=== PATIENT | male | born 1950 | race African-American/Black ===

== ENCOUNTER 2020-01-08 17:17 | Emergency (ER) | payer OTHER, SELFPAY ==
--- NOTE | ~2020-01-08 | CT_ITS ---
EXAMINATION: CT abdomen pelvis wo con DATE: 01/08/2020 18:29 INDICATION: Hematuria TECHNIQUE: Computed tomography (CT) of the abdomen and pelvis was performed without intravenous contr ast. Automated exposure control and iterative reconstruction technique were employed. Exam dose: 653 .41 mGy-cm total exam DLP. COMPARISON: 10/29/[address] abdomen pelvis FINDINGS: Gynecomastia. Some pleural-based calcifications are noted in the posterior lower right thorax. No infiltrate or con solidation at the lung bases. Mild cardiomegaly. No pericardial or pleural effusion. There is borderline thickening of the gallbladder wall. No hepatic space-occupying mass lesion or antonio e duct dilatation is evident. Normal splenic size. No pancreatic mass lesion or calcification or ductal dilatation is evident. No apparent adrenal mass lesion. There is a small nonobstructing right renal calculus and approximately 4.5 mm nonobstructing right re nal calculus. There is moderate bilateral hydroureteronephrosis. There is mild to moderate perinephric stranding. U rinary bladder is distended, measuring almost 18 cm height, with thickening and edema of the wall. Th ere is mild gaseous accumulation within the bladder lumen which might be secondary to instrumentation or emphysematous cystitis. There is some fat stranding around the urinary bladder further suggesting possible infection. A Gambino catheter is inflated in the region of the prostate urethra; deflation an d advancement into the bladder lumen and reinflation is recommended.. The prostate is enlarged. There is extensive calcification of the abdominal aorta and iliac and femoral arteries. No abdominal aortic aneurysm. No intraperitoneal or retroperitoneal or pelvic mass lesion or adenopathy or ascites is noted otherwise. There is prominent collection of fecal material within the rectum, with rectal wall thickening, sugge sting stercoral proctitis. There is a prominent amount of fecal material throughout the colon. No bow el obstruction is evident. The appendiceal lumen measures up to approximately 8.5 mm diameter. No periappendiceal stranding or a ppendicolith or abscess. No suspicious osteolytic or osteoblastic lesions are noted. IMPRESSION: Prominent distention and wall thickening and edema of the urinary bladder, pericystic st randing, suggesting cystitis. There is a within the bladder lumen which may be secondary to instrumen tation or emphysematous cystitis. Prostatomegaly Gambino catheter is inflated within the prostatic urethra. Repositioning into the urinary bladder lumen is recommended. Moderately prominent bilateral hydroureteronephrosis, likely due to bladder outlet obstruction Bilateral nonobstructive nephrolithiasis Possible stercoral proctitis Dr. Wallace telephoned the report and findings including the prominent bladder distention, bladder wall thickening and edema and pericystic stranding, prominent bilateral hydroureteronephrosis and the Fole y catheter in the prostate urethra, as well as the recommendation for repositioning the Gambino cathete r into the urinary bladder lumen from the prostate urethra on 01/08/2020 at 1855 hours. Reviewed, dictated and finalized at [facility]. Reviewed, dictated and finalized at [facility]. AZZO ROLLER IMPRESSION: Prominent distention and wall thickening and edema of the urinary bladder, pericystic stranding, suggesting cystitis. There is a within the bladd er lumen which may be secondary to instrumentation or emphysematous cystitis. Prostatomegaly Gambino catheter is inflated within the prostatic urethra. Repositioning into the urinary bladder lumen is recommended. Moderately prominent bilateral hydroureteronephrosis,
[2020-01-08 17:17] VITALS: BP 144/113; PULSE 86; RESP 16; TEMP 36.9; O2SAT 100
--- NOTE | 2020-01-08 17:55 | ED_ITS ---
Baso % (Auto) Lymph # (Auto) Moody # (Auto) Eos # (Auto) Baso # (Auto) Abs Immat Gran (auto) Absolute Neuts (auto) Absolute Nucleated RBC Total Counted Neutrophils % (Manual) (46-73) % Band Neutrophils % (0-6) % Lymphocytes % (Manual) (18-44) % Monocytes % (Manual) (3-9) % Nucleated RBC % Abs Neuts (Manual) (1.3-6.7) K/mm3 Abs Lymphs (Manual) (1.1-4.5) K/mm3 Abs Monocytes (Manual) (0.1-0.90) K/mm3 Nucleated RBCs % Platelet Estimate (Adequate) Anisocytosis (NORMAL) Sodium 137 (137-145) mmol/L Potassium 4.6 (3.4-5.0) mmol/L Chloride 94 L (98-107) mmol/L Carbon Dioxide 27 (22-30) mmol/L BUN 21 H (9-20) mg/dL Creatinine 1.00 (0.7-1.3) mg/dL Estim Creat Clear Calc 58 ml/min Estimated GFR > 60 (59 - ) Glucose 323 H (75-110) mg/dL Calcium 9.1 (8.4-10.2) mg/dL Lipase (23-300) U/L Urine Color (Yellow) Urine Appearance (Clear) Urine pH (5.0-9.0) Ur Specific [place] (1.001-1.035) Urine Protein (Negative) mg/dL Urine Glucose (UA) (Negative) mg/dL Urine Ketones (Negative) mg/dL Ur Blood (Man) (Negative) Urine Nitrate (Negative) Urine Bilirubin (Negative) Urine Urobilinogen (<2.0) mg/dL Leukocyte Esterase Rfl (Negative) PAUL/UL Urine RBC (0-2) /hpf Urine WBC /hpf Urine Bacteria /hpf Urine Mucus /lpf <Cintia Ruano MD - Last Filed: 01/08/20 23:28> Imaging Data Radiologist's impression: ITS Impressions Abdomen/Pelvis CT 01/08/20 18:30 IMPRESSION: Prominent distention and wall thickening and edema of the urinary bladder, pericystic stranding, suggesting cystitis. There is a within the bladder lumen which may be secondary to instrumentation or emphysematous cystitis. Prostatomegaly Gambino catheter is inflated within the prostatic urethra. Repositioning into the urinary bladder lumen is recommended. Moderately prominent bilateral hydroureteronephrosis, likely due to bladder outlet obstruction Bilateral nonobstructive nephrolithiasis Possible stercoral proctitis Dr. Wallace telephoned the report and findings including the prominent bladder distention, bladder wall thickening and edema and pericystic stranding, prominent bilateral hydroureteronephrosis and the Gambino catheter in the prostate urethra, as well as the recommendation for repositioning the Gambino catheter into the urinary bladder lumen from the prostate urethra on 01/08/2020 at 1855 hours. <Romaine Srinivasan PA-C - Last Filed: 01/08/20 19:32> ITS Impressions Abdomen/Pelvis CT 01/08/20 18:30 IMPRESSION: Prominent distention and wall thickening and edema of the urinary bladder, pericystic stranding, suggesting cystitis. There is a within the bladder lumen which may be secondary to instrumentation or emphysematous cy stitis. Prostatomegaly Gambino catheter is inflated within the prostatic urethra. Repositioning into the urinary bladder lumen is recommended. Moderately prominent bilateral hydroureteronephrosis, likely due to bladder outlet obstruction Bilateral nonobstructive nephrolithiasis Possible stercoral proctitis Dr. Wallace t
--- NOTE | 2020-01-08 17:55 | ED.ABDPAIN ---
HPI - Abdominal Pain General Chief Complaint: Urogenital-Male <Romaine Srinivasan PA-C - Last Filed: 01/08/20 19:32> Stated Complaint: Blood in urine <Romaine Srinivasan PA-C - Last Filed: 01/08/20 19:32> Time Seen by Provider: 01/08/20 17:45 <Romaine Srinivasan PA-C - Last Filed: 01/08/20 19:32> Source: patient, EMS and old records reviewed <Romaine Srinivasan PA-C - Last Filed: 01/08/20 19:32> Mode of arrival: EMS <YEISON Oneil Last Filed: 01/08/20 19:32> Limitations: dementia <YEISON Oneil Last Filed: 01/08/20 19:32> History of Present Illness HPI narrative: Patient is a 69-year-old male who presents to emergency department for evaluation of possible hematuria sent from nursing rehab patient on arrival is in the room patient is demented with history of Parkinson's disorder resting in the bed in no distress denying any pain patient is a limited historian due to dementia but is able to answer yes and no to questions. Patient denies any chest pain shortness of breath abdominal pain pelvic pain or back pain. Patient has longstanding urologic history and has had similar occurrences in the past. <Romaine Srinivasan PA-C - Last Filed: 01/08/20 19:32> Related Data Home Medications: Home Medications Medication Instructions Recorded Confirmed acetaminophen 650 mg PO Q6H PRN 10/21/19 10/29/19 amantadine HCl 100 mg PO QPM 10/21/19 10/29/19 aspirin 81 mg PO DAILY 10/21/19 10/29/19 atorvastatin 80 mg PO HS 10/21/19 10/29/19 calcium carbonate [Oyster Shell 500 mg PO DAILY 10/21/19 10/29/19 Calcium] carbidopa-levodopa 1 tablet PO TID 10/21/19 10/29/19 cholecalciferol (vitamin D3) 1,000 unit PO DAILY 10/21/19 10/29/19 digoxin [Digox] 125 mcg PO DAILY 10/21/19 10/29/19 docusate sodium [Colace] 100 mg PO DAILY 10/21/19 10/29/19 donepezil 10 mg PO DAILY 10/21/19 10/29/19 finasteride 5 mg PO DAILY 10/21/19 10/29/19 fluoxetine 10 mg PO DAILY 10/21/19 10/29/19 furosemide 20 mg PO DAILY 10/21/19 10/29/19 metformin 500 mg PO BID 10/21/19 10/29/19 metoprolol succinate 25 mg PO BID 10/21/19 10/29/19 ondansetron 4 mg PO Q8H PRN 10/21/19 10/29/19 polyethylene glycol 3350 [Miralax] 17 g PO DAILY PRN 10/21/19 10/29/19 tamsulosin 0.4 mg PO BID 10/21/19 10/29/19 <Romaine Srinivasan PA-C - Last Filed: 01/08/20 19:32> Allergies/Adverse Reactions: Allergies Allergy/AdvReac Type Severity Reaction Status Date / Time No Known Allergies Allergy Verified 10/21/19 10:57 <Romaine Srinivasan PA-C - Last Filed: 01/08/20 19:32> Review of Systems Review of Systems: Narrative: Limited due to clinical condition <Romaine Srinivasan PA-C - Last Filed: 01/08/20 19:32> [facility] Past Medical History Medical History: Medical History Atrial fibrillation Benign prostatic hyperplasia Congestive heart failure Coronary artery disease CVA (cerebral vascular accident) Dementia Depression with anxiety Dyslipidemia Gambino catheter in place History of DVT (deep vein thrombosis) Hypertension Obstructive sleep apnea Parkinson disease Type 2 diabetes mellitus Complicated by diabetic retinopathy. He is blind in his left eye. Vitamin D deficiency <Romaine Srinivasan PA-C - Last Filed: 01/08/20 19:32> Surgical History Surgical History: Surgical History History of cystoscopy <Romaine Srinivasan PA-C - Last Filed: 01/08/20 19:32> Social History Social History: Social History Social History: The patient lives at [facility]. He grew up in [place]. He is retired from working for the post office. His was in the [employer] as a young man. His son in [place], Pete Pantoja, is his emergency contact and he is listed as a full code. His primary care provider is Dr. Diaz Shanks. He denies alcohol, toba
[2020-01-08 17:57] LABS: Hematocrit 36.9 % (42.0-52.0); Hemoglobin 11.8 g/dL (14.0-18.0); Mean Corpuscular Hemoglobin 30.3 pg (26-34); Mean Corpuscular Volume 94.6 fl (80-100); Platelet Count Result 287 k/mm3 (150-375); Red Cell Distribution Width 14.7 % (11.5-14.5); White Blood Count 11.7 K/mm3 (4.5-10.0)
[2020-01-08 18:04] LABS: Add Urine Microscopic? YES; Appearance Urine Turbid (Clear); Bacteria Urine 3+ /hpf; Bilirubin Urine Negative (Negative); Blood Urine 3+ (Negative); Color Urine Yellow (Yellow); Glucose Urine UA 2+ mg/dL (Negative); Ketones Urine Negative (Negative); Leukocyte Esterase Ur 2+ LEU/UL (Negative); Mucus Urine Rare /lpf; Nitrate Urine Negative (Negative); Protein Urine 2+ mg/dL (Negative); RBC Urine >75 /hpf (0-2); Specific Grav Ur 1.015 (1.001-1.035); Urobilinogen Urine Negative mg/dL (<2.0); WBC Urine >75 /hpf
[2020-01-08 18:08] VITALS: BP 155/57; PULSE 92; RESP 31; O2SAT 98
--- NOTE | 2020-01-08 18:09 | PC.NURSE ---
Green top being redrawn at this time.
[2020-01-08 18:31] LABS: Band Neutrophils Percent 7 % (0-6); Lymphocytes Absolute Manual 0.46 K/mm3 (1.1-4.5); Monocytes Absolute Manual 0.23 K/mm3 (0.1-0.90); Monocytes Percent Manual 2 % (3-9); Neutrophils Absolute Manual 10.99 K/mm3 (1.3-6.7); Neutrophils Percent Manual 87 % (46-73); Nucleated Red Blood Cells 1 %; Total Cells Counted 100
[2020-01-08 18:32] LABS: Anisocytosis 1+ (NORMAL); Platelet Estimate Adequate (Adequate)
[2020-01-08] MEDS: SODIUM CHLORIDE 0.9% IV 500 ML 999 ML IV CONT (18:32)
[2020-01-08 19:16] VITALS: BP 113/51; PULSE 75; RESP 18; O2SAT 99
[2020-01-08 19:24] LABS: Carbon Dioxide 27 mmol/L (22-30); Chloride 94 mmol/L (98-107); Potassium 4.6 mmol/L (3.4-5.0); Sodium 137 mmol/L (137-145)
[2020-01-08 19:25] LABS: Blood Urea Nitrogen 21 mg/dL (9-20); Calcium 9.1 mg/dL (8.4-10.2); Estimated CRCL calculation 58 ml/min; Estimated Glomerular Filt Rate > 60; Glucose 323 mg/dL (75-110)
[2020-01-08] MEDS: SODIUM CHLORIDE 0.9% IV 1,000 ML 999 ML IV CONT (19:35)
[2020-01-08 19:36] LABS: Lipase 35 U/L (23-300)
--- NOTE | 2020-01-08 19:53 | PC.NURSE ---
PER ED PA, CRANE CATHETER BALLOON WAS DEFLATED DUE TO POOR URINE OUTPUT. AFTER DEFLATING BALLOON, CRANE CATHETER WAS ADVANCED AND BALLOON REINFLATED ONCE URINE OUTPUT RESUMED. 1,000ML DARK BROWN AND BLOOD TINGED URINE OUTPUT INITIALLY, CATHETER TUBE WAS THEN CLAMPED FOR 20 MINUTES. UPON UNCLAMPING, PT VOIDED 500ML DARK BROWN AND BLOOD TINGED URINE.
--- NOTE | 2020-01-08 21:02 | PC.NURSE ---
Called [facility] to transport patient back to facility.... [id number]. #[id number]
[2020-01-08 21:10] VITALS: BP 137/72; PULSE 73; RESP 15; O2SAT 100
--- NOTE | 2020-01-08 21:14 | PC.NURSE ---
Report called and given to RN Gricelda, she states she is not his nurse but willing to take report due to the nurse assigned to this Pt is busy down the ewing.
[2020-01-08 22:22] VITALS: BP 146/60; PULSE 70; RESP 16; O2SAT 100
== END 2020-01-08 22:45 ==
PROVIDERS: Emergency Medicine Emergency Medical Services; Family Medicine; Emergency Provider General Practice
DX: N39.0 Urinary tract infection, site not specified (principal); T83.028A Displacement of other urinary catheter, initial encounter; I48.91 Unspecified atrial fibrillation; N40.0 Benign prostatic hyperplasia without lower urinary tract symptoms; I50.9 Heart failure, unspecified; I25.10 Atherosclerotic heart disease of native coronary artery without angina pectoris; Z86.73 Personal history of transient ischemic attack (TIA), and cerebral infarction without residual deficits; F03.90 Unspecified dementia, unspecified severity, without behavioral disturbance, psychotic disturbance, mood disturbance, and anxiety; F41.8 Other specified anxiety disorders; E78.5 Hyperlipidemia, unspecified; Z86.718 Personal history of other venous thrombosis and embolism; I11.0 Hypertensive heart disease with heart failure; G47.33 Obstructive sleep apnea (adult) (pediatric); G20 Parkinson's disease; E11.319 Type 2 diabetes mellitus with unspecified diabetic retinopathy without macular edema; Z79.84 Long term (current) use of oral hypoglycemic drugs; Z79.82 Long term (current) use of aspirin; E55.9 Vitamin D deficiency, unspecified; N13.30 Unspecified hydronephrosis; N20.0 Calculus of kidney
CPT/HCPCS: 36415; 74176; 80048; 81001; 83690; 85025; 87077; 87086; 87088; 87186; 96361; 96365; 99284; J0696; J7030; J7040

== ENCOUNTER 2020-03-10 18:36 | Inpatient (IN) | payer MEDICARE, SELFPAY ==
[2020-03-10] VITALS (11 sets, daily range): BP systolic 73–105; BP diastolic 43–61; PULSE 87–99; RESP 16–20; TEMP 36.9; O2SAT 18–100
--- NOTE | ~2020-03-10 | XR_ITS ---
EXAMINATION: XR chest 1V portable DATE: 03/10/2020 19:41 INDICATION: Sepsis TECHNIQUE: frontal view of the chest was obtained. COMPARISON: Chest radiograph dated 10/29/2019 FINDINGS: Age is rotated towards the left. No focal airspace opacities, pulmonary edema, pleural effusion or pn eumothorax. The cardiomediastinal silhouette is normal. 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 IMPRESSION: 1. No acute cardiopulmonary disease. Reviewed, dictated and finalized at location [facility].
--- NOTE | ~2020-03-10 | XR_ITS ---
EXAMINATION: XR chest 1V portable INDICATION: Shortness of breath TECHNIQUE: Portable AP chest at 0806 hours COMPARISON: 03/10/2020 FINDINGS: The left subclavian central venous catheter has been removed. There is a small right pleura l effusion. No pneumothorax is identified. There are minimal airspace opacities of the right lung bas e. The heart size is upper limits of normal for technique. There is moderate osteoarthritis of the sh oulders. A small amount of soft tissue gas is seen in the right neck. There is a partially imaged kayy tral venous catheter of the left upper arm. IMPRESSION: 1. Minimal right basilar airspace opacity, consistent with atelectasis versus pneumonia. 2. Small right pleural effusion. 3. Soft tissue gas of the right neck. Correlate for any right neck intervention. Reviewed, dictated and finalized at location A. IMPRESSION: 1. Minimal right basilar airspace opacity, consistent with atelectasis versus p neumonia. 2. Small right pleural effusion. 3. Soft tissue gas of the right neck. Correlate for any right neck intervention .
--- NOTE | ~2020-03-10 | XR_ITS ---
XR chest port-a-cath/central DATE: 03/10/2020 22:32 INDICATION: Central line placement TECHNIQUE: Portable AP chest on 03/10/2020 at 2231 hours COMPARISON: 03/10/2020 portable AP chest views at 7570-2596 hours FINDINGS: There is interval removal of a prior right subclavian central venous catheter and placement of left subclavian catheter, the distal tip overlying the left subclavian vein. No pneumothorax is e vident. No pleural effusion or pulmonary vascular congestion is evident. Heart size is not optimally evaluate d on AP projection because of magnification, also because of rotation. There is aortic arch calcifica tion. Generalized increased density of the right lung compared to the left lung may be related to the rotat ion. No apparent pulmonary consolidation. Osteoarthritic changes at the glenohumeral joints and bilateral rotator cuff atrophy. IMPRESSION: Removal of right subclavian central venous catheter and placement of a left subclavian ce ntral venous catheter, tip overlying the left subclavian vein; no pneumothorax detected Reviewed, dictated and finalized at Location [facility]. Reviewed, dictated and finalized at location A. IMPRESSION: Removal of right subclavian central venous catheter and placement o f a left subclavian central venous catheter, tip overlying the left subclavian vein; no pneumothorax detected
--- NOTE | ~2020-03-10 | XR_ITS ---
EXAMINATION: XR chest port-a-cath/central DATE: 03/10/2020 21:08 INDICATION: Central line placement TECHNIQUE: frontal view of the chest was obtained. COMPARISON: Chest radiograph dated 03/10/2020 at 7:40 PM FINDINGS: Right subclavian catheter which extends beyond the cephalad margin of the clavicle and across the mid line and projecting over the ascending aorta, likely arterial. Lungs remain clear with no focal airsp thanh opacities, pulmonary edema, pleural effusion or pneumothorax. Heart size is normal. Atherosclerot ic aorta. 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 IMPRESSION: 1. Left subclavian catheter likely arterial with distal tip in the ascending thoracic aorta. Recommen d ABG drawn from the catheter for confirmation. Reviewed, dictated and finalized at location A. IMPRESSION: 1. Left subclavian catheter likely arterial with distal tip in the ascending th oracic aorta. Recommend ABG drawn from the catheter for confirmation.
[2020-03-10 19:13] LABS: Basophils Percent Auto 0.2 % (0.2-1.2); Hematocrit 30.9 % (42.0-52.0); Immature Granulocyte Absolute 0.09 K/mm3 (0.00-0.031); Immature Granulocyte Percent A 0.7 % (0-0.5); Lymphocytes Absolute Auto 0.32 K/mm3 (0.9-3.2); Lymphocytes Percent Auto 2.5 % (18.3-44.2); Mean Corpuscular HGB Conc 32.4 g/dl (32-36); Mean Corpuscular Hemoglobin 30.7 pg (26-34); Mean Corpuscular Volume 94.8 fl (80-100); Mean Platelet Volume 11.8 fl (7.4-10.4); Monocytes Absolute Auto 0.8 K/mm3 (0.1-0.6); Monocytes Percent Auto 6.3 % (2.6-8.5); Neutrophils Absolute Auto 11.8 K/mm3 (1.3-6.7); Neutrophils Percent Auto 90.3 % (45.5-73.1); Nucleated Red Blood Cells Perc 0.2 % (0.0-0.2); Platelet Count Result 166 k/mm3 (150-375); Red Blood Count 3.26 M/mm3 (4.6-6.20); Red Cell Distribution Width 14.7 % (11.5-14.5)
--- NOTE | 2020-03-10 19:13 | ECG_ITS ---
Measurements Intervals [place] Rate: 112 P: DC: 0 QRS: -39 QRSD: 97 T: 0 QT: 323 QTc: 443 Interpretive Statements JUNCTIONAL OR ECTOPIC ATRIAL TACHYCARDIA FREQUENT VENTRICULAR PREMATURE COMPLEXES LEFT AXIS DEVIATION CANNOT RULE OUT SEPTAL INFARCT, AGE INDETERMINATE BORDERLINE T WAVE ABNORMALITY- INF/LAT LEADS BASELINE WANDER- V4-V6 ABNORMAL ECG Electronically Signed On 03-11-2020 7:25:48 CDT by Randall Leyva D.O.
--- NOTE | 2020-03-10 19:21 | ED.FEVER ---
HPI - Fever General Chief Complaint: Urogenital-Male Stated Complaint: blood in velazquez Time Seen by Provider: 03/10/20 19:13 History of Present Illness HPI Narrative: Patient presents via EMS from the residential for fever and dark-colored urine. His Velazquez catheter was replaced today and apparently there was a lot of blood after the procedure and then the urine looked cloudy. Here he does not speak but he does not his head. He denies any pain and says yes he is hungry would like some dinner. MD elicited complaint: fever Onset (ago): hour(s) Related Data Home Medications Medication Instructions Recorded Confirmed acetaminophen 650 mg PO Q6H PRN 10/21/19 10/29/19 amantadine HCl 100 mg PO QPM 10/21/19 10/29/19 aspirin 81 mg PO DAILY 10/21/19 10/29/19 atorvastatin 80 mg PO HS 10/21/19 10/29/19 calcium carbonate [Oyster Shell 500 mg PO DAILY 10/21/19 10/29/19 Calcium] carbidopa-levodopa 1 tablet PO TID 10/21/19 10/29/19 cholecalciferol (vitamin D3) 1,000 unit PO DAILY 10/21/19 10/29/19 digoxin [Digox] 125 mcg PO DAILY 10/21/19 10/29/19 docusate sodium [Colace] 100 mg PO DAILY 10/21/19 10/29/19 donepezil 10 mg PO DAILY 10/21/19 10/29/19 finasteride 5 mg PO DAILY 10/21/19 10/29/19 fluoxetine 10 mg PO DAILY 10/21/19 10/29/19 furosemide 20 mg PO DAILY 10/21/19 10/29/19 ondansetron 4 mg PO Q8H PRN 10/21/19 10/29/19 polyethylene glycol 3350 [Miralax] 17 g PO DAILY PRN 10/21/19 10/29/19 tamsulosin 0.4 mg PO BID 10/21/19 10/29/19 metoprolol succinate 50 mg PO DAILY 03/10/20 promethazine 25 mg IA Q6H PRN 03/10/20 Allergies Allergy/AdvReac Type Severity Reaction Status Date / Time No Known Allergies Allergy Verified 03/10/20 18:49 Review of Systems Review of Systems: Narrative: Unable to obtain accurate review of systems since the patient is not speaking. [facility] Past Medical History Medical History Atrial fibrillation Benign prostatic hyperplasia Congestive heart failure Coronary artery disease CVA (cerebral vascular accident) Dementia Depression with anxiety Dyslipidemia Velazquez catheter in place History of DVT (deep vein thrombosis) Hypertension Obstructive sleep apnea Parkinson disease Type 2 diabetes mellitus Complicated by diabetic retinopathy. He is blind in his left eye. Vitamin D deficiency Surgical History Surgical History History of cystoscopy Social History Social History Social History: The patient lives at [facility]. He grew up in [place]. He is retired from working for the post office. His was in the [employer] as a young man. His son in [place], Pete Pantoja, is his emergency contact and he is listed as a full code. His primary care provider is Dr. Diaz Shanks. He denies alcohol, tobacco, and drug use. Smoking status: Unknown if ever smoked Alcohol intake: never Substance use: never Substance use type: does not use Gender identity (if verbalized by the patient): Male Spiritual care concerns: No Agree to blood products: Yes Exam Narrative: Exam Narrative: GENERAL: Thin and cachectic, with left gaze preference, and in no acute distress. HEAD: Normocephalic, atraumatic. EYES: PERRLA and EOMI. ENT: Nares clear, no rhinorrhea or epistaxis. Mucous membranes moist. NECK: Supple. CHEST: Clear to auscultation. No respiratory distress. HEART: Regular rate and rhythm. No murmur heard. Normal peripheral pulses. ABDOMEN: Soft, nontender, nondistended, normal active bowel sounds. EXTREMITIES: Flexion contractures throughout, with slight peripheral edema. SKIN: Warm, dry, no rash. NEURO: No focal deficits. Alert. PSYCH: Normal mood and affect. Course Reevaluation(s) Reevaluation #1: The right subclavian IV turned out to be in the thoracic aorta. I cut the suture and pulled the line the nurses applying pressure
[2020-03-10 19:24] LABS: Alanine Aminotransferase 10 U/L (4-50); Albumin Level 2.8 g/dL (3.5-5.1); Alkaline Phosphatase 104 U/L (38-126); Aspartate Amino Transferase 18 U/L (17-59); Bilirubin,Total 0.6 mg/dL (0.2-1.3); Blood Urea Nitrogen 56 mg/dL (9-20); Calcium 7.8 mg/dL (8.4-10.2); Carbon Dioxide 25 mmol/L (22-30); Chloride 99 mmol/L (98-107); Estimated Glomerular Filt Rate 40; Glucose 435 mg/dL (75-110); Sodium 132 mmol/L (137-145)
[2020-03-10] MEDS: SODIUM CHLORIDE 0.9% IV 1,000 ML 999 ML (19:24)
[2020-03-10] MEDS: SODIUM CHLORIDE 0.9% IV 500 ML 999 ML (19:24)
--- NOTE | 2020-03-10 19:25 | PC.NURSE ---
Patient received 1000ml of NS from EMS.
[2020-03-10 19:42] LABS: Add Urine Microscopic? YES; Appearance Urine Turbid (Clear); Bacteria Urine 4+ /hpf; Bilirubin Urine Negative (Negative); Blood Urine 3+ (Negative); Color Urine Yellow (Yellow); Glucose Urine UA 3+ mg/dL (Negative); Ketones Urine Trace mg/dL (Negative); Leukocyte Esterase Ur 1+ LEU/UL (Negative); Nitrate Urine Negative (Negative); Protein Urine 3+ mg/dL (Negative); RBC Urine >75 /hpf (0-2); Specific Grav Ur 1.014 (1.001-1.035); Urobilinogen Urine Negative mg/dL (<2.0); WBC Clumps Urine Present /HPF; WBC Urine >75 /hpf
[2020-03-10] MEDS: INSULIN HUMAN REGULAR (*BKC) 100 UNITS/ML 8 UNITS IV PUSH (19:45)
--- NOTE | 2020-03-10 21:02 | PC.NURSE ---
2004- Dr Arcos at bedside, patient's pressure remains low despite fluid admin. 2012- Central line attempt started. 2029- Cental line pulled out by Dr Arcos due to no blood return. 2034- Attempt 2 started. 2054- Central line placed, dressing intact. 2099- Xray at bedside.
--- NOTE | 2020-03-10 21:06 | PC.NURSE ---
Attempted to call both of patient's POA's listed on his papers. No answer.
[2020-03-10] MEDS: SODIUM CHLORIDE 0.9% IV 1,000 ML 999 ML IV CONT (21:22)
[2020-03-10] MEDS: levoFLOXacin 500 MG/D5W 100 ML 500 MG/100 ML BAG 100 MG IVPB (21:22)
--- NOTE | 2020-03-10 22:28 | PC.NURSE ---
2149- Dr Arcos removed right central line due to incorrect placement. This RN held pressure onsite for 30 minutes. 2149- Dr Gasca at bedside to attempt central line. 2224- Patient tolerated central line placement well.
--- NOTE | 2020-03-10 22:38 | PC.NURSE ---
Patient repositioned and linens changed. Patient noted to have redness to left hip, patient rolls to left due to being contracted. Pillows placed under left hip and shoulder. Patient denies any current complaints.
--- NOTE | 2020-03-10 23:08 | PM.IMHP ---
H&P: HPI History of Present Illness Chief complaint: Fever today with blood in Gambino catheter Narrative: Date and time of patient contact: 03/10/2020 at 9:45 p.m. Jonny Pantoja is a 69 year old male with past medical history of CVA, Parkinson's disease, expressive aphasia, dementia, and chronic indwelling Gambino catheter who presented to the ER from [facility] facility due to blood in his Gambino catheter. Source of information is ER records and past medical records. Patient is unable to provide history due to expressive aphasia and dementia. The patient's Gambino catheter had been placed earlier in the day and there is a lot of blood in the catheter after the procedure. The patient's urine looked cloudy. When the patient arrived to the ER the patient's urine actually looked brown in color and markedly cloudy with the appearance of chocolate milk. Patient's catheter was draining well. Elevated to 99.4. Patient was hypotensive on presentation to the ER. He received 2 L of normal saline. After 2 L of normal saline the patient's blood pressures were still in the 70s. The ER physician tried to place an IJ line without success. ER provider placed a subclavian line but it appeared to be in the artery and was removed. I was called to admit the patient. The ER physician was giving the patient 1/3 L of fluid and when I arrived at the bedside the patient's systolic blood pressure was still 94. Subsequently I placed a left subclavian line. Patient was in Trendelenburg throughout the procedure and his blood pressures did improve with this positioning. The patient received greater than 35 mL/kilos and fluids. The patient is able to shake his head yes and no to questions but sometimes as answers do not seem to correlate with the question. He will randomly yell out help me. He will follow simple commands. Review of Systems Review of Systems: ROS unobtainable: Yes unobtainable due to medical condition and unobtainable due to mental status [facility] Past Medical History Medical History Atrial fibrillation Benign prostatic hyperplasia Congestive heart failure Coronary artery disease CVA (cerebral vascular accident) Dementia Depression with anxiety Dyslipidemia Gambino catheter in place History of DVT (deep vein thrombosis) Hypertension Obstructive sleep apnea Parkinson disease Type 2 diabetes mellitus Complicated by diabetic retinopathy. He is blind in his left eye. Vitamin D deficiency Surgical History Surgical History History of cystoscopy Family History Family History Other Unknown family medical history Social History Social History Social History: The patient lives at [facility]. He grew up in [place]. He is retired from working for the post office. His was in the [employer] as a young man. His son in [place], Pete Pantoja, is his emergency contact and he is listed as a full code. His primary care provider is Dr. Diaz Shanks. He denies alcohol, tobacco, and drug use. Smoking status: Never smoker Alcohol intake: never Substance use: never Substance use type: does not use Gender identity (if verbalized by the patient): Male Spiritual care concerns: No Agree to blood products: Yes Meds Home Medications and Allergies Home Medications Medication Instructions Recorded Confirmed Type acetaminophen 650 mg PO Q6H PRN 10/21/19 03/11/20 History amantadine HCl 100 mg PO QPM 10/21/19 03/11/20 History aspirin 81 mg PO DAILY 10/21/19 03/11/20 History atorvastatin 80 mg PO HS 10/21/19 03/11/20 History calcium carbonate [Oyster Shell 500 mg PO DAILY 10/21/19 03/11/20 History Calcium] carbidopa-levodopa 1 tablet PO TID 10/21/19 03/11/20 History cholecalciferol (vitamin D
--- NOTE | 2020-03-10 23:10 | WPDPROCEDUR ---
Procedures Central Line Placement: Left SC: Discussed w/ patient and/or surrogate, the non-emergent placement of a central venous catheter, including its clinical necessity/indication & associated potential risks & complications.: Yes The patient and/or surrogate understand(s) and acknowledge(s) the need to proceed with central venous catheter insertion as an important element of the patient's clinical management.: Yes Emergently Placed - (Given emergent patient conditions, temporal constraints may not have permitted and aforementioned informed consent.): No Central Line Date: 03/10/20 Central Line Time: 21:55 Pre-procedural Time-Out was completed immediately before starting the procedure and confirmed: Patient Identification, Site, Procedure, Patient Position and the Availability of Requisite Equipment.: Yes Patient Position: trendelenburg Patient placed on monitor/pulse ox: Yes Provider Prep: mask, sterile gown, sterile gloves, Max. sterile barrier precautions, cap and hand hygiene Central line prep: Chlorhexidine scrub Local anesthesia used: lidocaine 1% Amount of anesthesia used (ml): 10 Ultrasound used for placement: No Central line lumen inserted: triple Divehi: 7 Length (cm): 15 Depth of Insertion (cm): 12 Post procedure: sutured in place, good blood return, all ports aspirated, flushed, capped, tegaderm, antimicrobial disc and aseptic technique maintained throughout procedure Post procedure x-ray: tip of catheter in good position Patient tolerated procedure: well Complications: none Additional comments: Triple-lumen central line was placed under sterile conditions using standard technique with landmark identification. There was immediate return of venous blood return on 1st attempt. Initially the blue port did not aspirate with the line inserted at 13 cm. The line was pulled back to 12 cm with all ports drawing and flushing easily. The patient's chest was dressed with a antibacterial disc and Tegaderm. The line was sutured in 2 different locations for security. Chest x-ray was personally reviewed with no evidence of pneumothorax with line in appropriate position. Line is okay to use. Radiologic interpretation pending.
[2020-03-10 23:44] LABS: Glucose Point of Care 334 (65-105)
[2020-03-11] VITALS (12 sets, daily range): BP systolic 96–123; BP diastolic 56–77; PULSE 50–87; RESP 11–20; TEMP 36.3–37.4; O2SAT 97–100; BMI 23.7
[2020-03-11] MEDS: SODIUM CHLORIDE 0.9% IV 1,000 ML 125 ML IV CONT (00:23)
--- NOTE | 2020-03-11 00:51 | ADMGEN ---
This patient, Jonny Pantoja, was admitted to Intensive Care Unit-12. Patient/family oriented to hospital policies and general routines including ID bracelet, bed and alarms, visiting hours, pain management, procedures, bathroom and other care routines, personal items, smoking policy, room service/diet, and visiting hours. Valuables list has been completed. Information on how to activate the Rapid Response Team has been discussed. Patient/Family are encouraged to report perceived risks to care and to ask questions if they do not understand what they are told or what they should do.
--- NOTE | 2020-03-11 01:06 | ECG_ITS ---
Measurements Intervals [place] Rate: 74 P: NE: 0 QRS: 99 QRSD: 154 T: -79 QT: 453 QTc: 503 Interpretive Statements SINUS RHYTHM ATRIAL PREMATURE COMPLEX, VENTRICULAR COUPLET AND FREQUENT VENTRICULAR PREMATURE COMPLEXES RIGHT AXIS DEVIATION INTRAVENTRICULAR CONDUCTION DELAY CANNOT RULE OUT SEPTAL INFARCT, AGE INDETERMINATE ST-T WAVE ABNORMALITY IN INFERIOR LEADS- CONSIDER ISCHEMIA ABNORMAL ECG Electronically Signed On 03-11-2020 7:19:00 CDT by Randall Leyva D.O.
[2020-03-11 04:28] LABS: Basophils Percent Auto 0.2 % (0.2-1.2); Hematocrit 26.4 % (42.0-52.0); Hemoglobin 8.5 g/dL (14.0-18.0); Immature Granulocyte Absolute 0.09 K/mm3 (0.00-0.031); Immature Granulocyte Percent A 0.8 % (0-0.5); Lymphocytes Absolute Auto 0.68 K/mm3 (0.9-3.2); Lymphocytes Percent Auto 6.1 % (18.3-44.2); Mean Corpuscular HGB Conc 32.2 g/dl (32-36); Mean Corpuscular Hemoglobin 30.2 pg (26-34); Mean Platelet Volume 11.8 fl (7.4-10.4); Monocytes Absolute Auto 0.8 K/mm3 (0.1-0.6); Monocytes Percent Auto 7.3 % (2.6-8.5); Neutrophils Absolute Auto 9.6 K/mm3 (1.3-6.7); Neutrophils Percent Auto 85.6 % (45.5-73.1); Platelet Count Result 140 k/mm3 (150-375); Red Blood Count 2.81 M/mm3 (4.6-6.20); Red Cell Distribution Width 14.6 % (11.5-14.5); White Blood Count 11.2 K/mm3 (4.5-10.0)
[2020-03-11 04:48] LABS: Lactic Acid Reflex 1.3 mmol/L (0.7-2.1)
[2020-03-11 04:49] LABS: Alanine Aminotransferase 11 U/L (4-50); Albumin Level 2.5 g/dL (3.5-5.1); Alkaline Phosphatase 69 U/L (38-126); Aspartate Amino Transferase 24 U/L (17-59); Bilirubin,Total 0.3 mg/dL (0.2-1.3); Blood Urea Nitrogen 49 mg/dL (9-20); Calcium 7.5 mg/dL (8.4-10.2); Carbon Dioxide 27 mmol/L (22-30); Chloride 104 mmol/L (98-107); Estimated Glomerular Filt Rate 49; Glucose 285 mg/dL (75-110); Magnesium 1.9 mg/dL (1.6-2.3); Sodium 135 mmol/L (137-145)
[2020-03-11 05:17] LABS: Potassium 3.8 mmol/L (3.4-5.0)
[2020-03-11] MEDS: CALCIUM CARBONATE (OSCAL) 500 MG TABLET PO (08:50)
[2020-03-11] MEDS: ASPIRIN 81 MG CHEWABLE TABLET PO (08:50)
[2020-03-11] MEDS: DIGOXIN TAB 125 MCG TABLET PO (08:50)
[2020-03-11] MEDS: CARBIDOPA/LEVODOPA 10/100 MG TABLET 1 TABLET PO ×3 (08:50→17:13)
[2020-03-11] MEDS: CHOLECALCIFEROL 1,000 UNIT TABLET 1000 UNITS PO (08:50)
[2020-03-11] MEDS: FLUOXETINE HCL 10 MG CAPSULE PO (08:51)
[2020-03-11] MEDS: FINASTERIDE 5 MG TABLET PO (08:51)
[2020-03-11] MEDS: INSULIN ASPART (*BKC) 100 UNITS/ML SUB-Q ×2 (08:51→16:28)
[2020-03-11] MEDS: DOCUSATE SODIUM 100 MG CAPSULE PO (08:51)
[2020-03-11 09:02] LABS: Glucose Point of Care 240 (65-105)
[2020-03-11] MEDS: SODIUM CHLORIDE 0.9% IV 1,000 ML 50 ML IV CONT (11:09)
[2020-03-11 12:28] LABS: Glucose Point of Care 174 (65-105)
--- NOTE | 2020-03-11 14:30 | PC.NURSE ---
This patient, Jonny Pantoja, was transferred to [[id number]] on 03/11/20 at 1430. Personal belongings sent with patient. Belongings list checked and signed with receiving [ ]. Report given to [Augusta BRISCOE]. Appropriate documentation sent with patient.
--- NOTE | 2020-03-11 14:32 | WPDCNINT ---
Assessment and Plan Assessment and plan (1) Severe sepsis: Code(s): A41.9 - Sepsis, unspecified organism; R65.20 - Severe sepsis without septic shock Status: Acute Assessment and Plan: patient presented with hematuria in the Gambino catheter, UA reflecting UTI - patient was initially hypotensive in the ED, received 2 L of IV fluid bolus, central line was inserted. Patient was maintenance IV fluids. Also taking p.o. intake of fluids and solids. - did not require Vasopressors - patient's hemodynamics improved - continue ceftriaxone - blood and urine cultures obtained, pending results (2) Acute renal injury: Code(s): N17.9 - Acute kidney failure, unspecified Status: Acute Assessment and Plan: acute kidney injury most likely related to UTI, severe sepsis, hypotension. Also patient has a history of essential hypertension and diabetes could have been contributing to renal injury. - Patient adequately fluid-resuscitated, creatinine trending down, urine output has been adequate - will continue to monitor urine output, electrolytes and renal function (3) Type 2 diabetes mellitus with hyperglycemia: Qualifiers: Diabetes mellitus group home insulin use: with group home use Qualified Code(s): E11.65 - Type 2 diabetes mellitus with hyperglycemia; Z79.4 - senior living (current) use of insulin Code(s): E11.65 - Type 2 diabetes mellitus with hyperglycemia Status: Acute Assessment and Plan: continue Accu-Cheks and sliding scale insulin (4) UTI (urinary tract infection) due to urinary indwelling Gambino catheter: Qualifiers: Indwelling urinary catheter type: indwelling urethral catheter Encounter type: initial encounter Qualified Code(s): T83.511A - Infection and inflammatory reaction due to indwelling urethral catheter, initial encounter; N39.0 - Urinary tract infection, site not specified Code(s): T83.511A - Infection and inflammatory reaction due to indwelling urethral catheter, initial encounter; N39.0 - Urinary tract infection, site not specified Status: Acute Assessment and Plan: UA demonstrating a UTI. - Continue ceftriaxone - urine cultures pending - leukocytosis improving, - patient's blood pressures have improved not requiring vasopressors (5) Dementia: Qualifiers: Dementia behavioral disturbance: without behavioral disturbance Dementia type: unspecified type Qualified Code(s): F03.90 - Unspecified dementia without behavioral disturbance Code(s): F03.90 - Unspecified dementia without behavioral disturbance Status: Acute Assessment and Plan: history of dementia likely related to previous CVA (6) DVT prophylaxis: Code(s): Z29.9 - Encounter for prophylactic measures, unspecified Status: Acute Assessment and Plan: SCDs, no chemoprophylaxis secondary to hematuria at this time Additional Plan code status: Full code Critical care time spent: 44 minutes Bumper Straightener Consult Note Consult date: 03/11/20 Time Seen: 07:01 Reason for consult: severe sepsis, UTI, fever, hematuria HPI: Jonny Pantoja is a 69 year old male with significant past medical history of CVA, Parkinson's disease, expressive aphasia, dementia, atrial fibrillation, congestive heart failure, coronary artery disease, depression and anxiety, hyperlipidemia, history of DVT chronic Gambino catheter, history of hypertension, obstructive sleep apnea,, diabetes type 2 presented the ED from [facility] due to hematuria and his Gambino catheter. Patient has Gambino had been placed earlier in the day on the day of admission. In the ED patient's urine was chocolate colored, draining well. temperature was 99.4?. Patient was hypotensive in the ED, received 2 L IV fluid bolus after which the Systolic pressures was still in the 70s. ER physician placed and IgA line without success, then right subclavian line was placed b
--- NOTE | 2020-03-11 14:47 | PC.NURSE ---
Patient received from ICU via bed with ICU staff. Settled into room. No distress noted, on room air. No c/o pain. Patient responds to verbal stimuli. Appears to be resting comfortably. Gambino catheter intact. Scant amount of bloody drainage noted at head of penis.
[2020-03-11 16:29] LABS: Glucose Point of Care 201 (65-105)
[2020-03-11] MEDS: amantadine HCL 100 MG CAPSULE PO (17:11)
--- NOTE | 2020-03-11 18:25 | PM.IMPN ---
Progress Note: A&P Assessment and Plan (1) Septic shock: Code(s): A41.9 - Sepsis, unspecified organism; R65.21 - Severe sepsis with septic shock Status: Acute Assessment and Plan: Due to UTI with indwelling Gambino catheter Patient received greater than 30 mL/kilos fluid bolus in the ER. Subsequently is central line was placed and Levophed was ordered. However, after my evaluation and by the time patient had arrived in the ICU hypotension had resolved. His systolic blood pressures have remained above 90 and is maps have remained above 65. 03/11/20 18:25 Patient is 69-year-old male with history of Parkinson dementia aphasia has chronic Gambino catheter and a resident of nursing patient Gambino was replaced most likely had a trauma and developed hematuria he was brought to the emergency department further evaluation upon arrival his he was hypotension and septic shock and was transferred to ICU central line was placed patient was given 2 L IV fluid he did receive 30 milligram/kilogram fluid, that did improve his blood pressure and did not require any pressor, currently patient is feeling better by nodding denies any chest pain shortness of breath palpitation fever or chills, patient is clinically stable will transfer patient out of ICU. (2) UTI (urinary tract infection) due to urinary indwelling Gambino catheter: Qualifiers: Indwelling urinary catheter type: indwelling urethral catheter Encounter type: initial encounter Qualified Code(s): T83.511A - Infection and inflammatory reaction due to indwelling urethral catheter, initial encounter; N39.0 - Urinary tract infection, site not specified Code(s): T83.511A - Infection and inflammatory reaction due to indwelling urethral catheter, initial encounter; N39.0 - Urinary tract infection, site not specified Status: Acute Assessment and Plan: The patient was given both Levaquin and Rocephin in the ER. Will narrow the patient's antibiotic coverage down to just Levaquin. His prior urine cultures and September 2019 grew out an organism that was sensitive to Levaquin. His urine culture in October 2020 grew out Enterococcus that was pansensitive (3) Type 2 diabetes mellitus with hyperglycemia: Qualifiers: Diabetes mellitus snf insulin use: with long chain dyeing machine operator use Qualified Code(s): E11.65 - Type 2 diabetes mellitus with hyperglycemia; Z79.4 - senior care (current) use of insulin Code(s): E11.65 - Type 2 diabetes mellitus with hyperglycemia Status: Acute Assessment and Plan: Insulin with Accu-Cheks a.c. HS and hypoglycemia protocol. (4) Acute renal injury: Code(s): N17.9 - Acute kidney failure, unspecified Status: Acute Assessment and Plan: Likely ATN due to septic shock. Repeat electrolyte panel in a.m.. Subjective Date/time seen: 03/11/20 18:25 Patient is 69-year-old male with history of Parkinson dementia aphasia has chronic Gambino catheter and a resident of nursing patient Gambino was replaced most likely had a trauma and developed hematuria he was brought to the emergency department further evaluation upon arrival his he was hypotension and septic shock and was transferred to ICU central line was placed patient was given 2 L IV fluid he did receive 30 milligram/kilogram fluid, that did improve his blood pressure and did not require any pressor, currently patient is feeling better by nodding denies any chest pain shortness of breath palpitation fever or chills, patient is clinically stable will transfer patient out of ICU. Review of Systems Review of Systems: All systems reviewed & are unremarkable except as noted in HPI and below Exam Const: General: comfortable and no acute distress HENMT: General nose exam: Normal nares present Mouth: Yes moist mucous membranes Eyes: General: appearance normal, both eyes and all related structures Sclera: sclerae normal Neck: Neck: supple Resp: Effo
[2020-03-11] MEDS: ATORVASTATIN 40 MG TABLET 80 MG PO (20:05)
[2020-03-11 22:24] LABS: Glucose Point of Care 256 (65-105)
[2020-03-12] MEDS: SODIUM CHLORIDE 0.9% IV 1,000 ML 50 ML IV CONT (06:34)
[2020-03-12 07:48] LABS: Glucose Point of Care 190 (65-105)
[2020-03-12 08:00] VITALS: BP 147/81; PULSE 89; RESP 14; RESP 16; TEMP 36.5; O2SAT 100
[2020-03-12] MEDS: CHOLECALCIFEROL 1,000 UNIT TABLET 1000 UNITS PO (08:19)
[2020-03-12] MEDS: FLUOXETINE HCL 10 MG CAPSULE PO (08:22)
[2020-03-12] MEDS: FINASTERIDE 5 MG TABLET PO (08:22)
[2020-03-12] MEDS: CALCIUM CARBONATE (OSCAL) 500 MG TABLET PO (08:22)
[2020-03-12] MEDS: DOCUSATE SODIUM 100 MG CAPSULE PO (08:22)
[2020-03-12 08:30] VITALS: PULSE 89
[2020-03-12] MEDS: DIGOXIN TAB 125 MCG TABLET PO (08:30)
[2020-03-12] MEDS: ASPIRIN 81 MG CHEWABLE TABLET PO (10:50)
[2020-03-12] MEDS: CARBIDOPA/LEVODOPA 10/100 MG TABLET 1 TABLET PO ×3 (10:51→17:12)
[2020-03-12 11:31] LABS: Glucose Point of Care 247 (65-105)
[2020-03-12] MEDS: INSULIN ASPART (*BKC) 100 UNITS/ML SUB-Q ×2 (12:44→17:30)
--- NOTE | 2020-03-12 14:06 | PM.IMPN ---
Progress Note: A&P Assessment and Plan (1) Bacteremia due to Klebsiella pneumoniae: Code(s): R78.81 - Bacteremia; B96.1 - Klebsiella pneumoniae [K. pneumoniae] as the cause of diseases classified elsewhere Status: Acute Assessment and Plan: Blood cultures are positive for klebsiella pneumoniae. Urine cultures are also positive for klebsiella pneumonia. Sensitivities are pending. WBC is improving and is 8.3 today. Continue IV ceftriaxone Await urine and blood culture sensitivities (2) Septic shock: Code(s): A41.9 - Sepsis, unspecified organism; R65.21 - Severe sepsis with septic shock Status: Resolved Assessment and Plan: The pt presented with hematuria following velazquez cather placement. His urine was also markedly cloudy. UA was consistent with UTI. He was hypotensive on presentation to the ED. Lactic was elevated initally at 4.0. He was admitted to the ICU and received 2L IV fluid bolus and a central line was placed. He did not require vasopressors as his hemodynamics improved with fluids. Repeat lactic acid 03/11 was 1.3. He was transferred to the medical floor yesterday. Blood and urine cultures are positive for klebsiella pneumoniae and sensitivites are pending. He is hemodynamically stable today. Continue IV ceftriaxone Await urine and blood culture sensitivities (3) UTI (urinary tract infection) due to urinary indwelling Velazquez catheter: Qualifiers: Encounter type: initial encounter Indwelling urinary catheter type: indwelling urethral catheter Qualified Code(s): T83.511A - Infection and inflammatory reaction due to indwelling urethral catheter, initial encounter; N39.0 - Urinary tract infection, site not specified Code(s): T83.511A - Infection and inflammatory reaction due to indwelling urethral catheter, initial encounter; N39.0 - Urinary tract infection, site not specified Status: Acute Assessment and Plan: As above. Continue IV ceftriaxone. He was on levaquin which was discontinued due to prolonged QTc. Await urine and blood culture sensitivities Will consult urology for further recommendations. Recommendations are greatly appreciated. (4) Type 2 diabetes mellitus with hyperglycemia: Qualifiers: Diabetes mellitus supervisor industrial arts education insulin use: with supervisor industrial arts education use Qualified Code(s): E11.65 - Type 2 diabetes mellitus with hyperglycemia; Z79.4 - director industrial (current) use of insulin Code(s): E11.65 - Type 2 diabetes mellitus with hyperglycemia Status: Acute Assessment and Plan: Blood sugars reviewed and elevated. A1C 10/30/19 was 6.4. Will add low dose lantus Continue moderate dose SSI ACHS Hypoglycemia protocol (5) Acute renal injury: Code(s): N17.9 - Acute kidney failure, unspecified Status: Acute Assessment and Plan: Cr at presentation 03/10 was 2.0. Baseline Cr is 0.8-1.0. This is likely ATN due to septic shock. Cr is 0.9 today which is the patient's baseline. Avoid nephrotoxic agents and renally dose medications Pt is tolerating PO intake well. Will discontinue IV fluids. (6) DVT prophylaxis: Code(s): Z29.9 - Encounter for prophylactic measures, unspecified Status: Acute Assessment and Plan: SCDs. Will avoid chemoprophylaxis due to hematuria. (7) Dementia: Qualifiers: Dementia behavioral disturbance: without behavioral disturbance Dementia type: unspecified type Qualified Code(s): F03.90 - Unspecified dementia without behavioral disturbance Code(s): F03.90 - Unspecified dementia without behavioral disturbance Status: Acute Assessment and Plan: The pt has a hx of dementia and Parkinson's disease with hx of CVAs as well. He is alert and oriented to person and place. Subjective Date/time seen: 03/12/20 14:06 Interval history: I am assuming care for Mr. Pantoja. He is seen and examined at bedside in follow-u
[2020-03-12 14:08] LABS: Basophils Percent Auto 0.2 % (0.2-1.2); Eosinophils Absolute Auto 0.1 K/mm3 (0-0.3); Eosinophils Percent Auto 1.7 % (0-4.4); Hematocrit 30.5 % (42.0-52.0); Hemoglobin 9.6 g/dL (14.0-18.0); Immature Granulocyte Absolute 0.04 K/mm3 (0.00-0.031); Immature Granulocyte Percent A 0.5 % (0-0.5); Lymphocytes Absolute Auto 0.58 K/mm3 (0.9-3.2); Mean Corpuscular HGB Conc 31.5 g/dl (32-36); Mean Corpuscular Hemoglobin 29.7 pg (26-34); Mean Corpuscular Volume 94.4 fl (80-100); Mean Platelet Volume 11.8 fl (7.4-10.4); Monocytes Absolute Auto 0.7 K/mm3 (0.1-0.6); Monocytes Percent Auto 8.4 % (2.6-8.5); Neutrophils Absolute Auto 6.9 K/mm3 (1.3-6.7); Neutrophils Percent Auto 82.2 % (45.5-73.1); Platelet Count Result 139 k/mm3 (150-375); Red Blood Count 3.23 M/mm3 (4.6-6.20); Red Cell Distribution Width 14.4 % (11.5-14.5); White Blood Count 8.3 K/mm3 (4.5-10.0)
[2020-03-12 14:47] LABS: Alanine Aminotransferase 8 U/L (4-50); Albumin Level 2.6 g/dL (3.5-5.1); Alkaline Phosphatase 66 U/L (38-126); Aspartate Amino Transferase 36 U/L (17-59); Bilirubin,Total 0.4 mg/dL (0.2-1.3); Blood Urea Nitrogen 25 mg/dL (9-20); Carbon Dioxide 28 mmol/L (22-30); Chloride 104 mmol/L (98-107); Estimated CRCL calculation 71 ml/min; Estimated Glomerular Filt Rate > 60; Glucose 271 mg/dL (75-110); Potassium 3.8 mmol/L (3.4-5.0); Sodium 135 mmol/L (137-145)
[2020-03-12 16:00] VITALS: BP 124/71; PULSE 79; RESP 18; TEMP 37.7; O2SAT 100
[2020-03-12 16:43] LABS: Glucose Point of Care 233 (65-105)
[2020-03-12] MEDS: amantadine HCL 100 MG CAPSULE PO (17:12)
[2020-03-12 19:42] VITALS: BP 143/68; PULSE 77; RESP 17; TEMP 37; O2SAT 100
[2020-03-12] MEDS: ATORVASTATIN 40 MG TABLET 80 MG PO (20:28)
[2020-03-12] MEDS: INSULIN GLARGINE (*BKC) 100 UNITS/ML SUB-Q (20:39)
[2020-03-12 21:13] LABS: Glucose Point of Care 257 (65-105)
[2020-03-13 05:58] VITALS: BP 142/62; PULSE 77; RESP 16; TEMP 36.6; O2SAT 98
[2020-03-13 07:15] LABS: Alanine Aminotransferase 14 U/L (4-50); Albumin Level 2.6 g/dL (3.5-5.1); Alkaline Phosphatase 65 U/L (38-126); Aspartate Amino Transferase 28 U/L (17-59); Bilirubin,Total 0.6 mg/dL (0.2-1.3); Blood Urea Nitrogen 17 mg/dL (9-20); Calcium 7.9 mg/dL (8.4-10.2); Carbon Dioxide 31 mmol/L (22-30); Chloride 105 mmol/L (98-107); Estimated CRCL calculation 80 ml/min; Estimated Glomerular Filt Rate > 60; Glucose 161 mg/dL (75-110); Magnesium 1.9 mg/dL (1.6-2.3); Potassium 3.7 mmol/L (3.4-5.0); Sodium 136 mmol/L (137-145)
[2020-03-13 07:48] LABS: Basophils Percent Auto 0.2 % (0.2-1.2); Eosinophils Absolute Auto 0.3 K/mm3 (0-0.3); Hematocrit 28.4 % (42.0-52.0); Immature Granulocyte Absolute 0.09 K/mm3 (0.00-0.031); Immature Granulocyte Percent A 1.1 % (0-0.5); Lymphocytes Absolute Auto 0.75 K/mm3 (0.9-3.2); Lymphocytes Percent Auto 9.1 % (18.3-44.2); Mean Corpuscular HGB Conc 31.7 g/dl (32-36); Mean Corpuscular Hemoglobin 30.1 pg (26-34); Mean Platelet Volume 12.1 fl (7.4-10.4); Monocytes Absolute Auto 0.9 K/mm3 (0.1-0.6); Monocytes Percent Auto 10.9 % (2.6-8.5); Neutrophils Absolute Auto 6.3 K/mm3 (1.3-6.7); Neutrophils Percent Auto 75.7 % (45.5-73.1); Platelet Count Result 139 k/mm3 (150-375); Red Blood Count 2.99 M/mm3 (4.6-6.20); Red Cell Distribution Width 14.4 % (11.5-14.5); White Blood Count 8.3 K/mm3 (4.5-10.0)
--- NOTE | 2020-03-13 08:04 | WPDURCON ---
Assessment and Plan Assessment and plan (1) Bacteremia due to Klebsiella pneumoniae: Code(s): R78.81 - Bacteremia; B96.1 - Klebsiella pneumoniae [K. pneumoniae] as the cause of diseases classified elsewhere Status: Acute Assessment and Plan: 69 yo M with chronic indwelling velazquez due to multiple medical comorbidities with Klebsiella sepsis due to traumatic catheterization - Continue IV antibiotics per primary team - continue Velazquez as it is draining well at this time & plan monthly exchanges at longterm (2) UTI (urinary tract infection) due to urinary indwelling Velazquez catheter: Qualifiers: Indwelling urinary catheter type: indwelling urethral catheter Encounter type: initial encounter Qualified Code(s): T83.511A - Infection and inflammatory reaction due to indwelling urethral catheter, initial encounter; N39.0 - Urinary tract infection, site not specified Code(s): T83.511A - Infection and inflammatory reaction due to indwelling urethral catheter, initial encounter; N39.0 - Urinary tract infection, site not specified Status: Acute (3) Retention of urine: Code(s): R33.9 - Retention of urine, unspecified Status: Acute Urology Consult Note HPI Date Seen: 03/13/20 Requesting Physician: Natalie Peace PA-C Primary Care Provider: UNKNOWN,DOCTOR Consult Narrative Narrative: Jonny Pantoja is a 69 year old male who presented to [facility] following velazquez cather placement with resulatant heamuturia and urianry sepsis. Pt has now stabilized. Urine draining well. Blood and urine cultures are positive for klebsiella pneumoniae. He is hemodynamically stable today. Review of Systems Review of Systems: ROS unobtainable: Yes unobtainable due to medical condition [facility] Past Medical History Medical History (Updated 03/12/20 @ 14:39 by Natalie Peace PA-C) Atrial fibrillation BPH (benign prostatic hyperplasia) Congestive heart failure Constipation Coronary artery disease CVA (cerebral vascular accident) Dementia Depression with anxiety Dyslipidemia Flexion contracture joint of multiple sites Velazquez catheter in place History of DVT (deep vein thrombosis) Hypertension Obstructive sleep apnea Parkinson disease Type 2 diabetes mellitus Complicated by diabetic retinopathy. He is blind in his left eye. Vitamin D deficiency Surgical History Surgical History History of cystoscopy Family History Family History Other Unknown family medical history Social History Social History Social History: The patient lives at [facility] [address]. He grew up in [place]. He is retired from working for the [employer]. His was in the [employer] as a young man. His son in [place], Pete Pantoja, is his emergency contact and he is listed as a full code. His primary care provider is Dr. Diaz Shanks. He denies alcohol, tobacco, and drug use. Smoking status: Never smoker Alcohol intake: never Substance use: never Substance use type: does not use Gender identity (if verbalized by the patient): Male Spiritual care concerns: No Agree to blood products: Yes Meds Home Medications and Allergies Home Medications Medication Instructions Recorded Confirmed Type acetaminophen 650 mg PO Q6H PRN 10/21/19 03/11/20 History amantadine HCl 100 mg PO QPM 10/21/19 03/11/20 History aspirin 81 mg PO DAILY 10/21/19 03/11/20 History atorvastatin 80 mg PO HS 10/21/19 03/11/20 History calcium carbonate [Oyster Shell 500 mg PO DAILY 10/21/19 03/11/20 History Calcium] carbidopa-levodopa 1 tablet PO TID 10/21/19 03/11/20 History cholecalciferol (vitamin D3) 1,000 unit PO DAILY 10/21/19 03/11/20 History digoxin [Digox] 125 mcg PO DAILY 10/21/19 03/11/20 History docusate sodium [Colace] 100 mg PO
[2020-03-13 08:45] LABS: Glucose Point of Care 163 (65-105)
[2020-03-13] MEDS: ERTAPENEM 1 GM/NS 50 ML 1 GM/50 ML BAG IVPB (09:00)
--- NOTE | 2020-03-13 10:44 | PCSTNOTE ---
Please refer to the BEDSIDE Swallow Evaluation in the EMR.
[2020-03-13] MEDS: DOCUSATE SODIUM 100 MG CAPSULE PO (11:23)
[2020-03-13] MEDS: CALCIUM CARBONATE (OSCAL) 500 MG TABLET PO (11:24)
[2020-03-13] MEDS: ASPIRIN 81 MG CHEWABLE TABLET PO (11:24)
[2020-03-13] MEDS: FINASTERIDE 5 MG TABLET PO (11:24)
[2020-03-13] MEDS: FLUOXETINE HCL 10 MG CAPSULE PO (11:24)
[2020-03-13] MEDS: CARBIDOPA/LEVODOPA 10/100 MG TABLET 1 TABLET PO ×2 (11:24→17:34)
[2020-03-13] MEDS: CHOLECALCIFEROL 1,000 UNIT TABLET 1000 UNITS PO (11:25)
[2020-03-13 11:29] VITALS: PULSE 77
[2020-03-13] MEDS: DIGOXIN TAB 125 MCG TABLET PO (11:29)
[2020-03-13 11:34] LABS: Glucose Point of Care 229 (65-105)
[2020-03-13] MEDS: INSULIN ASPART (*BKC) 100 UNITS/ML SUB-Q (12:42)
--- NOTE | 2020-03-13 14:40 | PM.IMPN ---
Progress Note: A&P Assessment and Plan (1) Bacteremia due to Klebsiella pneumoniae: Code(s): R78.81 - Bacteremia; B96.1 - Klebsiella pneumoniae [K. pneumoniae] as the cause of diseases classified elsewhere Status: Acute Assessment and Plan: Blood cultures and urine cultures are positive for klebsiella pneumoniae ESBL which are susceptible to ertapenem. Urine cultures reveal enterococcus susceptible to ampicillin, vancomycin, and nitrofurantoin. WBC is stable at 8.3 today. Begin IV ertapenem for 10 days for klebsiella pneumoniae, will check with his senior care to see if he can continue this there Begin PO ampicillin for enterococcus (2) Septic shock: Code(s): A41.9 - Sepsis, unspecified organism; R65.21 - Severe sepsis with septic shock Status: Resolved Assessment and Plan: The pt presented with hematuria following velazquez cather placement. His urine was also markedly cloudy. UA was consistent with UTI. He was hypotensive on presentation to the ED. Lactic was elevated initally at 4.0. He was admitted to the ICU and received 2L IV fluid bolus and a central line was placed. He did not require vasopressors as his hemodynamics improved with fluids. Repeat lactic acid 03/11 was 1.3. He was transferred to the medical floor 03/12. He is hemodynamically stable. Cr has improved to baseline. Continue IV ertapenem and PO ampicillin (3) UTI (urinary tract infection) due to urinary indwelling Velazquez catheter: Qualifiers: Encounter type: initial encounter Indwelling urinary catheter type: indwelling urethral catheter Qualified Code(s): T83.511A - Infection and inflammatory reaction due to indwelling urethral catheter, initial encounter; N39.0 - Urinary tract infection, site not specified Code(s): T83.511A - Infection and inflammatory reaction due to indwelling urethral catheter, initial encounter; N39.0 - Urinary tract infection, site not specified Status: Acute Assessment and Plan: As above. The pt has a chronic indwelling velazquez and had a traumatic velazquez catheterization. Urology is on board and recommendations are greatly appreciated. Continue velazquez as it is draining well and continue monthly exchanges at the senior care. Continue IV ertapenem for klebsiella pneumoniae ESBL and PO ampicillin for enterococcus (4) Type 2 diabetes mellitus with hyperglycemia: Qualifiers: Diabetes mellitus oysterman insulin use: with oysterman use Qualified Code(s): E11.65 - Type 2 diabetes mellitus with hyperglycemia; Z79.4 - penitentiary (current) use of insulin Code(s): E11.65 - Type 2 diabetes mellitus with hyperglycemia Status: Acute Assessment and Plan: Blood sugars reviewed. FBS 161. A1C 10/30/19 was 6.4. Continue lantus, will increase to 7 units Continue moderate dose SSI ACHS Hypoglycemia protocol (5) Acute renal injury: Code(s): N17.9 - Acute kidney failure, unspecified Status: Resolved Assessment and Plan: Cr at presentation 03/10 was 2.0. Baseline Cr is 0.8-1.0. This is likely ATN due to septic shock. Cr is 0.8 today. BUN is 17. Avoid nephrotoxic agents and renally dose medications (6) DVT prophylaxis: Code(s): Z29.9 - Encounter for prophylactic measures, unspecified Status: Acute Assessment and Plan: Will begin SQ lovenox for DVT ppx as pt is no longer having hematuria and is at risk for DVT due to limited mobility (7) Dementia: Qualifiers: Dementia behavioral disturbance: without behavioral disturbance Dementia type: unspecified type Qualified Code(s): F03.90 - Unspecified dementia without behavioral disturbance Code(s): F03.90 - Unspecified dementia without behavioral disturbance Status: Chronic Assessment and Plan: Stable. The pt has a hx of dementia and Parkinson's disease with hx of CVAs as well. He is alert and oriented to person and place
[2020-03-13 16:00] VITALS: BP 136/80; PULSE 78; RESP 16; TEMP 36.7; O2SAT 100
[2020-03-13 16:46] LABS: Glucose Point of Care 156 (65-105)
[2020-03-13] MEDS: amantadine HCL 100 MG CAPSULE PO (17:34)
[2020-03-13] MEDS: AMPICILLIN TRIHYDRATE 500 MG CAPSULE PO (18:58)
[2020-03-13 20:00] VITALS: BP 151/69; PULSE 78; RESP 18; TEMP 37; O2SAT 100
[2020-03-13] MEDS: TAMSULOSIN HCL 0.4 MG CAPSULE PO (20:14)
[2020-03-13] MEDS: ATORVASTATIN 40 MG TABLET 80 MG PO (20:14)
[2020-03-13] MEDS: INSULIN GLARGINE (*BKC) 100 UNITS/ML 7 UNITS SUB-Q (20:16)
[2020-03-13 21:14] LABS: Glucose Point of Care 174 (65-105)
[2020-03-13 22:00] VITALS: TEMP 37.7
[2020-03-14] VITALS (7 sets, daily range): BP systolic 144–156; BP diastolic 60–72; PULSE 77–110; RESP 16–20; TEMP 35.8–37.8; O2SAT 98–100; BMI 27.0; BMI 11.0
[2020-03-14] MEDS: AMPICILLIN TRIHYDRATE 500 MG CAPSULE PO ×4 (00:14→17:28)
[2020-03-14] MEDS: ACETAMINOPHEN 325 MG TABLET 650 MG PO (05:34)
[2020-03-14 05:54] LABS: Basophils Percent Auto 0.3 % (0.2-1.2); Eosinophils Absolute Auto 0.2 K/mm3 (0-0.3); Eosinophils Percent Auto 3.2 % (0-4.4); Hematocrit 27.5 % (42.0-52.0); Immature Granulocyte Absolute 0.07 K/mm3 (0.00-0.031); Immature Granulocyte Percent A 0.9 % (0-0.5); Lymphocytes Absolute Auto 1.14 K/mm3 (0.9-3.2); Lymphocytes Percent Auto 15.3 % (18.3-44.2); Mean Corpuscular HGB Conc 32.7 g/dl (32-36); Mean Corpuscular Hemoglobin 29.9 pg (26-34); Mean Corpuscular Volume 91.4 fl (80-100); Mean Platelet Volume 11.4 fl (7.4-10.4); Monocytes Absolute Auto 0.9 K/mm3 (0.1-0.6); Monocytes Percent Auto 11.5 % (2.6-8.5); Neutrophils Absolute Auto 5.1 K/mm3 (1.3-6.7); Neutrophils Percent Auto 68.8 % (45.5-73.1); Platelet Count Result 152 k/mm3 (150-375); Red Blood Count 3.01 M/mm3 (4.6-6.20); White Blood Count 7.5 K/mm3 (4.5-10.0)
[2020-03-14 05:59] LABS: Albumin Level 2.4 g/dL (3.5-5.1); Blood Urea Nitrogen 12 mg/dL (9-20); Calcium 7.9 mg/dL (8.4-10.2); Carbon Dioxide 34 mmol/L (22-30); Chloride 103 mmol/L (98-107); Estimated CRCL calculation 80 ml/min; Estimated Glomerular Filt Rate > 60; Glucose 124 mg/dL (75-110); Phosphorus 2.6 mg/dL (2.5-4.5); Potassium 3.7 mmol/L (3.4-5.0); Sodium 136 mmol/L (137-145)
[2020-03-14 08:19] LABS: Glucose Point of Care 137 (65-105)
[2020-03-14] MEDS: CHOLECALCIFEROL 1,000 UNIT TABLET 1000 UNITS PO (09:33)
[2020-03-14] MEDS: ASPIRIN 81 MG CHEWABLE TABLET PO (09:33)
[2020-03-14] MEDS: CARBIDOPA/LEVODOPA 10/100 MG TABLET 1 TABLET PO ×3 (09:33→17:28)
[2020-03-14] MEDS: CALCIUM CARBONATE (OSCAL) 500 MG TABLET PO (09:33)
[2020-03-14] MEDS: DIGOXIN TAB 125 MCG TABLET PO (09:33)
[2020-03-14] MEDS: ENOXAPARIN 40 MG/0.4 ML SYRINGE SUB-Q (09:34)
[2020-03-14] MEDS: DOCUSATE SODIUM 100 MG CAPSULE PO (09:34)
[2020-03-14] MEDS: METOPROLOL SUCCINATE EXT REL 50 MG TABCR PO (09:35)
[2020-03-14] MEDS: FINASTERIDE 5 MG TABLET PO (09:35)
[2020-03-14] MEDS: FLUOXETINE HCL 10 MG CAPSULE PO (09:35)
[2020-03-14] MEDS: ERTAPENEM 1 GM/NS 50 ML 1 GM/50 ML BAG IVPB (09:42)
[2020-03-14] MEDS: TAMSULOSIN HCL 0.4 MG CAPSULE PO ×2 (09:45→20:14)
--- NOTE | 2020-03-14 10:46 | PM.IMPN ---
Progress Note: A&P Assessment and Plan (1) Bacteremia due to Klebsiella pneumoniae: Code(s): R78.81 - Bacteremia; B96.1 - Klebsiella pneumoniae [K. pneumoniae] as the cause of diseases classified elsewhere Status: Acute Assessment and Plan: Blood cultures and urine cultures are positive for klebsiella pneumoniae ESBL. WBC is 7.5. He did have a low grade fever with Tmax 100.1 overnight. Continue IV ertapenem for 10 days for klebsiella pneumoniae Care coordination consult placed to ensure this can be continued at his SNF Continue PO ampicillin for enterococcus (2) Septic shock: Code(s): A41.9 - Sepsis, unspecified organism; R65.21 - Severe sepsis with septic shock Status: Resolved Assessment and Plan: The pt presented with hematuria following velazquez cather placement. His urine was also markedly cloudy. UA was consistent with UTI. He was hypotensive on presentation to the ED. Lactic was elevated initally at 4.0. He was admitted to the ICU and received 2L IV fluid bolus and a central line was placed. He did not require vasopressors as his hemodynamics improved with fluids. Repeat lactic acid 03/11 was 1.3. He was transferred to the medical floor 03/12. He is hemodynamically stable. Continue IV ertapenem and PO ampicillin (3) UTI (urinary tract infection) due to urinary indwelling Velazquez catheter: Qualifiers: Encounter type: initial encounter Indwelling urinary catheter type: indwelling urethral catheter Qualified Code(s): T83.511A - Infection and inflammatory reaction due to indwelling urethral catheter, initial encounter; N39.0 - Urinary tract infection, site not specified Code(s): T83.511A - Infection and inflammatory reaction due to indwelling urethral catheter, initial encounter; N39.0 - Urinary tract infection, site not specified Status: Acute Assessment and Plan: As above. The pt has a chronic indwelling velazquez and had a traumatic velazquez catheterization. Urology is on board and recommendations are greatly appreciated. Plan to continue velazquez as it is draining well and continue monthly exchanges at the longterm. Continue IV ertapenem for klebsiella pneumoniae ESBL and PO ampicillin for enterococcus (4) Type 2 diabetes mellitus with hyperglycemia: Qualifiers: Diabetes mellitus long term care administrator insulin use: with senior living use Qualified Code(s): E11.65 - Type 2 diabetes mellitus with hyperglycemia; Z79.4 - terminal gauger (current) use of insulin Code(s): E11.65 - Type 2 diabetes mellitus with hyperglycemia Status: Acute Assessment and Plan: Blood sugars reviewed and acceptable. FBS 137. A1C 10/30/19 was 6.4. Continue lantus 7 units Continue moderate dose SSI ACHS Hypoglycemia protocol (5) Acute renal injury: Code(s): N17.9 - Acute kidney failure, unspecified Status: Resolved Assessment and Plan: Cr at presentation 03/10 was 2.0. LULY has resolved and Cr is stable at 0.8. (6) DVT prophylaxis: Code(s): Z29.9 - Encounter for prophylactic measures, unspecified Status: Acute Assessment and Plan: Continue SQ lovenox for DVT ppx (7) Dementia: Qualifiers: Dementia behavioral disturbance: without behavioral disturbance Dementia type: unspecified type Qualified Code(s): F03.90 - Unspecified dementia without behavioral disturbance Code(s): F03.90 - Unspecified dementia without behavioral disturbance Status: Chronic Assessment and Plan: Stable. The pt has a hx of dementia and Parkinson's disease with hx of CVAs as well. Continue carbidopa-levodopa Continue donepezil (8) Hypertension: Qualifiers: Hypertension type: essential hypertension Qualified Code(s): I10 - Essential (primary) hypertension Code(s): I10 - Essential (primary) hypertension Status: Chronic Assessment and Plan: BP reviewed. He had hypo
[2020-03-14 11:42] LABS: Glucose Point of Care 241 (65-105)
[2020-03-14] MEDS: INSULIN ASPART (*BKC) 100 UNITS/ML SUB-Q (12:24)
[2020-03-14] MEDS: LIDOCAINE HCL 1% LOCAL INJ 2 ML AMPUL 5 ML INFILTRATE (14:36)
[2020-03-14 17:07] LABS: Glucose Point of Care 196 (65-105)
[2020-03-14] MEDS: amantadine HCL 100 MG CAPSULE PO (17:28)
[2020-03-14] MEDS: INSULIN GLARGINE (*BKC) 100 UNITS/ML 10 UNITS SUB-Q (20:14)
[2020-03-14] MEDS: ATORVASTATIN 40 MG TABLET 80 MG PO (20:14)
[2020-03-14 20:34] LABS: Glucose Point of Care 226 (65-105)
[2020-03-14] MEDS: ONDANSETRON INJ 4 MG/2 ML VIAL IV PUSH (23:45)
[2020-03-14] MEDS: CENTRAL LINE FLUSH 10 ML IV PUSH (23:46)
[2020-03-15 06:00] VITALS: BP 131/62; PULSE 81; RESP 12; TEMP 36.5; O2SAT 100
[2020-03-15] MEDS: CENTRAL LINE FLUSH 10 ML IV PUSH ×3 (06:08→21:44)
[2020-03-15] MEDS: AMPICILLIN TRIHYDRATE 500 MG CAPSULE PO ×3 (06:08→17:25)
[2020-03-15 06:13] LABS: Basophils Percent Auto 0.1 % (0.2-1.2); Eosinophils Percent Auto 0.3 % (0-4.4); Hematocrit 27.4 % (42.0-52.0); Hemoglobin 8.7 g/dL (14.0-18.0); Immature Granulocyte Absolute 0.15 K/mm3 (0.00-0.031); Immature Granulocyte Percent A 1.5 % (0-0.5); Lymphocytes Absolute Auto 0.86 K/mm3 (0.9-3.2); Lymphocytes Percent Auto 8.5 % (18.3-44.2); Mean Corpuscular HGB Conc 31.8 g/dl (32-36); Mean Corpuscular Hemoglobin 29.8 pg (26-34); Mean Corpuscular Volume 93.8 fl (80-100); Mean Platelet Volume 11.6 fl (7.4-10.4); Monocytes Absolute Auto 0.8 K/mm3 (0.1-0.6); Monocytes Percent Auto 7.8 % (2.6-8.5); Neutrophils Absolute Auto 8.2 K/mm3 (1.3-6.7); Neutrophils Percent Auto 81.8 % (45.5-73.1); Platelet Count Result 188 k/mm3 (150-375); Red Blood Count 2.92 M/mm3 (4.6-6.20); Red Cell Distribution Width 14.4 % (11.5-14.5); White Blood Count 10.1 K/mm3 (4.5-10.0)
[2020-03-15 06:28] LABS: Alanine Aminotransferase 13 U/L (4-50); Albumin Level 2.5 g/dL (3.5-5.1); Alkaline Phosphatase 66 U/L (38-126); Aspartate Amino Transferase 19 U/L (17-59); Bilirubin,Total 0.4 mg/dL (0.2-1.3); Blood Urea Nitrogen 14 mg/dL (9-20); Calcium 7.8 mg/dL (8.4-10.2); Carbon Dioxide 34 mmol/L (22-30); Chloride 100 mmol/L (98-107); Estimated CRCL calculation 71 ml/min; Estimated Glomerular Filt Rate > 60; Glucose 218 mg/dL (75-110); Magnesium 1.7 mg/dL (1.6-2.3); Potassium 4.4 mmol/L (3.4-5.0); Sodium 136 mmol/L (137-145)
[2020-03-15 07:41] LABS: Glucose Point of Care 196 (65-105)
[2020-03-15 09:05] VITALS: PULSE 88
[2020-03-15] MEDS: CHOLECALCIFEROL 1,000 UNIT TABLET 1000 UNITS PO (09:05)
[2020-03-15] MEDS: DIGOXIN TAB 125 MCG TABLET PO (09:05)
[2020-03-15] MEDS: CALCIUM CARBONATE (OSCAL) 500 MG TABLET PO (09:05)
[2020-03-15] MEDS: ASPIRIN 81 MG CHEWABLE TABLET PO (09:05)
[2020-03-15] MEDS: CARBIDOPA/LEVODOPA 10/100 MG TABLET 1 TABLET PO ×3 (09:05→17:25)
[2020-03-15] MEDS: DONEPEZIL HCL 10 MG TABLET PO (09:06)
[2020-03-15] MEDS: FINASTERIDE 5 MG TABLET PO (09:06)
[2020-03-15] MEDS: DOCUSATE SODIUM 100 MG CAPSULE PO (09:06)
[2020-03-15] MEDS: ENOXAPARIN 40 MG/0.4 ML SYRINGE SUB-Q (09:06)
[2020-03-15 09:07] VITALS: PULSE 88
[2020-03-15] MEDS: lisinopriL 10 MG TABLET PO (09:07)
[2020-03-15] MEDS: FLUOXETINE HCL 10 MG CAPSULE PO (09:07)
[2020-03-15] MEDS: TAMSULOSIN HCL 0.4 MG CAPSULE PO ×2 (09:07→21:44)
[2020-03-15] MEDS: METOPROLOL SUCCINATE EXT REL 50 MG TABCR PO (09:07)
[2020-03-15] MEDS: FUROSEMIDE 20 MG TABLET PO (09:07)
[2020-03-15] MEDS: ERTAPENEM 1 GM/NS 50 ML 1 GM/50 ML BAG IVPB (09:09)
[2020-03-15] MEDS: polyethylene glycoL 3350 17 GM POWD.PACK PO (09:09)
[2020-03-15] MEDS: PANTOPRAZOLE 40 MG TABLET PO (10:15)
--- NOTE | 2020-03-15 11:42 | PM.IMPN ---
Progress Note: A&P Assessment and Plan (1) Bacteremia due to Klebsiella pneumoniae: Code(s): R78.81 - Bacteremia; B96.1 - Klebsiella pneumoniae [K. pneumoniae] as the cause of diseases classified elsewhere Status: Acute Assessment and Plan: Blood cultures and urine cultures are positive for klebsiella pneumoniae ESBL. WBC increased to 10.1 although, clinically, he seems to be improving and is more alert today. He has been afebrile since yesterday AM. Continue IV ertapenem for 10 days for klebsiella pneumoniae. Ertapenem was initiated 03/13. Continue PO ampicillin for enterococcus which was initiated 03/13 Repeat blood cultures Continue to monitor WBC (2) UTI (urinary tract infection) due to urinary indwelling Velazquez catheter: Qualifiers: Encounter type: initial encounter Indwelling urinary catheter type: indwelling urethral catheter Qualified Code(s): T83.511A - Infection and inflammatory reaction due to indwelling urethral catheter, initial encounter; N39.0 - Urinary tract infection, site not specified Code(s): T83.511A - Infection and inflammatory reaction due to indwelling urethral catheter, initial encounter; N39.0 - Urinary tract infection, site not specified Status: Acute Assessment and Plan: The pt presented with hematuria following velazquez cather placement. His urine was also markedly cloudy. UA was consistent with UTI. He has a chronic indwelling velazquez and had a traumatic velazquez catheterization. Urology is on board and recommendations are greatly appreciated. Plan to continue velazquez as it is draining well and continue monthly exchanges at the retirement. Continue IV ertapenem for klebsiella pneumoniae ESBL and PO ampicillin for enterococcus (3) Septic shock: Code(s): A41.9 - Sepsis, unspecified organism; R65.21 - Severe sepsis with septic shock Status: Resolved Assessment and Plan: As above. The pt presented with hematuria following velazquez cather placement. His urine was also markedly cloudy. UA was consistent with UTI. He was hypotensive on presentation to the ED. Lactic was elevated initally at 4.0. He was admitted to the ICU and received 2L IV fluid bolus and a central line was placed. He did not require vasopressors as his hemodynamics improved with fluids. Repeat lactic acid 03/11 was 1.3. He was transferred to the medical floor 03/12. He is hemodynamically stable. (4) Type 2 diabetes mellitus with hyperglycemia: Qualifiers: Diabetes mellitus longterm insulin use: with longterm use Qualified Code(s): E11.65 - Type 2 diabetes mellitus with hyperglycemia; Z79.4 - rn long term care (current) use of insulin Code(s): E11.65 - Type 2 diabetes mellitus with hyperglycemia Status: Acute Assessment and Plan: Blood sugars reviewed and above target. A1C 10/30/19 was 6.4. Continue lantus, will increase to 15 units Continue moderate dose SSI ACHS Hypoglycemia protocol (5) Acute renal injury: Code(s): N17.9 - Acute kidney failure, unspecified Status: Resolved Assessment and Plan: Cr at presentation 03/10 was 2.0. LULY has resolved and Cr is stable at 0.9. (6) DVT prophylaxis: Code(s): Z29.9 - Encounter for prophylactic measures, unspecified Status: Acute Assessment and Plan: Continue SQ lovenox for DVT ppx (7) Dementia: Qualifiers: Dementia behavioral disturbance: without behavioral disturbance Dementia type: unspecified type Qualified Code(s): F03.90 - Unspecified dementia without behavioral disturbance Code(s): F03.90 - Unspecified dementia without behavioral disturbance Status: Chronic Assessment and Plan: Stable. The pt has a hx of dementia and Parkinson's disease with hx of CVAs as well. Continue carbidopa-levodopa Continue donepezil (8) Hypertension: Qualifiers: Hypertension type: essential hypertension Qu
[2020-03-15 11:48] LABS: Glucose Point of Care 235 (65-105)
[2020-03-15] MEDS: INSULIN ASPART (*BKC) 100 UNITS/ML SUB-Q (11:50)
[2020-03-15 14:17] VITALS: BP 119/70; PULSE 68; RESP 16; TEMP 36.4; O2SAT 100
--- NOTE | 2020-03-15 15:07 | PCPTNOTE ---
Physical therapy downgraded patient from 5-7days/wk to OD 2-3days/wk due to patient's reduced tolerance to therapy. Will continue PT plan of care. Sandrine Cuevas, PT, DPT
[2020-03-15 16:45] LABS: Glucose Point of Care 159 (65-105)
[2020-03-15] MEDS: amantadine HCL 100 MG CAPSULE PO (17:25)
[2020-03-15 21:17] VITALS: BP 151/71; PULSE 65; RESP 18; TEMP 37; O2SAT 100
[2020-03-15] MEDS: ATORVASTATIN 40 MG TABLET 80 MG PO (21:44)
[2020-03-15] MEDS: INSULIN GLARGINE (*BKC) 100 UNITS/ML 15 UNITS SUB-Q (21:50)
[2020-03-15 21:58] LABS: Glucose Point of Care 180 (65-105)
[2020-03-16] VITALS (7 sets, daily range): BP systolic 90–127; BP diastolic 41–86; PULSE 61–70; RESP 14–16; TEMP 36.1–37.1; O2SAT 99–100
[2020-03-16] MEDS: AMPICILLIN TRIHYDRATE 500 MG CAPSULE PO ×4 (00:10→18:48)
[2020-03-16] MEDS: CENTRAL LINE FLUSH 10 ML IV PUSH ×3 (05:42→22:15)
[2020-03-16 06:01] LABS: Basophils Percent Auto 0.1 % (0.2-1.2); Eosinophils Absolute Auto 0.4 K/mm3 (0-0.3); Eosinophils Percent Auto 3.9 % (0-4.4); Hematocrit 24.9 % (42.0-52.0); Hemoglobin 7.9 g/dL (14.0-18.0); Immature Granulocyte Absolute 0.32 K/mm3 (0.00-0.031); Immature Granulocyte Percent A 3.4 % (0-0.5); Lymphocytes Absolute Auto 1.51 K/mm3 (0.9-3.2); Mean Corpuscular HGB Conc 31.7 g/dl (32-36); Mean Corpuscular Hemoglobin 29.9 pg (26-34); Mean Corpuscular Volume 94.3 fl (80-100); Mean Platelet Volume 11.4 fl (7.4-10.4); Monocytes Percent Auto 10.3 % (2.6-8.5); Neutrophils Absolute Auto 6.3 K/mm3 (1.3-6.7); Neutrophils Percent Auto 66.3 % (45.5-73.1); Platelet Count Result 196 k/mm3 (150-375); Red Blood Count 2.64 M/mm3 (4.6-6.20); Red Cell Distribution Width 14.6 % (11.5-14.5); White Blood Count 9.5 K/mm3 (4.5-10.0)
[2020-03-16 06:14] LABS: Blood Urea Nitrogen 10 mg/dL (9-20); Calcium 7.4 mg/dL (8.4-10.2); Carbon Dioxide 34 mmol/L (22-30); Chloride 102 mmol/L (98-107); Estimated CRCL calculation 80 ml/min; Estimated Glomerular Filt Rate > 60; Glucose 83 mg/dL (75-110); Magnesium 1.6 mg/dL (1.6-2.3); Potassium 3.6 mmol/L (3.4-5.0); Sodium 136 mmol/L (137-145)
[2020-03-16] MEDS: PANTOPRAZOLE 40 MG TABLET PO (08:18)
[2020-03-16] MEDS: FLUOXETINE HCL 10 MG CAPSULE PO (08:18)
[2020-03-16] MEDS: DIGOXIN TAB 125 MCG TABLET PO (08:18)
[2020-03-16] MEDS: CHOLECALCIFEROL 1,000 UNIT TABLET 1000 UNITS PO (08:21)
[2020-03-16] MEDS: DONEPEZIL HCL 10 MG TABLET PO (08:21)
[2020-03-16] MEDS: TAMSULOSIN HCL 0.4 MG CAPSULE PO ×2 (08:21→20:12)
[2020-03-16] MEDS: lisinopriL 10 MG TABLET PO (08:21)
[2020-03-16] MEDS: CARBIDOPA/LEVODOPA 10/100 MG TABLET 1 TABLET PO ×3 (08:21→18:48)
[2020-03-16] MEDS: ASPIRIN 81 MG CHEWABLE TABLET PO (08:21)
[2020-03-16] MEDS: FUROSEMIDE 20 MG TABLET PO (08:21)
[2020-03-16] MEDS: CALCIUM CARBONATE (OSCAL) 500 MG TABLET PO (08:21)
[2020-03-16] MEDS: FINASTERIDE 5 MG TABLET PO (08:21)
[2020-03-16] MEDS: METOPROLOL SUCCINATE EXT REL 50 MG TABCR PO (08:21)
[2020-03-16] MEDS: DOCUSATE SODIUM 100 MG CAPSULE PO (08:22)
[2020-03-16] MEDS: ERTAPENEM 1 GM/NS 50 ML 1 GM/50 ML BAG IVPB (08:34)
[2020-03-16 09:06] LABS: Glucose Point of Care 82 (65-105)
--- NOTE | 2020-03-16 09:32 | PM.IMPN ---
Progress Note: A&P Assessment and Plan (1) Bacteremia due to Klebsiella pneumoniae: Code(s): R78.81 - Bacteremia; B96.1 - Klebsiella pneumoniae [K. pneumoniae] as the cause of diseases classified elsewhere Status: Acute Assessment and Plan: Blood cultures and urine cultures are positive for klebsiella pneumoniae ESBL. WBC trended down today to 9,500. He has been afebrile since 03/14. Continue IV ertapenem for 10 days for klebsiella pneumoniae. Ertapenem was initiated 03/13. Continue PO ampicillin for enterococcus which was initiated 03/13 Await repeat blood cultures which are pending Continue to monitor WBC (2) UTI (urinary tract infection) due to urinary indwelling Velazquez catheter: Qualifiers: Encounter type: initial encounter Indwelling urinary catheter type: indwelling urethral catheter Qualified Code(s): T83.511A - Infection and inflammatory reaction due to indwelling urethral catheter, initial encounter; N39.0 - Urinary tract infection, site not specified Code(s): T83.511A - Infection and inflammatory reaction due to indwelling urethral catheter, initial encounter; N39.0 - Urinary tract infection, site not specified Status: Acute Assessment and Plan: The pt presented with hematuria following velazquez cather placement. His urine was also markedly cloudy. UA was consistent with UTI. He has a chronic indwelling velazquez and had a traumatic velazquez catheterization. Urology is on board and recommendations are greatly appreciated. Plan to continue velazquez as it is draining well and [facility] Continue IV ertapenem for klebsiella pneumoniae ESBL and PO ampicillin for enterococcus (3) Septic shock: Code(s): A41.9 - Sepsis, unspecified organism; R65.21 - Severe sepsis with septic shock Status: Resolved Assessment and Plan: As above. The pt presented with hematuria following velazquez cather placement. His urine was also markedly cloudy. UA was consistent with UTI. He was hypotensive on presentation to the ED. Lactic was elevated initally at 4.0. He was admitted to the ICU and received 2L IV fluid bolus and a central line was placed. He did not require vasopressors as his hemodynamics improved with fluids. Repeat lactic acid 03/11 was 1.3. He was transferred to the medical floor 03/12 as his septic shock resolved. (4) Type 2 diabetes mellitus with hyperglycemia: Qualifiers: Diabetes mellitus intermediate insulin use: with limited radiology technician use Qualified Code(s): E11.65 - Type 2 diabetes mellitus with hyperglycemia; Z79.4 - neonatal nurse (current) use of insulin Code(s): E11.65 - Type 2 diabetes mellitus with hyperglycemia Status: Acute Assessment and Plan: Blood sugars reviewed from 03/16 and are acceptable. A1C 10/30/19 was 6.4. Continue 15 units lantus Continue moderate dose SSI ACHS Hypoglycemia protocol (5) Acute renal injury: Code(s): N17.9 - Acute kidney failure, unspecified Status: Resolved Assessment and Plan: Cr at presentation 03/10 was 2.0. LULY has resolved and Cr is stable at 0.8. (6) DVT prophylaxis: Code(s): Z29.9 - Encounter for prophylactic measures, unspecified Status: Acute Assessment and Plan: Will discontinue lose dose lovenox due to small amount of bleeding from site of traumatic velazquez and continue SCDs (7) Dementia: Qualifiers: Dementia behavioral disturbance: without behavioral disturbance Dementia type: unspecified type Qualified Code(s): F03.90 - Unspecified dementia without behavioral disturbance Code(s): F03.90 - Unspecified dementia without behavioral disturbance Status: Chronic Assessment and Plan: Stable. The pt has a hx of dementia and Parkinson's disease with hx of CVAs as well. Continue carbidopa-levodopa Continue donepezil (8) Hypertension: Qualifiers: Hypertension
[2020-03-16 09:48] LABS: Iron 21 ug/dL (49-181)
[2020-03-16 09:59] LABS: Percent Iron Saturation 11 % (20-50)
[2020-03-16 10:14] LABS: Transferrin 131 mg/dL (206-381)
[2020-03-16 11:00] LABS: Folic Acid 3.3 ng/mL (2.76->20)
[2020-03-16 12:06] LABS: Glucose Point of Care 148 (65-105)
[2020-03-16 12:34] LABS: Hematocrit 25.1 % (42.0-52.0)
[2020-03-16 18:20] LABS: Glucose Point of Care 113 (65-105)
[2020-03-16] MEDS: amantadine HCL 100 MG CAPSULE PO (18:48)
[2020-03-16] MEDS: ATORVASTATIN 40 MG TABLET 80 MG PO (20:12)
[2020-03-16] MEDS: INSULIN GLARGINE (*BKC) 100 UNITS/ML 15 UNITS SUB-Q (20:12)
[2020-03-16 21:31] LABS: Glucose Point of Care 159 (65-105)
[2020-03-17] MEDS: AMPICILLIN TRIHYDRATE 500 MG CAPSULE PO ×3 (00:44→11:41)
[2020-03-17 04:59] VITALS: BP 120/67; PULSE 65; RESP 16; TEMP 37.3; O2SAT 98
[2020-03-17] MEDS: CENTRAL LINE FLUSH 20 ML IV PUSH (05:07)
[2020-03-17] MEDS: CENTRAL LINE FLUSH 10 ML IV PUSH (05:07)
[2020-03-17 06:15] LABS: Alanine Aminotransferase 6 U/L (4-50); Albumin Level 2.3 g/dL (3.5-5.1); Alkaline Phosphatase 60 U/L (38-126); Aspartate Amino Transferase 21 U/L (17-59); Bilirubin,Total 0.3 mg/dL (0.2-1.3); Blood Urea Nitrogen 9 mg/dL (9-20); Calcium 7.6 mg/dL (8.4-10.2); Carbon Dioxide 37 mmol/L (22-30); Chloride 99 mmol/L (98-107); Estimated CRCL calculation 71 ml/min; Estimated Glomerular Filt Rate > 60; Glucose 92 mg/dL (75-110); Potassium 3.8 mmol/L (3.4-5.0); Sodium 136 mmol/L (137-145)
[2020-03-17 08:06] LABS: Glucose Point of Care 72 (65-105)
[2020-03-17] MEDS: CARBIDOPA/LEVODOPA 10/100 MG TABLET 1 TABLET PO ×2 (08:16→11:42)
[2020-03-17] MEDS: DOCUSATE SODIUM 100 MG CAPSULE PO (08:16)
[2020-03-17 08:17] VITALS: PULSE 62
[2020-03-17] MEDS: DIGOXIN TAB 125 MCG TABLET PO (08:17)
[2020-03-17] MEDS: lisinopriL 10 MG TABLET PO (08:17)
[2020-03-17 08:18] VITALS: PULSE 62
[2020-03-17] MEDS: ASPIRIN 81 MG CHEWABLE TABLET PO (08:18)
[2020-03-17] MEDS: CALCIUM CARBONATE (OSCAL) 500 MG TABLET PO (08:18)
[2020-03-17] MEDS: FLUOXETINE HCL 10 MG CAPSULE PO (08:18)
[2020-03-17] MEDS: PANTOPRAZOLE 40 MG TABLET PO (08:18)
[2020-03-17] MEDS: CHOLECALCIFEROL 1,000 UNIT TABLET 1000 UNITS PO (08:18)
[2020-03-17] MEDS: FUROSEMIDE 20 MG TABLET PO (08:18)
[2020-03-17] MEDS: TAMSULOSIN HCL 0.4 MG CAPSULE PO (08:18)
[2020-03-17] MEDS: DONEPEZIL HCL 10 MG TABLET PO (08:18)
[2020-03-17] MEDS: METOPROLOL SUCCINATE EXT REL 50 MG TABCR PO (08:18)
[2020-03-17] MEDS: FINASTERIDE 5 MG TABLET PO (08:18)
[2020-03-17] MEDS: ERTAPENEM 1 GM/NS 50 ML 1 GM/50 ML BAG IVPB (08:19)
[2020-03-17 10:05] LABS: Basophils Percent Auto 0.2 % (0.2-1.2); Eosinophils Absolute Auto 0.4 K/mm3 (0-0.3); Eosinophils Percent Auto 4.3 % (0-4.4); Hematocrit 27.1 % (42.0-52.0); Hemoglobin 8.6 g/dL (14.0-18.0); Immature Granulocyte Absolute 0.53 K/mm3 (0.00-0.031); Immature Granulocyte Percent A 6.2 % (0-0.5); Lymphocytes Absolute Auto 1.31 K/mm3 (0.9-3.2); Lymphocytes Percent Auto 15.3 % (18.3-44.2); Mean Corpuscular HGB Conc 31.7 g/dl (32-36); Mean Corpuscular Volume 94.4 fl (80-100); Monocytes Absolute Auto 0.8 K/mm3 (0.1-0.6); Monocytes Percent Auto 9.6 % (2.6-8.5); Neutrophils Absolute Auto 5.5 K/mm3 (1.3-6.7); Neutrophils Percent Auto 64.4 % (45.5-73.1); Nucleated Red Blood Cells Perc 0.2 % (0.0-0.2); Platelet Count Result 253 k/mm3 (150-375); Red Blood Count 2.87 M/mm3 (4.6-6.20); Red Cell Distribution Width 14.7 % (11.5-14.5); White Blood Count 8.5 K/mm3 (4.5-10.0)
[2020-03-17 11:40] LABS: Glucose Point of Care 173 (65-105)
[2020-03-17] MEDS: FUROSEMIDE INJ 40 MG/4 ML VIAL 20 MG IV PUSH (11:41)
--- NOTE | 2020-03-17 13:51 | PM.DS ---
DS: Diagnosis Admitting Diagnosis Admitting Diagnosis: Sepsis, unspecified organism Discharge Diagnosis (1) Bacteremia due to Klebsiella pneumoniae: Code(s): R78.81 - Bacteremia; B96.1 - Klebsiella pneumoniae [K. pneumoniae] as the cause of diseases classified elsewhere Status: Acute (2) UTI (urinary tract infection) due to urinary indwelling Velazquez catheter: Qualifiers: Indwelling urinary catheter type: indwelling urethral catheter Encounter type: initial encounter Qualified Code(s): T83.511A - Infection and inflammatory reaction due to indwelling urethral catheter, initial encounter; N39.0 - Urinary tract infection, site not specified Code(s): T83.511A - Infection and inflammatory reaction due to indwelling urethral catheter, initial encounter; N39.0 - Urinary tract infection, site not specified Status: Acute (3) Septic shock: Code(s): A41.9 - Sepsis, unspecified organism; R65.21 - Severe sepsis with septic shock Status: Resolved (4) Type 2 diabetes mellitus with hyperglycemia: Qualifiers: Diabetes mellitus intermediate frame tender insulin use: with fdc use Qualified Code(s): E11.65 - Type 2 diabetes mellitus with hyperglycemia; Z79.4 - manager intermediate (current) use of insulin Code(s): E11.65 - Type 2 diabetes mellitus with hyperglycemia Status: Chronic (5) Acute renal injury: Code(s): N17.9 - Acute kidney failure, unspecified Status: Resolved (6) Dementia: Qualifiers: Dementia behavioral disturbance: without behavioral disturbance Dementia type: unspecified type Qualified Code(s): F03.90 - Unspecified dementia without behavioral disturbance Code(s): F03.90 - Unspecified dementia without behavioral disturbance Status: Chronic (7) Hypertension: Qualifiers: Hypertension type: essential hypertension Qualified Code(s): I10 - Essential (primary) hypertension Code(s): I10 - Essential (primary) hypertension Status: Chronic (8) Atrial fibrillation: Code(s): I48.91 - Unspecified atrial fibrillation Status: Chronic (9) BPH (benign prostatic hyperplasia): Code(s): N40.0 - Benign prostatic hyperplasia without lower urinary tract symptoms Status: Chronic (10) Dyslipidemia: Code(s): E78.5 - Hyperlipidemia, unspecified Status: Chronic (11) Anemia: Code(s): D64.9 - Anemia, unspecified Status: Chronic Assessment and Plan: DS: Summary Hospital Course Reason for hospitalization: UTI complicated by Klebsiella pneumoniae bacteremia Hospital Course: Mr. Pantoja is a 69 y.o. male with PMH significant for hx of CVA, Parkinson's disease, expressive aphasia, dementia, and chronic indwelling velazquez catheter with recurrent UTIs who presented to the ED from SNF due to traumatic velazquez insertion. His urine was noted to be very brown and cloudy appearing but the velazquez was draining well. He was hypotensive on arrival and received 2L normal saline fluid bolus and central line was placed. Initial workup in the ED revealed WBC 13,000, sodium 132, Cr 2.00, BUN 56, glucose 435, lactic acid 4.0, protein 5.0, albumin 2.5, and UA strongly suggestive of UTI. He was treated with IV levaquin and ceftriaxone initially. His hypotension persisted so he was admitted to the ICU. IV levaquin was discontinued due to QT prolongation and IV ceftriaxone was resumed. He did not require vasopressors as his hemodynamics improved with fluids. Repeat lactic acid 03/11 was 1.3. He was transferred to the medical floor 03/12 as his septic shock resolved and his BP stabilized. His PO antihypertensives were resumed. His urine and blood cultures were positive for klebsiella pneumoniae ESBL resistant to ceftriaxone so IV ertapenem was initiated 03/13. Blood cultures were repeated and reveal NGTD. Urine culture also revealed enterococcus so he was treated with PO ampicillin. He did have scant sanguineous and serosangu
[2020-03-17 14:00] VITALS: BP 144/71; PULSE 75; RESP 16; TEMP 36.3; O2SAT 100
== END 2020-03-17 15:50 | DRG 698 ==
LOC: ANHED 22:51 → ANHICU 23:22 → ANH3MED 03-11 14:49
PROVIDERS: Physician Assistant; Admitting Provider Internal Medicine; Emergency Provider Emergency Medicine; Visit Provider Hospitalist
DX: T83.511A Infection and inflammatory reaction due to indwelling urethral catheter, initial encounter (principal); R65.21 Severe sepsis with septic shock; A41.59 Other Gram-negative sepsis; R47.01 Aphasia; N17.9 Acute kidney failure, unspecified; E87.2 Acidosis; T82.524A Displacement of infusion catheter, initial encounter; Z86.73 Personal history of transient ischemic attack (TIA), and cerebral infarction without residual deficits; G20 Parkinson's disease; F03.90 Unspecified dementia, unspecified severity, without behavioral disturbance, psychotic disturbance, mood disturbance, and anxiety; I48.91 Unspecified atrial fibrillation; N40.0 Benign prostatic hyperplasia without lower urinary tract symptoms; I25.10 Atherosclerotic heart disease of native coronary artery without angina pectoris; F41.8 Other specified anxiety disorders; I50.9 Heart failure, unspecified; Z86.718 Personal history of other venous thrombosis and embolism; G47.33 Obstructive sleep apnea (adult) (pediatric); E11.319 Type 2 diabetes mellitus with unspecified diabetic retinopathy without macular edema; E55.9 Vitamin D deficiency, unspecified; E11.65 Type 2 diabetes mellitus with hyperglycemia; T83.83XA Hemorrhage due to genitourinary prosthetic devices, implants and grafts, initial encounter; R31.9 Hematuria, unspecified; Y84.6 Urinary catheterization as the cause of abnormal reaction of the patient, or of later complication, without mention of misadventure at the time of the procedure; R33.9 Retention of urine, unspecified
CPT/HCPCS: 36415; 36556; 36569; 71045; 80048; 80053; 80069; 81001; 82607; 82728; 82746; 82948; 83540; 83550; 83605; 83735; 84466; 85014; 85018; 85025; 87040; 87077; 87086; 87088; 87186; 87804; 92610; 93005; 96365; 96367; 96375; 97110; 97163; 97166; 97530; 99285; A9270; C1751; J0696; J1335; J1650; J1815; J1940; J1956; J2405; J7030; J7040

== ENCOUNTER 2020-04-03 20:23 | Inpatient (IN) | payer MEDICARE, SELFPAY ==
--- NOTE | ~2020-04-03 | XR_ITS ---
EXAMINATION: XR chest 1V portable EXAM DATE: 04/03/2020 23:08 INDICATION: Check PICC line placement. TECHNIQUE: Portable AP frontal chest x-ray was obtained. There is no prior study for comparison. FINDINGS: Left-sided venous access line identified, tip projecting over the brachial vein, unchanged compared to prior study. This is likely intended position for a shorter venous access line. No confluent consolidation, pneumothorax or pleural effusion suspected. The cardiomediastinal silhoue tte is prominent but magnified on this AP technique. There is pulmonary vascular congestion. IMPRESSION: 1. Left-sided venous access line in position. 2. No acute cardiopulmonary findings. Reviewed, dictated and finalized at location G.
[2020-04-03 20:29] VITALS: BP 145/79; PULSE 64; RESP 18; TEMP 36; O2SAT 99
[2020-04-03 21:12] VITALS: BP 138/76; PULSE 66; RESP 18; O2SAT 100
[2020-04-03 22:18] VITALS: BP 154/83; PULSE 75; RESP 20; O2SAT 99
[2020-04-03 22:50] LABS: Add Urine Microscopic? YES; Appearance Urine Cloudy (Clear); Bacteria Urine 4+ /hpf; Bilirubin Urine Negative (Negative); Blood Urine 3+ (Negative); Glucose Urine UA Negative (Negative); Ketones Urine Trace mg/dL (Negative); Leukocyte Esterase Ur Negative LEU/UL (Negative); Nitrate Urine Negative (Negative); Protein Urine 3+ mg/dL (Negative); RBC Urine >75 /hpf (0-2); Urobilinogen Urine Negative mg/dL (<2.0); WBC Urine 21-30 /hpf
[2020-04-03 22:52] LABS: Color Urine Red (Yellow)
[2020-04-03 23:10] VITALS: BP 130/87; PULSE 64; RESP 18; O2SAT 100
[2020-04-03 23:34] LABS: Basophils Percent Auto 0.5 % (0.2-1.2); Eosinophils Absolute Auto 0.2 K/mm3 (0-0.3); Eosinophils Percent Auto 4.6 % (0-4.4); Hematocrit 26.7 % (42.0-52.0); Hemoglobin 8.4 g/dL (14.0-18.0); Immature Granulocyte Absolute 0.01 K/mm3 (0.00-0.031); Immature Granulocyte Percent A 0.3 % (0-0.5); Lymphocytes Absolute Auto 1.18 K/mm3 (0.9-3.2); Lymphocytes Percent Auto 29.9 % (18.3-44.2); Mean Corpuscular HGB Conc 31.5 g/dl (32-36); Mean Corpuscular Hemoglobin 30.4 pg (26-34); Mean Corpuscular Volume 96.7 fl (80-100); Mean Platelet Volume 9.6 fl (7.4-10.4); Monocytes Absolute Auto 0.3 K/mm3 (0.1-0.6); Monocytes Percent Auto 8.4 % (2.6-8.5); Neutrophils Absolute Auto 2.2 K/mm3 (1.3-6.7); Neutrophils Percent Auto 56.3 % (45.5-73.1); Platelet Count Result 218 k/mm3 (150-375); Red Blood Count 2.76 M/mm3 (4.6-6.20); Red Cell Distribution Width 15.9 % (11.5-14.5); White Blood Count 3.9 K/mm3 (4.5-10.0)
--- NOTE | 2020-04-03 23:35 | ED.GENADULT ---
HPI - General Adult General Chief complaint: Urogenital-Male Stated complaint: blood in velazquez Time Seen by Provider: 04/03/20 23:28 History of Present Illness HPI narrative: Patient presents via EMS from the [facility] for blood in his Velazquez bag. No known trauma. He is only able to mumble, and does not give any information. He does say he like to have some dinner and a pain pill. The [facility] papers say that he has a Velazquez for prostatic hypertrophy. He has had a stroke in the past, and appears paralyzed on the right. There is no record of him having fever chills or sweats. He also has chronic back pain. Onset (ago): unknown Related Data Home Medications Medication Instructions Recorded Confirmed acetaminophen 650 mg PO Q6H PRN 10/21/19 04/04/20 amantadine HCl 100 mg PO QPM 10/21/19 04/04/20 aspirin 81 mg PO DAILY 10/21/19 04/04/20 atorvastatin 80 mg PO HS 10/21/19 04/04/20 calcium carbonate [Oyster Shell 500 mg PO DAILY 10/21/19 04/04/20 Calcium] carbidopa-levodopa 1 tablet PO TID 10/21/19 04/04/20 cholecalciferol (vitamin D3) 1,000 unit PO DAILY 10/21/19 04/04/20 digoxin [Digox] 125 mcg PO DAILY 10/21/19 04/04/20 docusate sodium [Colace] 100 mg PO DAILY 10/21/19 04/04/20 donepezil 10 mg PO DAILY 10/21/19 04/04/20 finasteride 5 mg PO DAILY 10/21/19 04/04/20 fluoxetine 10 mg PO DAILY 10/21/19 04/04/20 furosemide 20 mg PO DAILY 10/21/19 04/04/20 ondansetron 4 mg PO Q8H PRN 10/21/19 04/04/20 polyethylene glycol 3350 [Miralax] 17 g PO DAILY PRN 10/21/19 04/04/20 tamsulosin 0.4 mg PO BID 10/21/19 04/04/20 metoprolol succinate 50 mg PO DAILY 03/10/20 04/04/20 promethazine 25 mg MA Q6H PRN 03/10/20 04/04/20 Lactobacillus acidophilus 2,000 mmu cells PO BID 04/04/20 04/04/20 [Acidophilus] ciprofloxacin HCl 500 mg PO Q12H 04/04/20 04/04/20 Allergies Allergy/AdvReac Type Severity Reaction Status Date / Time No Known Allergies Allergy Verified 03/10/20 18:49 Review of Systems Review of Systems: Narrative: Unable to obtain a review of systems due to the patient being a phasic. [facility] Past Medical History Medical History (Updated 04/04/20 @ 05:46 by Jeffy Sharp MD) Atrial fibrillation BPH (benign prostatic hyperplasia) Congestive heart failure Constipation Coronary artery disease CVA (cerebral vascular accident) Dementia Depression with anxiety Dyslipidemia Flexion contracture joint of multiple sites Velazquez catheter in place History of DVT (deep vein thrombosis) Hypertension Obstructive sleep apnea Parkinson disease Type 2 diabetes mellitus Complicated by diabetic retinopathy. He is blind in his left eye. Vitamin D deficiency Surgical History Surgical History History of cystoscopy Family History Family History Other Unknown family medical history Social History Social History Social History: The patient lives at [facility]. He grew up in [place]. He is retired from working for the [employer]. His was in the [employer] as a young man. His son in [place], Pete Pantoja, is his emergency contact and he is listed as a full code. His primary care provider is Dr. Diaz Shanks. He denies alcohol, tobacco, and drug use. Smoking status: Never smoker Alcohol intake: never Substance use: never Substance use type: does not use Gender identity (if verbalized by the patient): Male Spiritual care concerns: No Agree to blood products: Yes Exam Narrative: Exam Narrative: GENERAL: Poor eye contact, food on his shirt, and in no acute distress. HEAD: Normocephalic, atraumatic. EYES: PERRLA and EOMI. ENT: Nares clear, no rhinorrhea or epistaxis. Mucous membranes moist. NECK: Supple. CHEST: Clear to auscultation. No respiratory distress. HEART: Regular rate and rhythm. No murmur heard. Normal peripheral pulse
[2020-04-03 23:45] LABS: Alanine Aminotransferase 8 U/L (4-50); Albumin Level 3.3 g/dL (3.5-5.1); Alkaline Phosphatase 100 U/L (38-126); Aspartate Amino Transferase 16 U/L (17-59); Bilirubin,Total 0.3 mg/dL (0.2-1.3); Blood Urea Nitrogen 16 mg/dL (9-20); Calcium 8.4 mg/dL (8.4-10.2); Carbon Dioxide 32 mmol/L (22-30); Chloride 105 mmol/L (98-107); Estimated Glomerular Filt Rate > 60; Glucose 154 mg/dL (75-110); Potassium 3.9 mmol/L (3.4-5.0); Sodium 140 mmol/L (137-145)
[2020-04-03] MEDS: SODIUM CHLORIDE 0.9% IV 1,000 ML 999 ML IV CONT (23:57)
[2020-04-04] VITALS (8 sets, daily range): BP systolic 113–155; BP diastolic 60–99; PULSE 68–92; RESP 14–18; TEMP 36.3–36.6; O2SAT 99–100; BMI 23.6
[2020-04-04] MEDS: MORPHINE SULFATE 4 MG/ML INJ IV PUSH ×2 (01:36→03:29)
[2020-04-04] MEDS: SODIUM CHLORIDE 0.9% IV 1,000 ML 125 ML IV CONT (02:19)
--- NOTE | 2020-04-04 02:25 | ADMGEN ---
This patient, Jonny Pantoja, was admitted to 3 Med Surg Room 325-01. Patient/family oriented to hospital policies and general routines including ID bracelet, bed and alarms, visiting hours, pain management, procedures, bathroom and other care routines, personal items, smoking policy, room service/diet, and visiting hours. Valuables list has been completed. Information on how to activate the Rapid Response Team has been discussed. Patient/Family are encouraged to report perceived risks to care and to ask questions if they do not understand what they are told or what they should do.
--- NOTE | 2020-04-04 05:11 | PM.IMHP ---
H&P: HPI History of Present Illness Chief complaint: UTI and hematuria, old stroke, right paralysis Narrative: This is a 69 year old severely demented, Diabetic, and previous CVA w/ residual right side paralysis who [facility] to blood in his Gambino bag. The patient is severely demented and is incoherent. The patient constantly complains of aches and pains. The patient was evaluated in the ER tonight and found to have gross hematuria as well as an abnormal urinalysis. No family is present and no other history is obtainable. On review of the chart it appears that the patient had a ESBL producing Klebsiella and Enterococcus species last month on his urine culture. Review of Systems Review of Systems: ROS unobtainable: Yes unobtainable due to mental status PMFSH Past Medical History Medical History Atrial fibrillation BPH (benign prostatic hyperplasia) Congestive heart failure Constipation Coronary artery disease CVA (cerebral vascular accident) Dementia Depression with anxiety Dyslipidemia Flexion contracture joint of multiple sites Gambino catheter in place History of DVT (deep vein thrombosis) Hypertension Obstructive sleep apnea Parkinson disease Type 2 diabetes mellitus Complicated by diabetic retinopathy. He is blind in his left eye. Vitamin D deficiency Surgical History Surgical History History of cystoscopy Family History Family History Other Unknown family medical history Social History Social History Social History: The patient lives at [facility]. He grew up in [place]. He is retired from working for the post office. His was in the [employer] as a young man. His son in [place], Pete Pantoja, is his emergency contact and he is listed as a full code. His primary care provider is Dr. Diaz Shanks. He denies alcohol, tobacco, and drug use. Smoking status: Never smoker Alcohol intake: never Substance use: never Substance use type: does not use Gender identity (if verbalized by the patient): Male Spiritual care concerns: No Agree to blood products: Yes Meds Home Medications and Allergies Home Medications Medication Instructions Recorded Confirmed Type acetaminophen 650 mg PO Q6H PRN 10/21/19 04/04/20 History amantadine HCl 100 mg PO QPM 10/21/19 04/04/20 History aspirin 81 mg PO DAILY 10/21/19 04/04/20 History atorvastatin 80 mg PO HS 10/21/19 04/04/20 History calcium carbonate [Oyster Shell 500 mg PO DAILY 10/21/19 04/04/20 History Calcium] carbidopa-levodopa 1 tablet PO TID 10/21/19 04/04/20 History cholecalciferol (vitamin D3) 1,000 unit PO DAILY 10/21/19 04/04/20 History digoxin [Digox] 125 mcg PO DAILY 10/21/19 04/04/20 History docusate sodium [Colace] 100 mg PO DAILY 10/21/19 04/04/20 History donepezil 10 mg PO DAILY 10/21/19 04/04/20 History finasteride 5 mg PO DAILY 10/21/19 04/04/20 History fluoxetine 10 mg PO DAILY 10/21/19 04/04/20 History furosemide 20 mg PO DAILY 10/21/19 04/04/20 History ondansetron 4 mg PO Q8H PRN 10/21/19 04/04/20 History polyethylene glycol 3350 [Miralax] 17 g PO DAILY PRN 10/21/19 04/04/20 History tamsulosin 0.4 mg PO BID 10/21/19 04/04/20 History metoprolol succinate 50 mg PO DAILY 03/10/20 04/04/20 History promethazine 25 mg RI Q6H PRN 03/10/20 04/04/20 History lisinopril 10 mg PO DAILY 30 Days #30 tablet 03/17/20 04/04/20 Rx Lactobacillus acidophilus 2,000 mmu cells PO BID 04/04/20 04/04/20 History [Acidophilus] Allergies Allergy/AdvReac Type Severity Reaction Status Date / Time No Known Allergies Allergy Verified 03/10/20 18:49 Vital Signs Vital Signs - 24 hr 04/03/20 20:29 04/03/20 21:12 04/03/20 22:18 Temperature 36.0 C L Pulse Rate 64 66 75 Respirat
[2020-04-04] MEDS: ERTAPENEM 1 GM/NS 50 ML 1 GM/50 ML BAG IVPB (05:56)
[2020-04-04 07:32] LABS: Basophils Percent Auto 0.2 % (0.2-1.2); Eosinophils Percent Auto 0.5 % (0-4.4); Hematocrit 24.6 % (42.0-52.0); Hemoglobin 7.6 g/dL (14.0-18.0); Immature Granulocyte Absolute 0.02 K/mm3 (0.00-0.031); Immature Granulocyte Percent A 0.3 % (0-0.5); Lymphocytes Absolute Auto 0.36 K/mm3 (0.9-3.2); Lymphocytes Percent Auto 6.3 % (18.3-44.2); Mean Corpuscular HGB Conc 30.9 g/dl (32-36); Mean Corpuscular Hemoglobin 30.3 pg (26-34); Mean Platelet Volume 9.9 fl (7.4-10.4); Monocytes Absolute Auto 0.3 K/mm3 (0.1-0.6); Monocytes Percent Auto 5.6 % (2.6-8.5); Neutrophils Percent Auto 87.1 % (45.5-73.1); Platelet Count Result 186 k/mm3 (150-375); Red Blood Count 2.51 M/mm3 (4.6-6.20); Red Cell Distribution Width 15.6 % (11.5-14.5); White Blood Count 5.8 K/mm3 (4.5-10.0)
[2020-04-04 07:46] LABS: Blood Urea Nitrogen 16 mg/dL (9-20); Carbon Dioxide 29 mmol/L (22-30); Chloride 107 mmol/L (98-107); Estimated CRCL calculation 77 ml/min; Estimated Glomerular Filt Rate > 60; Glucose 191 mg/dL (75-110); Potassium 3.7 mmol/L (3.4-5.0); Sodium 139 mmol/L (137-145)
[2020-04-04 08:27] LABS: Glucose Point of Care 188 (65-105)
--- NOTE | 2020-04-04 09:02 | WPDURCON ---
Assessment and Plan Assessment and plan (1) Retention of urine: Code(s): R33.9 - Retention of urine, unspecified Status: Acute (2) Hematuria: Qualifiers: Hematuria type: gross Qualified Code(s): R31.0 - Gross hematuria Code(s): R31.9 - Hematuria, unspecified Status: Acute Assessment and Plan: Hematuria that is multifactorial - underlying BPH, chronic Gambino, catheter trauma, UTI. Not much to do to diminish risk/episodes of hematuria. He's destined to have a chronic, indwellig catheter (not a candidate for intermittent catheterization). Agree with abx. pending urine culture. Hematuria is scant today - will not require clot evacuation. Urology Consult Note HPI Date Seen: 04/04/20 Requesting Physician: Jeffy Sharp MD Primary Care Provider: SR TECHNICAL SALES CONSULTANT PHYSICIAN Consult Narrative Narrative: Jonny Pantoja is a 69 year old male well known to our practice with history of hypotonic bladder that requires a chronic indwelling Gambino catheter. Periodically, either with traumatic catheter changes, UTI's or catheter trauma/tugging he develops hematuria. He's undergone thorough hematuria evaluation with CT-abd/pelvis and cystoscopy in the past (most recently 08/2019) and found only to have BPH without other significant pathology. Urodynamics shows minimal detrusor function. We've discussed TURP (which would be margianally effective) as possible means of managing retention but he's refused. Review of Systems Review of Systems: ROS unobtainable: Yes unobtainable due to mental status PMFSH Past Medical History Medical History (Updated 04/04/20 @ 05:46 by Jeffy Sharp MD) Atrial fibrillation BPH (benign prostatic hyperplasia) Congestive heart failure Constipation Coronary artery disease CVA (cerebral vascular accident) Dementia Depression with anxiety Dyslipidemia Flexion contracture joint of multiple sites Gambino catheter in place History of DVT (deep vein thrombosis) Hypertension Obstructive sleep apnea Parkinson disease Type 2 diabetes mellitus Complicated by diabetic retinopathy. He is blind in his left eye. Vitamin D deficiency Surgical History Surgical History History of cystoscopy Family History Family History Other Unknown family medical history Social History Social History Social History: The patient lives at [facility]. He grew up in [place]. He is retired from working for the post office. His was in the [employer] as a young man. His son in [place], Pete Pantoja, is his emergency contact and he is listed as a full code. His primary care provider is Dr. Diaz Shanks. He denies alcohol, tobacco, and drug use. Smoking status: Never smoker Alcohol intake: never Substance use: never Substance use type: does not use Gender identity (if verbalized by the patient): Male Spiritual care concerns: No Agree to blood products: Yes Meds Home Medications and Allergies Home Medications Medication Instructions Recorded Confirmed Type acetaminophen 650 mg PO Q6H PRN 10/21/19 04/04/20 History amantadine HCl 100 mg PO QPM 10/21/19 04/04/20 History aspirin 81 mg PO DAILY 10/21/19 04/04/20 History atorvastatin 80 mg PO HS 10/21/19 04/04/20 History calcium carbonate [Oyster Shell 500 mg PO DAILY 10/21/19 04/04/20 History Calcium] carbidopa-levodopa 1 tablet PO TID 10/21/19 04/04/20 History cholecalciferol (vitamin D3) 1,000 unit PO DAILY 10/21/19 04/04/20 History digoxin [Digox] 125 mcg PO DAILY 10/21/19 04/04/20 History docusate sodium [Colace] 100 mg PO DAILY 10/21/19 04/04/20 History donepezil 10 mg PO DAILY 10/21/19 04/04/20 History finasteride 5 mg PO DAILY 10/21/19 04/04/20 History fluoxetine 10 mg PO DAILY 10/21/19 04/04/20 History furosemide 20 mg P
[2020-04-04] MEDS: FLUOXETINE HCL 10 MG CAPSULE PO (10:06)
[2020-04-04] MEDS: METOPROLOL SUCCINATE EXT REL 50 MG TABCR PO (10:06)
[2020-04-04] MEDS: TAMSULOSIN HCL 0.4 MG CAPSULE PO ×2 (10:06→17:52)
[2020-04-04] MEDS: FINASTERIDE 5 MG TABLET PO (10:07)
[2020-04-04] MEDS: lisinopriL 10 MG TABLET PO (10:07)
[2020-04-04] MEDS: ASPIRIN 81 MG CHEWABLE TABLET PO (10:07)
[2020-04-04] MEDS: FUROSEMIDE 20 MG TABLET PO (10:07)
[2020-04-04] MEDS: DOCUSATE SODIUM 100 MG CAPSULE PO (10:07)
[2020-04-04] MEDS: CALCIUM CARBONATE (OSCAL) 500 MG TABLET PO (10:07)
[2020-04-04] MEDS: CARBIDOPA/LEVODOPA 10/100 MG TABLET 1 TABLET PO ×2 (10:07→17:53)
[2020-04-04] MEDS: DIGOXIN TAB 125 MCG TABLET PO (10:08)
[2020-04-04] MEDS: CHOLECALCIFEROL 1,000 UNIT TABLET 1000 UNITS PO (10:08)
[2020-04-04 12:08] LABS: Glucose Point of Care 168 (65-105)
--- NOTE | 2020-04-04 14:41 | WPDINFPN2 ---
Progress Note: A&P Assessment and Plan (1) Gross hematuria: Code(s): R31.0 - Gross hematuria Status: Acute Assessment and Plan: Hematuria, without any other findings of infection REC no further antibiotics Subjective Date/time seen: 04/04/20 14:41 Objective Data Vital Signs Vital Signs: Vital Signs - 24 hr 04/03/20 20:29 04/03/20 21:12 04/03/20 22:18 Temperature 36.0 C L Pulse Rate 64 66 75 Respiratory Rate 18 18 20 Blood Pressure 145/79 H 138/76 154/83 H Pulse Oximetry 99 100 99 04/03/20 23:10 04/04/20 00:33 04/04/20 01:56 Temperature Pulse Rate 64 70 68 Respiratory Rate 18 18 14 Blood Pressure 130/87 146/69 H 130/78 Pulse Oximetry 100 99 100 04/04/20 02:05 04/04/20 06:00 04/04/20 10:06 Temperature 36.3 C L 36.3 C L Pulse Rate 69 92 90 Respiratory Rate 16 18 Blood Pressure 155/79 H 142/99 H Pulse Oximetry 100 99 04/04/20 10:08 Temperature Pulse Rate 90 Respiratory Rate Blood Pressure Pulse Oximetry Intake/Output Intake/Output: Intake & Output 04/01/20 04/02/20 04/03/20 04/04/20 23:59 23:59 23:59 23:59 Intake Total 150 Output Total 0 Balance 150 Meds/Results Medications: Active Medications Generic Name Dose Route Start Last Admin Trade Name Freq PRN Reason Stop Dose Admin Acetaminophen 650 mg 04/04/20 03:30 Tylenol Tablet PO Q6H PRN Pain 1-3 Amantadine HCl 100 mg 04/04/20 18:00 Symmetrel PO QPM PAOLA Aspirin 81 mg 04/04/20 08:00 04/04/20 10:07 Aspirin Chewable PO 81 mg DAILY@0800 PA[facility]A Administration Atorvastatin Calcium 80 mg 04/04/20 21:00 Lipitor PO HS PAOLA Calcium Carbonate 500 mg 04/04/20 09:00 04/04/20 10:07 Oscal 500 Mg PO 500 mg DAILY PA[facility]A Administration Carbidopa/Levodopa 1 tablet 04/04/20 08:00 04/04/20 10:07 Sinemet 10/100 Mg PO 1 tablet TIDWM [facility]A Administration Dextrose 12.5 gm 04/04/20 03:31 Dextrose 50% Syringe IV PUSH PRN PRN Hypoglycemia Protocol Digoxin 125 mcg 04/04/20 09:00 04/04/20 10:08 Lanoxin Tab PO 125 mcg DAILY PA[facility]A Administration Docusate Sodium 100 mg 04/04/20 09:00 04/04/20 10:07 Colace Capsule PO 100 mg DAILY PA[facility]A Administration Finasteride 5 mg 04/04/20 09:00 04/04/20 10:07 Proscar PO 5 mg DAILY PA[facility]A Administration Fluoxetine HCl 10 mg 04/04/20 09:00 04/04/20 10:06 Prozac PO 10 mg DAILY [facility] Administration Furosemide 20 mg 04/04/20 09:00 04/04/20 10:07 Lasix Tablet PO 20 mg DAILY PA[facility]A Administration Glucagon 1 mg 04/04/20 03:31 Glucagon For Inj IM PRN PRN Hypoglycemia Protocol Glucose 15 gm 04/04/20 03:31 Glutose 15 PO PRN PRN Hypoglycemia Protocol Dextrose 1,000 mls @ 100 mls/hr 04/04/20 03:31 Dextrose 5% 1,000 Ml IVPB PRN PRN Hypoglycemia Protocol Sodium Chloride 1,000 mls @ 75 mls/hr 04/04/20 03:35 Normal Saline Iv IV CONT .[id number] [facility] Ertapenem 1 gm in 50 mls @ 100 mls/hr 04/04/20 06:00 04/04/20 05:56 Invanz 1 Gm/Ns 50 Ml IVPB 100 mls/hr Q24H [facility]A Administration Insulin Aspart 2 - 5 units 04/04/20 08:00 04/04/20 10:06 Novolog SUB-Q Not Given TIDWM [facility] Protocol Lisinopril 10 mg 04/04/20 09:00 04/04/20 10:07 Prinivil PO 10 mg DAILY [facility] Administration Metoprolol Succinate 50 mg 04/04/20 09:00 04/04/20 10:06 Toprol Xl PO 50 mg DAILY PA[facility] Administration Morphine Sulfate 4 mg 04/04/20 01:21 04/04/20 03:29 Morphine Sulfate Inj IV PUSH 4 mg Q2H PRN Administration Pain Rated 7-10 Ondansetron HCl 4 mg 04/04/20 01:21 Zofran Inj IV PUSH Q4H PRN Nausea Polyethylene Glycol 17 gm 04/04/20 03:30 Miralax PO DAILY PRN Constipation Tamsulosin HCl 0.4 mg 04/04/20 09:00 04/04/20 10:06 Flomax PO 0.4 mg BID PAOLA Administration Vitamin D 1,000 unit 04/04/20 09:00 04/04/20
--- NOTE | 2020-04-04 17:00 | PM.IMPN ---
Progress Note: A&P Assessment and Plan (1) Gross hematuria: Code(s): R31.0 - Gross hematuria Status: Acute Assessment and Plan: 04/04/20 17:00 Patient is 69 male with a severe dementia resident of nursing with chronic Gambino with history of BPH and hematuria as well as trauma with Gambino catheter he was sent to emergency department for hematuria etiology uncertain unlikely infection most likely secondary to Gambino trauma patient is seen by urologist on CBI, still shows blood in the Gambino bag, will continue CBI and monitor (2) Complicated UTI (urinary tract infection): Code(s): N39.0 - Urinary tract infection, site not specified Status: Acute Assessment and Plan: Is seen by Dr. Smith does not suspect UTI and does not recommend any antibiotic (3) Chronic indwelling Gambino catheter: Code(s): Z96.0 - Presence of urogenital implants Status: Acute Assessment and Plan: Plan is above patient seen by urologist (4) Hypertension: Qualifiers: Hypertension type: essential hypertension Qualified Code(s): I10 - Essential (primary) hypertension Code(s): I10 - Essential (primary) hypertension Status: Chronic Assessment and Plan: Continue to monitor (5) Atrial fibrillation: Code(s): I48.91 - Unspecified atrial fibrillation Status: Chronic Assessment and Plan: Rate is controlled with hematuria not anticoagulated (6) BPH (benign prostatic hyperplasia): Code(s): N40.0 - Benign prostatic hyperplasia without lower urinary tract symptoms Status: Chronic Assessment and Plan: Plan is above (7) Type 2 diabetes mellitus: Qualifiers: Diabetes mellitus complication status: without complication Diabetes mellitus usp insulin use: without extermination supervisor use Qualified Code(s): E11.9 - Type 2 diabetes mellitus without complications Code(s): E11.9 - Type 2 diabetes mellitus without complications Status: Acute Assessment and Plan: Will continue home regimen (8) Dementia: Code(s): F03.90 - Unspecified dementia without behavioral disturbance Status: Acute Assessment and Plan: Clinically stable Subjective Date/time seen: 04/04/20 17:00 Patient is 69 male with a severe dementia resident of nursing with chronic Gambino with history of BPH and hematuria as well as trauma with Gambino catheter he was sent to emergency department for hematuria etiology uncertain unlikely infection most likely secondary to Gambino trauma patient is seen by urologist on CBI, still shows blood in the Gambino bag, will continue CBI and monitor Review of Systems Review of Systems: ROS unobtainable: Yes unobtainable due to medical condition Exam Const: General: comfortable and no acute distress HENMT: General nose exam: Normal nares present Eyes: Sclera: sclerae normal Neck: Neck: supple Resp: Effort & Inspection: normal respiratory effort Auscultation: clear to auscultation bilaterally Cardio: Rate: regular rate Rhythm: regular rhythm GI: Auscultation: normal bowel sounds Other: Diffusely tender Urinary Catheter: Urinary Catheter: urine red Skin: General skin exam: normal color Neuro: Other: Patient with severe dementia Extrem: General: normal to inspection Psych: Other: Patient with severe dementia Objective Data Vital Signs Vital Signs: Vital Signs - 24 hr 04/03/20 20:29 04/03/20 21:12 04/03/20 22:18 Temperature 96.8 F L Pulse Rate 64 66 75 Respiratory Rate 18 18 20 Blood Pressure 145/79 H 138/76 154/83 H Pulse Oximetry 99 100 99 04/03/20 23:10 04/04/20 00:33 04/04/20 01:56 Temperature Pulse Rate 64 70 68 Respiratory Rate 18 18 14 Blood Pressure 130/87 146/69 H 130/78 Pulse Oximetry 100 99 100 04/04/20 02:05 04/04/20 06:00 04/04/20 10:06 Temperature 97.4 F L 97.3 F L Pulse Rate 69 92 90 Respiratory Rate 16 18 Blood Pressure 155/79 H 142/99 H Pulse O
--- NOTE | 2020-04-04 17:43 | CONS_ITS ---
DATE OF CONSULTATION: 04/04/2020 REASON FOR CONSULTATION: Hematuria. HISTORY OF PRESENT ILLNESS: The patient is a 69-year-old male who can provide limited history. He denies to me fever, chills, sweats, abdominal pain, suprapubic pain, flank pain, CVA pain, nausea. His record indicates no antibiotics given immediately prior to this admission. He was here in the hospital in February with complicated UTI associated with his chronic Gambino catheter. He had blood cultures showing Klebsiella pneumoniae and was treated accordingly. He returned to the emergency room last evening with gross hematuria, but no other clinical findings. He was given a single dose of ceftriaxone and has now been given ertapenem and consultation requested. The patient has not required any operative intervention nor has any plan. The Gambino catheter is not going to be removed due to marked BPH. ALLERGIES: NONE KNOWN. PRESENT MEDICATIONS: A lengthy list reviewed. No immunosuppressants. HABITS: No tobacco. No alcohol. No illicit drugs. PAST MEDICAL HISTORY: In addition to the above, vitamin D deficiency, type 2 diabetes mellitus, Parkinson's, previous stroke, MARILIN, hypertension, DVT, flexion contractures, hyperlipidemia, depression, dementia, CAD, heart failure, BPH, AF, previous cystoscopy. SOCIAL HISTORY: Retired from as well as post office. He has a son who lives in [place] and he is a [place] [facility] resident. REVIEW OF SYSTEMS: Compromised by the patient's memory. 14-point review is otherwise negative. FAMILY HISTORY: Not pertinent to his present illness. PHYSICAL EXAMINATION: GENERAL: This is an elderly male who appears cachectic. No respiratory distress. Afebrile since arrival. He has had no hypotension. VITAL SIGNS: Blood pressure 142/90, 92, 18, 99% on room air. SKIN: Warm and dry. No rashes. Normal turgor. EENT: The conjunctivae are normal. The oropharynx and oral mucosa are normal. Moist mucous membranes. NECK: No meningismus. LUNGS: Clear to auscultation and percussion. CHEST: No indwelling vascular devices. BACK: He has no CVAT. CARDIAC: Regular rate and rhythm. No murmur, gallop, or rub. ABDOMEN: Scaphoid, nontender. No mass. GENITOURINARY: Some dry blood in the perineum. The urine is pink in the Gambino catheter. He has no scrotal swelling. EXTREMITIES: No clubbing, cyanosis, edema. LABORATORY DATA: Blood cultures in process, not done upon admission. Urine culture also in process. His white count was 5.8, hemoglobin 7.6, platelets are 186. Chemistry panel normal except for glucose of 191, and calcium 8.0. Urinalysis, multiple abnormalities, which are reviewed. RADIOLOGY DATA: Chest x-ray done for unknown reasons showed central venous line. ASSESSMENT: 1. Gross hematuria, I suspect from Gambino trauma. Other than hematuria itself, he has no findings to suggest infection. 2. Chronic Gambino catheter. 3. Benign prostatic hypertrophy. 4. Previous stroke. 5. Dementia. RECOMMENDATIONS: 1. Stop antibiotics. 2. Follow up on blood culture results. I fully anticipate that his urine culture will show growth of bacteria, but unless new findings emerge to suggest infection, I do not anticipate antibiotic treatment based on his urine culture alone. Thank you very much for asking me to see him. ROSS WILCOX M.D. POST TRONIC MACHINE OPERATOR POST TRONIC MACHINE OPERATOR D I MT: [place]
[2020-04-04] MEDS: amantadine HCL 100 MG CAPSULE PO (17:52)
[2020-04-04 17:59] LABS: Glucose Point of Care 154 (65-105)
[2020-04-04] MEDS: ATORVASTATIN 40 MG TABLET 80 MG PO (21:41)
[2020-04-05] VITALS (10 sets, daily range): BP systolic 130–153; BP diastolic 61–77; PULSE 58–68; RESP 16–18; TEMP 36.1–37; O2SAT 100
[2020-04-05 03:04] LABS: Glucose Point of Care 134 (65-105)
[2020-04-05] MEDS: SODIUM CHLORIDE 0.9% IV 1,000 ML 75 ML IV CONT ×2 (04:26→21:02)
[2020-04-05 06:51] LABS: Mean Corpuscular HGB Conc 31.3 g/dl (32-36); Mean Corpuscular Hemoglobin 30.4 pg (26-34); Mean Corpuscular Volume 97.1 fl (80-100); Mean Platelet Volume 9.9 fl (7.4-10.4); Platelet Count Result 151 k/mm3 (150-375); Red Blood Count 2.07 M/mm3 (4.6-6.20); Red Cell Distribution Width 15.8 % (11.5-14.5); White Blood Count 3.6 K/mm3 (4.5-10.0)
[2020-04-05 07:00] LABS: Hemoglobin 6.3 g/dL (14.0-18.0)
[2020-04-05 07:01] LABS: Hematocrit 20.1 % (42.0-52.0)
[2020-04-05 07:13] LABS: Blood Urea Nitrogen 12 mg/dL (9-20); Calcium 7.7 mg/dL (8.4-10.2); Carbon Dioxide 29 mmol/L (22-30); Chloride 106 mmol/L (98-107); Estimated CRCL calculation 87 ml/min; Estimated Glomerular Filt Rate > 60; Glucose 126 mg/dL (75-110); Potassium 3.5 mmol/L (3.4-5.0); Sodium 139 mmol/L (137-145)
[2020-04-05] MEDS: DOCUSATE SODIUM 100 MG CAPSULE PO (08:17)
[2020-04-05] MEDS: METOPROLOL SUCCINATE EXT REL 50 MG TABCR PO (08:17)
[2020-04-05] MEDS: ASPIRIN 81 MG CHEWABLE TABLET PO (08:17)
[2020-04-05] MEDS: CHOLECALCIFEROL 1,000 UNIT TABLET 1000 UNITS PO (08:17)
[2020-04-05] MEDS: FUROSEMIDE 20 MG TABLET PO (08:18)
[2020-04-05] MEDS: lisinopriL 10 MG TABLET PO (08:18)
[2020-04-05] MEDS: DIGOXIN TAB 125 MCG TABLET PO (08:18)
[2020-04-05] MEDS: CALCIUM CARBONATE (OSCAL) 500 MG TABLET PO (08:18)
[2020-04-05] MEDS: FLUOXETINE HCL 10 MG CAPSULE PO (08:18)
[2020-04-05] MEDS: TAMSULOSIN HCL 0.4 MG CAPSULE PO ×2 (08:18→18:14)
[2020-04-05] MEDS: FINASTERIDE 5 MG TABLET PO (08:18)
[2020-04-05] MEDS: CARBIDOPA/LEVODOPA 10/100 MG TABLET 1 TABLET PO ×2 (08:18→18:14)
--- NOTE | 2020-04-05 10:11 | WPDUROPN2 ---
Progress Note: A&P Assessment and Plan (1) Gross hematuria: Code(s): R31.0 - Gross hematuria Status: Acute Assessment and Plan: - Hematuria that is multifactorial - underlying BPH, chronic Velazquez, catheter trauma, UTI. - Not much to do to diminish risk/episodes of hematuria. He's destined to have a chronic, indwelling catheter (not a candidate for intermittent catheterization). - Abx per ID - Hematuria: urine is clear , slow down CBI. Plan to stop CBI tomorrow & if urine remains clear would be okay to discharge with velazquez in place (2) Chronic indwelling Velazquez catheter: Code(s): Z96.0 - Presence of urogenital implants Status: Acute Subjective Subjective Date/Time Seen: 04/05/20 10:11 no new complaints Exam Const: General: no acute distress Resp: Effort & Inspection: normal respiratory effort Urinary Catheter: Urinary Catheter: patent and draining and urine clear (on CBI) Objective Data Vital Signs Vital Signs: Vital Signs - 24 hr 04/04/20 15:00 04/04/20 22:00 04/05/20 06:00 Temperature 36.6 C 36.6 C 36.9 C Pulse Rate 68 69 65 Respiratory Rate 18 18 18 Blood Pressure 113/60 128/61 153/69 H Pulse Oximetry 100 100 100 04/05/20 08:17 04/05/20 08:18 Temperature Pulse Rate 65 65 Respiratory Rate Blood Pressure Pulse Oximetry Intake/Output Intake/Output: Intake & Output 04/02/20 04/03/20 04/04/20 04/05/20 23:59 23:59 23:59 23:59 Intake Total 1730 101 Output Total 2200 4600 Balance -707 -1500 Meds/Results Medications: Active Medications Generic Name Dose Route Start Last Admin Trade Name Freq PRN Reason Stop Dose Admin Acetaminophen 650 mg 04/04/20 03:30 Tylenol Tablet PO Q6H PRN Pain 1-3 Amantadine HCl 100 mg 04/04/20 18:00 04/04/20 17:52 Symmetrel PO 100 mg QPM [facility] Administration Aspirin 81 mg 04/04/20 08:00 04/05/20 08:17 Aspirin Chewable PO 81 mg DAILY@0800 [facility] Administration Atorvastatin Calcium 80 mg 04/04/20 21:00 04/04/20 21:41 Lipitor PO 80 mg HS PAOLA Administration Calcium Carbonate 500 mg 04/04/20 09:00 04/05/20 08:18 Oscal 500 Mg PO 500 mg DAILY [facility] Administration Carbidopa/Levodopa 1 tablet 04/04/20 08:00 04/05/20 08:18 Sinemet 10/100 Mg PO 1 tablet TIDWM [facility] Administration Dextrose 12.5 gm 04/04/20 03:31 Dextrose 50% Syringe IV PUSH PRN PRN Hypoglycemia Protocol Digoxin 125 mcg 04/04/20 09:00 04/05/20 08:18 Lanoxin Tab PO 125 mcg DAILY [facility] Administration Docusate Sodium 100 mg 04/04/20 09:00 04/05/20 08:17 Colace Capsule PO 100 mg DAILY [facility] Administration Finasteride 5 mg 04/04/20 09:00 04/05/20 08:18 Proscar PO 5 mg DAILY [facility] Administration Fluoxetine HCl 10 mg 04/04/20 09:00 04/05/20 08:18 Prozac PO 10 mg DAILY [facility] Administration Furosemide 20 mg 04/04/20 09:00 04/05/20 08:18 Lasix Tablet PO 20 mg DAILY [facility]A Administration Glucagon 1 mg 04/04/20 03:31 Glucagon For Inj IM PRN PRN Hypoglycemia Protocol Glucose 15 gm 04/04/20 03:31 Glutose 15 PO PRN PRN Hypoglycemia Protocol Dextrose 1,000 mls @ 100 mls/hr 04/04/20 03:31 Dextrose 5% 1,000 Ml IVPB PRN PRN Hypoglycemia Protocol Sodium Chloride 1,000 mls @ 75 mls/hr 04/04/20 03:35 04/05/20 05:46 Normal Saline Iv IV CONT 75 mls/hr .[id number] [facility] Infusion Sodium Chloride 250 mls @ 30 mls/hr 04/05/20 07:25 Normal Saline Iv IV CONT 04/05/20 15:44 .[id number] ST[facility] Insulin Aspart 2 - 5 units 04/04/20 08:00 04/04/20 17:52 Novolog SUB-Q Not Given TIDWM [facility] Protocol Lisinopril 10 mg 04/04/20 09:00 04/05/20 08:18 Prinivil PO 10 mg DAILY [facility] Administration Metoprolol Succinate 50 mg 04/04/20 09:00 04/05/20 08:17 Toprol Xl PO 50 mg DAILY [facility] Administration Morphine Sulfate 4 mg 04/04/20 01:21 04/04/20 03:
[2020-04-05] MEDS: SODIUM CHLORIDE 0.9% IV 250 ML 30 ML IV CONT (10:40)
[2020-04-05 12:02] LABS: Glucose Point of Care 119 (65-105)
--- NOTE | 2020-04-05 14:14 | PM.IMPN ---
Progress Note: A&P Assessment and Plan (1) Gross hematuria: Code(s): R31.0 - Gross hematuria Status: Acute Assessment and Plan: 04/05/20 14:14 Patient is 69 male with a severe dementia resident of nursing with chronic Gambino with history of BPH and hematuria as well as trauma with Gambino catheter he was sent to emergency department for hematuria etiology uncertain unlikely infection and/or most likely secondary to Gambino trauma, patient was seen by Dr. smith does not suspect urinary infection and stopped antibiotics, suggested unless the blood culture is growing bacteria no need for antibiotics, patient is seen by urologist on CBI, still shows blood in the Gambino bag, and his hemoglobin dropped to 6.3 will give her 1 unit pack RBC. will continue CBI and monitor H&H. Patient will COVID test again before going to longterm (2) Complicated UTI (urinary tract infection): Code(s): N39.0 - Urinary tract infection, site not specified Status: Acute Assessment and Plan: Is seen by Dr. Smith does not suspect UTI and does not recommend any antibiotic (3) Chronic indwelling Gambino catheter: Code(s): Z96.0 - Presence of urogenital implants Status: Acute Assessment and Plan: Plan is above patient seen by urologist (4) Hypertension: Qualifiers: Hypertension type: essential hypertension Qualified Code(s): I10 - Essential (primary) hypertension Code(s): I10 - Essential (primary) hypertension Status: Chronic Assessment and Plan: Continue to monitor (5) Atrial fibrillation: Code(s): I48.91 - Unspecified atrial fibrillation Status: Chronic Assessment and Plan: Rate is controlled with hematuria not anticoagulated (6) BPH (benign prostatic hyperplasia): Code(s): N40.0 - Benign prostatic hyperplasia without lower urinary tract symptoms Status: Chronic Assessment and Plan: Plan is above (7) Type 2 diabetes mellitus: Qualifiers: Diabetes mellitus senior care insulin use: without moth exterminator use Diabetes mellitus complication status: without complication Qualified Code(s): E11.9 - Type 2 diabetes mellitus without complications Code(s): E11.9 - Type 2 diabetes mellitus without complications Status: Acute Assessment and Plan: Will continue home regimen (8) Dementia: Code(s): F03.90 - Unspecified dementia without behavioral disturbance Status: Acute Assessment and Plan: Clinically stable Subjective Date/time seen: 04/05/20 14:14 Patient is 69 male with a severe dementia resident of nursing with chronic Gambino with history of BPH and hematuria as well as trauma with Gambino catheter he was sent to emergency department for hematuria etiology uncertain unlikely infection and/or most likely secondary to Gambino trauma, patient was seen by Dr. smith does not suspect urinary infection and stopped antibiotics, suggested unless the blood culture is growing bacteria no need for antibiotics, patient is seen by urologist on CBI, still shows blood in the Gambino bag, and his hemoglobin dropped to 6.3 will give her 1 unit pack RBC. will continue CBI and monitor H&H. Patient will COVID test again before going to longterm Review of Systems Review of Systems: ROS unobtainable: Yes unobtainable due to medical condition and unobtainable due to mental status Exam Narrative: Exam Narrative: Patient with dementia Const: General: comfortable and no acute distress HENMT: General nose exam: Normal nares present Eyes: Sclera: sclerae normal Neck: Neck: supple Resp: Effort & Inspection: normal respiratory effort Auscultation: clear to auscultation bilaterally Cardio: Rate: regular rate Rhythm: regular rhythm GI: Auscultation: normal bowel sounds Urinary Catheter: Urinary Catheter: urine red Skin: General skin exam: normal color Neuro: Sensory Exam: normal sensation Extrem:
[2020-04-05 17:57] LABS: Glucose Point of Care 113 (65-105)
[2020-04-05] MEDS: amantadine HCL 100 MG CAPSULE PO (18:15)
[2020-04-05] MEDS: ATORVASTATIN 40 MG TABLET 80 MG PO (21:03)
[2020-04-05 22:01] LABS: Glucose Point of Care 115 (65-105)
[2020-04-06] VITALS (9 sets, daily range): BP systolic 130–148; BP diastolic 69–82; PULSE 57–73; RESP 16–20; TEMP 36.2–37.2; O2SAT 96–100
[2020-04-06] MEDS: MORPHINE SULFATE 4 MG/ML INJ IV PUSH (05:14)
[2020-04-06 07:00] LABS: Hematocrit 21.5 % (42.0-52.0); Mean Corpuscular HGB Conc 32.1 g/dl (32-36); Mean Corpuscular Hemoglobin 30.4 pg (26-34); Mean Corpuscular Volume 94.7 fl (80-100); Mean Platelet Volume 10.4 fl (7.4-10.4); Platelet Count Result 129 k/mm3 (150-375); Red Blood Count 2.27 M/mm3 (4.6-6.20); Red Cell Distribution Width 16.3 % (11.5-14.5); White Blood Count 3.6 K/mm3 (4.5-10.0)
[2020-04-06 07:13] LABS: Hemoglobin 6.9 g/dL (14.0-18.0)
[2020-04-06 07:14] LABS: Blood Urea Nitrogen 8 mg/dL (9-20); Calcium 7.5 mg/dL (8.4-10.2); Carbon Dioxide 31 mmol/L (22-30); Chloride 103 mmol/L (98-107); Estimated CRCL calculation 77 ml/min; Estimated Glomerular Filt Rate > 60; Glucose 92 mg/dL (75-110); Potassium 3.4 mmol/L (3.4-5.0); Sodium 136 mmol/L (137-145)
--- NOTE | 2020-04-06 07:45 | WPDUROPN2 ---
Progress Note: A&P Additional Plan Keep Gambino catheter in place. Stop CBI and observe today. Subjective Subjective Date/Time Seen: 04/06/20 07:45 - CBI running very slowly; urine is very light pink to clear Exam Narrative: Exam Narrative: Catheter in place. Urine is light pink to clear on very slow CBI Objective Data Vital Signs Vital Signs: Vital Signs - 24 hr 04/05/20 08:17 04/05/20 08:18 04/05/20 10:30 Temperature 36.3 C L Pulse Rate 65 65 68 Respiratory Rate 18 Blood Pressure 142/71 H Pulse Oximetry 100 04/05/20 10:50 04/05/20 11:50 04/05/20 12:50 Temperature 36.2 C L 36.2 C L 36.2 C L Pulse Rate 59 L 59 L 58 L Respiratory Rate 18 18 18 Blood Pressure 130/61 130/61 143/64 H Pulse Oximetry 100 100 100 04/05/20 13:50 04/05/20 14:00 04/05/20 22:00 Temperature 36.1 C L 36.1 C L 37.0 C Pulse Rate 58 L 58 L 63 Respiratory Rate 18 18 16 Blood Pressure 146/68 H 146/68 H 145/77 H Pulse Oximetry 100 100 100 04/06/20 06:00 Temperature 37.2 C Pulse Rate 73 Respiratory Rate 16 Blood Pressure 137/70 Pulse Oximetry 97 Intake/Output Intake/Output: Intake & Output 04/03/20 04/04/20 04/05/20 04/06/20 23:59 23:59 23:59 23:59 Intake Total 1730 1721 634 Output Total 2200 7900 1050 [facility] -999 -6179 -416 Meds/Results Medications: Active Medications Generic Name Dose Route Start Last Admin Trade Name Freq PRN Reason Stop Dose Admin Acetaminophen 650 mg 04/04/20 03:30 Tylenol Tablet PO Q6H PRN Pain 1-3 Amantadine HCl 100 mg 04/04/20 18:00 04/05/20 18:15 Symmetrel PO 100 mg QPM [facility] Administration Aspirin 81 mg 04/04/20 08:00 04/05/20 08:17 Aspirin Chewable PO 81 mg DAILY@0800 [facility] Administration Atorvastatin Calcium 80 mg 04/04/20 21:00 04/05/20 21:03 Lipitor PO 80 mg HS [facility]A Administration Calcium Carbonate 500 mg 04/04/20 09:00 04/05/20 08:18 Oscal 500 Mg PO 500 mg DAILY [facility] Administration Carbidopa/Levodopa 1 tablet 04/04/20 08:00 04/05/20 18:14 Sinemet 10/100 Mg PO 1 tablet TIDWM [facility] Administration Dextrose 12.5 gm 04/04/20 03:31 Dextrose 50% Syringe IV PUSH PRN PRN Hypoglycemia Protocol Digoxin 125 mcg 04/04/20 09:00 04/05/20 08:18 Lanoxin Tab PO 125 mcg DAILY [facility] Administration Docusate Sodium 100 mg 04/04/20 09:00 04/05/20 08:17 Colace Capsule PO 100 mg DAILY [facility] Administration Finasteride 5 mg 04/04/20 09:00 04/05/20 08:18 Proscar PO 5 mg DAILY [facility] Administration Fluoxetine HCl 10 mg 04/04/20 09:00 04/05/20 08:18 Prozac PO 10 mg DAILY [facility] Administration Furosemide 20 mg 04/04/20 09:00 04/05/20 08:18 Lasix Tablet PO 20 mg DAILY [facility] Administration Glucagon 1 mg 04/04/20 03:31 Glucagon For Inj IM PRN PRN Hypoglycemia Protocol Glucose 15 gm 04/04/20 03:31 Glutose 15 PO PRN PRN Hypoglycemia Protocol Dextrose 1,000 mls @ 100 mls/hr 04/04/20 03:31 Dextrose 5% 1,000 Ml IVPB PRN PRN Hypoglycemia Protocol Sodium Chloride 1,000 mls @ 75 mls/hr 04/04/20 03:35 04/06/20 05:17 Normal Saline Iv IV CONT 75 mls/hr .[id number] [facility] Infusion Sodium Chloride 250 mls @ 30 mls/hr 04/06/20 07:32 Normal Saline Iv IV CONT 04/06/20 15:51 .Q8H20M STA Insulin Aspart 2 - 5 units 04/04/20 08:00 04/05/20 18:13 Novolog SUB-Q Not Given TIDWM [facility] Protocol Lisinopril 10 mg 04/04/20 09:00 04/05/20 08:18 Prinivil PO 10 mg DAILY [facility] Administration Metoprolol Succinate 50 mg 04/04/20 09:00 04/05/20 08:17 Toprol Xl PO 50 mg DAILY [facility] Administration Morphine Sulfate 4 mg 04/04/20 01:21 04/06/20 05:14 Morphine Sulfate Inj IV PUSH 4 mg Q2H PRN Administration Pain Rated 7-10 Ondansetron HCl 4 mg 04/04/20 01:21 Zofran Inj IV PUSH Q4H PRN Nausea Polyethylene Glycol 17 gm 04/04/20 03:30 Miralax
[2020-04-06] MEDS: CALCIUM CARBONATE (OSCAL) 500 MG TABLET PO (08:05)
[2020-04-06] MEDS: FUROSEMIDE 20 MG TABLET PO (08:05)
[2020-04-06] MEDS: lisinopriL 10 MG TABLET PO (08:05)
[2020-04-06] MEDS: FINASTERIDE 5 MG TABLET PO (08:06)
[2020-04-06] MEDS: CARBIDOPA/LEVODOPA 10/100 MG TABLET 1 TABLET PO ×3 (08:06→18:15)
[2020-04-06] MEDS: FLUOXETINE HCL 10 MG CAPSULE PO (08:06)
[2020-04-06] MEDS: ASPIRIN 81 MG CHEWABLE TABLET PO (08:06)
[2020-04-06] MEDS: CHOLECALCIFEROL 1,000 UNIT TABLET 1000 UNITS PO (08:06)
[2020-04-06] MEDS: DOCUSATE SODIUM 100 MG CAPSULE PO (08:06)
[2020-04-06] MEDS: DIGOXIN TAB 125 MCG TABLET PO (08:07)
[2020-04-06] MEDS: TAMSULOSIN HCL 0.4 MG CAPSULE PO ×2 (08:07→18:15)
[2020-04-06] MEDS: METOPROLOL SUCCINATE EXT REL 50 MG TABCR PO (08:08)
[2020-04-06 09:37] LABS: Glucose Point of Care 84 (65-105)
--- NOTE | 2020-04-06 13:09 | PC.NURSE ---
picked up this patient at 11am from Vazquez Harper RN. Giving potassium from this am it had not been given yet.
[2020-04-06] MEDS: POTASSIUM CHLORIDE 20 MEQ TABLET 40 MEQ PO (13:28)
[2020-04-06 13:42] LABS: Glucose Point of Care 114 (65-105)
--- NOTE | 2020-04-06 14:23 | WPDINFPN2 ---
Progress Note: A&P Assessment and Plan (1) Gross hematuria: Code(s): R31.0 - Gross hematuria Status: Acute Assessment and Plan: IMP 1. 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 Prior stroke with debility REC No antibiotics, acutely nor suppressive. Will see prn, thanks Subjective Date/time seen: 04/06/20 14:23 Interval history: non verbal Exam Narrative: Exam Narrative: afebrile Const: General: no acute distress Resp: Effort & Inspection: normal respiratory effort Auscultation: clear to auscultation bilaterally Cardio: Rate: regular rate Rhythm: regular rhythm Heart sounds: no murmurs GI: Inspection: non-distended GI Palp: Yes Soft to palpation and No Tenderness to palpation present (GI) Urinary Catheter: Urinary Catheter: patent and draining, urine clear and urine pink Objective Data Vital Signs Vital Signs: Vital Signs - 24 hr 04/05/20 22:00 04/06/20 06:00 04/06/20 08:07 Temperature 37.0 C 37.2 C Pulse Rate 63 73 57 L Respiratory Rate 16 16 Blood Pressure 145/77 H 137/70 Pulse Oximetry 100 97 04/06/20 08:08 04/06/20 08:09 Temperature Pulse Rate 58 L 65 Respiratory Rate 18 Blood Pressure 148/82 H Pulse Oximetry 96 Intake/Output Intake/Output: Intake & Output 04/03/20 04/04/20 04/05/20 04/06/20 23:59 23:59 23:59 23:59 Intake Total 1730 1721 734 Output Total [address] [facility] -470 -6179 -316 Meds/Results Medications: Active Medications Generic Name Dose Route Start Last Admin Trade Name Freq PRN Reason Stop Dose Admin Acetaminophen 650 mg 04/04/20 03:30 Tylenol Tablet PO Q6H PRN Pain 1-3 Amantadine HCl 100 mg 04/04/20 18:00 04/05/20 18:15 Symmetrel PO 100 mg QPM [facility] Administration Aspirin 81 mg 04/04/20 08:00 04/06/20 08:06 Aspirin Chewable PO 81 mg DAILY@0800 [facility] Administration Atorvastatin Calcium 80 mg 04/04/20 21:00 04/05/20 21:03 Lipitor PO 80 mg HS [facility] Administration Calcium Carbonate 500 mg 04/04/20 09:00 04/06/20 08:05 Oscal 500 Mg PO 500 mg DAILY [facility] Administration Carbidopa/Levodopa 1 tablet 04/04/20 08:00 04/06/20 13:21 Sinemet 10/100 Mg PO 1 tablet TIDWM [facility] Administration Dextrose 12.5 gm 04/04/20 03:31 Dextrose 50% Syringe IV PUSH PRN PRN Hypoglycemia Protocol Digoxin 125 mcg 04/04/20 09:00 04/06/20 08:07 Lanoxin Tab PO 125 mcg DAILY [facility] Administration Docusate Sodium 100 mg 04/04/20 09:00 04/06/20 08:06 Colace Capsule PO 100 mg DAILY [facility] Administration Finasteride 5 mg 04/04/20 09:00 04/06/20 08:06 Proscar PO 5 mg DAILY [facility] Administration Fluoxetine HCl 10 mg 04/04/20 09:00 04/06/20 08:06 Prozac PO 10 mg DAILY [facility] Administration Furosemide 20 mg 04/04/20 09:00 04/06/20 08:05 Lasix Tablet PO 20 mg DAILY [facility] Administration Glucagon 1 mg 04/04/20 03:31 Glucagon For Inj IM PRN PRN Hypoglycemia Protocol Glucose 15 gm 04/04/20 03:31 Glutose 15 PO PRN PRN Hypoglycemia Protocol Dextrose 1,000 mls @ 100 mls/hr 04/04/20 03:31 Dextrose 5% 1,000 Ml IVPB PRN PRN Hypoglycemia Protocol Sodium Chloride 1,000 mls @ 75 mls/hr 04/04/20 03:35 04/06/20 05:17 Normal Saline Iv IV CONT 75 mls/hr .[id number] [facility] Infusion Sodium Chloride 250 mls @ 30 mls/hr 04/06/20 07:32 Normal Saline Iv IV CONT 04/06/20 15:51 .Q8H20M STA Insulin Aspart 2 - 5 units 04/04/20 08:00 04/06/20 13:21 Novolog SUB-Q Not Given TIDWM [facility] Protocol Lisinopril 10 mg 04/04/20 09:00 04/06/20 08:05 Prinivil PO 10 mg DAILY [facility] Administration Metoprolol Succinate 50 mg 04/04/20 09:00 04/06/20 08:08 Toprol Xl PO 50 mg DAILY [facility] Administration Morphine Sulfate 4 mg 04/04/20 01:21 04/06/20 05:14 Morphine Sulfate Inj IV PUSH 4 mg Q2H PRN Adminis
--- NOTE | 2020-04-06 16:10 | PM.IMPN ---
Progress Note: A&P Assessment and Plan (1) Gross hematuria: Code(s): R31.0 - Gross hematuria Status: Acute Assessment and Plan: 04/06/20 16:10 Patient is 69 male with a severe dementia resident of nursing with chronic Gambino with history of BPH and hematuria as well as trauma with Gambino catheter he was sent to emergency department for hematuria etiology uncertain unlikely infection and/or most likely secondary to Gambino trauma, patient was seen by Dr. smith does not suspect urinary infection and stopped antibiotics, suggested unless the blood culture is growing bacteria no need for antibiotics, patient is seen by urologist on CBI, still shows blood in the Gambino bag, and his hemoglobin dropped to 6.3 gave him 1 unit pack RBC. and continued CBI and monitor H&H. Again today his H&H is low 6.9 will give will need to pack RBC, his urine output is improving with slight tinge of blood, patient was seen by urologist will monitor overnight with slow CBI reassess in the morning if there is not much drop in the hemoglobin and he is negative for COVID will discharge the patient back to [facility]dc Patient will need COVID test again before going to [facility] (2) Complicated UTI (urinary tract infection): Code(s): N39.0 - Urinary tract infection, site not specified Status: Acute Assessment and Plan: Urine is growing E coli ESBL, Is seen by Dr. Smith does not suspect UTI most likely colonization of chronic Gambino and does not recommend any antibiotic (3) Chronic indwelling Gambino catheter: Code(s): Z96.0 - Presence of urogenital implants Status: Acute Assessment and Plan: Plan is above patient seen by urologist (4) Hypertension: Qualifiers: Hypertension type: essential hypertension Qualified Code(s): I10 - Essential (primary) hypertension Code(s): I10 - Essential (primary) hypertension Status: Chronic Assessment and Plan: Continue to monitor (5) Atrial fibrillation: Code(s): I48.91 - Unspecified atrial fibrillation Status: Chronic Assessment and Plan: Rate is controlled with hematuria not anticoagulated (6) BPH (benign prostatic hyperplasia): Code(s): N40.0 - Benign prostatic hyperplasia without lower urinary tract symptoms Status: Chronic Assessment and Plan: Plan is above (7) Type 2 diabetes mellitus: Qualifiers: Diabetes mellitus senior risk manager insulin use: without senior risk manager use Diabetes mellitus complication status: without complication Qualified Code(s): E11.9 - Type 2 diabetes mellitus without complications Code(s): E11.9 - Type 2 diabetes mellitus without complications Status: Acute Assessment and Plan: Will continue home regimen (8) Dementia: Code(s): F03.90 - Unspecified dementia without behavioral disturbance Status: Acute Assessment and Plan: Clinically stable Subjective Date/time seen: 04/06/20 16:10 Patient is 69 male with a severe dementia resident of nursing with chronic Gambino with history of BPH and hematuria as well as trauma with Gambino catheter he was sent to emergency department for hematuria etiology uncertain unlikely infection and/or most likely secondary to Gambino trauma, patient was seen by Dr. smith does not suspect urinary infection and stopped antibiotics, suggested unless the blood culture is growing bacteria no need for antibiotics, patient is seen by urologist on CBI, still shows blood in the Gambino bag, and his hemoglobin dropped to 6.3 gave him 1 unit pack RBC. and continued CBI and monitor H&H. Again today his H&H is low 6.9 will give will need to pack RBC, his urine output is improving with slight tinge of blood, patient was seen by urologist will monitor overnight with slow CBI reassess in the morning if there is not much drop in the hemoglobin and he is negative for COVID will discharge the patient back to [facility]dc Patient will ne
[2020-04-06 18:05] LABS: Glucose Point of Care 135 (65-105)
[2020-04-06] MEDS: amantadine HCL 100 MG CAPSULE PO (18:16)
[2020-04-06] MEDS: ATORVASTATIN 40 MG TABLET 80 MG PO (21:18)
[2020-04-06 21:26] LABS: Glucose Point of Care 169 (65-105)
[2020-04-07] MEDS: MORPHINE SULFATE 4 MG/ML INJ IV PUSH (00:42)
[2020-04-07] MEDS: SODIUM CHLORIDE 0.9% IV 1,000 ML 75 ML IV CONT ×2 (03:43→17:40)
[2020-04-07 05:48] VITALS: BP 124/81; PULSE 54; RESP 20; TEMP 36.6; O2SAT 98
[2020-04-07 07:51] LABS: Hematocrit 25.7 % (42.0-52.0); Hemoglobin 8.3 g/dL (14.0-18.0); Mean Corpuscular HGB Conc 32.3 g/dl (32-36); Mean Corpuscular Volume 92.8 fl (80-100); Mean Platelet Volume 10.1 fl (7.4-10.4); Platelet Count Result 137 k/mm3 (150-375); Red Blood Count 2.77 M/mm3 (4.6-6.20); Red Cell Distribution Width 15.9 % (11.5-14.5)
[2020-04-07 08:08] LABS: Blood Urea Nitrogen 5 mg/dL (9-20); Calcium 7.5 mg/dL (8.4-10.2); Carbon Dioxide 30 mmol/L (22-30); Chloride 104 mmol/L (98-107); Estimated CRCL calculation 87 ml/min; Estimated Glomerular Filt Rate > 60; Glucose 122 mg/dL (75-110); Potassium 3.6 mmol/L (3.4-5.0); Sodium 136 mmol/L (137-145)
[2020-04-07] MEDS: CHOLECALCIFEROL 1,000 UNIT TABLET 1000 UNITS PO (08:34)
[2020-04-07] MEDS: TAMSULOSIN HCL 0.4 MG CAPSULE PO ×2 (08:34→17:41)
[2020-04-07] MEDS: CARBIDOPA/LEVODOPA 10/100 MG TABLET 1 TABLET PO ×3 (08:34→17:41)
[2020-04-07] MEDS: CALCIUM CARBONATE (OSCAL) 500 MG TABLET PO (08:34)
[2020-04-07] MEDS: lisinopriL 10 MG TABLET PO (08:34)
[2020-04-07] MEDS: DOCUSATE SODIUM 100 MG CAPSULE PO (08:34)
[2020-04-07 08:35] VITALS: PULSE 56
[2020-04-07] MEDS: FUROSEMIDE 20 MG TABLET PO (08:35)
[2020-04-07] MEDS: FLUOXETINE HCL 10 MG CAPSULE PO (08:35)
[2020-04-07] MEDS: FINASTERIDE 5 MG TABLET PO (08:35)
[2020-04-07] MEDS: DIGOXIN TAB 125 MCG TABLET PO (08:35)
[2020-04-07] MEDS: ASPIRIN 81 MG CHEWABLE TABLET PO (08:35)
[2020-04-07 08:36] VITALS: PULSE 56
[2020-04-07] MEDS: METOPROLOL SUCCINATE EXT REL 50 MG TABCR PO (08:36)
[2020-04-07 08:47] LABS: Glucose Point of Care 122 (65-105)
--- NOTE | 2020-04-07 11:20 | WPDUROPN2 ---
Progress Note: A&P Additional Plan Hematuria - continue to wean CBI; Patient will need to keep Gambino catheter in place per the prior notes from his regular urologists Subjective Subjective Date/Time Seen: 04/07/20 11:20 urine clearing on a slow CBI Objective Data Vital Signs Vital Signs: Vital Signs - 24 hr 04/06/20 14:00 04/06/20 14:45 04/06/20 15:45 Temperature 36.2 C L 36.6 C 36.5 C Pulse Rate 61 60 68 Respiratory Rate 16 18 16 Blood Pressure 142/78 H 141/75 H 141/75 H Pulse Oximetry 100 100 100 04/06/20 16:45 04/06/20 22:00 04/07/20 05:48 Temperature 36.4 C L 36.7 C 36.6 C Pulse Rate 59 L 59 L 54 L Respiratory Rate 16 20 20 Blood Pressure 130/78 136/69 124/81 Pulse Oximetry 100 100 98 04/07/20 08:35 04/07/20 08:36 Temperature Pulse Rate 56 L 56 L Respiratory Rate Blood Pressure Pulse Oximetry Intake/Output Intake/Output: Intake & Output 04/04/20 04/05/20 04/06/20 04/07/20 23:59 23:59 23:59 23:59 Intake Total 1730 1721 2070 440 Output Total 2200 7900 3250 1200 Balance -470 -6179 -1180 -760 Meds/Results Medications: Active Medications Generic Name Dose Route Start Last Admin Trade Name Freq PRN Reason Stop Dose Admin Acetaminophen 650 mg 04/04/20 03:30 Tylenol Tablet PO Q6H PRN Pain 1-3 Amantadine HCl 100 mg 04/04/20 18:00 04/06/20 18:16 Symmetrel PO 100 mg QPM [facility] Administration Aspirin 81 mg 04/04/20 08:00 04/07/20 08:35 Aspirin Chewable PO 81 mg DAILY@0800 [facility] Administration Atorvastatin Calcium 80 mg 04/04/20 21:00 04/06/20 21:18 Lipitor PO 80 mg HS [facility]A Administration Calcium Carbonate 500 mg 04/04/20 09:00 04/07/20 08:34 Oscal 500 Mg PO 500 mg DAILY [facility] Administration Carbidopa/Levodopa 1 tablet 04/04/20 08:00 04/07/20 08:34 Sinemet 10/100 Mg PO 1 tablet TIDWM [facility] Administration Dextrose 12.5 gm 04/04/20 03:31 Dextrose 50% Syringe IV PUSH PRN PRN Hypoglycemia Protocol Digoxin 125 mcg 04/04/20 09:00 04/07/20 08:35 Lanoxin Tab PO 125 mcg DAILY [facility] Administration Docusate Sodium 100 mg 04/04/20 09:00 04/07/20 08:34 Colace Capsule PO 100 mg DAILY [facility] Administration Finasteride 5 mg 04/04/20 09:00 04/07/20 08:35 Proscar PO 5 mg DAILY [facility] Administration Fluoxetine HCl 10 mg 04/04/20 09:00 04/07/20 08:35 Prozac PO 10 mg DAILY [facility] Administration Furosemide 20 mg 04/04/20 09:00 04/07/20 08:35 Lasix Tablet PO 20 mg DAILY [facility] Administration Glucagon 1 mg 04/04/20 03:31 Glucagon For Inj IM PRN PRN Hypoglycemia Protocol Glucose 15 gm 04/04/20 03:31 Glutose 15 PO PRN PRN Hypoglycemia Protocol Dextrose 1,000 mls @ 100 mls/hr 04/04/20 03:31 Dextrose 5% 1,000 Ml IVPB PRN PRN Hypoglycemia Protocol Sodium Chloride 1,000 mls @ 75 mls/hr 04/04/20 03:35 04/07/20 03:43 Normal Saline Iv IV CONT 75 mls/hr .[id number] [facility] Administration Insulin Aspart 2 - 5 units 04/04/20 08:00 04/07/20 08:32 Novolog SUB-Q Not Given TIDWM [facility] Protocol Lisinopril 10 mg 04/04/20 09:00 04/07/20 08:34 Prinivil PO 10 mg DAILY [facility] Administration Metoprolol Succinate 50 mg 04/04/20 09:00 04/07/20 08:36 Toprol Xl PO 50 mg DAILY [facility] Administration Morphine Sulfate 4 mg 04/04/20 01:21 04/07/20 00:42 Morphine Sulfate Inj IV PUSH 4 mg Q2H PRN Administration Pain Rated 7-10 Ondansetron HCl 4 mg 04/04/20 01:21 Zofran Inj IV PUSH Q4H PRN Nausea Polyethylene Glycol 17 gm 04/04/20 03:30 Miralax PO DAILY PRN Constipation Tamsulosin HCl 0.4 mg 04/04/20 09:00 04/07/20 08:34 Flomax PO 0.4 mg BID [facility] Administration Vitamin D 1,000 unit 04/04/20 09:00 04/07/20 08:34 Vitamin D PO 1,000 unit DAILY [facility] Administration Radiology Results: ITS Impressions Chest X-Ray 04/03/20 23
[2020-04-07 12:22] LABS: Glucose Point of Care 118 (65-105)
[2020-04-07 14:00] VITALS: BP 153/79; PULSE 57; RESP 16; TEMP 36.2; O2SAT 99
--- NOTE | 2020-04-07 14:10 | PM.IMPN ---
Progress Note: A&P Assessment and Plan (1) Gross hematuria: Code(s): R31.0 - Gross hematuria Status: Acute Assessment and Plan: 04/07/20 14:10 Patient is 69 male with a severe dementia resident of nursing with chronic Gambino with history of BPH and hematuria as well as trauma with Gambino catheter he was sent to emergency department for hematuria etiology uncertain unlikely infection and/or most likely secondary to Gambino trauma, patient was seen by Dr. smith does not suspect urinary infection and stopped antibiotics, suggested unless the blood culture is growing bacteria no need for antibiotics, patient is seen by urologist on CBI, still shows blood in the Gambino bag, and his hemoglobin dropped to 6.3 gave him 1 unit pack RBC. and continued CBI and monitor H&H. Again on 04/06 his H&H is low 6.9 and recieved 1 unit of pack RBC, today his urine output is improving and appears clear and his hh is 8.3, patient was seen by urologist will monitor overnight with slow CBI reassess in the morning if there is not much drop in the hemoglobin and he is negative for COVID will discharge the patient back to detention Patient needs COVID test again before going to detention (2) Complicated UTI (urinary tract infection): Code(s): N39.0 - Urinary tract infection, site not specified Status: Acute Assessment and Plan: Urine is growing E coli ESBL, Is seen by Dr. Smith does not suspect UTI most likely colonization of chronic Gambino and does not recommend any antibiotic (3) Chronic indwelling Gambino catheter: Code(s): Z96.0 - Presence of urogenital implants Status: Acute Assessment and Plan: Plan is above patient seen by urologist (4) Hypertension: Qualifiers: Hypertension type: essential hypertension Qualified Code(s): I10 - Essential (primary) hypertension Code(s): I10 - Essential (primary) hypertension Status: Chronic Assessment and Plan: Continue to monitor (5) Atrial fibrillation: Code(s): I48.91 - Unspecified atrial fibrillation Status: Chronic Assessment and Plan: Rate is controlled with hematuria not anticoagulated (6) BPH (benign prostatic hyperplasia): Code(s): N40.0 - Benign prostatic hyperplasia without lower urinary tract symptoms Status: Chronic Assessment and Plan: Plan is above (7) Type 2 diabetes mellitus: Qualifiers: Diabetes mellitus correction insulin use: without correction use Diabetes mellitus complication status: without complication Qualified Code(s): E11.9 - Type 2 diabetes mellitus without complications Code(s): E11.9 - Type 2 diabetes mellitus without complications Status: Acute Assessment and Plan: Will continue home regimen (8) Dementia: Code(s): F03.90 - Unspecified dementia without behavioral disturbance Status: Acute Assessment and Plan: Clinically stable Subjective Date/time seen: 04/07/20 14:10 Patient is 69 male with a severe dementia resident of nursing with chronic Gambino with history of BPH and hematuria as well as trauma with Gambino catheter he was sent to emergency department for hematuria etiology uncertain unlikely infection and/or most likely secondary to Gambino trauma, patient was seen by Dr. smith does not suspect urinary infection and stopped antibiotics, suggested unless the blood culture is growing bacteria no need for antibiotics, patient is seen by urologist on CBI, still shows blood in the Gambino bag, and his hemoglobin dropped to 6.3 gave him 1 unit pack RBC. and continued CBI and monitor H&H. Again on 04/06 his H&H is low 6.9 and recieved 1 unit of pack RBC, today his urine output is improving and appears clear and his hh is 8.3, patient was seen by urologist will monitor overnight with slow CBI reassess in the morning if there is not much drop in the hemoglobin and he is negative for COVID will discharge the patient back t
[2020-04-07] MEDS: amantadine HCL 100 MG CAPSULE PO (18:19)
[2020-04-07 18:24] LABS: Glucose Point of Care 149 (65-105)
[2020-04-07] MEDS: ATORVASTATIN 40 MG TABLET 80 MG PO (20:57)
[2020-04-07 21:06] LABS: Glucose Point of Care 162 (65-105)
[2020-04-07 22:00] VITALS: BP 147/80; PULSE 57; RESP 18; TEMP 36.9; O2SAT 98
[2020-04-08] MEDS: MORPHINE SULFATE 4 MG/ML INJ IV PUSH (03:20)
[2020-04-08 06:00] VITALS: BP 162/86; PULSE 60; RESP 18; TEMP 37.1; O2SAT 97
[2020-04-08 06:29] LABS: Hematocrit 26.7 % (42.0-52.0); Hemoglobin 8.5 g/dL (14.0-18.0); Mean Corpuscular HGB Conc 31.8 g/dl (32-36); Mean Corpuscular Hemoglobin 29.8 pg (26-34); Mean Corpuscular Volume 93.7 fl (80-100); Mean Platelet Volume 10.4 fl (7.4-10.4); Platelet Count Result 140 k/mm3 (150-375); Red Blood Count 2.85 M/mm3 (4.6-6.20); Red Cell Distribution Width 15.6 % (11.5-14.5); White Blood Count 3.7 K/mm3 (4.5-10.0)
[2020-04-08] MEDS: SODIUM CHLORIDE 0.9% IV 1,000 ML 75 ML IV CONT ×2 (06:40→20:41)
[2020-04-08 06:45] LABS: Blood Urea Nitrogen 4 mg/dL (9-20); Calcium 7.8 mg/dL (8.4-10.2); Carbon Dioxide 35 mmol/L (22-30); Chloride 104 mmol/L (98-107); Estimated CRCL calculation 87 ml/min; Estimated Glomerular Filt Rate > 60; Glucose 93 mg/dL (75-110); Potassium 3.4 mmol/L (3.4-5.0); Sodium 137 mmol/L (137-145)
[2020-04-08 08:55] LABS: Glucose Point of Care 80 (65-105)
[2020-04-08] MEDS: TAMSULOSIN HCL 0.4 MG CAPSULE PO ×2 (09:36→17:43)
[2020-04-08] MEDS: ASPIRIN 81 MG CHEWABLE TABLET PO (09:36)
[2020-04-08 09:37] VITALS: PULSE 60
[2020-04-08] MEDS: CHOLECALCIFEROL 1,000 UNIT TABLET 1000 UNITS PO (09:37)
[2020-04-08] MEDS: CALCIUM CARBONATE (OSCAL) 500 MG TABLET PO (09:37)
[2020-04-08] MEDS: DIGOXIN TAB 125 MCG TABLET PO (09:37)
[2020-04-08] MEDS: CARBIDOPA/LEVODOPA 10/100 MG TABLET 1 TABLET PO ×3 (09:37→17:42)
[2020-04-08] MEDS: DOCUSATE SODIUM 100 MG CAPSULE PO (09:37)
[2020-04-08] MEDS: FLUOXETINE HCL 10 MG CAPSULE PO (09:37)
[2020-04-08] MEDS: FINASTERIDE 5 MG TABLET PO (09:37)
[2020-04-08 09:38] VITALS: PULSE 60
[2020-04-08] MEDS: METOPROLOL SUCCINATE EXT REL 50 MG TABCR PO (09:38)
[2020-04-08] MEDS: lisinopriL 10 MG TABLET PO (09:38)
[2020-04-08] MEDS: FUROSEMIDE 20 MG TABLET PO (09:38)
[2020-04-08 13:07] LABS: Glucose Point of Care 104 (65-105)
[2020-04-08 14:00] VITALS: BP 172/89; PULSE 67; RESP 18; TEMP 36.3; O2SAT 100
--- NOTE | 2020-04-08 15:47 | WPDUROPN2 ---
Progress Note: A&P Assessment and Plan (1) Gross hematuria: Code(s): R31.0 - Gross hematuria Status: Acute Assessment and Plan: resolved. Likely due to prostatic enlargement (2) Chronic indwelling Gambino catheter: Code(s): Z96.0 - Presence of urogenital implants Status: Acute Assessment and Plan: he longstanding BPH. Continue Gambino catheter. Subjective Subjective Date/Time Seen: 04/08/20 15:47 The urine is clear. CBI is off. With Exam Const: General: no acute distress Resp: Effort & Inspection: normal respiratory effort Urinary Catheter: Urinary Catheter: patent and draining Objective Data Vital Signs Vital Signs: Vital Signs - 24 hr 04/07/20 22:00 04/08/20 06:00 04/08/20 09:37 Temperature 98.4 F 98.8 F Pulse Rate 57 L 60 60 Respiratory Rate 18 18 Blood Pressure 147/80 H 162/86 H Pulse Oximetry 98 97 04/08/20 09:38 04/08/20 14:00 Temperature 97.3 F L Pulse Rate 60 67 Respiratory Rate 18 Blood Pressure 172/89 H Pulse Oximetry 100 Intake/Output Intake/Output: Intake & Output 04/05/20 04/06/20 04/07/20 04/08/20 23:59 23:59 23:59 23:59 Intake Total 1721 2070 4060 1340 Output Total 7900 3250 1200 2200 Balance -6179 -1180 2860 -860 Meds/Results Medications: Active Medications Generic Name Dose Route Start Last Admin Trade Name Freq PRN Reason Stop Dose Admin Acetaminophen 650 mg 04/04/20 03:30 Tylenol Tablet PO Q6H PRN Pain 1-3 Amantadine HCl 100 mg 04/04/20 18:00 04/07/20 18:19 Symmetrel PO 100 mg QPM [facility]OLA Administration Aspirin 81 mg 04/04/20 08:00 04/08/20 09:36 Aspirin Chewable PO 81 mg DAILY@0800 PAOLA Administration Atorvastatin Calcium 80 mg 04/04/20 21:00 04/07/20 20:57 Lipitor PO 80 mg HS PAOLA Administration Calcium Carbonate 500 mg 04/04/20 09:00 04/08/20 09:37 Oscal 500 Mg PO 500 mg DAILY [facility]A Administration Carbidopa/Levodopa 1 tablet 04/04/20 08:00 04/08/20 12:59 Sinemet 10/100 Mg PO 1 tablet TIDWM [facility] Administration Dextrose 12.5 gm 04/04/20 03:31 Dextrose 50% Syringe IV PUSH PRN PRN Hypoglycemia Protocol Digoxin 125 mcg 04/04/20 09:00 04/08/20 09:37 Lanoxin Tab PO 125 mcg DAILY [facility]A Administration Docusate Sodium 100 mg 04/04/20 09:00 04/08/20 09:37 Colace Capsule PO 100 mg DAILY [facility] Administration Finasteride 5 mg 04/04/20 09:00 04/08/20 09:37 Proscar PO 5 mg DAILY [facility]A Administration Fluoxetine HCl 10 mg 04/04/20 09:00 04/08/20 09:37 Prozac PO 10 mg DAILY [facility]A Administration Furosemide 20 mg 04/04/20 09:00 04/08/20 09:38 Lasix Tablet PO 20 mg DAILY [facility]A Administration Glucagon 1 mg 04/04/20 03:31 Glucagon For Inj IM PRN PRN Hypoglycemia Protocol Glucose 15 gm 04/04/20 03:31 Glutose 15 PO PRN PRN Hypoglycemia Protocol Dextrose 1,000 mls @ 100 mls/hr 04/04/20 03:31 Dextrose 5% 1,000 Ml IVPB PRN PRN Hypoglycemia Protocol Sodium Chloride 1,000 mls @ 75 mls/hr 04/04/20 03:35 04/08/20 06:40 Normal Saline Iv IV CONT 75 mls/hr .[id number] PAOLA Administration Insulin Aspart 2 - 5 units 04/04/20 08:00 04/08/20 12:59 Novolog SUB-Q Not Given TIDWM [facility] Protocol Lisinopril 10 mg 04/04/20 09:00 04/08/20 09:38 Prinivil PO 10 mg DAILY [facility] Administration Metoprolol Succinate 50 mg 04/04/20 09:00 04/08/20 09:38 Toprol Xl PO 50 mg DAILY [facility] Administration Morphine Sulfate 4 mg 04/04/20 01:21 04/08/20 03:20 Morphine Sulfate Inj IV PUSH 4 mg Q2H PRN Administration Pain Rated 7-10 Ondansetron HCl 4 mg 04/04/20 01:21 Zofran Inj IV PUSH Q4H PRN Nausea Polyethylene Glycol 17 gm 04/04/20 03:30 Miralax PO DAILY PRN Constipation Tamsulosin HCl 0.4 mg 04/04/20 09:00 04/08/20 09:36 Flomax PO 0.4 mg BID PAOLA Admi
--- NOTE | 2020-04-08 16:26 | PM.IMPN ---
Progress Note: A&P Assessment and Plan (1) Gross hematuria: Code(s): R31.0 - Gross hematuria Status: Acute Assessment and Plan: 04/08/20 16:26 Patient is 69 male with a severe dementia [facility] with chronic Gambino with history of BPH and hematuria as well as trauma with Gambino catheter he was sent to emergency department for hematuria etiology uncertain unlikely infection and/or most likely secondary to Gambino trauma, patient was seen by Dr. Smith does not suspect urinary infection and stopped antibiotics, suggested unless the blood culture is growing bacteria no need for antibiotics, 04/05 patient was seen by urologist on CBI, still showed blood in the Gambino bag, and his hemoglobin dropped to 6.3 gave him 1 unit pack RBC. and continued CBI and monitor H&H. Again on 04/06 his H&H is low 6.9 and recieved 1 unit of pack RBC, on 07/08 his urine output was improving and appeared clear and his hh was 8.3, patient was seen by urologist will monitor overnight with slow CBI reassess in the morning if there is not much drop in the hemoglobin and he is negative for COVID will discharge the patient back to [facility], Patient needs COVID test again before going to penitentiary (2) Complicated UTI (urinary tract infection): Code(s): N39.0 - Urinary tract infection, site not specified Status: Acute Assessment and Plan: Urine is growing E coli ESBL, Is seen by Dr. Smith does not suspect UTI most likely colonization of chronic Gambino and does not recommend any antibiotic (3) Chronic indwelling Gambino catheter: Code(s): Z96.0 - Presence of urogenital implants Status: Acute Assessment and Plan: Plan is above patient seen by urologist (4) Hypertension: Qualifiers: Hypertension type: essential hypertension Qualified Code(s): I10 - Essential (primary) hypertension Code(s): I10 - Essential (primary) hypertension Status: Chronic Assessment and Plan: Continue to monitor (5) Atrial fibrillation: Code(s): I48.91 - Unspecified atrial fibrillation Status: Chronic Assessment and Plan: Rate is controlled with hematuria not anticoagulated (6) BPH (benign prostatic hyperplasia): Code(s): N40.0 - Benign prostatic hyperplasia without lower urinary tract symptoms Status: Chronic Assessment and Plan: Plan is above (7) Type 2 diabetes mellitus: Qualifiers: Diabetes mellitus intermediate designer insulin use: without intermediate designer use Diabetes mellitus complication status: without complication Qualified Code(s): E11.9 - Type 2 diabetes mellitus without complications Code(s): E11.9 - Type 2 diabetes mellitus without complications Status: Acute Assessment and Plan: Will continue home regimen (8) Dementia: Code(s): F03.90 - Unspecified dementia without behavioral disturbance Status: Acute Assessment and Plan: Clinically stable Subjective Date/time seen: 04/08/20 16:26 Patient is 69 male with a severe dementia [facility] of [facility] with chronic Gambino with history of BPH and hematuria as well as trauma with Gambino catheter he was sent to emergency department for hematuria etiology uncertain unlikely infection and/or most likely secondary to Gambino trauma, patient was seen by Dr. Smith does not suspect urinary infection and stopped antibiotics, suggested unless the blood culture is growing bacteria no need for antibiotics, 04/05 patient was seen by urologist on CBI, still showed blood in the Gambino bag, and his hemoglobin dropped to 6.3 gave him 1 unit pack RBC. and continued CBI and monitor H&H. Again on 04/06 his H&H is low 6.9 and recieved 1 unit of pack RBC, on 07/08 his urine output was improving and appeared clear and his hh was 8.3, patient was seen by urologist will monitor overnight with slow CBI reassess in the morning if there is not much drop in the hemoglobin and he is negative for CO
[2020-04-08] MEDS: amantadine HCL 100 MG CAPSULE PO (17:43)
[2020-04-08 17:52] LABS: Glucose Point of Care 108 (65-105)
[2020-04-08] MEDS: ATORVASTATIN 40 MG TABLET 80 MG PO (20:42)
[2020-04-08 22:00] VITALS: BP 168/84; PULSE 56; RESP 16; TEMP 36.4; O2SAT 54
[2020-04-08 22:35] LABS: Glucose Point of Care 140 (65-105)
[2020-04-09] MEDS: MORPHINE SULFATE 4 MG/ML INJ IV PUSH (02:11)
[2020-04-09 06:00] VITALS: BP 162/66; PULSE 57; RESP 16; TEMP 36.9; O2SAT 100
[2020-04-09 06:27] LABS: Hematocrit 27.7 % (42.0-52.0); Hemoglobin 9.1 g/dL (14.0-18.0); Mean Corpuscular HGB Conc 32.9 g/dl (32-36); Mean Corpuscular Hemoglobin 30.1 pg (26-34); Mean Corpuscular Volume 91.7 fl (80-100); Mean Platelet Volume 9.6 fl (7.4-10.4); Platelet Count Result 142 k/mm3 (150-375); Red Blood Count 3.02 M/mm3 (4.6-6.20); Red Cell Distribution Width 15.1 % (11.5-14.5); White Blood Count 3.6 K/mm3 (4.5-10.0)
[2020-04-09 06:32] LABS: Blood Urea Nitrogen 4 mg/dL (9-20); Calcium 7.9 mg/dL (8.4-10.2); Carbon Dioxide 34 mmol/L (22-30); Chloride 103 mmol/L (98-107); Estimated CRCL calculation 87 ml/min; Estimated Glomerular Filt Rate > 60; Glucose 110 mg/dL (75-110); Potassium 3.4 mmol/L (3.4-5.0); Sodium 136 mmol/L (137-145)
[2020-04-09] MEDS: ASPIRIN 81 MG CHEWABLE TABLET PO (07:55)
[2020-04-09] MEDS: CALCIUM CARBONATE (OSCAL) 500 MG TABLET PO (07:56)
[2020-04-09] MEDS: CARBIDOPA/LEVODOPA 10/100 MG TABLET 1 TABLET PO ×2 (07:56→12:00)
[2020-04-09] MEDS: CHOLECALCIFEROL 1,000 UNIT TABLET 1000 UNITS PO (07:56)
[2020-04-09] MEDS: FUROSEMIDE 20 MG TABLET PO (08:00)
[2020-04-09] MEDS: FLUOXETINE HCL 10 MG CAPSULE PO (08:00)
[2020-04-09] MEDS: FINASTERIDE 5 MG TABLET PO (08:00)
[2020-04-09] MEDS: lisinopriL 10 MG TABLET PO (08:00)
[2020-04-09] MEDS: DOCUSATE SODIUM 100 MG CAPSULE PO (08:00)
[2020-04-09] MEDS: TAMSULOSIN HCL 0.4 MG CAPSULE PO (08:00)
[2020-04-09 08:24] LABS: Glucose Point of Care 82 (65-105)
[2020-04-09 09:08] LABS: Glucose Point of Care 90 (65-105)
--- NOTE | 2020-04-09 09:21 | WPDUROPN2 ---
Progress Note: A&P Assessment and Plan (1) Chronic indwelling Velazquez catheter: Code(s): Z96.0 - Presence of urogenital implants Status: Acute Assessment and Plan: Is seen by Dr. Smith does not suspect UTI most likely colonization of chronic Velazquez and does not recommend any antibiotic (2) Gross hematuria: Code(s): R31.0 - Gross hematuria Status: Acute Assessment and Plan: [place] urine present, clear, off CBI x 2 days, repeat urine culture negative on 04/04/2020. Keep velazquez in, monthly catheter changes indefinitely. No further recommendations at this time, ok to discharge with catheter when medically stable. Subjective Subjective Date/Time Seen: 04/09/20 09:21 The urine is clear. CBI is off. Review of Systems Review of Systems: ROS unobtainable: Yes unobtainable due to mental status Exam Resp: Effort & Inspection: normal respiratory effort Cardio: Rate: bradycardic : Male General Exam: Yes normal external exam Penis: Yes uncircumcised Meatus: meatus normal Urinary Catheter: Urinary Catheter: patent and draining, urine clear and urine pink Objective Data Vital Signs Vital Signs: Vital Signs - 24 hr 04/08/20 09:37 04/08/20 09:38 04/08/20 14:00 Temperature 97.3 F L Pulse Rate 60 60 67 Respiratory Rate 18 Blood Pressure 172/89 H Pulse Oximetry 100 04/08/20 22:00 04/09/20 06:00 Temperature 97.6 F 98.4 F Pulse Rate 56 L 57 L Respiratory Rate 16 16 Blood Pressure 168/84 H 162/66 H Pulse Oximetry 54 L 100 Intake/Output Intake/Output: Intake & Output 04/06/20 04/07/20 04/08/20 04/09/20 23:59 23:59 23:59 23:59 Intake Total 2070 4060 2700 60 Output Total 3250 1200 2650 2550 Balance -1180 2860 50 -2490 Meds/Results Medications: Active Medications Generic Name Dose Route Start Last Admin Trade Name Freq PRN Reason Stop Dose Admin Acetaminophen 650 mg 04/04/20 03:30 Tylenol Tablet PO Q6H PRN Pain 1-3 Amantadine HCl 100 mg 04/04/20 18:00 04/08/20 17:43 Symmetrel PO 100 mg QPM PAOLA Administration Aspirin 81 mg 04/04/20 08:00 04/09/20 07:55 Aspirin Chewable PO 81 mg DAILY@0800 [facility] Administration Atorvastatin Calcium 80 mg 04/04/20 21:00 04/08/20 20:42 Lipitor PO 80 mg HS [facility] Administration Calcium Carbonate 500 mg 04/04/20 09:00 04/09/20 07:56 Oscal 500 Mg PO 500 mg DAILY [facility] Administration Carbidopa/Levodopa 1 tablet 04/04/20 08:00 04/09/20 07:56 Sinemet 10/100 Mg PO 1 tablet TIDWM [facility] Administration Dextrose 12.5 gm 04/04/20 03:31 Dextrose 50% Syringe IV PUSH PRN PRN Hypoglycemia Protocol Digoxin 125 mcg 04/04/20 09:00 04/08/20 09:37 Lanoxin Tab PO 125 mcg DAILY [facility] Administration Docusate Sodium 100 mg 04/04/20 09:00 04/09/20 08:00 Colace Capsule PO 100 mg DAILY [facility] Administration Finasteride 5 mg 04/04/20 09:00 04/09/20 08:00 Proscar PO 5 mg DAILY [facility] Administration Fluoxetine HCl 10 mg 04/04/20 09:00 04/09/20 08:00 Prozac PO 10 mg DAILY [facility] Administration Furosemide 20 mg 04/04/20 09:00 04/09/20 08:00 Lasix Tablet PO 20 mg DAILY [facility] Administration Glucagon 1 mg 04/04/20 03:31 Glucagon For Inj IM PRN PRN Hypoglycemia Protocol Glucose 15 gm 04/04/20 03:31 Glutose 15 PO PRN PRN Hypoglycemia Protocol Dextrose 1,000 mls @ 100 mls/hr 04/04/20 03:31 Dextrose 5% 1,000 Ml IVPB PRN PRN Hypoglycemia Protocol Sodium Chloride 1,000 mls @ 75 mls/hr 04/04/20 03:35 04/08/20 20:41 Normal Saline Iv IV CONT 75 mls/hr .[id number] [facility]A Administration Insulin Aspart 2 - 5 units 04/04/20 08:00 04/09/20 07:55 Novolog SUB-Q Not Given TIDWM [facility] Protocol Lisinopril 10 mg 04/04/20 09:00 04/09/20 08:00 Prinivil PO 10 mg DAILY [facility] Administration Metoprolol Succinate 50 mg 04/04/20 09:00 04/08/20 09:38
[2020-04-09 10:39] VITALS: PULSE 56
[2020-04-09] MEDS: DIGOXIN TAB 125 MCG TABLET PO (10:39)
[2020-04-09] MEDS: METOPROLOL SUCCINATE EXT REL 50 MG TABCR PO (10:39)
[2020-04-09 12:29] LABS: Glucose Point of Care 87 (65-105)
--- NOTE | 2020-04-09 13:21 | P.CDI_ITS ---
CDI Query Clarification Request - Hematuria and still showed blood in the Gambino bag, and his hemoglobin dropped to 6.3 gave him 1 unit pack RBC. and continued CBI and monitor H&H. Again on 04/06 his H&H is low 6.9 and recieved 1 unit of pack RBC has been documented - 04/03 H&H 8.4/26.7. 04/05 H&H 6.3/20.1 04/09 H&H 9.1/.7 - 2 Units of blood have been transfused. Please clarify if there is a corresponding diagnosis for above findings: * Acute blood loss anemia * Cronic blood loss anemia * Acute on Chronic blood loss anemia * Anemia of other cause * Other * Not clinically significant * Unable to determine <Clare Lee RN - Last Filed: 04/10/20 06:33> Clarified Diagnosis (1) Acute blood loss anemia: Code(s): D62 - Acute posthemorrhagic anemia <Clare Lee RN - Last Filed: 04/10/20 06:33> Status: Acute <Clare Lee RN - Last Filed: 04/10/20 06:33> Assessment and Plan: most likely due to trauma trauma from Gambino. did resolve and his hh remained stable before discharging <Maryann Allen MD - Last Filed: 04/17/20 11:12>
--- NOTE | 2020-04-09 13:27 | PM.DS ---
DS: Summary Hospital Course Reason for hospitalization: his is a 69 year old severely demented, Diabetic, and previous CVA w/ residual right side paralysis who was [facility] secondary to blood in his Gambino bag. The patient is severely demented and is incoherent. The patient constantly complains of aches and pains. The patient was evaluated in the ER tonight and found to have gross hematuria as well as an abnormal urinalysis. No family is present and no other history is obtainable. On review of the chart it appears that the patient had a ESBL producing Klebsiella and Enterococcus species last month on his urine culture. Hospital Course: Patient is 69 male with a severe dementia resident of prison with chronic Gambino with history of BPH and hematuria as well as trauma with Gambino catheter he was sent to emergency department for hematuria etiology uncertain unlikely infection and/or most likely secondary to Gambino trauma, patient was seen by Dr. Smith does not suspect urinary infection and stopped antibiotics, suggested unless the blood culture is growing bacteria no need for antibiotics, 04/05 patient was seen by urologist on CBI, still showed blood in the Gambino bag, and his hemoglobin dropped to 6.3 gave him 1 unit pack RBC. and continued CBI and monitor H&H. Again on 04/06 his H&H is low 6.9 and recieved 1 unit of pack RBC, on 07/08 his urine output was improving and appeared clear and his hh was 8.3, patient was seen by urologist will monitor overnight with slow CBI reassess in the morning if there is not much drop in the hemoglobin and he is negative for COVID will discharge the patient back to prison, Patient needs COVID test again before going to prison, Today patient COVID-19 test is negative, HH is stable, seen by his urologist, clinically stable, will discharge patient to [facility]. Status at Discharge Functional status at discharge: bed bound Overall status at discharge: patient is back to baseline Time Spent with Patient Time attestation: Total time spent providing and/or coordinating discharge services: Patient was seen and examined at the time of the discharge Condition at discharge is stable Code status: Full code. Time spent preparing discharge summary, discharge medications, discussing discharge planning with major case detective and patient is 35 minutes. Time spent: Greater than 30 minutes Exam Const: General: comfortable and no acute distress HENMT: General nose exam: Normal nares present Eyes: Sclera: sclerae normal Neck: Neck: supple Resp: Effort & Inspection: normal respiratory effort Auscultation: clear to auscultation bilaterally Cardio: Rate: regular rate Rhythm: regular rhythm GI: GI Palp: Yes Soft to palpation Auscultation: normal bowel sounds Urinary Catheter: Urinary Catheter: urine pink Skin: General skin exam: normal color Neuro: Other: Patient with severe dementia Extrem: General: normal to inspection Psych: Other: Patient with severe dementia DS: Data Data Completed and Pending Labs on day of discharge: Labs from last 24 hours 04/09/20 04/09/20 04/09/20 11:59 08:15 07:51 WBC RBC Hgb Hct MCV MCH MCHC RDW Plt Count MPV Sodium Potassium Chloride Carbon Dioxide BUN Creatinine Estim Creat Clear Calc Estimated GFR Glucose POC Capillary Glucose 87 82 90 Calcium COVID-19 Pt Symptomatic COVID-19 PCR Interp SARS Virus RNA (RT-PCR) SARS-CoV-2 Source SARS-CoV-2 RNA (RT-PCR) 04/09/20 04/09/20 04/08/20 06:06 06:06 20:45 WBC 3.6 L RBC 3.02 L Hgb 9.1 L Hct 27.7 L MCV 91.7 MCH 30.1 MCHC 32.9 RDW 15.1 H Plt Count 142 L MPV 9.6 Sodium 136 L Potassium 3.4 Chloride 103 Carbon Dioxide 34 H BUN 4 L Creatinine 0.70 Estim Creat Clear Calc 87 Estimated GFR > 60 Glucose 110 POC Capillary Glucose 140 H Calc
[2020-04-09 14:00] VITALS: BP 150/77; PULSE 59; RESP 16; TEMP 36.4; O2SAT 100
== END 2020-04-09 15:26 | DRG 699 ==
LOC: ANHED 04-04 01:26 → ANH3MEDSUR 04-04 01:41
PROVIDERS: Admitting Provider Family Medicine; Emergency Provider Emergency Medicine; Visit Provider Family Medicine
DX: S37.39XA Other injury of urethra, initial encounter (principal); I48.20 Chronic atrial fibrillation, unspecified; D62 Acute posthemorrhagic anemia; X58.XXXA Exposure to other specified factors, initial encounter; Z11.59 Encounter for screening for other viral diseases; B96.1 Klebsiella pneumoniae [K. pneumoniae] as the cause of diseases classified elsewhere; R31.0 Gross hematuria; I50.9 Heart failure, unspecified; I25.10 Atherosclerotic heart disease of native coronary artery without angina pectoris; I11.0 Hypertensive heart disease with heart failure; N40.1 Benign prostatic hyperplasia with lower urinary tract symptoms; E11.319 Type 2 diabetes mellitus with unspecified diabetic retinopathy without macular edema; F41.8 Other specified anxiety disorders; E78.5 Hyperlipidemia, unspecified; F03.90 Unspecified dementia, unspecified severity, without behavioral disturbance, psychotic disturbance, mood disturbance, and anxiety; G47.33 Obstructive sleep apnea (adult) (pediatric); G20 Parkinson's disease; E55.9 Vitamin D deficiency, unspecified; I69.361 Other paralytic syndrome following cerebral infarction affecting right dominant side; Z86.718 Personal history of other venous thrombosis and embolism; Z79.82 Long term (current) use of aspirin
CPT/HCPCS: 36415; 36430; 71045; 80048; 80053; 81001; 85025; 85027; 86850; 86900; 86901; 86920; 86923; 87040; 87077; 87086; 87088; 87186; 87635; 96361; 96365; 96375; 99285; A9270; G0378; J0696; J1335; J2270; J7030; J7050; P9016; U0003

== ENCOUNTER 2020-07-06 20:24 | Observation (INO) | payer OTHER, SELFPAY ==
--- NOTE | ~2020-07-06 | CT_ITS ---
EXAMINATION: CT abdomen pelvis w con DATE: 07/06/2020 22:29 INDICATION: Hematuria. TECHNIQUE: Computed tomography (CT) of the abdomen and pelvis was performed with 100 mL Omnipaque 350 intravenous contrast. Automated exposure control and iterative reconstruction technique were employe d. The dose-length product was 601.69 mGy-cm. COMPARISON: CT abdomen and pelvis 01/08/2020 FINDINGS: The visualized portions of the lung bases demonstrate mild atelectasis. There are clustered parenchymal calcifications in the lower lobes. There is a trace left pleural effusion. The heart siz e is normal. There are coronary artery calcifications. No pericardial effusion. The liver and gallbla dder are normal. There are low-attenuation lesions in the spleen measuring up to 11 mm, most likely g ranulomatous disease. The pancreas and adrenal glands are normal. There are cysts in the kidneys mirta uring up to 1.5 cm on the right. There is a 2 mm stone in left kidney. Stool distends the rectum, whi ch demonstrates mild wall thickening, consistent with stercoral colitis. There is a large volume of s tool in the colon. The appendix is normal. The prostate is severely enlarged. There are stones in the bladder measuring up to 3.7 cm shaped like broken shells. The bladder is decompressed by a Gambino cat heter. There are no pathologically enlarged lymph nodes. There is no free intraperitoneal fluid. Ther e is mild thoracolumbar spondylosis. IMPRESSION: 1. Bladder stones, new from 01/08/20. 2. 2 mm nonobstructing left kidney stone. 3. Stercoral colitis. Reviewed, dictated and finalized at location A.
[2020-07-06 20:24] VITALS: BP 130/75; PULSE 81; RESP 14; TEMP 36.8; O2SAT 95
--- NOTE | 2020-07-06 20:26 | ED.MALEGU ---
HPI - Male Genitourinary General Chief complaint: Urogenital-Male Stated complaint: velazquez prob Time Seen by Provider: 07/06/20 20:26 Source: EMS Mode of arrival: EMS Limitations: language barrier History of Present Illness HPI Narrative: Patient is a 69-year-old male with a history of CVA, severe deficits including complete aphasia, chronic indwelling Velazquez catheter with history of ESBL UTI, who presents for evaluation Velazquez complication. Patient's Velazquez was leaking at nursing care facility, thus it was removed and then when they tried to replace edema quite a bit of resistance and noticed some blood coming from the urethra, thus the patient was transported to our emergency department. Patient is nonverbal at baseline. He is awake in the room. Related Data Home Medications Medication Instructions Recorded Confirmed acetaminophen 650 mg PO Q6H PRN 10/21/19 04/04/20 amantadine HCl 100 mg PO QPM 10/21/19 04/04/20 aspirin 81 mg PO DAILY 10/21/19 04/04/20 atorvastatin 80 mg PO HS 10/21/19 04/04/20 calcium carbonate [Oyster Shell 500 mg PO DAILY 10/21/19 04/04/20 Calcium] carbidopa-levodopa 1 tablet PO TID 10/21/19 04/04/20 cholecalciferol (vitamin D3) 1,000 unit PO DAILY 10/21/19 04/04/20 digoxin [Digox] 125 mcg PO DAILY 10/21/19 04/04/20 docusate sodium [Colace] 100 mg PO DAILY 10/21/19 04/04/20 donepezil 10 mg PO DAILY 10/21/19 04/04/20 finasteride 5 mg PO DAILY 10/21/19 04/04/20 fluoxetine 10 mg PO DAILY 10/21/19 04/04/20 furosemide 20 mg PO DAILY 10/21/19 04/04/20 ondansetron 4 mg PO Q8H PRN 10/21/19 04/04/20 polyethylene glycol 3350 [Miralax] 17 g PO DAILY PRN 10/21/19 04/04/20 tamsulosin 0.4 mg PO BID 10/21/19 04/04/20 metoprolol succinate 50 mg PO DAILY 03/10/20 04/04/20 promethazine 25 mg MA Q6H PRN 03/10/20 04/04/20 Lactobacillus acidophilus 2,000 mmu cells PO BID 04/04/20 04/04/20 [Acidophilus] Allergies Allergy/AdvReac Type Severity Reaction Status Date / Time No Known Allergies Allergy Verified 03/10/20 18:49 Review of Systems Review of Systems: ROS unobtainable: Yes unobtainable due to medical condition PMFSH Past Medical History Medical History Atrial fibrillation BPH (benign prostatic hyperplasia) Congestive heart failure Constipation Coronary artery disease CVA (cerebral vascular accident) Dementia Depression with anxiety Dyslipidemia Flexion contracture joint of multiple sites Velazquez catheter in place History of DVT (deep vein thrombosis) Hypertension Obstructive sleep apnea Parkinson disease Type 2 diabetes mellitus Complicated by diabetic retinopathy. He is blind in his left eye. Vitamin D deficiency Surgical History Surgical History History of cystoscopy Social History Social History Social History: The patient lives at [facility]. He grew up in [place]. He is retired from working for the [employer]. His was in the [employer] as a young man. His son in [place], Pete Pantoja, is his emergency contact and he is listed as a full code. His primary care provider is Dr. Diaz Shanks. He denies alcohol, tobacco, and drug use. Smoking status: Never smoker Alcohol intake: never Substance use: never Substance use type: does not use Gender identity (if verbalized by the patient): Male Spiritual care concerns: No Agree to blood products: Yes Exam Narrative: Exam Narrative: GENERAL: Awake HEAD: Normocephalic, atraumatic. EYES: PERRLA and EOMI. ENT: Nares clear, no rhinorrhea or epistaxis. Mucous membranes moist. NECK: Supple. CHEST: No respiratory distress, breathing even and non labored HEART: Regular rate, sinus rhythm ABDOMEN:Non distended, non tender : Penis is uncircumcised. Difficult to retract foreskin. There is small blood clot present at the urethral meatus. Glans otherwise
[2020-07-06 21:07] LABS: Basophils Percent Auto 0.3 % (0.2-1.2); Eosinophils Absolute Auto 0.1 K/mm3 (0-0.3); Eosinophils Percent Auto 1.9 % (0-4.4); Hematocrit 28.9 % (42.0-52.0); Hemoglobin 9.2 g/dL (14.0-18.0); Immature Granulocyte Absolute 0.02 K/mm3 (0.00-0.031); Immature Granulocyte Percent A 0.3 % (0-0.5); Lymphocytes Absolute Auto 1.16 K/mm3 (0.9-3.2); Lymphocytes Percent Auto 19.9 % (18.3-44.2); Mean Corpuscular HGB Conc 31.8 g/dl (32-36); Mean Corpuscular Hemoglobin 27.5 pg (26-34); Mean Corpuscular Volume 86.5 fl (80-100); Mean Platelet Volume 10.4 fl (7.4-10.4); Monocytes Absolute Auto 0.8 K/mm3 (0.1-0.6); Monocytes Percent Auto 14.3 % (2.6-8.5); Neutrophils Absolute Auto 3.7 K/mm3 (1.3-6.7); Neutrophils Percent Auto 63.3 % (45.5-73.1); Platelet Count Result 185 k/mm3 (150-375); Red Blood Count 3.34 M/mm3 (4.6-6.20); Red Cell Distribution Width 16.6 % (11.5-14.5); White Blood Count 5.8 K/mm3 (4.5-10.0)
[2020-07-06 21:19] LABS: Anion Gap 4 mmol/L (8-16); Blood Urea Nitrogen 22 mg/dL (9-20); Calcium 8.1 mg/dL (8.4-10.2); Carbon Dioxide 30 mmol/L (22-30); Chloride 105 mmol/L (98-107); Estimated Glomerular Filt Rate > 60; Glucose 212 mg/dL (75-110); Potassium 3.5 mmol/L (3.4-5.0); Sodium 139 mmol/L (137-145)
[2020-07-06 22:12] VITALS: BP 133/63; PULSE 80; RESP 16; O2SAT 100
[2020-07-06 22:17] LABS: Add Urine Microscopic? YES; Amorphous Sediment Urine Few; Appearance Urine Cloudy (Clear); Bacteria Urine Trace /hpf; Bilirubin Urine Negative (Negative); Blood Urine 3+ (Negative); Color Urine Red (Yellow); Glucose Urine UA Negative (Negative); Ketones Urine Negative (Negative); Leukocyte Esterase Ur 2+ LEU/UL (Negative); Nitrate Urine Negative (Negative); Protein Urine 2+ mg/dL (Negative); RBC Urine >75 /hpf (0-2); Specific Grav Ur 1.016 (1.001-1.035); WBC Clumps Urine Present /HPF; WBC Urine >75 /hpf
[2020-07-07] VITALS (7 sets, daily range): BP systolic 129–150; BP diastolic 69–79; PULSE 57–98; RESP 12–18; TEMP 35.9–37; O2SAT 97–100
--- NOTE | 2020-07-07 01:09 | PM.IMHP ---
H&P: HPI History of Present Illness Date/Time: 07/07/20 01:09 Chief complaint: UTI,Bladder Calcification Narrative: This is a 69 year old Diabetic male with known history of being nonverbal from a previous CVA as well as having a chronic indwelling Gambino catheter presented to the hospital this evening for a complication of his catheter. Apparently the patient's catheter was leaking. group home attempted to change it out but could not place a new catheter due to swelling and bleeding and he was sent to the hospital for further care. The patient has a history of ESBL UTIs. A new catheter was placed and the patient was evaluated in the ER. He was found to have an abnormal urinalysis and CT scan demonstrated bladder calcification. The patient was started on IV cefepime and Urology was consulted by ER provider. Urology has asked that we admit the patient for them and they will evaluate him in the morning. The patient is nonverbal and no other history is obtainable from him tonight. Review of Systems Review of Systems: ROS unobtainable: Yes unobtainable due to mental status PMFSH Past Medical History Medical History Atrial fibrillation BPH (benign prostatic hyperplasia) Congestive heart failure Constipation Coronary artery disease CVA (cerebral vascular accident) Dementia Depression with anxiety Dyslipidemia Flexion contracture joint of multiple sites Gambino catheter in place History of DVT (deep vein thrombosis) Hypertension Obstructive sleep apnea Parkinson disease Type 2 diabetes mellitus Complicated by diabetic retinopathy. He is blind in his left eye. Vitamin D deficiency Surgical History Surgical History History of cystoscopy Family History Family History Other Unknown family medical history Social History Social History Social History: The patient lives at [facility]. He grew up in [place]. He is retired from working for the post office. His was in the [employer] as a young man. His son in [place], Pete Pantoja, is his emergency contact and he is listed as a full code. His primary care provider is Dr. Diaz Shanks. He denies alcohol, tobacco, and drug use. Smoking status: Never smoker Alcohol intake: unknown Substance use: unknown Substance use type: does not use Gender identity (if verbalized by the patient): Male Spiritual care concerns: No Agree to blood products: Yes Meds Home Medications and Allergies Home Medications Medication Instructions Recorded Confirmed Type acetaminophen 650 mg PO Q6H PRN 10/21/19 07/07/20 History amantadine HCl 100 mg PO QPM 10/21/19 07/07/20 History aspirin 81 mg PO DAILY 10/21/19 07/07/20 History atorvastatin 80 mg PO HS 10/21/19 07/07/20 History calcium carbonate [Oyster Shell 500 mg PO DAILY 10/21/19 07/07/20 History Calcium] carbidopa-levodopa 1 tablet PO TID 10/21/19 07/07/20 History cholecalciferol (vitamin D3) 1,000 unit PO DAILY 10/21/19 07/07/20 History digoxin [Digox] 125 mcg PO DAILY 10/21/19 07/07/20 History docusate sodium [Colace] 100 mg PO DAILY 10/21/19 07/07/20 History donepezil 10 mg PO DAILY 10/21/19 07/07/20 History finasteride 5 mg PO DAILY 10/21/19 07/07/20 History fluoxetine 10 mg PO DAILY 10/21/19 07/07/20 History furosemide 20 mg PO DAILY 10/21/19 07/07/20 History ondansetron 4 mg PO Q8H PRN 10/21/19 07/07/20 History polyethylene glycol 3350 [Miralax] 17 g PO DAILY PRN 10/21/19 07/07/20 History tamsulosin 0.4 mg PO BID 10/21/19 07/07/20 History metoprolol succinate 50 mg PO DAILY 03/10/20 07/07/20 History promethazine 25 mg NC Q6H PRN 03/10/20 07/07/20 History lisinopril 10 mg PO DAILY 30 Days #30 tablet 03/17/20 07/07/20 Rx Lactobacillus acidophilus 2,000 mmu cells PO BID 04/04/20 08
--- NOTE | 2020-07-07 02:34 | ADMGEN ---
This patient, Jonny Pantoja, was admitted to 2 Medical Room 256-01. Patient/family oriented to hospital policies and general routines including ID bracelet, bed and alarms, visiting hours, pain management, procedures, bathroom and other care routines, personal items, smoking policy, room service/diet, and visiting hours. Valuables list has been completed. Information on how to activate the Rapid Response Team has been discussed. Patient/Family are encouraged to report perceived risks to care and to ask questions if they do not understand what they are told or what they should do.
[2020-07-07] MEDS: SODIUM CHLORIDE 0.9% IV 1,000 ML 125 ML IV CONT ×3 (02:41→21:01)
[2020-07-07] MEDS: CARBIDOPA/LEVODOPA 10/100 MG TABLET 1 TABLET PO ×3 (08:15→16:05)
[2020-07-07] MEDS: FUROSEMIDE 20 MG TABLET PO (08:15)
[2020-07-07] MEDS: TAMSULOSIN HCL 0.4 MG CAPSULE PO ×2 (08:15→16:05)
[2020-07-07] MEDS: METOPROLOL SUCCINATE EXT REL 50 MG TABCR PO (08:15)
[2020-07-07] MEDS: ASPIRIN 81 MG CHEWABLE TABLET PO (08:16)
[2020-07-07] MEDS: ACIDOPHILUS/BULGARICUS CHEWABLE TABLET 1 TABLET PO ×2 (08:16→16:05)
[2020-07-07] MEDS: CALCIUM CARBONATE (OSCAL) 500 MG TABLET PO (08:16)
[2020-07-07] MEDS: lisinopriL 10 MG TABLET PO (08:16)
[2020-07-07] MEDS: DOCUSATE SODIUM 100 MG CAPSULE PO (08:16)
[2020-07-07] MEDS: DONEPEZIL HCL 10 MG TABLET PO (08:16)
[2020-07-07] MEDS: CHOLECALCIFEROL 1,000 UNITS TABLET 1000 UNITS PO (08:16)
[2020-07-07] MEDS: FINASTERIDE 5 MG TABLET PO (08:16)
--- NOTE | 2020-07-07 08:36 | WPDURCON ---
Assessment and Plan Assessment and plan (1) Problem with Velazquez catheter: Qualifiers: Encounter type: initial encounter Qualified Code(s): T83.9XXA - Unspecified complication of genitourinary prosthetic device, implant and graft, initial encounter Code(s): T83.9XXA - Unspecified complication of genitourinary prosthetic device, implant and graft, initial encounter Status: Acute Assessment and Plan: Velazquez in bladder on CT---rec continue (2) Calcification of bladder: Code(s): N32.89 - Other specified disorders of bladder Status: Acute Assessment and Plan: Strange appearance and would observe given poor surgical candidate. Cystoscopy could be next step if continued difficult velazquez or worsening hematuria (3) Acute UTI: Code(s): N39.0 - Urinary tract infection, site not specified Status: Acute (4) Complicated UTI (urinary tract infection): Code(s): N39.0 - Urinary tract infection, site not specified Status: Acute Assessment and Plan: On antibiotics and no systemic signs---will have chronic colonized urine and treat for symptoms (5) BPH (benign prostatic hyperplasia): Code(s): N40.0 - Benign prostatic hyperplasia without lower urinary tract symptoms Status: Chronic (6) Gross hematuria: Code(s): R31.0 - Gross hematuria Status: Acute Urology Consult Note HPI Date Seen: 07/07/20 Requesting Physician: Jeffy Sharp MD Primary Care Provider: [facility] INSPECTOR PHYSICIAN Consult Narrative Narrative: Jonny Pantoja is a 69 year old male with limited cognitive function and has ferry terminal agent indwelling velazquez. Nursing locally removed velazquez and could not replace---coude confirmed in bladder on CT with linear calcifications in bladder. Urine chronically infected. No obstruction Review of Systems Review of Systems: ROS unobtainable: Yes unobtainable due to medical condition and unobtainable due to mental status PMFSH Past Medical History Medical History Atrial fibrillation BPH (benign prostatic hyperplasia) Congestive heart failure Constipation Coronary artery disease CVA (cerebral vascular accident) Dementia Depression with anxiety Dyslipidemia Flexion contracture joint of multiple sites Velazquez catheter in place History of DVT (deep vein thrombosis) Hypertension Obstructive sleep apnea Parkinson disease Type 2 diabetes mellitus Complicated by diabetic retinopathy. He is blind in his left eye. Vitamin D deficiency Surgical History Surgical History History of cystoscopy Family History Family History Other Unknown family medical history Social History Social History Social History: The patient lives at [facility]. He grew up in [place]. He is retired from working for the post office. His was in the [employer] as a young man. His son in [place], Pete Pantoja, is his emergency contact and he is listed as a full code. His primary care provider is Dr. Diaz Shanks. He denies alcohol, tobacco, and drug use. Smoking status: Never smoker Alcohol intake: unknown Substance use: unknown Substance use type: does not use Gender identity (if verbalized by the patient): Male Spiritual care concerns: No Agree to blood products: Yes Meds Home Medications and Allergies Home Medications Medication Instructions Recorded Confirmed Type acetaminophen 650 mg PO Q6H PRN 10/21/19 07/07/20 History amantadine HCl 100 mg PO QPM 10/21/19 07/07/20 History aspirin 81 mg PO DAILY 10/21/19 07/07/20 History atorvastatin 80 mg PO HS 10/21/19 07/07/20 History calcium carbonate [Oyster Shell 500 mg PO DAILY 10/21/19 07/07/20 History Calcium] carbidopa-levodopa 1 tablet PO TID
[2020-07-07 08:52] LABS: Glucose Point of Care 128 (65-105)
[2020-07-07] MEDS: FLUoxetine HCL 10 MG CAPSULE PO (11:41)
[2020-07-07 11:47] LABS: Glucose Point of Care 113 (65-105)
--- NOTE | 2020-07-07 14:56 | PM.IMPN ---
Progress Note: A&P Assessment and Plan (1) Problem with Velazquez catheter: Qualifiers: Encounter type: initial encounter Qualified Code(s): T83.9XXA - Unspecified complication of genitourinary prosthetic device, implant and graft, initial encounter Code(s): T83.9XXA - Unspecified complication of genitourinary prosthetic device, implant and graft, initial encounter Status: Acute Assessment and Plan: Patient presented because correction removed his chronic Velazquez to change it and were not able to re-insert a velazquez. Velazquez was placed in the ER. Continue urology recommendations. (2) Gross hematuria: Code(s): R31.0 - Gross hematuria Status: Acute Assessment and Plan: He has a history of issues with this. Management per urology. (3) Catheter-associated urinary tract infection: Qualifiers: Indwelling urinary catheter type: indwelling urethral catheter Encounter type: initial encounter Qualified Code(s): T83.511A - Infection and inflammatory reaction due to indwelling urethral catheter, initial encounter; N39.0 - Urinary tract infection, site not specified Code(s): T83.511A - Infection and inflammatory reaction due to indwelling urethral catheter, initial encounter; N39.0 - Urinary tract infection, site not specified Status: Acute Assessment and Plan: Likely colonization with chronic indwelling Velazquez. He does have a history of Klebsiella UTI with bacteremia in months past, will obtain blood cultures although antibiotics have already been started and results may be altered. Management per urology. (4) Calcification of bladder: Code(s): N32.89 - Other specified disorders of bladder Status: Acute Assessment and Plan: Continue Urology recommendations. (5) Type 2 diabetes mellitus: Qualifiers: Diabetes mellitus termite exterminator insulin use: without senior care use Diabetes mellitus complication status: without complication Qualified Code(s): E11.9 - Type 2 diabetes mellitus without complications Code(s): E11.9 - Type 2 diabetes mellitus without complications Status: Chronic Assessment and Plan: Monitor with accu-cheks and cover with sliding scale insulin. Blood sugars appropriate today. (6) Hypertension: Qualifiers: Hypertension type: essential hypertension Qualified Code(s): I10 - Essential (primary) hypertension Code(s): I10 - Essential (primary) hypertension Status: Chronic Assessment and Plan: BP stable, continue home metoprolol and lisinopril. Monitor BPs and adjust treatment as needed. (7) Atrial fibrillation: Qualifiers: Atrial fibrillation type: unspecified Qualified Code(s): I48.91 - Unspecified atrial fibrillation Code(s): I48.91 - Unspecified atrial fibrillation Status: Chronic Assessment and Plan: Rate controlled on home metoprolol. (8) Dementia: Qualifiers: Dementia type: unspecified type Dementia behavioral disturbance: without behavioral disturbance Qualified Code(s): F03.90 - Unspecified dementia without behavioral disturbance Code(s): F03.90 - Unspecified dementia without behavioral disturbance Status: Chronic Assessment and Plan: Dementia with history of old strokes. Continue his home medications. Stable, he is pleasant and cooperative today. Subjective Date/time seen: 07/07/20 1315 Interval history: Mr. Pantoja is a 69yo M with dementia well-known to our service for admissions related to chronic Velazquez/UTIs/hematuria. He is seen this afternoon sitting up comf
[2020-07-07 16:45] LABS: Glucose Point of Care 105 (65-105)
[2020-07-07] MEDS: amantadine HCL 100 MG CAPSULE PO (18:01)
[2020-07-07] MEDS: ATORVASTATIN 40 MG TABLET 80 MG PO (21:01)
[2020-07-07 21:54] LABS: Glucose Point of Care 142 (65-105)
[2020-07-08] MEDS: SODIUM CHLORIDE 0.9% IV 1,000 ML 125 ML IV CONT (04:23)
[2020-07-08 05:35] VITALS: BP 130/70; PULSE 58; RESP 16; TEMP 36.3; O2SAT 99
[2020-07-08 06:15] LABS: Anion Gap 1 mmol/L (8-16); Blood Urea Nitrogen 13 mg/dL (9-20); Calcium 7.9 mg/dL (8.4-10.2); Carbon Dioxide 29 mmol/L (22-30); Chloride 105 mmol/L (98-107); Estimated CRCL calculation 78 ml/min; Estimated Glomerular Filt Rate > 60; Glucose 134 mg/dL (75-110); Potassium 3.5 mmol/L (3.4-5.0); Sodium 135 mmol/L (137-145)
[2020-07-08 06:32] LABS: Basophils Percent Auto 0.5 % (0.2-1.2); Eosinophils Absolute Auto 0.2 K/mm3 (0-0.3); Eosinophils Percent Auto 4.8 % (0-4.4); Hematocrit 28.8 % (42.0-52.0); Hemoglobin 9.1 g/dL (14.0-18.0); Immature Granulocyte Absolute 0.01 K/mm3 (0.00-0.031); Immature Granulocyte Percent A 0.3 % (0-0.5); Immature Platelet Fraction Pct 6.9 % (0.9-11.2); Lymphocytes Absolute Auto 0.99 K/mm3 (0.9-3.2); Lymphocytes Percent Auto 25.3 % (18.3-44.2); Mean Corpuscular HGB Conc 31.6 g/dl (32-36); Mean Corpuscular Hemoglobin 27.2 pg (26-34); Monocytes Absolute Auto 0.5 K/mm3 (0.1-0.6); Monocytes Percent Auto 11.7 % (2.6-8.5); Neutrophils Absolute Auto 2.3 K/mm3 (1.3-6.7); Neutrophils Percent Auto 57.4 % (45.5-73.1); Platelet Count Result 163 k/mm3 (150-375); Red Blood Count 3.35 M/mm3 (4.6-6.20); Red Cell Distribution Width 16.4 % (11.5-14.5); White Blood Count 3.9 K/mm3 (4.5-10.0)
--- NOTE | 2020-07-08 07:18 | WPDUROPN2 ---
Progress Note: A&P Assessment and Plan (1) Dementia: Qualifiers: Dementia behavioral disturbance: without behavioral disturbance Dementia type: unspecified type Qualified Code(s): F03.90 - Unspecified dementia without behavioral disturbance Code(s): F03.90 - Unspecified dementia without behavioral disturbance Status: Chronic (2) BPH (benign prostatic hyperplasia): Code(s): N40.0 - Benign prostatic hyperplasia without lower urinary tract symptoms Status: Chronic Assessment and Plan: Thorough evaluation for hematuria 07/2019 revealed only BPH - cause for both hematuria and retention. Resume chronic Gambino with monthly changes. Urine now clear, draining well with resolution of urethral bleeding. Subjective Subjective Date/Time Seen: 07/08/20 07:18 Appears comfortable, catheter draining well. Review of Systems Review of Systems: ROS unobtainable: Yes unobtainable due to mental status Cardiovascular: Cardiovascular: Denies dyspnea Gastrointestinal: Gastrointestinal: Denies diarrhea Endocrine: Endocrine: Denies palpitations Exam Const: General: no acute distress Resp: Effort & Inspection: normal respiratory effort GI: Inspection: non-distended GI Palp: No abdominal tenderness and No Guarding due to palpation present (GI) Auscultation: normal bowel sounds Objective Data Vital Signs Vital Signs: Vital Signs - 24 hr 07/07/20 08:15 07/07/20 14:00 07/07/20 22:00 Temperature 97.0 F L 96.7 F L Pulse Rate 70 98 59 L Respiratory Rate 16 16 Blood Pressure 150/71 H 150/75 H Pulse Oximetry 100 100 07/08/20 05:35 Temperature 97.4 F L Pulse Rate 58 L Respiratory Rate 16 Blood Pressure 130/70 Pulse Oximetry 99 Intake/Output Intake/Output: Intake & Output 07/05/20 07/06/20 07/07/20 07/08/20 23:59 23:59 23:59 23:59 Intake Total 50 2590 1100 Output Total 1500 1600 Balance 50 1090 -500 Meds/Results Medications: Active Medications Generic Name Dose Route Start Last Admin Trade Name Freq PRN Reason Stop Dose Admin Acetaminophen 650 mg 07/07/20 03:13 Tylenol Tablet PO Q6H PRN Pain 1-3 Amantadine HCl 100 mg 07/07/20 18:00 07/07/20 18:01 Symmetrel PO 100 mg QPM PAOLA Administration Aspirin 81 mg 07/07/20 08:00 07/07/20 08:16 Aspirin Chewable PO 81 mg DAILY@0800 PAOLA Administration Atorvastatin Calcium 80 mg 07/07/20 21:00 07/07/20 21:01 Lipitor PO 80 mg HS PAOLA Administration Calcium Carbonate 500 mg 07/07/20 09:00 07/07/20 08:16 Oscal 500 Mg PO 500 mg DAILY PAOLA Administration Carbidopa/Levodopa 1 tablet 07/07/20 08:00 07/07/20 16:05 Sinemet 10/100 Mg PO 1 tablet TIDWM PAOLA Administration Dextrose 12.5 gm 07/07/20 01:39 Dextrose 50% Syringe IV PUSH PRN PRN Hypoglycemia Protocol Docusate Sodium 100 mg 07/07/20 09:00 07/07/20 08:16 Colace Capsule PO 100 mg DAILY PAOLA Administration Donepezil HCl 10 mg 07/07/20 09:00 07/07/20 08:16 Aricept PO 10 mg DAILY PAOLA Administration Finasteride 5 mg 07/07/20 09:00 07/07/20 08:16 Proscar PO 5 mg DAILY PAOLA Administration Fluoxetine HCl 10 mg 07/07/20 09:00 07/07/20 11:41 Prozac PO 10 mg DAILY PAOLA Administration Furosemide 20 mg 07/07/20 09:00 07/07/20 08:15 Lasix Tablet PO 20 mg DAILY PAOLA Administration Glucagon 1 mg 07/07/20 01:39 Glucagon For Inj IM PRN PRN Hypoglycemia Protocol Glucose 15 gm 07/07/20 01:39 Glutose 15 PO PRN PRN Hypoglycemia Protocol Sodium Chloride 1,000 mls @ 125 mls/hr 07/07/20 00:25 07/08/20 04:23 Normal Saline Iv IV CONT 125 mls/hr .Q8H PAOLA Administration Dextrose 1,000 mls @ 100 mls/hr 07/07/20 01:39 Dextrose 5% 1,000 Ml IVPB PRN PRN Hypoglycemia Protocol Cefepime HCl 1 gm in 50 mls @ 100 mls/hr 07/07/20 07:00 07/08/20 06:04 Maxipime 1 Gm/D5w
[2020-07-08 07:25] LABS: Ovalocytes 1+ (NORMAL); Platelet Estimate Adequate (Adequate)
[2020-07-08] MEDS: ASPIRIN 81 MG CHEWABLE TABLET PO (09:10)
[2020-07-08] MEDS: FUROSEMIDE 20 MG TABLET PO (09:10)
[2020-07-08] MEDS: FINASTERIDE 5 MG TABLET PO (09:10)
[2020-07-08] MEDS: CHOLECALCIFEROL 1,000 UNITS TABLET 1000 UNITS PO (09:10)
[2020-07-08] MEDS: ACIDOPHILUS/BULGARICUS CHEWABLE TABLET 1 TABLET PO (09:11)
[2020-07-08] MEDS: CALCIUM CARBONATE (OSCAL) 500 MG TABLET PO (09:11)
[2020-07-08] MEDS: DONEPEZIL HCL 10 MG TABLET PO (09:11)
[2020-07-08] MEDS: CARBIDOPA/LEVODOPA 10/100 MG TABLET 1 TABLET PO ×2 (09:11→12:06)
[2020-07-08] MEDS: TAMSULOSIN HCL 0.4 MG CAPSULE PO (09:11)
[2020-07-08] MEDS: lisinopriL 10 MG TABLET PO (09:11)
[2020-07-08] MEDS: DOCUSATE SODIUM 100 MG CAPSULE PO (09:11)
[2020-07-08] MEDS: METOPROLOL SUCCINATE EXT REL 50 MG TABCR PO (09:11)
[2020-07-08] MEDS: FLUoxetine HCL 10 MG CAPSULE PO (09:12)
[2020-07-08 09:33] LABS: Glucose Point of Care 134 (65-105)
--- NOTE | 2020-07-08 10:16 | PM.IMPN ---
Subjective Date/time seen: 07/08/20 1000 Objective Data Vital Signs Vital Signs: Vital Signs - 24 hr 07/07/20 14:00 07/07/20 22:00 07/08/20 05:35 Temperature 97.0 F L 96.7 F L 97.4 F L Pulse Rate 98 59 L 58 L Respiratory Rate 16 16 16 Blood Pressure 150/71 H 150/75 H 130/70 Pulse Oximetry 100 100 99 Intake/Output Intake/Output: Intake & Output 07/05/20 07/06/20 07/07/20 07/08/20 23:59 23:59 23:59 23:59 Intake Total 50 2590 1720 Output Total 1500 1600 Balance 50 1090 120 Meds/Results Medications: Active Medications Generic Name Dose Route Start Last Admin Trade Name Freq PRN Reason Stop Dose Admin Acetaminophen 650 mg 07/07/20 03:13 Tylenol Tablet PO Q6H PRN Pain 1-3 Amantadine HCl 100 mg 07/07/20 18:00 07/07/20 18:01 Symmetrel PO 100 mg QPM PAOLA Administration Aspirin 81 mg 07/07/20 08:00 07/08/20 09:10 Aspirin Chewable PO 81 mg DAILY@0800 PAOLA Administration Atorvastatin Calcium 80 mg 07/07/20 21:00 07/07/20 21:01 Lipitor PO 80 mg HS PAOLA Administration Calcium Carbonate 500 mg 07/07/20 09:00 07/08/20 09:11 Oscal 500 Mg PO 500 mg DAILY PAOLA Administration Carbidopa/Levodopa 1 tablet 07/07/20 08:00 07/08/20 09:11 Sinemet 10/100 Mg PO 1 tablet TIDWM PAOLA Administration Dextrose 12.5 gm 07/07/20 01:39 Dextrose 50% Syringe IV PUSH PRN PRN Hypoglycemia Protocol Docusate Sodium 100 mg 07/07/20 09:00 07/08/20 09:11 Colace Capsule PO 100 mg DAILY PAOLA Administration Donepezil HCl 10 mg 07/07/20 09:00 07/08/20 09:11 Aricept PO 10 mg DAILY PAOLA Administration Finasteride 5 mg 07/07/20 09:00 07/08/20 09:10 Proscar PO 5 mg DAILY PAOLA Administration Fluoxetine HCl 10 mg 07/07/20 09:00 07/08/20 09:12 Prozac PO 10 mg DAILY PAOLA Administration Furosemide 20 mg 07/07/20 09:00 07/08/20 09:10 Lasix Tablet PO 20 mg DAILY PAOLA Administration Glucagon 1 mg 07/07/20 01:39 Glucagon For Inj IM PRN PRN Hypoglycemia Protocol Glucose 15 gm 07/07/20 01:39 Glutose 15 PO PRN PRN Hypoglycemia Protocol Sodium Chloride 1,000 mls @ 125 mls/hr 07/07/20 00:25 07/08/20 04:23 Normal Saline Iv IV CONT 125 mls/hr .Q8H PAOLA Administration Dextrose 1,000 mls @ 100 mls/hr 07/07/20 01:39 Dextrose 5% 1,000 Ml IVPB PRN PRN Hypoglycemia Protocol Cefepime HCl 1 gm in 50 mls @ 100 mls/hr 07/07/20 07:00 07/08/20 07:00 Maxipime 1 Gm/D5w 50 Ml IVPB Infused Q12H PAOLA Infusion Insulin Aspart 3 - 6 units 07/07/20 08:00 07/08/20 10:09 Novolog SUB-Q Not Given TIDWM [facility] Protocol Lactobacillus Acidophilus 1 tablet 07/07/20 09:00 07/08/20 09:11 Lactinex Chewable Tablet PO 1 tablet BID PAOLA Administration Lisinopril 10 mg 07/07/20 09:00 07/08/20 09:11 Prinivil PO 10 mg DAILY PAOLA Administration Metoprolol Succinate 50 mg 07/07/20 09:00 07/08/20 09:11 Toprol Xl PO 50 mg DAILY PAOLA Administration Polyethylene Glycol 17 gm 07/07/20 03:13 Miralax PO DAILY PRN Constipation Promethazine HCl 25 mg 07/07/20 03:13 Phenergan Supp RECTAL Q6H PRN Nausea And Vomiting Tamsulosin HCl 0.4 mg 07/07/20 09:00 07/08/20 09:11 Flomax PO 0.4 mg BID PAOLA Administration Vitamin D 1,000 units 07/07/20 09:00 07/08/20 09:10 Vitamin D PO 1,000 units DAILY PAOLA Administration Radiology Results: ITS Impressions Abdomen/Pelvis CT 07/07/20 10:02 IMPRESSION: 1. Bladder stones, new from 01/08/20. 2. 2 mm nonobstructing left kidney stone. 3. Stercoral colitis. Labs Labs: Laboratory Results - last 24 hr 08/16/20 08/16/20 08/16/20 11:40 16:43 21:05 WBC RBC Hgb Hct MCV MCH MCHC RDW Plt Count MPV Immature Gran % (Auto) Neut % (Auto) Lymph % (Auto) Ripley % (Auto) Eos % (Aut
[2020-07-08 12:10] LABS: SARS-CoV-2 RNA PCR Negative
--- NOTE | 2020-07-08 12:24 | PM.DS ---
DS: Admitting Diagnosis Admitting Diagnosis Admitting Diagnosis: UTI,Bladder Calcification DS: Discharge Diagnosis Discharge Diagnosis (1) Problem with Gambino catheter: Qualifiers: Encounter type: initial encounter Qualified Code(s): T83.9XXA - Unspecified complication of genitourinary prosthetic device, implant and graft, initial encounter Code(s): T83.9XXA - Unspecified complication of genitourinary prosthetic device, implant and graft, initial encounter Status: Acute Assessment and Plan: Date of Service 07/08/20: Mr. Pantoja is a pleasantly confused 69yo M well-known to our hospitalist service for multiple admissions with hematuria, UTIs, chronic indwelling Gambino catheter. He is followed by Dr Mercedes' office. He presented to the ED from the alf for evaluation after staff at alf were performing his months catheter exchange and staff could not get a Gambino re-inserted. Catheter was initiated in the ED. He was noted to have gross hematuria; this is not an uncommon finding for Mr. Pantoja and is suspected to be related to BPH. Urine culture grew ESBL Klebsiella, which has grown in previous urine cultures as well. Bladder stones are noted on imaging. He was evaluated by urology. He does speak some short phrases and will answer yes/no questions. He does not use his right arm subsequent to an old CVA. He was at his cognitive baseline day of discharge. He was treated with IV cefepime and discharged with oral Cefdinir to complete the course per urology recommendations. Dr Mercedes recommends outpatient follow up in 1 month to perform the patient's catheter exchange in the office. Mr. Pantoja was hemodynamically stable for discharge 07/08/20. (2) Gross hematuria: Code(s): R31.0 - Gross hematuria Status: Acute Assessment and Plan: He has a history of issues with this. Had undergone extensive workup in the past and is found to be related to significantly enlarged prostate. Management per urology. (3) Catheter-associated urinary tract infection: Qualifiers: Indwelling urinary catheter type: indwelling urethral catheter Encounter type: initial encounter Qualified Code(s): T83.511A - Infection and inflammatory reaction due to indwelling urethral catheter, initial encounter; N39.0 - Urinary tract infection, site not specified Code(s): T83.511A - Infection and inflammatory reaction due to indwelling urethral catheter, initial encounter; N39.0 - Urinary tract infection, site not specified Status: Acute Assessment and Plan: Urine culture grew ESBL Klebsiella. Abx per urology recommendations. (4) Calcification of bladder: Code(s): N32.89 - Other specified disorders of bladder Status: Acute Assessment and Plan: Continue Urology recommendations. (5) Type 2 diabetes mellitus: Qualifiers: Diabetes mellitus penitentiary insulin use: without superintendent container terminal use Diabetes mellitus complication status: without complication Qualified Code(s): E11.9 - Type 2 diabetes mellitus without complications Code(s): E11.9 - Type 2 diabetes mellitus without complications Status: Chronic Assessment and Plan: Monitor with accu-cheks and cover with sliding scale insulin. Blood sugars stable. (6) Hypertension: Qualifiers: Hypertension type: essential hypertension Qualified Code(s): I10 - Essential (primary) hypertension Code(s): I10 - Essential (primary) hypertension Status: Chronic Assessment and Plan: BP stable maintained on his home metoprolol and lisinopril. (7) Atrial fibrillation: Qualifiers: Atrial fibrillation type: unspecified Qualifie
[2020-07-08 14:00] VITALS: BP 158/79; PULSE 65; RESP 16; TEMP 36.3; O2SAT 100
--- NOTE | 2020-07-17 07:54 | PC.NURSE ---
Blood cx are negative
== END 2020-07-08 16:57 ==
LOC: ANHED 07-07 00:29 → ANH2MED 07-07 03:11
PROVIDERS: Admitting Provider Family Medicine; Emergency Provider Emergency Medicine; PCP Internal Medicine; Visit Provider Internal Medicine
DX: T83.511A Infection and inflammatory reaction due to indwelling urethral catheter, initial encounter (principal); N39.0 Urinary tract infection, site not specified; B96.1 Klebsiella pneumoniae [K. pneumoniae] as the cause of diseases classified elsewhere; Z20.828 Contact with and (suspected) exposure to other viral communicable diseases; T83.9XXA Unspecified complication of genitourinary prosthetic device, implant and graft, initial encounter; N32.89 Other specified disorders of bladder; N40.1 Benign prostatic hyperplasia with lower urinary tract symptoms; R31.0 Gross hematuria; R33.8 Other retention of urine; E11.319 Type 2 diabetes mellitus with unspecified diabetic retinopathy without macular edema; I11.0 Hypertensive heart disease with heart failure; I50.9 Heart failure, unspecified; I48.91 Unspecified atrial fibrillation; F03.90 Unspecified dementia, unspecified severity, without behavioral disturbance, psychotic disturbance, mood disturbance, and anxiety; E78.5 Hyperlipidemia, unspecified; G47.33 Obstructive sleep apnea (adult) (pediatric); Z86.718 Personal history of other venous thrombosis and embolism; Z79.82 Long term (current) use of aspirin; Z79.899 Other long term (current) drug therapy
CPT/HCPCS: 36415; 51703; 74177; 80048; 81001; 85025; 85055; 87040; 87077; 87086; 87088; 87186; 87635; 96361; 96365; 96366; 99285; A9270; C9803; G0378; J0692; J0696; J7030; Q9967; U0003

== ENCOUNTER 2020-09-05 00:31 | Day surgery (SDC) | payer OTHER, SELFPAY ==
[2020-09-02 08:22] VITALS: BMI 23.1
[2020-09-05] VITALS (8 sets, daily range): BP systolic 137–182; BP diastolic 53–96; PULSE 60–75; RESP 12–16; TEMP 36.2; O2SAT 97–100
--- NOTE | 2020-09-05 06:55 | WPDHPUPDATE1 ---
History and Physical Update Update Date/Time: 09/05/20 06:55 History and Physical has been reviewed, including an updated exam of the patient. There are NO changes in the patient's condition. Risks, benefits, and alternatives have been discussed and questions answered. Patient agrees to proceed with procedure.
--- NOTE | 2020-09-05 10:51 | WPDANESEPPF ---
Anes - Initial Pre Proc Eval Procedure: Operation Date: 09/05/20 11:45 Proposed Procedures p Cystoscopy, Insertion Suprapubic Catheter - Warren Mercedes MD Date/Time: 09/05/20 10:51 Surgeon: Warren Mercedes MD Pre Op Diagnosis: urinary retention Patient Data Age: 70 Gender: M Height: 5 ft 11 in Weight: 70.7 kg Allergies Allergy/AdvReac Type Severity Reaction Status Date / Time No Known Allergies Allergy Verified 09/02/20 08:21 Home Medications Medication Instructions Recorded Confirmed Type acetaminophen 650 mg PO Q6H PRN 10/21/19 09/02/20 History amantadine HCl 100 mg PO QPM 10/21/19 09/02/20 History aspirin 81 mg PO DAILY 10/21/19 09/02/20 History atorvastatin 80 mg PO HS 10/21/19 09/02/20 History calcium carbonate [Oyster Shell 500 mg PO DAILY 10/21/19 09/02/20 History Calcium] carbidopa-levodopa 1 tablet PO TID 10/21/19 09/02/20 History cholecalciferol (vitamin D3) 1,000 unit PO DAILY 10/21/19 09/02/20 History digoxin [Digox] 125 mcg PO DAILY 10/21/19 09/02/20 History docusate sodium [Colace] 100 mg PO DAILY 10/21/19 09/02/20 History donepezil 10 mg PO DAILY 10/21/19 09/02/20 History finasteride 5 mg PO DAILY 10/21/19 09/02/20 History fluoxetine 10 mg PO DAILY 10/21/19 09/02/20 History furosemide 20 mg PO DAILY 10/21/19 09/02/20 History ondansetron 4 mg PO Q8H PRN 10/21/19 09/02/20 History polyethylene glycol 3350 [Miralax] 17 g PO DAILY PRN 10/21/19 09/02/20 History tamsulosin 0.4 mg PO BID 10/21/19 09/02/20 History metoprolol succinate 50 mg PO DAILY 03/10/20 09/02/20 History promethazine 25 mg DE Q6H PRN 03/10/20 09/02/20 History lisinopril 10 mg PO DAILY 30 Days #30 tablet 03/17/20 09/02/20 Rx cephalexin [Keflex] 500 mg PO DAILY 09/02/20 09/02/20 History mirtazapine 15 mg PO HS 09/02/20 09/02/20 History Patient hx anesthesia problems: none Family hx anesthesia problems: none PMFSH Past Medical History Medical History Atrial fibrillation BPH (benign prostatic hyperplasia) Congestive heart failure Constipation Coronary artery disease CVA (cerebral vascular accident) Dementia Depression with anxiety Dyslipidemia Flexion contracture joint of multiple sites Gambino catheter in place History of DVT (deep vein thrombosis) Hypertension Obstructive sleep apnea Parkinson disease Type 2 diabetes mellitus Complicated by diabetic retinopathy. He is blind in his left eye. Vitamin D deficiency Surgical History Surgical History History of cystoscopy Family History Family History Other Unknown family medical history Social History Social History Social History: The patient lives at [facility]. He grew up in [place]. He is retired from working for the post office. His was in the [employer] as a young man. His son in [place], Pete Pantoja, is his emergency contact and he is listed as a full code. His primary care provider is Dr. Diaz Shanks. He denies alcohol, tobacco, and drug use. Smoking status: Never smoker Alcohol intake: unknown Substance use: unknown Substance use type: does not use Living arrangements: custodial Gender identity (if verbalized by the patient): Male Spiritual care concerns: No Agree to blood products: Yes Anes - Eval Final PreProcedure Day of Procedure 09/05/20 10:51 Patient weight: normal Heart: regular rate and rhythm Lungs: decreased breath sounds Neurological: other (alert) Last oral intake: >/= 8 hours ASA classification: III Emergent: no Anesthetic plan: proceed Anesthesia type and monitoring: general LMA and standard monitoring Informed Consent: The patient's anesthetic plan and its attendant risks and benefits were discussed with the patient/family/POA. Questions were solicite
[2020-09-05] MEDS: LACTATED RINGERS 1,000 ML 30 ML IV CONT (10:57)
[2020-09-05] MEDS: ceFAZolin 2 GM/D5W 50 ML 2 GM/50 ML BAG IVPB (11:01)
[2020-09-05] MEDS: LIDOCAINE HCL 2% GEL UROJET 10 ML PKG MUCOUS MEM (11:28)
--- NOTE | 2020-09-05 11:49 | PM.PROC ---
Procedure Note - Detailed Date of procedure: 09/05/20 Pre-op diagnosis: urinary retention Post-op diagnosis: same Procedure performed: Cystoscopy, placement s/p catheter. Description of procedure: Patient is brought to the operative suite where he has prepped and draped in routine sterile fashion while in a dorsal lithotomy position. Cystoscopy is undertaken with a 21 F rigid cystoscope. He has no urethral strictures with moderate lateral lobe hyperplasia of the prostate. Bladder mucosa is normal with only minimal hyperemia in the posterior wall consistent with catheter cystitis. There is no intravesical foreign body or neoplasm. I filled his bladder with saline and placed a spinal needle through the dome of the bladder 1035 in glidewire was advanced through that and grasped with the cystoscope. I dilated the suprapubic tract with Amplatz dilators to from 8 F to 22 F. I then placed an 18 F Councill tip catheter through the dome. The suprapubic catheter secured with a 3 O nylon. Scopes wires removed. Blood loss was approximately 5 cc. Anesthesia: GLMA Surgeon: Warren Mercedes MD Estimated blood loss (mL): 5 Drains: Yes (18F s/p catheter) Packing: No Pathology: none sent Complications: No immediate complications Condition: stable Disposition: PACU
[2020-09-05] MEDS: fentaNYL CITRATE INJ (*CRX) 100 MCG/2 ML VIAL 25 MCG IV PUSH ×2 (12:01→12:08)
[2020-09-05 13:15] LABS: Glucose Point of Care 137 (65-105)
== END 2020-09-05 13:29 ==
PROVIDERS: Visit Provider Urology
PROC: 0T9B30Z Drainage of Bladder with Drainage Device, Percutaneous Approach (ICD-10-PCS; CPT 51102; principal; 2020-09-05 11:45)
DX: R33.9 Retention of urine, unspecified (principal); I48.91 Unspecified atrial fibrillation; N40.0 Benign prostatic hyperplasia without lower urinary tract symptoms; I11.0 Hypertensive heart disease with heart failure; I50.9 Heart failure, unspecified; Z86.73 Personal history of transient ischemic attack (TIA), and cerebral infarction without residual deficits; F03.90 Unspecified dementia, unspecified severity, without behavioral disturbance, psychotic disturbance, mood disturbance, and anxiety; E78.5 Hyperlipidemia, unspecified; G47.33 Obstructive sleep apnea (adult) (pediatric); G20 Parkinson's disease; E11.319 Type 2 diabetes mellitus with unspecified diabetic retinopathy without macular edema; Z79.4 Long term (current) use of insulin; E55.9 Vitamin D deficiency, unspecified
CPT/HCPCS: 52334; A9270; C1726; C1769; J0690; J2250; J2405; J2704; J3010; J7120

== ENCOUNTER 2020-09-30 03:24 | Observation (INO) | payer OTHER, SELFPAY ==
[2020-09-30] VITALS (7 sets, daily range): BP systolic 107–128; BP diastolic 59–85; PULSE 60–93; RESP 14–18; TEMP 36.6–36.9; O2SAT 95–99
--- NOTE | ~2020-09-30 | CT_ITS ---
EXAMINATION: CT abdomen pelvis w con EXAM DATE: 09/30/2020 06:53 INDICATION: Urinary retention, suprapubic catheter not draining. TECHNIQUE: Spiral CT of the abdomen and pelvis was performed following intravenous injection of 100 m L Omnipaque 350. Axial, coronal and sagittal images were reviewed. The dose-length product (DLP) fo r this examination was 690.05 mGy-cm. The exposure was tailored according to patient size (auto mA e xposure control), and iterative reconstruction (ASIR) was used as additional dose reduction technique . Comparison is made to prior examination from 07/06/2020. FINDINGS: The liver, spleen, adrenal glands and pancreas are unremarkable. Gallbladder is unremarkab le. No biliary obstruction. Portal and splenic veins are patent. Kidneys enhance symmetrically. There is no hydronephrosis. There is mild prostatomegaly. There is a suprapubic catheter in position. There is severe diffuse bladder wall thickening with enhancing muc lacy and dependent calcified bladder stones. Significantly thickened bladder wall than on previous exa mination, today measuring up to 2 cm. There is no retroperitoneal or pelvic lymphadenopathy. There is mild scattered arteriosclerotic disease. The appendix is normal. The stomach and small bowel are unremarkable. Rectal vault measures 7 cm in diameter, with moderate colonic stool proximal to this. Some inflammation surrounding the rectal vau lt. No free intraperitoneal gas. The heart is normal in size. There are no pericardial or pleural effusions. Small amount left basilar and right lower lobe dependent atelectasis and/or infection, ne w compared to previous examination. There are no osteoblastic or osteolytic lesions identified. IMPRESSION: 1. Small amount of right basilar atelectasis and/or infection. 2. Severe bladder wall thickening, acute or acute on chronic cystitis. Bladder stones. The pubic cat heter in position. 3. Fecal impaction and possible stercoral colitis. Reviewed, dictated and finalized at location A. STANT DISTRICT ATTORNEY IMPRESSION: 1. Small amount of right basilar atelectasis and/or infection. 2. Severe bladder wall thickening, acute or acute on chronic cystitis. Bladder stones. The pubic catheter in position. 3. Fecal impaction and possible stercoral colitis.
--- NOTE | 2020-09-30 03:42 | ED.MALEGU ---
HPI - Male Genitourinary General Chief complaint: Urogenital-Male Stated complaint: CATHETER PROBLEM Time Seen by Provider: 09/30/20 03:41 Source: EMS Mode of arrival: EMS Limitations: language barrier History of Present Illness HPI Narrative: Patient is a 70-year-old male, well-known to this facility, history of CVA, nonverbal, recent procedure for suprapubic catheter due to ongoing urinary retention, who presents for evaluation of suprapubic catheter malfunction. Per staff at the care facility where the patient resides, there is blood present coming from the catheter site and catheter is not draining urine. Patient without fever. No abdominal distention noted per staff. Patient transferred to our facility for evaluation via EMS. Related Data Home Medications Medication Instructions Recorded Confirmed acetaminophen 650 mg PO Q6H PRN 10/21/19 09/02/20 amantadine HCl 100 mg PO QPM 10/21/19 09/02/20 aspirin 81 mg PO DAILY 10/21/19 09/02/20 atorvastatin 80 mg PO HS 10/21/19 09/02/20 calcium carbonate [Oyster Shell 500 mg PO DAILY 10/21/19 09/02/20 Calcium] carbidopa-levodopa 1 tablet PO TID 10/21/19 09/05/20 cholecalciferol (vitamin D3) 1,000 unit PO DAILY 10/21/19 09/02/20 digoxin [Digox] 125 mcg PO DAILY 10/21/19 09/02/20 docusate sodium [Colace] 100 mg PO DAILY 10/21/19 09/02/20 donepezil 10 mg PO DAILY 10/21/19 09/02/20 finasteride 5 mg PO DAILY 10/21/19 09/02/20 fluoxetine 10 mg PO DAILY 10/21/19 09/02/20 furosemide 20 mg PO DAILY 10/21/19 09/02/20 ondansetron 4 mg PO Q8H PRN 10/21/19 09/02/20 polyethylene glycol 3350 [Miralax] 17 g PO DAILY PRN 10/21/19 09/02/20 tamsulosin 0.4 mg PO BID 10/21/19 09/02/20 metoprolol succinate 50 mg PO DAILY 03/10/20 09/05/20 promethazine 25 mg SC Q6H PRN 03/10/20 09/02/20 cephalexin [Keflex] 500 mg PO DAILY 09/02/20 09/02/20 mirtazapine 15 mg PO HS 09/02/20 09/02/20 Allergies Allergy/AdvReac Type Severity Reaction Status Date / Time No Known Allergies Allergy Verified 09/05/20 11:02 Review of Systems Review of Systems: ROS unobtainable: Yes unobtainable due to mental status PMFSH Past Medical History Medical History (Updated 09/30/20 @ 07:35 by Marisa Watkins MD) Atrial fibrillation BPH (benign prostatic hyperplasia) Congestive heart failure Constipation Coronary artery disease CVA (cerebral vascular accident) Dementia Depression with anxiety Dyslipidemia Flexion contracture joint of multiple sites Gambino catheter in place History of DVT (deep vein thrombosis) Hypertension Obstructive sleep apnea Parkinson disease Type 2 diabetes mellitus Complicated by diabetic retinopathy. He is blind in his left eye. Vitamin D deficiency Surgical History Surgical History History of cystoscopy Family History Family History Other Unknown family medical history Social History Social History Social History: The patient lives at [facility]. He grew up in [place]. He is retired from working for the post office. His was in the [employer] as a young man. His son in [place], Pete Pantoja, is his emergency contact and he is listed as a full code. His primary care provider is Dr. Diaz Shanks. He denies alcohol, tobacco, and drug use. Smoking status: Never smoker Alcohol intake: unknown Substance use: unknown Substance use type: does not use Gender identity (if verbalized by the patient): Male Spiritual care concerns: No Agree to blood products: Yes Exam Narrative: Exam Narrative: General: Awake, non verbal HEAD: Normocephalic, atraumatic. EYES: PERRLA and EOMI. ENT: Nares clear, no rhinorrhea or epistaxis. Mucous membranes moist. NECK: Supple. CHEST: No respiratory distress, breathing even and non labored HEART: Regular rate, sinus rhythm ABDOMEN:Non distended,
[2020-09-30 04:16] LABS: Basophils Percent Auto 0.4 % (0.2-1.2); Eosinophils Absolute Auto 0.1 K/mm3 (0-0.3); Eosinophils Percent Auto 2.6 % (0-4.4); Hematocrit 31.3 % (42.0-52.0); Hemoglobin 10.2 g/dL (14.0-18.0); Immature Granulocyte Absolute 0.01 K/mm3 (0.00-0.031); Immature Granulocyte Percent A 0.4 % (0-0.5); Lymphocytes Absolute Auto 0.83 K/mm3 (0.9-3.2); Lymphocytes Percent Auto 30.5 % (18.3-44.2); Mean Corpuscular HGB Conc 32.6 g/dl (32-36); Mean Corpuscular Hemoglobin 28.1 pg (26-34); Mean Corpuscular Volume 86.2 fl (80-100); Mean Platelet Volume 11.1 fl (7.4-10.4); Monocytes Absolute Auto 0.3 K/mm3 (0.1-0.6); Monocytes Percent Auto 12.1 % (2.6-8.5); Neutrophils Absolute Auto 1.5 K/mm3 (1.3-6.7); Platelet Count Result 202 k/mm3 (150-375); Red Blood Count 3.63 M/mm3 (4.6-6.20); Red Cell Distribution Width 14.7 % (11.5-14.5); White Blood Count 2.7 K/mm3 (4.5-10.0)
[2020-09-30 04:29] LABS: Anion Gap 7 mmol/L (8-16); Blood Urea Nitrogen 21 mg/dL (9-20); Calcium 8.4 mg/dL (8.4-10.2); Carbon Dioxide 27 mmol/L (22-30); Chloride 102 mmol/L (98-107); Estimated Glomerular Filt Rate > 60; Glucose 168 mg/dL (75-110); Potassium 4.1 mmol/L (3.4-5.0); Sodium 136 mmol/L (137-145)
[2020-09-30 04:50] LABS: Hypochromasia 1+ (NORMAL); Large Platelets Present; Platelet Estimate Adequate (Adequate); Target Cells 1+ (NORMAL)
--- NOTE | 2020-09-30 05:03 | PC.NURSE ---
jaycee salvador and chandler salvador attempted to irrigate pt suprapubic catheter per xochitl ernandez. they stated they got thick brown bloody sediment out, not much urine. md leung gave chandler rn verbal order to place velazquez cath. chandler salvador bladder scanned pt, result: 100mL
[2020-09-30] MEDS: SODIUM CHLORIDE 0.9% IV 500 ML 999 ML IV CONT (05:22)
--- NOTE | 2020-09-30 05:56 | PC.NURSE ---
[facility] rn spoke to [facility] and gave them update on pt
--- NOTE | 2020-09-30 07:38 | PC.NURSE ---
Approx 20 ml dark colored urine noted from suprapubic catheter. UA sent.
[2020-09-30 07:51] LABS: Add Urine Microscopic? YES; Appearance Urine Cloudy (Clear); Bacteria Urine Trace /hpf; Bilirubin Urine Negative (Negative); Blood Urine 3+ (Negative); Budding Yeast Urine Present /hpf; Color Urine Red (Yellow); Glucose Urine UA Negative (Negative); Ketones Urine Trace mg/dL (Negative); Leukocyte Esterase Ur 2+ LEU/UL (Negative); Mucus Urine Rare /lpf; Nitrate Urine Negative (Negative); Protein Urine 3+ mg/dL (Negative); RBC Urine >75 /hpf (0-2); Urobilinogen Urine Negative mg/dL (<2.0)
[2020-09-30 07:54] LABS: Specific Grav Ur 1.031 (1.001-1.035)
--- NOTE | 2020-09-30 08:00 | ADMGEN ---
This patient, Jonny Pantoja, was admitted to 3 Med Surg Room 305-02. Patient/family oriented to hospital policies and general routines including ID bracelet, bed and alarms, visiting hours, pain management, procedures, bathroom and other care routines, personal items, smoking policy, room service/diet, and visiting hours. Information on how to activate the Rapid Response Team has been discussed. Patient/Family are encouraged to report perceived risks to care and to ask questions if they do not understand what they are told or what they should do.
--- NOTE | 2020-09-30 08:09 | ADMGEN ---
This patient, Jonny Pantoja, was admitted to 3 Med Surg Room 325-01 @ 761. Patient/family oriented to hospital policies and general routines including ID bracelet, bed and alarms, visiting hours, pain management, procedures, bathroom and other care routines, personal items, smoking policy, room service/diet, and visiting hours. Information on how to activate the Rapid Response Team has been discussed. Patient/Family are encouraged to report perceived risks to care and to ask questions if they do not understand what they are told or what they should do.
[2020-09-30] MEDS: WATER FOR IRRIGATION, STERILE 1,000 ML BOTTLE 1000 ML (09:31)
[2020-09-30] MEDS: SODIUM CHLORIDE 0.9% IV 1,000 ML 125 ML IV CONT ×2 (09:31→17:25)
--- NOTE | 2020-09-30 10:29 | WPDURCON ---
Assessment and Plan Assessment and plan (1) Acute UTI: Code(s): N39.0 - Urinary tract infection, site not specified Status: Acute Assessment and Plan: [facility] with antibiotics either Bactrim or Ciprofloxacin x 7-10 days. Tailor to culture results. No further evaluation. (2) Calcification of bladder: Code(s): N32.89 - Other specified disorders of bladder Status: Acute Assessment and Plan: Secondary to atonic bladder and dehydration. Will watch, but no further evaluation at this time. (3) Suprapubic catheter dysfunction: Qualifiers: Encounter type: initial encounter Qualified Code(s): T83.010A - Breakdown (mechanical) of cystostomy catheter, initial encounter Code(s): T83.010A - Breakdown (mechanical) of cystostomy catheter, initial encounter Status: Acute Assessment and Plan: Previous SP tube sutures were removed and SP tube was removed without difficulty, the end of the tubing was very calcified and causing no urine drainage. A new 16fr SP tube was inserted without difficulty, betadine swabs were used prior to insertion, patient tolerated well. Bloody urine on return was noted. Irrigated with 120cc of NS. Urethral catheter was also removed, leaving only his new SP tube in place. Will need monthly SP tube changes. Urology Consult Note HPI Date Seen: 09/30/20 Requesting Physician: Jeffy Sharp MD Primary Care Provider: Lisette Condon MD Consult Narrative Narrative: Jonny Pantoja is a 70 year old male who [facility] that wasn't draining and reported blood around the insertion site. He had it placed on 09/05/[address] Mercedes in the OR. He is non verbal, but is alert. All information was obtained from his chart and the nursing staff. He has a history of CVA and chronic urinary retention secondary to the CVA. A uretheral catheter was placed in the ER to ensure drainage of the bladder, urine is very bloody without clots and draining well to gravity. He was then sent to CT which showed proper placement of SP tube, severe bladder wall thickening and acute versus chronic cystitis, as well as bladder stones. He is hypotensive, WBC is low at 2.7, creatinine is normal at 0.70 and he is afebrile. UA is suspicious for a UTI, urine and blood cultures are penidng. Review of Systems Review of Systems: ROS unobtainable: Yes unobtainable due to mental status PMFSH Past Medical History Medical History Atrial fibrillation BPH (benign prostatic hyperplasia) Congestive heart failure Constipation Coronary artery disease CVA (cerebral vascular accident) Dementia Depression with anxiety Dyslipidemia Flexion contracture joint of multiple sites Gambino catheter in place History of DVT (deep vein thrombosis) Hypertension Obstructive sleep apnea Parkinson disease Type 2 diabetes mellitus Complicated by diabetic retinopathy. He is blind in his left eye. Vitamin D deficiency Surgical History Surgical History History of cystoscopy Family History Family History Other Unknown family medical history Social History Social History Social History: The patient lives at [facility]. He grew up in [place]. He is retired from working for the post office. His was in the [employer] as a young man. His son in [place], Pete Pantoja, is his emergency contact and he is listed as a full code. His primary care provider is Dr. Diaz Shanks. He denies alcohol, tobacco, and drug use. Smoking status: Never smoker Alcohol intake: unknown Substance use: unknown Substance use type: does not use Gender identity (if verbalized by the p
[2020-09-30] MEDS: METOPROLOL SUCCINATE EXT REL 50 MG TABCR PO (13:15)
[2020-09-30] MEDS: lisinopriL 10 MG TABLET PO (13:15)
[2020-09-30] MEDS: CARBIDOPA/LEVODOPA 10/100 MG TABLET 1 TABLET PO ×2 (13:16→18:29)
--- NOTE | 2020-09-30 16:05 | PM.IMHP ---
H&P: HPI History of Present Illness Date/Time: 09/30/20 16:05 Chief complaint: Suprapubic catheter malfunction Narrative: date of visit 899. Jonny Pantoja is a 70 year old male with recent placement of suprapubic catheter 09/05 due to urinary retention and recurring UTIs. He was sent from the shelter to the ER for failure of drainage from the catheter and blood around the insertion site. CT scan revealed thickened wall of bladder with stones and fecal impaction. Seen by Urology this a.m. and catheter replaced with good urine flow. End original catheter was calcified and occluded. Review of Systems Review of Systems: Narrative: unobtainable patient is nonverbal PMF Past Medical History Medical History (Updated 09/30/20 @ 16:24 by Lebron Fang MD) Atrial fibrillation BPH (benign prostatic hyperplasia) Congestive heart failure Constipation Coronary artery disease CVA (cerebral vascular accident) Dementia Depression with anxiety Dyslipidemia Flexion contracture joint of multiple sites Gambino catheter in place History of DVT (deep vein thrombosis) Hypertension Obstructive sleep apnea Parkinson disease Type 2 diabetes mellitus Complicated by diabetic retinopathy. He is blind in his left eye. Vitamin D deficiency Surgical History Surgical History History of cystoscopy Family History Family History Other Unknown family medical history Social History Social History Social History: The patient lives at [facility]. He grew up in [place]. He is retired from working for the post office. His was in the [employer] as a young man. His son in [place], Pete Pantoja, is his emergency contact and he is listed as a full code. His primary care provider is Dr. Diaz Shanks. He denies alcohol, tobacco, and drug use. Smoking status: Never smoker Alcohol intake: unknown Substance use: unknown Substance use type: does not use Gender identity (if verbalized by the patient): Male Spiritual care concerns: No Agree to blood products: Yes Meds Home Medications and Allergies Home Medications Medication Instructions Recorded Confirmed Type acetaminophen 650 mg PO Q6H PRN 10/21/19 09/30/20 History amantadine HCl 100 mg PO QPM 10/21/19 09/30/20 History aspirin 81 mg PO DAILY 10/21/19 09/02/20 History atorvastatin 80 mg PO HS 10/21/19 09/30/20 History calcium carbonate [Oyster Shell 500 mg PO DAILY 10/21/19 09/30/20 History Calcium] carbidopa-levodopa 1 tablet PO TID 10/21/19 09/30/20 History cholecalciferol (vitamin D3) 1,000 unit PO DAILY 10/21/19 09/30/20 History digoxin [Digox] 125 mcg PO DAILY 10/21/19 09/30/20 History docusate sodium [Colace] 100 mg PO DAILY 10/21/19 09/30/20 History donepezil 10 mg PO DAILY 10/21/19 09/30/20 History finasteride 5 mg PO DAILY 10/21/19 09/30/20 History fluoxetine 10 mg PO DAILY 10/21/19 09/30/20 History furosemide 20 mg PO DAILY 10/21/19 09/30/20 History ondansetron 4 mg PO Q8H PRN 10/21/19 09/30/20 History polyethylene glycol 3350 [Miralax] 17 g PO DAILY PRN 10/21/19 09/30/20 History tamsulosin 0.4 mg PO BID 10/21/19 09/30/20 History metoprolol succinate 50 mg PO DAILY 03/10/20 09/30/20 History promethazine 25 mg AK Q6H PRN 03/10/20 09/30/20 History lisinopril 10 mg PO DAILY 30 Days #30 tablet 03/17/20 09/30/20 Rx cephalexin [Keflex] 500 mg PO DAILY 09/02/20 09/30/20 History mirtazapine 15 mg PO HS 09/02/20 09/30/20 History ciprofloxacin HCl 500 mg PO Q12H #10 tablet 09/05/20 Rx hydrocodone-acetaminophen 1 - 2 tablet PO Q6H PRN #20 tablet 09/05/20 09/30/20 Rx acidophilus-pectin, citrus 1 cap PO BID 09/30/20 09/30/20 History [Acidophilus Probiotic] Allergies Allergy/AdvReac Type Severity Reaction Status Date / Time No Known Allergies Allergy Verifie
[2020-09-30] MEDS: BISACODYL 10 MG SUPPOSITORY RECTAL (17:25)
[2020-09-30] MEDS: BISACODYL 5 MG TABLET EC 20 MG PO (17:25)
[2020-09-30] MEDS: polyethylene glycoL 3350 17 GM POWD.PACK 68 GM PO (17:35)
[2020-09-30] MEDS: ERTAPENEM 1 GM/NS 50 ML 1 GM/50 ML BAG IVPB (18:05)
[2020-09-30] MEDS: ACIDOPHILUS/BULGARICUS CHEWABLE TABLET 1 TABLET BY MOUTH (18:29)
[2020-09-30] MEDS: amantadine HCL 100 MG CAPSULE PO (18:30)
[2020-09-30] MEDS: MIRTAZAPINE 15 MG TABLET PO (20:30)
[2020-09-30] MEDS: ATORVASTATIN 40 MG TABLET 80 MG PO (20:30)
[2020-09-30] MEDS: TAMSULOSIN HCL 0.4 MG CAPSULE PO (20:31)
[2020-10-01] MEDS: SODIUM CHLORIDE 0.9% IV 1,000 ML 125 ML IV CONT (02:53)
[2020-10-01 06:00] VITALS: BP 136/69; PULSE 64; RESP 16; TEMP 36.6; O2SAT 99; BMI 18.8
[2020-10-01 06:27] LABS: Basophils Percent Auto 0.3 % (0.2-1.2); Eosinophils Absolute Auto 0.1 K/mm3 (0-0.3); Eosinophils Percent Auto 3.2 % (0-4.4); Hematocrit 28.3 % (42.0-52.0); Hemoglobin 8.8 g/dL (14.0-18.0); Immature Granulocyte Absolute 0.04 K/mm3 (0.00-0.031); Immature Granulocyte Percent A 1.2 % (0-0.5); Lymphocytes Absolute Auto 0.87 K/mm3 (0.9-3.2); Lymphocytes Percent Auto 25.4 % (18.3-44.2); Mean Corpuscular HGB Conc 31.1 g/dl (32-36); Mean Corpuscular Hemoglobin 27.1 pg (26-34); Mean Corpuscular Volume 87.1 fl (80-100); Mean Platelet Volume 10.8 fl (7.4-10.4); Monocytes Absolute Auto 0.4 K/mm3 (0.1-0.6); Monocytes Percent Auto 12.9 % (2.6-8.5); Platelet Count Result 205 k/mm3 (150-375); Red Blood Count 3.25 M/mm3 (4.6-6.20); Red Cell Distribution Width 14.6 % (11.5-14.5); White Blood Count 3.4 K/mm3 (4.5-10.0)
[2020-10-01 06:46] LABS: Anion Gap 4 mmol/L (8-16); Blood Urea Nitrogen 18 mg/dL (9-20); Calcium 7.7 mg/dL (8.4-10.2); Carbon Dioxide 29 mmol/L (22-30); Chloride 106 mmol/L (98-107); Estimated Glomerular Filt Rate > 60; Glucose 130 mg/dL (75-110); Potassium 3.6 mmol/L (3.4-5.0); Sodium 139 mmol/L (137-145)
[2020-10-01 06:58] LABS: Iron < 10 ug/dL (49-181)
[2020-10-01 07:00] LABS: Hemoglobin A1C 6.4 % (<5.7)
[2020-10-01 07:49] LABS: Percent Iron Saturation < 4 % (20-50)
[2020-10-01] MEDS: CARBIDOPA/LEVODOPA 10/100 MG TABLET 1 TABLET PO ×2 (08:35→12:44)
[2020-10-01] MEDS: ACIDOPHILUS/BULGARICUS CHEWABLE TABLET 1 TABLET BY MOUTH (08:35)
[2020-10-01] MEDS: DONEPEZIL HCL 10 MG TABLET PO (08:35)
[2020-10-01] MEDS: CALCIUM CARBONATE (OSCAL) 500 MG TABLET PO (08:35)
[2020-10-01 08:36] VITALS: PULSE 62
[2020-10-01] MEDS: METOPROLOL SUCCINATE EXT REL 50 MG TABCR PO (08:36)
[2020-10-01] MEDS: CHOLECALCIFEROL 1,000 UNITS TABLET 1000 UNITS PO (08:36)
[2020-10-01] MEDS: FUROSEMIDE 20 MG TABLET PO (08:36)
[2020-10-01] MEDS: FINASTERIDE 5 MG TABLET PO (08:36)
[2020-10-01] MEDS: FLUoxetine HCL 10 MG CAPSULE PO (08:36)
[2020-10-01] MEDS: DOCUSATE SODIUM 100 MG CAPSULE PO (08:36)
[2020-10-01] MEDS: lisinopriL 10 MG TABLET PO (08:36)
[2020-10-01 08:37] VITALS: PULSE 62
[2020-10-01] MEDS: TAMSULOSIN HCL 0.4 MG CAPSULE PO ×2 (08:37→20:13)
[2020-10-01] MEDS: DIGOXIN TAB 125 MCG TABLET PO (08:37)
[2020-10-01] MEDS: ENOXAPARIN 40 MG/0.4 ML SYRINGE SUB-Q (08:37)
[2020-10-01 09:16] LABS: Platelet Estimate Adequate (Adequate)
[2020-10-01 09:17] LABS: Atypical Lymphocytes Present
--- NOTE | 2020-10-01 13:14 | PM.IMPN ---
Progress Note: A&P Assessment and Plan (1) Suprapubic catheter dysfunction: Qualifiers: Encounter type: initial encounter Qualified Code(s): T83.010A - Breakdown (mechanical) of cystostomy catheter, initial encounter Code(s): T83.010A - Breakdown (mechanical) of cystostomy catheter, initial encounter Status: Acute Assessment and Plan: catheter replaced and old catheter found to have calcified tips with occlusion. Cultures have been obtained and empiric antibiotics started. Cx stil pending. (2) Catheter-associated urinary tract infection: Qualifiers: Encounter type: initial encounter Indwelling urinary catheter type: indwelling urethral catheter Qualified Code(s): T83.511A - Infection and inflammatory reaction due to indwelling urethral catheter, initial encounter; N39.0 - Urinary tract infection, site not specified Code(s): T83.511A - Infection and inflammatory reaction due to indwelling urethral catheter, initial encounter; N39.0 - Urinary tract infection, site not specified Status: Acute Assessment and Plan: History of ESBL UTIs with Klebsiella during last admission. Urine culture and blood culture pending. Continue ertapenem (3) Type 2 diabetes mellitus: Qualifiers: Diabetes mellitus complication status: without complication Diabetes mellitus laborer marine terminal insulin use: without residential use Qualified Code(s): E11.9 - Type 2 diabetes mellitus without complications Code(s): E11.9 - Type 2 diabetes mellitus without complications Status: Chronic Assessment and Plan: A1c 6.4. The patient's blood glucose was reviewed on 10/01/20 Glucose remains well controlled. Continue AccuCheks covering with sliding scale. Hypoglycemia protocol available as needed. Continue to monitor (4) Atrial fibrillation: Qualifiers: Atrial fibrillation type: unspecified Qualified Code(s): I48.91 - Unspecified atrial fibrillation Code(s): I48.91 - Unspecified atrial fibrillation Status: Chronic Assessment and Plan: History of AFib. Not on anticoagulation. HR controlled. Continue to monitor (5) Hypertension: Qualifiers: Hypertension type: essential hypertension Qualified Code(s): I10 - Essential (primary) hypertension Code(s): I10 - Essential (primary) hypertension Status: Chronic Assessment and Plan: Patient's blood pressure was reviewed on 10/01 Blood pressure remains well controlled. Continue current medications. (6) Chronic anemia: Code(s): D64.9 - Anemia, unspecified Status: Acute Assessment and Plan: Hgb 10.2 on admission but has dropped to 8.8 today. Iron studies consistent with anemia of chronic disease but may have a iron deficiency componenet as well. No ferritin listed. WBC low but chronic. B12 level okay. Oral iron interacts with Sinemet so will treat with IV. (7) Fecal impaction: Code(s): K56.41 - Fecal impaction Status: Acute Assessment and Plan: Patient having liquid stools but probably leaking around the impaction. CT scan also showing possible colitis. Will schedule MiraLax; continue Colace. Dulcolax suppository as needed. Enema now. (8) DVT prophylaxis: Code(s): Z29.9 - Encounter for prophylactic measures, unspecified Status: Acute Assessment and Plan: Lovenox Subjective Date/time seen: 10/01/20 13:14 Interval history: Date of service 10/01/20 70yo male with dementia, AFib and DM here for suprapubic catheter dysfunction and also found to have fecal impaction. Assuming care. Chart reviewed. Patient arouses but unable to provide history. He is essentially nonverbal. Was informed that patient had COVID about 2 weeks ago. Discussed with RN: patient very active this morning. Ate well. Tolerating oral meds. Multiple stools but liquid Review of Systems Revie
[2020-10-01 14:00] VITALS: BP 125/82; PULSE 76; RESP 18; TEMP 36.9; O2SAT 95
[2020-10-01] MEDS: IRON SUCROSE COMPLEX 100 MG in SODIUM CHLORIDE 0.9% IV 50 ML 220 MG IVPB (14:27)
[2020-10-01] MEDS: polyethylene glycoL 3350 17 GM POWD.PACK PO (14:52)
[2020-10-01] MEDS: ERTAPENEM 1 GM/NS 50 ML 1 GM/50 ML BAG IVPB (17:38)
[2020-10-01] MEDS: MIRTAZAPINE 15 MG TABLET PO (20:13)
[2020-10-01] MEDS: ATORVASTATIN 40 MG TABLET 80 MG PO (20:13)
[2020-10-01 22:00] VITALS: BP 142/64; PULSE 75; RESP 16; TEMP 36.2; O2SAT 98
[2020-10-02 06:00] VITALS: BP 142/73; PULSE 76; RESP 16; TEMP 36.2; O2SAT 97
[2020-10-02 06:22] LABS: Hematocrit 29.3 % (42.0-52.0); Hemoglobin 9.2 g/dL (14.0-18.0); Mean Corpuscular HGB Conc 31.4 g/dl (32-36); Mean Corpuscular Hemoglobin 27.5 pg (26-34); Mean Corpuscular Volume 87.7 fl (80-100); Mean Platelet Volume 10.6 fl (7.4-10.4); Platelet Count Result 200 k/mm3 (150-375); Red Blood Count 3.34 M/mm3 (4.6-6.20); Red Cell Distribution Width 14.6 % (11.5-14.5); White Blood Count 2.7 K/mm3 (4.5-10.0)
[2020-10-02] MEDS: lisinopriL 10 MG TABLET PO (09:26)
[2020-10-02] MEDS: CARBIDOPA/LEVODOPA 10/100 MG TABLET 1 TABLET PO ×2 (09:26→12:46)
[2020-10-02 09:27] VITALS: PULSE 80
[2020-10-02] MEDS: DIGOXIN TAB 125 MCG TABLET PO (09:27)
[2020-10-02] MEDS: ACIDOPHILUS/BULGARICUS CHEWABLE TABLET 1 TABLET BY MOUTH (09:27)
[2020-10-02 09:28] VITALS: PULSE 80
[2020-10-02] MEDS: FINASTERIDE 5 MG TABLET PO (09:28)
[2020-10-02] MEDS: FLUoxetine HCL 10 MG CAPSULE PO (09:28)
[2020-10-02] MEDS: FUROSEMIDE 20 MG TABLET PO (09:28)
[2020-10-02] MEDS: TAMSULOSIN HCL 0.4 MG CAPSULE PO (09:28)
[2020-10-02] MEDS: DOCUSATE SODIUM 100 MG CAPSULE PO (09:28)
[2020-10-02] MEDS: METOPROLOL SUCCINATE EXT REL 50 MG TABCR PO (09:28)
[2020-10-02] MEDS: CALCIUM CARBONATE (OSCAL) 500 MG TABLET PO (09:29)
[2020-10-02] MEDS: ENOXAPARIN 40 MG/0.4 ML SYRINGE SUB-Q (09:29)
[2020-10-02] MEDS: polyethylene glycoL 3350 17 GM POWD.PACK PO (09:30)
[2020-10-02] MEDS: DONEPEZIL HCL 10 MG TABLET PO (09:30)
[2020-10-02] MEDS: CHOLECALCIFEROL 1,000 UNITS TABLET 1000 UNITS PO (09:30)
[2020-10-02] MEDS: IRON SUCROSE COMPLEX 100 MG in SODIUM CHLORIDE 0.9% IV 50 ML 220 MG IVPB (09:31)
[2020-10-02 14:00] VITALS: BP 141/73; PULSE 74; RESP 18; TEMP 36.5; O2SAT 99
[2020-10-02 14:13] LABS: SARS-CoV-2 RNA PCR Negative
--- NOTE | 2020-10-02 15:19 | PM.DS ---
DS: Admitting Diagnosis Admitting Diagnosis Admitting Diagnosis: Suprapubic catheter malfunction DS: Discharge Diagnosis Discharge Diagnosis (1) Suprapubic catheter dysfunction: Qualifiers: Encounter type: initial encounter Qualified Code(s): T83.010A - Breakdown (mechanical) of cystostomy catheter, initial encounter Code(s): T83.010A - Breakdown (mechanical) of cystostomy catheter, initial encounter Status: Acute Assessment and Plan: Patient admitted for SP catheter malfunction. Catheter replaced and old catheter found to have calcified tips with occlusion. Cultures were obtained and empiric antibiotics started. UCx negative and BCx NGTD. (2) Catheter-associated urinary tract infection: Qualifiers: Indwelling urinary catheter type: indwelling urethral catheter Encounter type: initial encounter Qualified Code(s): T83.511A - Infection and inflammatory reaction due to indwelling urethral catheter, initial encounter; N39.0 - Urinary tract infection, site not specified Code(s): T83.511A - Infection and inflammatory reaction due to indwelling urethral catheter, initial encounter; N39.0 - Urinary tract infection, site not specified Status: Acute Assessment and Plan: UA showing hematuria with 2+ LE and 10-15WBC. He has a history of ESBL UTIs with Klebsiella during last admission. Started on Ertapenem. Urine culture negative. Blood cultures NGTD (3) Type 2 diabetes mellitus: Qualifiers: Diabetes mellitus fdc insulin use: without fdc use Diabetes mellitus complication status: without complication Qualified Code(s): E11.9 - Type 2 diabetes mellitus without complications Code(s): E11.9 - Type 2 diabetes mellitus without complications Status: Chronic Assessment and Plan: A1c 6.4. The patient's blood glucose was monitored closely. Glucose remained well controlled. (4) Atrial fibrillation: Qualifiers: Atrial fibrillation type: unspecified Qualified Code(s): I48.91 - Unspecified atrial fibrillation Code(s): I48.91 - Unspecified atrial fibrillation Status: Chronic Assessment and Plan: History of AFib. Not on anticoagulation. HR remained well controlled. (5) Hypertension: Qualifiers: Hypertension type: essential hypertension Qualified Code(s): I10 - Essential (primary) hypertension Code(s): I10 - Essential (primary) hypertension Status: Chronic Assessment and Plan: Patient's blood pressure was monitored closely. Blood pressure remained well controlled. (6) Chronic anemia: Code(s): D64.9 - Anemia, unspecified Status: Acute Assessment and Plan: Hgb 10.2 on admission but has dropped to 9.2 today. Iron studies consistent with anemia of chronic disease but may have a iron deficiency component as well. WBC low but chronic. B12 level okay. Oral iron interacts with Sinemet so he was given IV iron. (7) Fecal impaction: Code(s): K56.41 - Fecal impaction Status: Acute Assessment and Plan: CT scan showing fecal impaction with possible colitis but felt less likely. We scheduled MiraLax and continued Colace. Dulcolax suppository as needed. Enema given. He had multiple stools with large ones. DS: Summary Hospital Course Reason for hospitalization: 70yo male here for failure of drainage from Sp cath site. Hospital Course: As above. Time Spent with Patient Time attestation: Total time spent providing and/or coordinating discharge services: 35 minutes Time spent: Greater than 30 minutes Exam Narrative: Exam Narrative: AF 97.2 142/73 80 16% ra Gen - NARD Chest - lungs clear anteriorly, nml RR CV - Irregularly irregular. S1-S2. Abd - Soft. Nondistended. No apparent tenderness. Suprapubic catheter secured; dressing clean and dry Ext - No pedal edema Neuro - awake, alert, nonverbal,
== END 2020-10-02 16:40 ==
LOC: ANHED 06:21 → ANH3MEDSUR 07:13
PROVIDERS: Internal Medicine; Admitting Provider Family Medicine; Emergency Provider Emergency Medicine; PCP Family Medicine; Visit Provider Internal Medicine
DX: T83.010A Breakdown (mechanical) of cystostomy catheter, initial encounter (principal); T83.511A Infection and inflammatory reaction due to indwelling urethral catheter, initial encounter; N39.0 Urinary tract infection, site not specified; I48.91 Unspecified atrial fibrillation; I10 Essential (primary) hypertension; D64.9 Anemia, unspecified; K56.41 Fecal impaction; E86.0 Dehydration; I69.820 Aphasia following other cerebrovascular disease; N40.0 Benign prostatic hyperplasia without lower urinary tract symptoms; I25.10 Atherosclerotic heart disease of native coronary artery without angina pectoris; F03.90 Unspecified dementia, unspecified severity, without behavioral disturbance, psychotic disturbance, mood disturbance, and anxiety; F32.9 Major depressive disorder, single episode, unspecified; F41.9 Anxiety disorder, unspecified; E78.5 Hyperlipidemia, unspecified; M24.59 Contracture, other specified joint; G47.33 Obstructive sleep apnea (adult) (pediatric); G20 Parkinson's disease; E11.319 Type 2 diabetes mellitus with unspecified diabetic retinopathy without macular edema; E55.9 Vitamin D deficiency, unspecified; D72.819 Decreased white blood cell count, unspecified; N21.0 Calculus in bladder; R91.8 Other nonspecific abnormal finding of lung field; N32.89 Other specified disorders of bladder; Z29.9 Encounter for prophylactic measures, unspecified; Z86.718 Personal history of other venous thrombosis and embolism; Z79.82 Long term (current) use of aspirin; Z20.828 Contact with and (suspected) exposure to other viral communicable diseases
CPT/HCPCS: 36415; 74177; 80048; 81001; 82607; 82728; 83036; 83540; 83550; 85025; 85027; 87040; 87086; 87635; 96361; 96365; 96372; 96375; 96376; 99285; A9270; C9803; G0378; J1335; J1650; J1756; J7030; J7040; Q9967; U0003

== ENCOUNTER 2020-10-28 11:17 | Inpatient (IN) | payer MEDICARE, OTHER, SELFPAY ==
[2020-10-28] VITALS (54 sets, daily range): BP systolic 78–139; BP diastolic 48–85; PULSE 67–134; RESP 9–23; TEMP 36.2–36.6; O2SAT 93–100; BMI 17.9
--- NOTE | ~2020-10-28 | XR_ITS ---
EXAMINATION: XR barium swallow modified DATE: 10/29/2020 10:27 INDICATION: Dysphagia. TECHNIQUE: The patient was given barium-containing material of multiple consistencies to swallow by fuad minor speech pathologist while I performed fluoroscopy. Dose-area product was 1.65 Gy-cm2. 2.7 minutes fluoroscopy time FINDINGS: Oral Stage: Premature spillage to piriform sinuses with slightly delayed swallowing reflex Pharyngeal Phase: Reduced laryngeal elevation Reduced laryngeal abduction Aspiration with thin liquids Cervical/Esophageal Stage: Within functional limits IMPRESSION: Modified esophagram findings as above. Please refer to the speech therapy report for [facility] recommendations. Reviewed, dictated and finalized at [facility]. Reviewed, dictated and finalized at location [facility]. L MAKER IMPRESSION: Modified esophagram findings as above. Please refer to the speech t herapy report for specific recommendations.
--- NOTE | ~2020-10-28 | CT_ITS ---
EXAMINATION: CT abdomen pelvis wo con DATE: 10/28/2020 13:08 INDICATION: Generalized abdominal pain. TECHNIQUE: Computed tomography (CT) of the abdomen and pelvis was performed without intravenous contr ast. Automated exposure control and iterative reconstruction technique were employed. The dose-length product was 336.70 mGy-cm. COMPARISON: CT abdomen and pelvis 09/30/2020, 01/08/2020 FINDINGS: The visualized portions of the lung bases demonstrate mild atelectasis. No pleural effusion . The heart size is normal. There are coronary artery calcifications. No pericardial effusion. The li robert, spleen, gallbladder, pancreas, and adrenal glands are normal. There are parenchymal calcificatio ns in right kidney. There are 2 stones in right kidney measuring up to 5 mm. There are 2 stones in le ft kidney measuring up to 3 mm. There is a linear calcification in left renal pelvis. There are multi ple stones in the bladder, which is decompressed by a suprapubic Gambino catheter. There is chronic dif fuse wall thickening of the bladder. The prostate is severely enlarged. Stool distends the rectum. Th ere are no dilated loops of bowel. The appendix is normal. There are no pathologically enlarged lymph nodes. There is no free intraperitoneal fluid. There are widespread arterial calcifications. There i s mild lumbar spondylosis. IMPRESSION: 1. Stool distends the rectum. 2. Bilateral nonobstructing kidney stones. 3. Bladder stones. 4. Chronic diffuse bladder wall thickening, which may be secondary to chronic outlet obstruction from the severely enlarged prostate or chronic cystitis. Reviewed, dictated and finalized at location [facility]. ICAL TECH IMPRESSION: 1. Stool distends the rectum. 2. Bilateral nonobstructing kidney stones. 3. Bladder stones. 4. Chronic diffuse bladder wall thickening, which may be secondary to chronic o utlet obstruction from the severely enlarged prostate or chronic cystitis.
--- NOTE | ~2020-10-28 | CT_ITS ---
EXAMINATION: CT brain wo con DATE: 10/28/2020 11:45 INDICATION: Altered mental status TECHNIQUE: Computed tomography (CT) of the head was performed without intravenous contrast. Sagittal and coronal reconstructions were performed. The mA was adjusted according to patient size. Iterative reconstruction technique was employed. The dose-length product was 605.33 mGy-cm. COMPARISON: None FINDINGS: Small old infarcts at the bilateral cerebellar hemispheres, the central jil, left frontal lobe brina x and left and right frontal lobe hedrick radiata. No acute intracranial hemorrhage, acute infarction or abnormal extra axial fluid collection. There is additional extensive scattered white matter hypoat tenuation consistent with chronic small vessel ischemic disease. Symmetric prominence of the sulci an d ventricles consistent with moderate age-appropriate diffuse cerebral volume loss. No mass/mass effe ct. The orbits, paranasal sinuses and mastoid air cells are normal. Intracranial calcified cerebral a therosclerosis is noted. IMPRESSION: 1. No acute intracranial process. 2. Multiple small old infarcts in the bilateral frontal lobes, jil and bilateral cerebellar hemisphe res. 3. Age-related changes including moderate diffuse volume loss and extensive scattered white matter hy poattenuation consistent with chronic small vessel ischemic disease. Reviewed, dictated and finalized at location A. NT SERVICE COORDINATOR IMPRESSION: 1. No acute intracranial process. 2. Multiple small old infarcts in the bilateral frontal lobes, jil and bilater al cerebellar hemispheres. 3. Age-related changes including moderate diffuse volume loss and extensive sca ttered white matter hypoattenuation consistent with chronic small vessel ischem ic disease.
--- NOTE | ~2020-10-28 | XR_ITS ---
EXAMINATION: XR chest 1V DATE: 10/28/2020 11:48 INDICATION: Altered mental status. TECHNIQUE: A single frontal view of the chest was obtained. COMPARISON: Chest single view 04/03/2020, CT abdomen and pelvis 09/30/2020 FINDINGS: The chest demonstrates clear lungs without pneumonia, pleural effusion, or pneumothorax. Th e heart size is normal. IMPRESSION: 1. No acute cardiopulmonary disease. Reviewed, dictated and finalized at location B. GY AUDIT ADVISOR
--- NOTE | 2020-10-28 11:34 | ECG_ITS ---
Measurements Intervals [place] Rate: 100 P: [place]: 0 QRS: -41 QRSD: 110 T: 79 QT: 360 QTc: 466 Interpretive Statements MULTIFOCAL ATRIAL TACHYCARDIA ATRIAL AND VENTRICULAR PREMATURE COMPLEXES LEFT AXIS DEVIATION INTRAVENTRICULAR CONDUCTION DELAY BORDERLINE ST-T WAVE ABNORMALITY- ANTEROLAT/HIGH LAT LEADS ABNORMAL ECG Electronically Signed On 10-28-2020 12:06:11 SEPTIC TANK SETTER by Randall Leyva D.O.
--- NOTE | 2020-10-28 11:56 | ED.AMS ---
HPI - Altered Mental Status General Chief Complaint: Altered Mental Status Stated Complaint: ams Time Seen by Provider: 10/28/20 11:30 Source: RN notes reviewed History of Present Illness HPI narrative: Patient presents to emergency department from [facility] for altered mental status. Per [facility] staff the patient had an episode of being unresponsive this morning. When EMS arrived the patient was noted to be responsive mumbling words and was noted to be hypotensive with a bolus of fluids given. The patient has a history of a chronic suprapubic catheter with frequent UTIs. Per staff the patient is a awake and alert x1 at baseline patient able to state his name is at this time but unable to give any other history Related Data Home Medications Medication Instructions Recorded Confirmed acetaminophen 650 mg PO Q6H PRN 10/21/19 10/28/20 amantadine HCl 100 mg PO QPM 10/21/19 10/28/20 aspirin 81 mg PO DAILY 10/21/19 09/02/20 atorvastatin 80 mg PO HS 10/21/19 10/28/20 calcium carbonate [Oyster Shell 500 mg PO DAILY 10/21/19 10/28/20 Calcium] carbidopa-levodopa 1 tablet PO TID 10/21/19 10/28/20 cholecalciferol (vitamin D3) 1,000 unit PO DAILY 10/21/19 10/28/20 digoxin [Digox] 125 mcg PO DAILY 10/21/19 10/28/20 docusate sodium [Colace] 100 mg PO DAILY 10/21/19 10/28/20 donepezil 10 mg PO DAILY 10/21/19 10/28/20 finasteride 5 mg PO DAILY 10/21/19 10/28/20 fluoxetine 10 mg PO DAILY 10/21/19 10/28/20 furosemide 20 mg PO DAILY 10/21/19 10/28/20 ondansetron 4 mg PO Q8H PRN 10/21/19 10/28/20 tamsulosin 0.4 mg PO BID 10/21/19 10/28/20 metoprolol succinate 50 mg PO DAILY 03/10/20 10/28/20 promethazine 25 mg [place] Q6H PRN 03/10/20 10/28/20 cephalexin [Keflex] 500 mg PO DAILY 09/02/20 10/28/20 mirtazapine 15 mg PO HS 09/02/20 10/28/20 acidophilus-pectin, citrus 1 cap PO BID 09/30/20 10/28/20 [Acidophilus Probiotic] Allergies Allergy/AdvReac Type Severity Reaction Status Date / Time No Known Allergies Allergy Verified 09/30/20 09:34 Review of Systems Review of Systems: ROS unobtainable: Yes unobtainable due to medical condition [facility] Past Medical History Medical History (Updated 10/28/20 @ 16:55 by Rolando Garces, DO) Atrial fibrillation BPH (benign prostatic hyperplasia) Congestive heart failure Constipation Coronary artery disease CVA (cerebral vascular accident) Dementia Depression with anxiety Dyslipidemia Flexion contracture joint of multiple sites Gambino catheter in place History of DVT (deep vein thrombosis) Hypertension Obstructive sleep apnea Parkinson disease Type 2 diabetes mellitus Complicated by diabetic retinopathy. He is blind in his left eye. Vitamin D deficiency Surgical History Surgical History History of cystoscopy Family History Family History Other Unknown family medical history Social History Social History Social History: The patient lives at [facility]. He grew up in [place]. He is retired from working for the [employer]. His was in the [employer] as a young man. His son in [place], Pete Pantoja, is his emergency contact and he is listed as a full code. His primary care provider is Dr. iDaz Shanks. He denies alcohol, tobacco, and drug use. Smoking status: Never smoker Alcohol intake: unknown Substance use: unknown Substance use type: does not use Gender identity (if verbalized by the patient): Male Spiritual care concerns: No Agree to blood products: Yes Exam Narrative: Exam Narrative: APPEARANCE: No acute distress, nontoxic, resting in bed EYES: PERRL HEENT: Normocephalic, atraumatic, OMM RESPIRATORY: No respiratory distress Clear to auscultation bilaterally with no rhonchi wheezing or rales. CARDIOVASCULAR: Irregular irregular without murmurs rubs or gallops. ABDOMINAL: Soft,
--- NOTE | 2020-10-28 12:00 | PC.NURSE ---
patient here with possible urosepsis. see notes. has suprapubic catheter in. no urine
[2020-10-28] MEDS: SODIUM CHLORIDE 0.9% IV 1,000 ML 999 ML IV CONT ×2 (12:03→12:57)
[2020-10-28 12:16] LABS: Basophils Percent Auto 0.2 % (0.2-1.2); Eosinophils Percent Auto 0.1 % (0-4.4); Hematocrit 37.8 % (42.0-52.0); Hemoglobin 11.4 g/dL (14.0-18.0); Immature Granulocyte Absolute 0.07 K/mm3 (0.00-0.031); Immature Granulocyte Percent A 0.7 % (0-0.5); Lymphocytes Absolute Auto 0.55 K/mm3 (0.9-3.2); Lymphocytes Percent Auto 5.2 % (18.3-44.2); Mean Corpuscular HGB Conc 30.2 g/dl (32-36); Mean Corpuscular Hemoglobin 28.8 pg (26-34); Mean Corpuscular Volume 95.5 fl (80-100); Mean Platelet Volume 12.1 fl (7.4-10.4); Monocytes Absolute Auto 0.4 K/mm3 (0.1-0.6); Monocytes Percent Auto 3.5 % (2.6-8.5); Neutrophils Absolute Auto 9.6 K/mm3 (1.3-6.7); Neutrophils Percent Auto 90.3 % (45.5-73.1); Nucleated Red Blood Cells Absolute Auto 0.1 K/mm3 (0.0-0.012); Nucleated Red Blood Cells Perc 0.7 % (0.0-0.2); Platelet Count Result 148 k/mm3 (150-375); Red Blood Count 3.96 M/mm3 (4.6-6.20); Red Cell Distribution Width 18.9 % (11.5-14.5); White Blood Count 10.6 K/mm3 (4.5-10.0)
[2020-10-28 12:26] LABS: INR 1.2; Prothrombin Time 15.6 Seconds (11.1-14.7)
[2020-10-28 12:27] LABS: Partial Thromboplastin Time 24.7 SECONDS (22.3-36.8)
--- NOTE | 2020-10-28 12:30 | PC.NURSE ---
suprapubic catheter replaced by Dr. Garces at the bedside. #18fr catheter used. patient came with same size but obstructed. physics technician with . patient tolerated well. instant return of pink colored urine. irrigated with 120ml by .
[2020-10-28 12:39] LABS: Alkaline Phosphatase 98 U/L (38-126); Anion Gap 11 mmol/L (8-16); Aspartate Amino Transferase 20 U/L (17-59); Bilirubin,Total 1.1 mg/dL (0.2-1.3); Blood Urea Nitrogen 57 mg/dL (9-20); Calcium 8.4 mg/dL (8.4-10.2); Carbon Dioxide 29 mmol/L (22-30); Chloride 114 mmol/L (98-107); Estimated CRCL calculation 33 ml/min; Estimated Glomerular Filt Rate > 60; Glucose 547 mg/dL (75-110); Sodium 154 mmol/L (137-145)
--- NOTE | 2020-10-28 12:40 | PC.NURSE ---
patient's BP low again. 3rd liter of NS started. MD to replace suprapubic catheter. will replace with same size. #18F velazquez at bedside. NH had stated that patient had 150ml out prior to arrival here today. stated urine was dark lamont.
[2020-10-28 12:53] LABS: Alanine Aminotransferase 29 U/L (4-50)
[2020-10-28] MEDS: INSULIN HUMAN REGULAR (*BKC) 100 UNITS/ML 8 UNITS IV PUSH (13:00)
[2020-10-28 13:07] LABS: Add Urine Microscopic? YES; Appearance Urine Turbid (Clear); Bilirubin Urine Negative (Negative); Blood Urine 3+ (Negative); Color Urine Red (Yellow); Glucose Urine UA 3+ mg/dL (Negative); Ketones Urine Trace mg/dL (Negative); Leukocyte Esterase Ur 2+ LEU/UL (Negative); Mucus Urine Rare /lpf; Nitrate Urine Negative (Negative); Protein Urine 2+ mg/dL (Negative); RBC Urine >75 /hpf (0-2); Specific Grav Ur 1.016 (1.001-1.035); Urobilinogen Urine Negative mg/dL (<2.0); WBC Urine >75 /hpf
[2020-10-28 13:56] LABS: Glucose Point of Care 422 (65-105)
--- NOTE | 2020-10-28 13:56 | PC.NURSE ---
waiting for bed assignment upstairs. FSBS 422. alert. answers to simple questions. 200 out right now in velazquez bag.
--- NOTE | 2020-10-28 14:10 | PC.NURSE ---
spoke with patient's son. update given.
[2020-10-28 14:24] LABS: Glucose Point of Care 428 (65-105)
[2020-10-28 14:38] LABS: Lactic Acid Reflex 5.3 mmol/L (0.7-2.1)
[2020-10-28 15:06] LABS: Glucose Point of Care 396 (65-105)
--- NOTE | 2020-10-28 15:44 | PC.NURSE ---
patient assigned to room 200. SBAR faxed and tubed. will transfer soon.
--- NOTE | 2020-10-28 15:44 | WPDURCON ---
Assessment and Plan Assessment and plan (1) Suprapubic catheter dysfunction: Qualifiers: Encounter type: initial encounter Qualified Code(s): T83.010A - Breakdown (mechanical) of cystostomy catheter, initial encounter Code(s): T83.010A - Breakdown (mechanical) of cystostomy catheter, initial encounter Status: Acute Assessment and Plan: SP tube should continue to changed monthly, unfortunately d/t his poor bladder function and chronic SP tube, he will continue to develop problems such as potential UTI's and occlusion of the SP tube. It is imperative that we change the SP tube here monthly, [facility]. He has not been here for one since it was placed, but it was addressed twice in the hosptial now. Ok to irrigate SP tube daily and PRN indefinitely to prevent occlusion of SP tube. (2) Acute UTI: Code(s): N39.0 - Urinary tract infection, site not specified Status: Acute Assessment and Plan: Continue IV antibiotics, tailor to culture results. (3) Bladder stones: Code(s): N21.0 - Calculus in bladder Status: Acute Assessment and Plan: Not contributing to infection or obstruction of SP tube, per Dr. Mercedes when discussed with him. Will not plan to intervene at this time. No further evaluation needed. (4) Renal calculi: Code(s): N20.0 - Calculus of kidney Status: Acute Assessment and Plan: Non obstructive bilaterally, given his overall condition we would not recommend surgery on these unless they would become obstructive. These are also not contributing to his infections. (5) Chronic UTI: Code(s): N39.0 - Urinary tract infection, site not specified Status: Acute Assessment and Plan: Likely secondary to dehydration. Will recommend daily Keflex once infection is treated to prevent future UTI's. Urology Consult Note HPI Date Seen: 10/28/20 Primary Care Provider: Lisette Condon MD Consult Narrative Narrative: Jonny Pantoja is a 70 year old male was seen in the ER today d/t an occluded SP tube/[facility], hypotensive and altered mental status. His SP tube was exchanged and irrigated by Dr. Garces in the ER and it is now draining pink, cloudy drainage. He is a known patient to our practice and had an SP tube placement on 09/05/[address] Mercedes. Since then he has been admitted twice with SP tube occlusion, gross hematuria and UTI. He was [facility], but ends up here either before the month is up or right at a one month change with difficultly. His WBC is 10.6, creatinine 1.30, hyperglycemic with a glucose of 547 and he is hypernatremic with a sodium of 154. His UA is suspicious of infection and a blood/urine culture is pending. His CT today shows bilateral non obstructive kidney stones, bladder stones and bladder wall thickening d/t outlet obstruction. He is non communicative and is unable to provide medical history, therefore all of it was obtained from Dr. Garces and the chart. Review of Systems Review of Systems: ROS unobtainable: Yes unobtainable due to mental status [facility] Past Medical History Medical History (Updated 10/28/20 @ 15:59 by April Guerrero, VIPIN) Atrial fibrillation BPH (benign prostatic hyperplasia) Congestive heart failure Constipation Coronary artery disease CVA (cerebral vascular accident) Dementia Depression with anxiety Dyslipidemia Flexion contracture joint of multiple sites Gambino catheter in place History of DVT (deep vein thrombosis) Hypertension Obstructive sleep apnea Parkinson disease Type 2 diabetes mellitus Complicated by diabetic retinopathy. He is blind in his left eye. Vitamin D deficiency Surgical History Surgical History History of cystoscopy Family History Family History (Reviewed 10/28/20 @ 15:53 by April Mcintosh
--- NOTE | 2020-10-28 15:50 | PC.NURSE ---
spoke with RN at DC. patient did not receive any morning medications. meds were pulled but patient became lethargic shortly after. patient takes his meds crushed in pudding. noted to be on nectar thick liquids. spoke with floor. RN is not available. she will call right back.
--- NOTE | 2020-10-28 16:05 | PC.NURSE ---
attempted to call report. RN not available.
--- NOTE | 2020-10-28 16:30 | PC.NURSE ---
RN not available for report.
--- NOTE | 2020-10-28 16:42 | PC.NURSE ---
report given to Christina BRISCOE. will give patient metoprolol and transfer to [facility].
--- NOTE | 2020-10-28 16:52 | PC.NURSE ---
Christina BRISCOE notified no metoprolol in ED. patient transferred to [facility]. RN aware that patient still needs dose.
[2020-10-28 17:21] LABS: Reflex Lactic Acid Yes or No Add Lactic
[2020-10-28] MEDS: SODIUM CHLORIDE 0.9% IV 1,000 ML 100 ML IV CONT (17:25)
[2020-10-28] MEDS: METOPROLOL SUCCINATE EXT REL 50 MG TABCR PO (18:05)
[2020-10-28 18:14] LABS: Lactic Acid 2.3 mmol/L (0.7-2.1)
[2020-10-28] MEDS: INSULIN ASPART (*BKC) 100 UNITS/ML SUB-Q ×2 (19:27→23:47)
--- NOTE | 2020-10-28 19:33 | PM.IMHP ---
H&P: HPI History of Present Illness Date/Time: 10/28/20 19:33 Chief complaint: uti,sepsis,velazquez catheter malfunction,hypernatremi Narrative: Jonny Pantoja is a 70 year old male who is from [facility]. He came to the emergency room from the [facility] care facility for altered mental status. The patient was unresponsive this morning. Patient was mumbling words and now he is not talking. He was hypotensive in the was given a bolus of fluids. He has a chronic suprapubic catheter which is supposed to be changed by the [place] every [facility]. The patient typically comes here to the emergency room to get his suprapubic catheter changed. Typically he is alert and orientated x1. He typically answers to his name. He has had a history of having a CVA and is flaccid on the right side he is not answering my questions at this time. It was reported that the patient was having difficulty swallowing and gets choked. Patient's suprapubic catheter was changed here. Patient was found have a UTI. He has a history of ESBL infection in the past therefore he was restarted back on the Zosyn. The ESBL infection was back in June of this year which was sensitive to the Zosyn. The patient did not take any of his morning medications. Patient's blood sugar was noted to be 547. We gave him IV insulin and IV fluids he is not DKA. He is being treated for urinary tract infection in the emergency room for heart rate of 134 which brought his heart rate down to 67. Discharged here on 10/02/2020 with a suprapubic catheter dysfunction. Urology had been consulted. CT of the abdomen and pelvis was read as stool this stents the rectum. Bilateral nonobstructing kidney stones. Bladder stones. Chronic diffuse bladder wall thickening which could be outlet obstruction from severely enlarged prostate or chronic cystitis. Chest x-ray was no acute coronary disease per radiology read. Patient is being admitted into observation on the date of service of 10/28/2020 Review of Systems Review of Systems: All systems reviewed & are unremarkable except as noted in HPI and below Constitutional: Constitutional: Reports as per HPI and Reports no additional constitutional complaints Eyes: Eyes: Reports as per HPI and Reports no additional eye complaints ENT: Reports system reviewed and no additional complaints, except as documented and Reports Normal hearing present Cardiovascular: Cardiovascular: Reports no additional cardiovascular complaints Respiratory: Respiratory: Reports no additional respiratory complaints and Reports no additional respiratory complaints Gastrointestinal: Gastrointestinal: Reports as per HPI and Reports no additional gastrointestinal complaints Musculoskeletal: Musculoskeletal: Reports no additional musculoskeletal complaints Integumentary/Breasts: Skin/Breast: Reports system reviewed and no additional complaints, except as docu and Reports as per HPI Neurologic: Reports system reviewed and no additional complaints, except as documented, Reports as per HPI and Reports Normal hearing present Psychiatric: Psychiatric: Reports no additional psychiatric complaints and Reports as per HPI Endocrine: Endocrine: Reports no additional endocrine complaints Hematologic/Lymphatic: Hematologic/Lymphatic: Reports no additional hematologic/lymphatic complaints Allergic/Immunologic: Allergic/Immunologic: Reports no additional allergic/immunologic complaints [facility] Past Medical History Medical History (Updated 10/28/20 @ 19:58 by Sandrine Chirinos NP) Atrial fibrillation BPH (benign prostatic hyperplasia) Congestive heart failure Constipation Coronary artery disease CVA (cerebral vascular accident) Right side flaccid Dementia Depression Depression with anxiety Dyslipidemia Flexion contracture joint of multiple sites Velazquez catheter in place History of DVT (deep vein thrombosis) Hypertension Obstructive sleep apnea Parkinson disease Suprapubic dhara
--- NOTE | 2020-10-28 20:03 | ADMGEN ---
This patient, Jonny Pantoja, was admitted to IMU Room 200-01 on 10-28-2020 at 1637. Patient/family oriented to hospital policies and general routines including ID bracelet, bed and alarms, visiting hours, pain management, procedures, bathroom and other care routines, personal items, smoking policy, room service/diet, and visiting hours. Information on how to activate the Rapid Response Team has been discussed. Patient/Family are encouraged to report perceived risks to care and to ask questions if they do not understand what they are told or what they should do.
[2020-10-28 20:10] LABS: Glucose Point of Care 396 (65-105)
[2020-10-28] MEDS: ACIDOPHILUS/BULGARICUS CHEWABLE TABLET 1 TABLET PO (20:48)
[2020-10-28] MEDS: CARBIDOPA/LEVODOPA 10/100 MG TABLET 1 TABLET PO (20:48)
[2020-10-28] MEDS: amantadine HCL 100 MG CAPSULE PO (20:48)
[2020-10-28] MEDS: BISACODYL 10 MG SUPPOSITORY RECTAL (20:49)
[2020-10-28] MEDS: TAMSULOSIN HCL 0.4 MG CAPSULE PO (20:49)
[2020-10-28] MEDS: MIRTAZAPINE 15 MG TABLET PO (20:49)
[2020-10-28 23:38] LABS: Glucose Point of Care 342 (65-105)
[2020-10-29] VITALS (17 sets, daily range): BP systolic 113–140; BP diastolic 59–67; PULSE 62–81; RESP 16–20; TEMP 36.2–36.7; O2SAT 95–100; BMI 18.3
[2020-10-29] MEDS: SODIUM CHLORIDE 0.9% IV 1,000 ML 100 ML IV CONT (04:01)
[2020-10-29 04:58] LABS: Basophils Percent Auto 0.3 % (0.2-1.2); Eosinophils Percent Auto 0.6 % (0-4.4); Hematocrit 33.1 % (42.0-52.0); Hemoglobin 10.1 g/dL (14.0-18.0); Immature Granulocyte Absolute 0.02 K/mm3 (0.00-0.031); Immature Granulocyte Percent A 0.3 % (0-0.5); Lymphocytes Absolute Auto 0.92 K/mm3 (0.9-3.2); Lymphocytes Percent Auto 13.9 % (18.3-44.2); Mean Corpuscular HGB Conc 30.5 g/dl (32-36); Mean Corpuscular Hemoglobin 27.7 pg (26-34); Mean Corpuscular Volume 90.7 fl (80-100); Mean Platelet Volume 12.3 fl (7.4-10.4); Monocytes Absolute Auto 0.3 K/mm3 (0.1-0.6); Monocytes Percent Auto 5.2 % (2.6-8.5); Neutrophils Absolute Auto 5.3 K/mm3 (1.3-6.7); Neutrophils Percent Auto 79.7 % (45.5-73.1); Platelet Count Result 131 k/mm3 (150-375); Red Blood Count 3.65 M/mm3 (4.6-6.20); Red Cell Distribution Width 18.6 % (11.5-14.5); White Blood Count 6.6 K/mm3 (4.5-10.0)
[2020-10-29 05:09] LABS: Lactic Acid Reflex 1.7 mmol/L (0.7-2.1)
[2020-10-29 05:17] LABS: Anion Gap 4 mmol/L (8-16); Blood Urea Nitrogen 48 mg/dL (9-20); CRP 0.9 mg/dL (<1.0); Carbon Dioxide 31 mmol/L (22-30); Chloride 121 mmol/L (98-107); Estimated CRCL calculation 49 ml/min; Estimated Glomerular Filt Rate > 60; Glucose 256 mg/dL (75-110); Potassium 3.1 mmol/L (3.4-5.0); Sodium 156 mmol/L (137-145)
[2020-10-29] MEDS: INSULIN ASPART (*BKC) 100 UNITS/ML SUB-Q ×2 (05:38→17:16)
[2020-10-29] MEDS: CARBIDOPA/LEVODOPA 10/100 MG TABLET 1 TABLET PO ×3 (09:52→18:31)
[2020-10-29] MEDS: TAMSULOSIN HCL 0.4 MG CAPSULE PO ×2 (09:52→18:31)
[2020-10-29] MEDS: DIGOXIN TAB 125 MCG TABLET PO (09:52)
[2020-10-29] MEDS: CHOLECALCIFEROL 1,000 UNITS TABLET 1000 UNITS PO (09:52)
[2020-10-29] MEDS: METOPROLOL SUCCINATE EXT REL 50 MG TABCR PO (09:53)
[2020-10-29] MEDS: CALCIUM CARBONATE (OSCAL) 500 MG TABLET PO (09:53)
[2020-10-29] MEDS: ACIDOPHILUS/BULGARICUS CHEWABLE TABLET 1 TABLET PO ×2 (09:53→18:31)
[2020-10-29] MEDS: FLUoxetine HCL 10 MG CAPSULE PO (09:53)
[2020-10-29] MEDS: lisinopriL 10 MG TABLET PO (09:53)
[2020-10-29] MEDS: FUROSEMIDE 20 MG TABLET PO (09:53)
[2020-10-29] MEDS: FINASTERIDE 5 MG TABLET PO (09:53)
[2020-10-29] MEDS: DONEPEZIL HCL 10 MG TABLET PO (09:53)
[2020-10-29] MEDS: DOCUSATE SODIUM 100 MG CAPSULE PO (09:54)
[2020-10-29] MEDS: ASPIRIN 81 MG CHEWABLE TABLET PO (10:34)
--- NOTE | 2020-10-29 12:20 | PM.IMPN ---
Progress Note: A&P Assessment and Plan (1) Sepsis: Code(s): A41.9 - Sepsis, unspecified organism Status: Acute Assessment and Plan: Present on admission with lactic acidosis, LULY, tachycardic and HoTN that improved with IV fluids. Vital signs better and lactic normal. (2) Acute UTI: Code(s): N39.0 - Urinary tract infection, site not specified Status: Acute Assessment and Plan: Complicated UTI due to chronic indwelling Gambino suprapubic catheter. Has had ESBL in the past. However this could be a contaminant. However the patient was started on Zosyn. Follow up on blood in urine cultures. (3) Type 2 diabetes mellitus: Qualifiers: Diabetes mellitus complication status: without complication Diabetes mellitus [facility] insulin use: without termite exterminator helper use Qualified Code(s): E11.9 - Type 2 diabetes mellitus without complications Code(s): E11.9 - Type 2 diabetes mellitus without complications Status: Chronic Assessment and Plan: Glucose markedly elevated to 547 on admission related to above. A1c 6.4. The patient's blood glucose was reviewed on 10/29 Glucose remains poorly controlled. Continue AccuCheks covering with sliding scale. Hypoglycemia protocol available as needed. Continue current medications. Add low dose Levemir. (4) Dementia: Qualifiers: Dementia behavioral disturbance: without behavioral disturbance Dementia type: unspecified type Qualified Code(s): F03.90 - Unspecified dementia without behavioral disturbance Code(s): F03.90 - Unspecified dementia without behavioral disturbance Status: Chronic Assessment and Plan: Stable. Continue with Aricept. Swallow study performed and recommended mechanical soft with thickended liquids. Diet adjusted. (5) Chronic indwelling Gambino catheter: Code(s): Z96.0 - Presence of urogenital implants Status: Chronic Assessment and Plan: Patient with chronic indwelling Gambino via suprapubic. This requires changing every month. Continue with Flomax and Proscar but not clear on utility. The suprapubic catheter needs to be changed at least once a month and p.r.n.. The suprapubic catheter was changed out in the emergency room. Urology has been consulted. (6) Acute renal injury: Code(s): N17.9 - Acute kidney failure, unspecified Status: Resolved Assessment and Plan: Cr 1.3. Cr better with IV fluids. Continue to follow. (7) Atrial fibrillation: Qualifiers: Atrial fibrillation type: unspecified Qualified Code(s): I48.91 - Unspecified atrial fibrillation Code(s): I48.91 - Unspecified atrial fibrillation Status: Chronic Assessment and Plan: Rate stable. Continue with digoxin and metoprolol. Only on ASA on admission. Check level. (8) Hypertension: Qualifiers: Hypertension type: essential hypertension Qualified Code(s): I10 - Essential (primary) hypertension Code(s): I10 - Essential (primary) hypertension Status: Chronic Assessment and Plan: Patient's blood pressure was reviewed on 10/29 Blood pressure remains well controlled. Will continue current medications with metoprolol and lisinopril. (9) Depression: Code(s): F32.9 - Major depressive disorder, single episode, unspecified Status: Chronic Assessment and Plan: Stable. Continue Prozac (10) Parkinson disease: Code(s): G20 - Parkinson's disease Status: Chronic Assessment and Plan: Stable. Continue with carbidopa-levodopa. (11) DVT prophylaxis: Code(s): Z29.9 - Encounter for prophylactic measures, unspecified Status: Acute Assessment and Plan: Lovenox Subjective Date/time seen: 10/29/20 12:20 Interval history: Date of service 10/29/2020 70-year-old male with history of stroke, atrial fibrillation and CHF who [facility]
[2020-10-29 12:37] LABS: Glucose Point of Care 166 (65-105)
[2020-10-29] MEDS: POTASSIUM CHLORIDE 20 MEQ PACKET (FOR LIQUID) 40 MEQ PO (13:48)
[2020-10-29] MEDS: DEXTROSE 5% 1,000 ML 1,000 ML 70 ML IV CONT (13:53)
[2020-10-29 17:25] LABS: Glucose Point of Care 261 (65-105)
[2020-10-29] MEDS: amantadine HCL 100 MG CAPSULE PO (18:32)
[2020-10-29] MEDS: ENOXAPARIN 40 MG/0.4 ML SYRINGE SUB-Q (20:17)
[2020-10-29] MEDS: MIRTAZAPINE 15 MG TABLET PO (20:17)
[2020-10-29] MEDS: INSULIN DETEMIR 100 UNITS/ML SUB-Q (20:20)
[2020-10-29 23:30] LABS: Glucose Point of Care 267 (65-105)
[2020-10-30] VITALS (14 sets, daily range): BP systolic 116–152; BP diastolic 62–74; PULSE 52–94; RESP 16–20; TEMP 35.7–36.4; O2SAT 98–100
[2020-10-30] MEDS: INSULIN ASPART (*BKC) 100 UNITS/ML SUB-Q (00:22)
[2020-10-30 04:39] LABS: Hematocrit 31.9 % (42.0-52.0); Hemoglobin 9.7 g/dL (14.0-18.0); Immature Platelet Fraction Pct 7.8 % (0.9-11.2); Mean Corpuscular HGB Conc 30.4 g/dl (32-36); Mean Corpuscular Hemoglobin 28.7 pg (26-34); Mean Corpuscular Volume 94.4 fl (80-100); Mean Platelet Volume 12.6 fl (7.4-10.4); Platelet Count Result 108 k/mm3 (150-375); Red Blood Count 3.38 M/mm3 (4.6-6.20); Red Cell Distribution Width 18.5 % (11.5-14.5); White Blood Count 6.2 K/mm3 (4.5-10.0)
[2020-10-30 04:46] LABS: Hemoglobin A1C 8.1 % (<5.7)
[2020-10-30 05:01] LABS: Albumin Level 2.4 g/dL (3.5-5.1); Anion Gap 0 mmol/L (8-16); Blood Urea Nitrogen 33 mg/dL (9-20); Calcium 7.6 mg/dL (8.4-10.2); Carbon Dioxide 33 mmol/L (22-30); Chloride 120 mmol/L (98-107); Estimated CRCL calculation 64 ml/min; Estimated Glomerular Filt Rate > 60; Glucose 194 mg/dL (75-110); Magnesium 2.4 mg/dL (1.6-2.3); Phosphorus 1.7 mg/dL (2.5-4.5); Potassium 3.1 mmol/L (3.4-5.0); Sodium 153 mmol/L (137-145)
[2020-10-30 05:52] LABS: Digoxin < 0.4 ng/mL (0.8-2.0)
[2020-10-30 06:02] LABS: Folic Acid 4.3 ng/mL (2.76->20)
[2020-10-30] MEDS: DIGOXIN TAB 125 MCG TABLET PO (08:31)
[2020-10-30] MEDS: CHOLECALCIFEROL 1,000 UNITS TABLET 1000 UNITS PO (08:32)
[2020-10-30] MEDS: FINASTERIDE 5 MG TABLET PO (08:32)
[2020-10-30] MEDS: FLUoxetine HCL 10 MG CAPSULE PO (08:32)
[2020-10-30] MEDS: DOCUSATE SODIUM 100 MG CAPSULE PO (08:32)
[2020-10-30] MEDS: CARBIDOPA/LEVODOPA 10/100 MG TABLET 1 TABLET PO ×3 (08:32→17:27)
[2020-10-30] MEDS: CALCIUM CARBONATE (OSCAL) 500 MG TABLET PO (08:33)
[2020-10-30] MEDS: METOPROLOL SUCCINATE EXT REL 50 MG TABCR PO (08:33)
[2020-10-30] MEDS: FUROSEMIDE 20 MG TABLET PO (08:33)
[2020-10-30] MEDS: TAMSULOSIN HCL 0.4 MG CAPSULE PO ×2 (08:33→17:27)
[2020-10-30] MEDS: lisinopriL 10 MG TABLET PO (08:34)
[2020-10-30] MEDS: DONEPEZIL HCL 10 MG TABLET PO (08:34)
[2020-10-30] MEDS: polyethylene glycoL 3350 17 GM POWD.PACK PO (08:34)
[2020-10-30] MEDS: ACIDOPHILUS/BULGARICUS CHEWABLE TABLET 1 TABLET PO ×2 (08:34→17:27)
[2020-10-30] MEDS: ASPIRIN 81 MG CHEWABLE TABLET PO (08:37)
[2020-10-30] MEDS: INSULIN DETEMIR 100 UNITS/ML SUB-Q ×2 (08:37→20:22)
--- NOTE | 2020-10-30 11:43 | PM.IMPN ---
Progress Note: A&P Assessment and Plan (1) Sepsis: Code(s): A41.9 - Sepsis, unspecified organism Status: Acute Assessment and Plan: Present on admission with lactic acidosis, LULY, tachycardic and HoTN that improved with IV fluids. Vital signs better and lactic normal. No evidence of infection however. Discussed with family by phone (2) Acute UTI: Code(s): N39.0 - Urinary tract infection, site not specified Status: Acute Assessment and Plan: Complicated UTI due to chronic indwelling Gambino suprapubic catheter. Has had ESBL in the past. UCx negative thus felt to be a contaminant. BCx NGTD. Will stop Zosyn. (3) Type 2 diabetes mellitus: Qualifiers: Diabetes mellitus complication status: without complication Diabetes mellitus exterminator insulin use: without [facility] use Qualified Code(s): E11.9 - Type 2 diabetes mellitus without complications Code(s): E11.9 - Type 2 diabetes mellitus without complications Status: Chronic Assessment and Plan: Glucose markedly elevated to 547 on admission related to above. A1c 6.4. The patient's blood glucose was reviewed on 10/30 Glucose better controlled. Continue AccuCheks covering with sliding scale. Hypoglycemia protocol available as needed. Continue current medications. Continue Levemir. (4) Dementia: Qualifiers: Dementia behavioral disturbance: without behavioral disturbance Dementia type: unspecified type Qualified Code(s): F03.90 - Unspecified dementia without behavioral disturbance Code(s): F03.90 - Unspecified dementia without behavioral disturbance Status: Chronic Assessment and Plan: Stable. Continue with Aricept. Swallow study performed and recommended mechanical soft with thickended liquids. Diet adjusted. (5) Chronic indwelling Gambino catheter: Code(s): Z96.0 - Presence of urogenital implants Status: Chronic Assessment and Plan: Patient with chronic indwelling Gambino via suprapubic. This requires changing every month. Continue with Flomax and Proscar but not clear on utility. The suprapubic catheter needs to be changed at least once a month and p.r.n.. The suprapubic catheter was changed out in the emergency room. Urology has been consulted. (6) Acute renal injury: Code(s): N17.9 - Acute kidney failure, unspecified Status: Resolved Assessment and Plan: Cr 1.3 on admission. Cr better with IV fluids. Continue to follow. Replace electrolytes. Encourage oral intake. Continue dietary supplements. (7) Atrial fibrillation: Qualifiers: Atrial fibrillation type: unspecified Qualified Code(s): I48.91 - Unspecified atrial fibrillation Code(s): I48.91 - Unspecified atrial fibrillation Status: Chronic Assessment and Plan: Rate stable. Continue with digoxin and metoprolol. Only on ASA on admission which is continued. (8) Hypertension: Qualifiers: Hypertension type: essential hypertension Qualified Code(s): I10 - Essential (primary) hypertension Code(s): I10 - Essential (primary) hypertension Status: Chronic Assessment and Plan: Patient's blood pressure was reviewed on 10/30 Blood pressure remains well controlled. Will continue current medications with metoprolol and lisinopril. (9) Depression: Code(s): F32.9 - Major depressive disorder, single episode, unspecified Status: Chronic Assessment and Plan: Stable. Continue Prozac (10) Parkinson disease: Code(s): G20 - Parkinson's disease Status: Chronic Assessment and Plan: Stable. Continue with carbidopa-levodopa. Hold Remeron to see if he becomes (11) DVT prophylaxis: Code(s): Z29.9 - Encounter for prophylactic measures, unspecified Status: Acute Assessment and Plan: Lovenox Subjective Date/time seen:
[2020-10-30] MEDS: DEXTROSE 5% 1,000 ML 1,000 ML 75 ML IV CONT (11:44)
[2020-10-30] MEDS: POTASSIUM PHOS,M-BASIC-D-BASIC 20 MMOL in SODIUM CHLORIDE 0.9% IV 250 ML 62.5 MMOL IVPB (11:44)
[2020-10-30] MEDS: POTASSIUM CHLORIDE 20 MEQ PACKET (FOR LIQUID) PO (11:45)
[2020-10-30 12:59] LABS: Glucose Point of Care 126 (65-105)
[2020-10-30 14:22] LABS: Albumin Level 2.3 g/dL (3.5-5.1); Anion Gap 1 mmol/L (8-16); Blood Urea Nitrogen 26 mg/dL (9-20); Calcium 7.6 mg/dL (8.4-10.2); Carbon Dioxide 32 mmol/L (22-30); Chloride 119 mmol/L (98-107); Estimated CRCL calculation 64 ml/min; Estimated Glomerular Filt Rate > 60; Glucose 157 mg/dL (75-110); Phosphorus 2.9 mg/dL (2.5-4.5); Potassium 3.8 mmol/L (3.4-5.0); Sodium 152 mmol/L (137-145)
--- NOTE | 2020-10-30 16:25 | PC.NURSE ---
1610- pt medical status transferred to room 244 via bed report given to Lg BRISCOE- stable at this time
--- NOTE | 2020-10-30 17:04 | PC.NURSE ---
This patient, Jonny Pantoja, was received from IMU on 10/30/20 at 1616. Patient/family oriented to unit policies and routines
[2020-10-30 17:24] LABS: Glucose Point of Care 130 (65-105)
[2020-10-30] MEDS: amantadine HCL 100 MG CAPSULE PO (17:27)
[2020-10-30] MEDS: ENOXAPARIN 40 MG/0.4 ML SYRINGE SUB-Q (20:21)
[2020-10-30 21:43] LABS: Glucose Point of Care 134 (65-105)
[2020-10-31] LABS: Glucose Point of Care 126 (65-105)
[2020-10-31 04:00] VITALS: BP 147/73; PULSE 59; RESP 18; TEMP 36.2; O2SAT 100
[2020-10-31] MEDS: DEXTROSE 5% 1,000 ML 1,000 ML 75 ML IV CONT (04:31)
[2020-10-31 05:44] LABS: Hematocrit 34.3 % (42.0-52.0); Hemoglobin 10.4 g/dL (14.0-18.0); Immature Platelet Fraction Pct 9.6 % (0.9-11.2); Mean Corpuscular HGB Conc 30.3 g/dl (32-36); Mean Corpuscular Hemoglobin 28.4 pg (26-34); Mean Corpuscular Volume 93.7 fl (80-100); Mean Platelet Volume 10.7 fl (7.4-10.4); Platelet Count Result 105 k/mm3 (150-375); Red Blood Count 3.66 M/mm3 (4.6-6.20); Red Cell Distribution Width 18.3 % (11.5-14.5); White Blood Count 7.2 K/mm3 (4.5-10.0)
[2020-10-31 05:53] LABS: Albumin Level 2.5 g/dL (3.5-5.1); Anion Gap 2 mmol/L (8-16); Blood Urea Nitrogen 21 mg/dL (9-20); Calcium 7.7 mg/dL (8.4-10.2); Carbon Dioxide 30 mmol/L (22-30); Chloride 116 mmol/L (98-107); Estimated CRCL calculation 88 ml/min; Estimated Glomerular Filt Rate > 60; Glucose 118 mg/dL (75-110); Phosphorus 2.1 mg/dL (2.5-4.5); Potassium 3.6 mmol/L (3.4-5.0); Sodium 148 mmol/L (137-145)
[2020-10-31 06:08] LABS: Glucose Point of Care 103 (65-105)
--- NOTE | 2020-10-31 07:44 | WPDUROPN2 ---
Progress Note: A&P Assessment and Plan (1) Sepsis: Code(s): A41.9 - Sepsis, unspecified organism Status: Acute (2) Acute UTI: Code(s): N39.0 - Urinary tract infection, site not specified Status: Acute (3) Bladder stones: Code(s): N21.0 - Calculus in bladder Status: Acute (4) Suprapubic catheter dysfunction: Qualifiers: Encounter type: initial encounter Qualified Code(s): T83.010A - Breakdown (mechanical) of cystostomy catheter, initial encounter Code(s): T83.010A - Breakdown (mechanical) of cystostomy catheter, initial encounter Status: Acute Assessment and Plan: Current urine culture negative. Maybe try discharge on suppressive Keflex 500mg daily to reduce frequency of recurrent UTI's. Follow-up in our office 3-weeks for s/p catheter change so we can insure it reliably gets changed. No need to treat bladder stones if we're going to have a computer terminal operator catheter draining his bladder. Subjective Subjective Date/Time Seen: 10/31/20 07:44 Comfortable, urine minimally blood tinged. Review of Systems Cardiovascular: Cardiovascular: Denies chest pain, Denies lightheadedness, Denies palpitations and Denies dyspnea Respiratory: Respiratory: Denies dyspnea Gastrointestinal: Gastrointestinal: Denies diarrhea, Denies nausea and Denies vomiting Genitourinary: Genitourinary: Denies hematuria and Denies dysuria Endocrine: Endocrine: Denies palpitations Exam Const: General: no acute distress Resp: Effort & Inspection: normal respiratory effort GI: Inspection: non-distended GI Palp: No abdominal tenderness and No Guarding due to palpation present (GI) Auscultation: normal bowel sounds Objective Data Vital Signs Vital Signs: Vital Signs - 24 hr 10/30/20 08:00 10/30/20 08:31 10/30/20 08:33 Temperature 97.4 F L Pulse Rate 84 94 75 Respiratory Rate 16 Blood Pressure 152/74 H Pulse Oximetry 100 10/30/20 10:00 10/30/20 12:00 10/30/20 14:00 Temperature 96.2 F L Pulse Rate 62 84 62 Respiratory Rate 20 Blood Pressure 116/62 Pulse Oximetry 100 10/30/20 18:00 10/30/20 20:00 10/30/20 23:52 Temperature 97.5 F L 97 F L 97.2 F L Pulse Rate 65 57 L 68 Respiratory Rate 18 18 18 Blood Pressure 132/64 131/64 129/68 Pulse Oximetry 99 100 100 10/31/20 04:00 Temperature 97.2 F L Pulse Rate 59 L Respiratory Rate 18 Blood Pressure 147/73 H Pulse Oximetry 100 Intake/Output Intake/Output: Intake & Output 10/28/20 10/29/20 10/30/20 10/31/20 23:59 23:59 23:59 23:59 Intake Total 3100 2780 1650 1000 Output Total 500 1000 1095 200 Balance 2600 1780 555 800 Meds/Results Medications: Active Medications Generic Name Dose Route Start Last Admin Trade Name Freq PRN Reason Stop Dose Admin Acetaminophen 650 mg 10/28/20 19:50 Acetaminophen 325 Mg Tablet PO Q6H PRN Pain 1-3 Amantadine HCl 100 mg 10/28/20 20:00 10/30/20 17:27 Amantadine Hcl 100 Mg Capsule PO 100 mg QPM PAOLA Administration Aspirin 81 mg 10/29/20 09:00 10/30/20 08:37 Aspirin 81 Mg Chewable Tablet PO 81 mg DAILY PAOLA Administration Calcium Carbonate 500 mg 10/29/20 09:00 10/30/20 08:33 Calcium Carbonate (Oscal) 500 Mg Tablet PO 500 mg DAILY PAOLA Administration Carbidopa/Levodopa 1 tablet 10/28/20 20:00 10/30/20 17:27 Carbidopa/Levodopa 10/100 Mg Tablet PO 1 tablet TIDWM PAOLA Administration Dextrose 12.5 gm 10/28/20 18:41 Dextrose 50% 25 Gm/50 Ml Syringe IV PUSH PRN PRN Hypoglycemia Protocol Digoxin 125 mcg 10/29/20 09:00 10/30/20 08:31 Digoxin Tab 125 Mcg Tablet PO 125 mcg DAILY PAOLA Administration Docusate Sodium 100 mg 10/29/20 09:00 10/30/20 08:32 Docusate Sodium 100 Mg Capsule PO 100 mg DAILY PAOLA Administration Donepezil HCl 10 mg 10/29/20 09:00 10/30/20 08:34 Donepezil Hcl 10 Mg Tablet PO 10 mg DAILY PAOLA Administration Enoxaparin
[2020-10-31 08:20] LABS: Glucose Point of Care 121 (65-105)
[2020-10-31] MEDS: FLUoxetine HCL 10 MG CAPSULE PO (09:09)
[2020-10-31] MEDS: polyethylene glycoL 3350 17 GM POWD.PACK PO (09:09)
[2020-10-31 09:10] VITALS: PULSE 54
[2020-10-31] MEDS: METOPROLOL SUCCINATE EXT REL 50 MG TABCR PO (09:10)
[2020-10-31] MEDS: TAMSULOSIN HCL 0.4 MG CAPSULE PO (09:10)
[2020-10-31] MEDS: CARBIDOPA/LEVODOPA 10/100 MG TABLET 1 TABLET PO ×2 (09:10→11:31)
[2020-10-31 09:13] VITALS: PULSE 54
[2020-10-31] MEDS: FINASTERIDE 5 MG TABLET PO (09:13)
[2020-10-31] MEDS: CHOLECALCIFEROL 1,000 UNITS TABLET 1000 UNITS PO (09:13)
[2020-10-31] MEDS: ACIDOPHILUS/BULGARICUS CHEWABLE TABLET 1 TABLET PO (09:13)
[2020-10-31] MEDS: DIGOXIN TAB 125 MCG TABLET PO (09:13)
[2020-10-31] MEDS: lisinopriL 10 MG TABLET PO (09:13)
[2020-10-31] MEDS: CALCIUM CARBONATE (OSCAL) 500 MG TABLET PO (09:13)
[2020-10-31] MEDS: DONEPEZIL HCL 10 MG TABLET PO (09:13)
[2020-10-31] MEDS: POTASSIUM/PHOSPHORUS/SODIUM 1.5 GM PACKET 1 PACKET PO (09:13)
[2020-10-31] MEDS: DOCUSATE SODIUM 100 MG CAPSULE PO (09:13)
[2020-10-31] MEDS: FUROSEMIDE 20 MG TABLET PO (09:14)
[2020-10-31] MEDS: INSULIN DETEMIR 100 UNITS/ML SUB-Q (09:19)
[2020-10-31 10:00] VITALS: BP 102/64; PULSE 57; RESP 14; TEMP 36.3; O2SAT 100
[2020-10-31] MEDS: ASPIRIN 81 MG CHEWABLE TABLET PO (10:27)
--- NOTE | 2020-10-31 11:21 | PM.DS ---
DS: Admitting Diagnosis Admitting Diagnosis Admitting Diagnosis: uti,sepsis,velazquez catheter malfunction,hypernatremi DS: Discharge Diagnosis Discharge Diagnosis (1) Sepsis: Code(s): A41.9 - Sepsis, unspecified organism Status: Acute Assessment and Plan: Hilary presents with lactic acidosis, LULY, tachycardic and HoTN that improved with IV fluids. Initially thought this was sepsis but now felt to be SIRS related to dehydration. Vital signs better and lactic normal. No evidence of infection. Discussed with family by phone 10/30 and left message today. We did stop multiple medications to decrease pill burden (2) Acute UTI: Code(s): N39.0 - Urinary tract infection, site not specified Status: Acute Assessment and Plan: UCx negative thus felt to be a contaminant. UTI RULED OUT. Keflex prophylaxis started (3) Type 2 diabetes mellitus: Qualifiers: Diabetes mellitus complication status: without complication Diabetes mellitus intermodal dispatcher insulin use: without alf use Qualified Code(s): E11.9 - Type 2 diabetes mellitus without complications Code(s): E11.9 - Type 2 diabetes mellitus without complications Status: Chronic Assessment and Plan: Glucose markedly elevated to 547 on admission related to above. A1c 6.4. The patient's blood glucose was monitored closely and became better controlled. Monitored with AccuCheks covering with sliding scale. Hypoglycemia protocol was available as needed. Stop levemir (4) Dementia: Qualifiers: Dementia behavioral disturbance: without behavioral disturbance Dementia type: unspecified type Qualified Code(s): F03.90 - Unspecified dementia without behavioral disturbance Code(s): F03.90 - Unspecified dementia without behavioral disturbance Status: Chronic Assessment and Plan: Stable. We continued with Aricept. Swallow study performed and recommended mechanical soft with thickened liquids. Diet was adjusted. (5) Chronic indwelling Velazquez catheter: Code(s): Z96.0 - Presence of urogenital implants Status: Chronic Assessment and Plan: Patient with chronic indwelling Velazquez via suprapubic. This requires changing every month. Continue with Flomax and Proscar but not clear on utility. The suprapubic catheter needs to be changed at least once a month and p.r.n.. The suprapubic catheter was changed out in the emergency room. Urology was consulted here. Discussed with urology and felt hilary did not need Procscar or Flomax so these were stopped. (6) Acute renal injury: Code(s): N17.9 - Acute kidney failure, unspecified Status: Resolved Assessment and Plan: Cr 1.3 on admission. Cr better with IV fluids. Continue to follow. We monitored and replaced electrolytes. We encourage oral intake. Continue dietary supplements. (7) Atrial fibrillation: Qualifiers: Atrial fibrillation type: unspecified Qualified Code(s): I48.91 - Unspecified atrial fibrillation Code(s): I48.91 - Unspecified atrial fibrillation Status: Chronic Assessment and Plan: Rate stable. We continued with digoxin and metoprolol. Only on ASA on admission which is continued. Digoxin level okay. (8) Hypertension: Qualifiers: Hypertension type: essential hypertension Qualified Code(s): I10 - Essential (primary) hypertension Code(s): I10 - Essential (primary) hypertension Status: Chronic Assessment and Plan: Patient's blood pressure was rmonitored closely. Blood pressure remained well controlled. We continued metoprolol and lisinopril. (9) Depression: Code(s): F32.9 - Major depressive disorder, single episode, unspecified Status: Chronic Assessment and Plan: Stable. We continued Prozac but held Remeron since it was felt this was makiing him too sleepy. (10) Parkinson disease:
[2020-10-31 11:35] LABS: Glucose Point of Care 167 (65-105)
[2020-10-31 14:00] VITALS: BP 117/64; PULSE 62; RESP 14; TEMP 36.4; O2SAT 100
== END 2020-10-31 14:59 | DRG 641 ==
LOC: ANHED 11:30 → ANHIMU 16:07 → ANH2MED 10-30 16:10
PROVIDERS: Nurse Practitioner; Admitting Provider Internal Medicine; Emergency Provider Emergency Medicine; PCP Family Medicine; Visit Provider Internal Medicine
DX: E86.0 Dehydration (principal); R65.10 Systemic inflammatory response syndrome (SIRS) of non-infectious origin without acute organ dysfunction; N17.9 Acute kidney failure, unspecified; I48.20 Chronic atrial fibrillation, unspecified; E11.65 Type 2 diabetes mellitus with hyperglycemia; E11.319 Type 2 diabetes mellitus with unspecified diabetic retinopathy without macular edema; F03.90 Unspecified dementia, unspecified severity, without behavioral disturbance, psychotic disturbance, mood disturbance, and anxiety; E87.0 Hyperosmolality and hypernatremia; G20 Parkinson's disease; I11.0 Hypertensive heart disease with heart failure; I50.9 Heart failure, unspecified; N40.0 Benign prostatic hyperplasia without lower urinary tract symptoms; I25.10 Atherosclerotic heart disease of native coronary artery without angina pectoris; F41.8 Other specified anxiety disorders; E78.5 Hyperlipidemia, unspecified; G47.33 Obstructive sleep apnea (adult) (pediatric); E55.9 Vitamin D deficiency, unspecified; E87.2 Acidosis; N21.0 Calculus in bladder; Z86.718 Personal history of other venous thrombosis and embolism; Z86.73 Personal history of transient ischemic attack (TIA), and cerebral infarction without residual deficits
CPT/HCPCS: 36415; 70450; 71045; 74176; 80048; 80053; 80069; 80162; 81001; 82533; 82607; 82728; 82746; 82948; 83036; 83605; 83735; 84443; 85025; 85027; 85055; 85610; 85730; 86140; 87040; 87086; 92610; 92611; 93005; 96361; 96365; 96366; 96375; 99285; A9270; G0378; J1650; J1815; J2543; J7030; J7050; J7070

== ENCOUNTER 2020-11-08 20:48 | Emergency (ER) | payer OTHER, SELFPAY ==
[2020-11-08] VITALS (15 sets, daily range): BP systolic 129–148; BP diastolic 71–83; PULSE 61–77; RESP 9–18; TEMP 35.6; O2SAT 97–100
--- NOTE | ~2020-11-08 | CT_ITS ---
EXAMINATION: CT brain wo con EXAM DATE: 11/08/2020 21:56 INDICATION: Temporary change in awareness. TECHNIQUE: Spiral CT of the head was performed without contrast. Axial, coronal and sagittal images were reviewed. The dose-length product (DLP) for this examination was 529.67 mGy-cm. The exposure w as tailored according to patient size, and iterative reconstruction (ASIR) was used as additional dos e reduction technique. Comparison is made to prior examination from 10/28/2020. FINDINGS: Scattered small old infarctions in the frontal lobes, jil, left side of the cerebellum. Th ere is no acute intraparenchymal hemorrhage. No evidence of intraparenchymal brain mass lesion. No evidence of acute infarction. Please note that initial head CT has limited sensitivity for small or acute infarctions. There is moderate to severe periventricular and subcortical hypodensity, nonspecif ic but probably related to small vessel ischemic disease. There is moderate prominence of the sulci and ventricles related to cerebral atrophy. There is intracranial carotid arteriosclerosis. There are no extra-axial collections. There is no mass effect or midline shift. The orbits are unremarka ble. Soft tissue is unremarkable. The visualized sinuses and mastoid air cells are well aerated. There is no interval change. IMPRESSION: 1. No acute intracranial findings. 2. Chronic age related findings. 3. Small old infarctions. Reviewed, dictated and finalized at location G. ATIONS ENGINEER
--- NOTE | ~2020-11-08 | XR_ITS ---
EXAMINATION: XR chest 1V portable EXAM DATE: 11/08/2020 21:41 INDICATION: Transient alteration of awareness. Found on floor. TECHNIQUE: Portable AP frontal chest x-ray was obtained. Comparison is made to prior examination from 10/28/2020. FINDINGS: There is a skin fold overlying the left lateral sulcus. The lungs are clear. There are no pleural effusions. The cardiomediastinal silhouette is within normal limits. There is no pneumothor ax suspected. There are bony degenerative changes. IMPRESSION: No acute cardiopulmonary findings. Reviewed, dictated and finalized at location G. CARRIER AND CLERK
--- NOTE | 2020-11-08 20:59 | ECG_ITS ---
Measurements Intervals [place] Rate: 66 P: [place]: 0 QRS: -47 QRSD: 94 T: -9 QT: 410 QTc: 432 Interpretive Statements ECTOPIC ATRIAL RHYTHM VENTRICULAR COUPLET AND FREQUENT VENTRICULAR PREMATURE COMPLEXES LEFT AXIS DEVIATION INFERIOR INFARCT, AGE INDETERMINATE ANTEROSEPTAL INFARCT, AGE INDETERMINATE BASELINE ARTIFACT- I, II, III, AVR, AVL, AVF, V1-V6 ABNORMAL ECG Electronically Signed On 11-09-2020 7:28:20 APPLICATION SUPPORT by Randall Leyva D.O.
[2020-11-08] MEDS: SODIUM CHLORIDE 0.9% IV 500 ML 999 ML IV CONT (21:12)
[2020-11-08 21:26] LABS: Basophils Percent Auto 0.5 % (0.2-1.2); Eosinophils Absolute Auto 0.1 K/mm3 (0-0.3); Eosinophils Percent Auto 2.4 % (0-4.4); Hematocrit 37.2 % (42.0-52.0); Hemoglobin 11.9 g/dL (14.0-18.0); Immature Granulocyte Absolute 0.02 K/mm3 (0.00-0.031); Immature Granulocyte Percent A 0.5 % (0-0.5); Lymphocytes Absolute Auto 0.73 K/mm3 (0.9-3.2); Lymphocytes Percent Auto 19.3 % (18.3-44.2); Mean Corpuscular Hemoglobin 28.3 pg (26-34); Mean Corpuscular Volume 88.6 fl (80-100); Mean Platelet Volume 11.5 fl (7.4-10.4); Monocytes Absolute Auto 0.3 K/mm3 (0.1-0.6); Monocytes Percent Auto 6.6 % (2.6-8.5); Neutrophils Absolute Auto 2.7 K/mm3 (1.3-6.7); Neutrophils Percent Auto 70.7 % (45.5-73.1); Platelet Count Result 211 k/mm3 (150-375); Red Cell Distribution Width 18.4 % (11.5-14.5); White Blood Count 3.8 K/mm3 (4.5-10.0)
[2020-11-08 21:43] LABS: Add Urine Microscopic? YES; Appearance Urine Turbid (Clear); Bacteria Urine 4+ /hpf; Bilirubin Urine Negative (Negative); Blood Urine 3+ (Negative); Glucose Urine UA 2+ mg/dL (Negative); Ketones Urine Trace mg/dL (Negative); Leukocyte Esterase Ur 3+ LEU/UL (Negative); Mucus Urine Heavy /lpf; Nitrate Urine Negative (Negative); Protein Urine 3+ mg/dL (Negative); RBC Urine >75 /hpf (0-2); Specific Grav Ur 1.015 (1.001-1.035); WBC Urine 21-30 /hpf
[2020-11-08 21:44] LABS: Color Urine Dark Yellow (Yellow)
[2020-11-08 21:45] LABS: Calcium Phosphate Crystals Ur Present /hpf
[2020-11-08 21:49] LABS: Lactic Acid Reflex 2.4 mmol/L (0.7-2.1)
[2020-11-08 21:53] LABS: Alanine Aminotransferase 7 U/L (4-50); Albumin Level 3.2 g/dL (3.5-5.1); Alkaline Phosphatase 115 U/L (38-126); Anion Gap 4 mmol/L (8-16); Aspartate Amino Transferase 19 U/L (17-59); Bilirubin,Total 0.6 mg/dL (0.2-1.3); Blood Urea Nitrogen 11 mg/dL (9-20); Calcium 8.4 mg/dL (8.4-10.2); Carbon Dioxide 32 mmol/L (22-30); Chloride 102 mmol/L (98-107); Estimated Glomerular Filt Rate > 60; Glucose 220 mg/dL (75-110); Potassium 4.2 mmol/L (3.4-5.0); Sodium 138 mmol/L (137-145); Troponin I 0.012 ng/mL (0.000-0.034)
--- NOTE | 2020-11-08 23:00 | ED.GENADULT ---
HPI - General Adult General Chief complaint: Altered Mental Status Stated complaint: alt loc Time Seen by Provider: 11/08/20 20:52 History of Present Illness HPI narrative: Patient is a 70-year-old gentleman who presents emerged part with chief complaint of altered mental status. Patient was found by the half-way laying on the bed with his head hanging off of the bed and his head turned to the right. The half-way reports the patient is nonverbal normally but they think he was a little altered tonight. Per EMS when they arrived the patient is at his baseline mental status as they are very familiar with the patient. Currently the patient has no complaints he is able to mumble some simple words which apparently is the patient's baseline. The patient has no new focal neurological deficits patient is afebrile. Related Data Home Medications Medication Instructions Recorded Confirmed acetaminophen 650 mg PO Q6H PRN 10/21/19 10/28/20 amantadine HCl 100 mg PO QPM 10/21/19 10/28/20 aspirin 81 mg PO DAILY 10/21/19 10/28/20 atorvastatin 80 mg PO HS 10/21/19 10/28/20 carbidopa-levodopa 1 tablet PO TIDWM 10/21/19 10/28/20 digoxin [Digox] 125 mcg PO DAILY 10/21/19 10/28/20 docusate sodium [Colace] 100 mg PO DAILY 10/21/19 10/28/20 donepezil 10 mg PO DAILY 10/21/19 10/28/20 fluoxetine 10 mg PO DAILY 10/21/19 10/28/20 furosemide 20 mg PO DAILY 10/21/19 10/28/20 ondansetron 4 mg PO Q8H PRN 10/21/19 10/28/20 metoprolol succinate 50 mg PO DAILY 03/10/20 10/28/20 cephalexin [Keflex] 500 mg PO DAILY 09/02/20 10/28/20 Allergies Allergy/AdvReac Type Severity Reaction Status Date / Time No Known Allergies Allergy Verified 10/28/20 20:08 Review of Systems Review of Systems: Narrative: A 10 system review of systems was completed on the patient and is negative except for what is stated in the HPI. Nursing and ancillary documentation was reviewed. [facility] Past Medical History Medical History Atrial fibrillation BPH (benign prostatic hyperplasia) Congestive heart failure Constipation Coronary artery disease CVA (cerebral vascular accident) Right side flaccid Dementia Depression Depression with anxiety Dyslipidemia Flexion contracture joint of multiple sites Gambino catheter in place History of DVT (deep vein thrombosis) Hypertension Obstructive sleep apnea Parkinson disease Suprapubic catheter Type 2 diabetes mellitus Complicated by diabetic retinopathy. He is blind in his left eye. Vitamin D deficiency Surgical History Surgical History History of cystoscopy Family History Family History Unknown Unknown family medical history Social History Social History Social History: The patient lives at [facility]. He grew up in [place]. He is retired from working for the [employer]. His was in the [employer] as a young man. His son in [place], Pete Pantoja, is his emergency contact and he is listed as a full code. His primary care provider is Dr. Diaz Shanks. He denies alcohol, tobacco, and drug use. Smoking status: Never smoker Second hand tobacco smoke exposure: No Alcohol intake: never Substance use: never Substance use type: does not use Gender identity (if verbalized by the patient): Male Spiritual care concerns: No Agree to blood products: Yes Exam Narrative: Exam Narrative: GENERAL: Well-appearing, well-nourished, and in no acute distress. HEAD: Normocephalic, atraumatic. EYES: PERRLA and EOMI. ENT: Nares clear, no rhinorrhea or epistaxis. Mucous membranes moist. NECK: Supple. CHEST: Clear to auscultation. No respiratory distress. HEART: Regular rate and rhythm. No murmur heard. Normal peripheral pulses. ABDOMEN: Soft, nont
--- NOTE | 2020-11-08 23:13 | PC.NURSE ---
called [facility] to request transport. ETA [id number]
--- NOTE | 2020-11-08 23:58 | PC.NURSE ---
[facility] called and updated ETA to [phone]
[2020-11-09] VITALS (8 sets, daily range): BP systolic 126–160; BP diastolic 73–90; PULSE 64–81; RESP 8–22; TEMP 36.3; O2SAT 95–99
--- NOTE | 2020-11-09 | PC.NURSE ---
called [facility] to request transport. [facility] declined
--- NOTE | 2020-11-09 00:03 | PC.NURSE ---
called [facility] to request transport. [facility] declined.
--- NOTE | 2020-11-09 00:07 | PC.NURSE ---
called [facility] for transport. [facility] not available at this time.
[2020-11-09 00:37] LABS: Reflex Lactic Acid Yes or No Add Lactic
--- NOTE | 2020-11-09 01:00 | PC.NURSE ---
Called [facility] for ETA update. ETA [phone]
[2020-11-09 01:35] LABS: Lactic Acid 1.7 mmol/L (0.7-2.1)
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
--- NOTE | 2020-11-09 03:11 | PC.NURSE ---
Called [facility] for update on ETA. ETA [id number].
--- NOTE | 2020-11-09 04:08 | PC.NURSE ---
Called [facility] for update ETA. ETA [phone]
== END 2020-11-09 05:02 ==
PROVIDERS: Emergency Provider Emergency Medicine; PCP Family Medicine
DX: N39.0 Urinary tract infection, site not specified (principal); I48.91 Unspecified atrial fibrillation; N40.0 Benign prostatic hyperplasia without lower urinary tract symptoms; I50.9 Heart failure, unspecified; I25.10 Atherosclerotic heart disease of native coronary artery without angina pectoris; F03.90 Unspecified dementia, unspecified severity, without behavioral disturbance, psychotic disturbance, mood disturbance, and anxiety; E78.5 Hyperlipidemia, unspecified; Z86.718 Personal history of other venous thrombosis and embolism; G47.33 Obstructive sleep apnea (adult) (pediatric); G20 Parkinson's disease; E11.319 Type 2 diabetes mellitus with unspecified diabetic retinopathy without macular edema; I69.998 Other sequelae following unspecified cerebrovascular disease; G81.01 Flaccid hemiplegia affecting right dominant side; E55.9 Vitamin D deficiency, unspecified; Z79.82 Long term (current) use of aspirin; F41.8 Other specified anxiety disorders; R00.8 Other abnormalities of heart beat; I49.3 Ventricular premature depolarization; R94.31 Abnormal electrocardiogram [ECG] [EKG]; W19.XXXA Unspecified fall, initial encounter
CPT/HCPCS: 36415; 70450; 71045; 80053; 81001; 83605; 84484; 85025; 87077; 87086; 87088; 87186; 93005; 96360; 99284; J7040

== ENCOUNTER 2020-11-21 20:43 | Inpatient (IN) | payer MEDICARE, OTHER, SELFPAY ==
--- NOTE | ~2020-11-21 | XR_ITS ---
MODIFIED ESOPHAGRAM HISTORY: Cold the swallowing TECHNIQUE: Modified barium esophagram was performed by speech pathologist under radiologist fluorosco pic guidance. This was recorded on tape. The exam was reviewed on 11/26/2020 07:32 WARDSPERSON. The DAP for this procedure was 2.4 Gycm2. Fluoroscopy time is 3.7 minutes. One fluoroscopic image. FINDINGS: Lateral projection of the cervical spine demonstrates ventral osteophytes in the mid and lower cervical spine.. There is reduced lingual movement with premature spill into the piriform sinus . There is delayed swallow indicated by pooling in the piriform sinuses. Laryngeal penetration is not definitely excluded. No gross aspiration identified.. IMPRESSION: 1: Laryngeal penetration not entirely excluded, although not visualized. No aspiration. 2: Please refer to speech pathologist report for additional detail. Reviewed, dictated and finalized at location A. SPERSON IMPRESSION: 1: Laryngeal penetration not entirely excluded, although not visualized. No asp iration. 2: Please refer to speech pathologist report for additional detail.
--- NOTE | ~2020-11-21 | XR_ITS ---
EXAMINATION: XR chest 1V portable DATE: 11/21/2020 21:52 INDICATION: Congestive heart failure, hypertension and seizure TECHNIQUE: frontal view of the chest was obtained. COMPARISON: Chest radiograph dated 11/08/2020 FINDINGS: There are new patchy airspace opacities in the left lower lung zone. Right lung remains clear. No pul monary edema, pleural effusion or pneumothorax. The cardiomediastinal silhouette is normal. 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 IMPRESSION: 1. New patchy airspace opacities in the left lower lung zone which could represent pneumonia, atelect asis or potentially aspiration given the history of seizure. Reviewed, dictated and finalized at location A. RVISOR PAIRING AND INSPECTING IMPRESSION: 1. New patchy airspace opacities in the left lower lung zone which could repres ent pneumonia, atelectasis or potentially aspiration given the history of seizu re.
--- NOTE | ~2020-11-21 | CT_ITS ---
EXAMINATION: CT brain wo con DATE: 11/21/2020 21:44 INDICATION: Seizure TECHNIQUE: Computed tomography (CT) of the head was performed without intravenous contrast. Sagittal and coronal reconstructions were performed. The mA was adjusted according to patient size. Iterative reconstruction technique was employed. The dose-length product was 605.33 mGy-cm. COMPARISON: head CT dated 11/08/20 FINDINGS: Kensinger small regions of encephalomalacia consistent with chronic lacunar infarcts in the anterior aspect of the bilateral frontal lobes, the right side of the jil and at the left cerebellar hemisphe re. There is moderate to severe scattered white matter hypoattenuation consistent with chronic small vessel ischemic disease. No acute intracranial hemorrhage, acute infarction or abnormal extra axial f luid collection. Symmetric prominence of the sulci and ventricles consistent with moderate age-approp riate diffuse cerebral volume loss. No mass/mass effect. Intracranial calcified cerebral atherosclero sis is noted. The orbits, paranasal sinuses and mastoid air cells are normal. IMPRESSION: 1. Stable appearance of multiple small old lacunar infarcts in the bilateral frontal lobes, jil and left cerebellar hemisphere. No acute intracranial process. 2. Age-related changes including moderate diffuse volume loss and moderate to severe scattered white matter hypoattenuation consistent with chronic small vessel ischemic disease. Reviewed, dictated and finalized at location A. ALLATION SERVICE REPRESENTATIVE IMPRESSION: 1. Stable appearance of multiple small old lacunar infarcts in the bilateral fr ontal lobes, jil and left cerebellar hemisphere. No acute intracranial process . 2. Age-related changes including moderate diffuse volume loss and moderate to s evere scattered white matter hypoattenuation consistent with chronic small vess el ischemic disease.
[2020-11-21 20:46] VITALS: BP 87/53; PULSE 114; RESP 16; O2SAT 93
--- NOTE | 2020-11-21 20:50 | ECG_ITS ---
Measurements Intervals [place] Rate: 115 P: 260 [place]: 222 QRS: -63 QRSD: 105 T: 79 QT: 335 QTc: 465 Interpretive Statements ATRIAL TACHYCARDIA/FLUTTER WITH RAPID VENTRICULAR RESPONSE LEFT AXIS DEVIATION ANTEROSEPTAL INFARCT, AGE INDETERMINATE BORDERLINE ST-T WAVE ABNORMALITY- ANTEROLAT/HIGH LAT LEADS BASELINE WANDER- II, III, AVR, AVL, AVF ABNORMAL ECG Electronically Signed On 11-22-2020 8:05:37 SUPERVISOR [employer] HOUSE by Randall Leyva D.O.
[2020-11-21 20:52] LABS: Glucose Point of Care 196 (65-105)
[2020-11-21] MEDS: SODIUM CHLORIDE 0.9% IV 1,000 ML 999 ML IV CONT ×2 (21:02→23:18)
[2020-11-21 21:09] LABS: Alveolar/Arterial O2 Gradient 192.5 mmHg; Base Excess ABG -4.7 mEq/l (+/-2.0); Device NASAL CANNULA; Fractional Inspired Oxygen 40 %; HCO3 ABG 19.5 mEq/l (22.0-26.0); Modified Allen's Test Pass; Oxygen Saturation ABG 89.1 % (95.0-100.0); Oxyhemoglobin 87.8 % THb (90.0-100.0); PCO2 ABG 32.5 mmHg (35.0-45.0); PO2 ABG 55.3 mmHg (80.0-100.0); PO2 FiO2 Ratio Arterial Blood 1.38 %; Site Drawn LEFT RADIAL; Total Hemoglobin 10.5 g/dL (12.0-18.0); pH ABG 7.395 (7.350-7.450)
[2020-11-21 21:18] LABS: Basophils Percent Auto 0.3 % (0.2-1.2); Eosinophils Percent Auto 0.2 % (0-4.4); Hematocrit 31.4 % (42.0-52.0); Immature Granulocyte Absolute 0.02 K/mm3 (0.00-0.031); Immature Granulocyte Percent A 0.3 % (0-0.5); Lymphocytes Absolute Auto 0.75 K/mm3 (0.9-3.2); Lymphocytes Percent Auto 11.8 % (18.3-44.2); Mean Corpuscular HGB Conc 31.8 g/dl (32-36); Mean Corpuscular Hemoglobin 29.2 pg (26-34); Mean Corpuscular Volume 91.8 fl (80-100); Monocytes Absolute Auto 0.3 K/mm3 (0.1-0.6); Monocytes Percent Auto 4.9 % (2.6-8.5); Neutrophils Absolute Auto 5.2 K/mm3 (1.3-6.7); Neutrophils Percent Auto 82.5 % (45.5-73.1); Platelet Count Result 248 k/mm3 (150-375); Red Blood Count 3.42 M/mm3 (4.6-6.20); Red Cell Distribution Width 19.4 % (11.5-14.5); White Blood Count 6.4 K/mm3 (4.5-10.0)
[2020-11-21 21:28] LABS: INR 1.1; Partial Thromboplastin Time 26.4 SECONDS (22.3-36.8)
[2020-11-21 21:31] LABS: Lactic Acid Reflex 7.6 mmol/L (0.7-2.1)
[2020-11-21] MEDS: levETIRAcetam 1000MG/NACL100ML 1,000 MG/100 ML BAG 400 MG IVPB (21:33)
[2020-11-21 21:57] LABS: Alanine Aminotransferase 15 U/L (4-50); Albumin Level 2.9 g/dL (3.5-5.1); Alkaline Phosphatase 125 U/L (38-126); Anion Gap 14 mmol/L (8-16); Aspartate Amino Transferase 20 U/L (17-59); Bilirubin,Total 0.8 mg/dL (0.2-1.3); Blood Urea Nitrogen 14 mg/dL (9-20); Calcium 8.3 mg/dL (8.4-10.2); Carbon Dioxide 19 mmol/L (22-30); Chloride 105 mmol/L (98-107); Estimated CRCL calculation 75 ml/min; Estimated Glomerular Filt Rate > 60; Glucose 184 mg/dL (75-110); Potassium 4.2 mmol/L (3.4-5.0); Sodium 138 mmol/L (137-145); Troponin I 0.067 ng/mL (0.000-0.034)
[2020-11-21] MEDS: LORazepam INJ (*CRX) 2 MG/ML VIAL 1 MG IV PUSH (21:59)
[2020-11-21 22:01] VITALS: BP 115/72; PULSE 122; RESP 25; O2SAT 97
[2020-11-21 23:05] LABS: Add Urine Microscopic? YES; Appearance Urine Cloudy (Clear); Bacteria Urine 2+ /hpf; Bilirubin Urine Negative (Negative); Blood Urine 2+ (Negative); Color Urine Yellow (Yellow); Glucose Urine UA Negative (Negative); Ketones Urine Negative (Negative); Leukocyte Esterase Ur 3+ LEU/UL (Negative); Mucus Urine Moderate /lpf; Nitrate Urine Negative (Negative); Protein Urine 3+ mg/dL (Negative); RBC Urine >75 /hpf (0-2); Specific Grav Ur 1.013 (1.001-1.035); Urobilinogen Urine Negative mg/dL (<2.0); WBC Clumps Urine Present /HPF; WBC Urine >75 /hpf
[2020-11-21 23:17] LABS: Amphetamine Screen Urine Negative (Negative); Barbiturate Screen Urine Negative (Negative); Benzodiazepines Screen Urine Positive (Negative); Cannabinoid Screen Urine Negative (Negative); Cocaine Screen Urine Negative (Negative); Methadone Screen Urine Negative (Negative); Opiate Screen Urine Negative (Negative); Phencyclidine Screen Urine Negative (Negative)
[2020-11-21] MEDS: LORazepam INJ (*CRX) 2 MG/ML VIAL (23:18)
[2020-11-21 23:19] VITALS: BP 165/86; PULSE 128; RESP 28; O2SAT 99
--- NOTE | 2020-11-21 23:33 | ED.GENADULT ---
HPI - General Adult General Chief complaint: Seizure Stated complaint: seizure Time Seen by Provider: 11/21/20 20:46 History of Present Illness HPI narrative: Patient is a 70-year-old gentleman who presents the emergency department with chief complaint of seizure. Per EMS they were called originally for hypoxia but when they arrived on the scene the patient was having generalized seizure activity. The patient was given Ativan by EMS which did slow the seizure activity patient arrived in the emergency department in a postictal state. Patient has had several repeat seizures in the emergency department and was loaded with IV Keppra and given further benzodiazepines. The patient is normally alert and oriented x1 at the intermediate for baseline Related Data Home Medications Medication Instructions Recorded Confirmed acetaminophen 650 mg PO Q6H PRN 10/21/19 10/28/20 amantadine HCl 100 mg PO QPM 10/21/19 10/28/20 aspirin 81 mg PO DAILY 10/21/19 10/28/20 atorvastatin 80 mg PO HS 10/21/19 10/28/20 carbidopa-levodopa 1 tablet PO TIDWM 10/21/19 10/28/20 digoxin [Digox] 125 mcg PO DAILY 10/21/19 10/28/20 docusate sodium [Colace] 100 mg PO DAILY 10/21/19 10/28/20 donepezil 10 mg PO DAILY 10/21/19 10/28/20 fluoxetine 10 mg PO DAILY 10/21/19 10/28/20 furosemide 20 mg PO DAILY 10/21/19 10/28/20 ondansetron 4 mg PO Q8H PRN 10/21/19 10/28/20 metoprolol succinate 50 mg PO DAILY 03/10/20 10/28/20 cephalexin [Keflex] 500 mg PO DAILY 09/02/20 10/28/20 Allergies Allergy/AdvReac Type Severity Reaction Status Date / Time No Known Allergies Allergy Verified 10/28/20 20:08 Review of Systems Review of Systems: ROS unobtainable: Yes unobtainable due to mental status PMFSH Past Medical History Medical History Atrial fibrillation BPH (benign prostatic hyperplasia) Congestive heart failure Constipation Coronary artery disease CVA (cerebral vascular accident) Right side flaccid Dementia Depression Depression with anxiety Dyslipidemia Flexion contracture joint of multiple sites Gambino catheter in place History of DVT (deep vein thrombosis) Hypertension Obstructive sleep apnea Parkinson disease Suprapubic catheter Type 2 diabetes mellitus Complicated by diabetic retinopathy. He is blind in his left eye. Vitamin D deficiency Surgical History Surgical History History of cystoscopy Family History Family History Unknown Unknown family medical history Social History Social History Social History: The patient lives at [facility]. He grew up in [place]. He is retired from working for the post office. His was in the [employer] as a young man. His son in [place], Pete Pantoja, is his emergency contact and he is listed as a full code. His primary care provider is Dr. Diaz Shanks. He denies alcohol, tobacco, and drug use. Smoking status: Never smoker Second hand tobacco smoke exposure: No Alcohol intake: never Substance use: never Substance use type: does not use Gender identity (if verbalized by the patient): Male Spiritual care concerns: No Agree to blood products: Yes Exam Narrative: Exam Narrative: GENERAL: ill appearing,thin, and in no acute distress. HEAD: Normocephalic, atraumatic. EYES: PERRLA and EOMI. ENT: Nares clear, no rhinorrhea or epistaxis. Mucous membranes moist. NECK: Supple. CHEST: Clear to auscultation. No respiratory distress. HEART: Regular rate and rhythm. No murmur heard. Normal peripheral pulses. ABDOMEN: Soft, nontender, nondistended, normal active bowel sounds. EXTREMITIES: Normal range of motion. No edema. SKIN: Warm, dry, no rash. NEURO: No focal deficits. Alert and minimal communication but normally ANO x1. PSYCH: No
[2020-11-22] VITALS (13 sets, daily range): BP systolic 123–145; BP diastolic 67–84; PULSE 55–119; RESP 16–30; TEMP 36.1–37.6; O2SAT 98–100; BMI 16.9; BMI 16.7
[2020-11-22 00:16] LABS: Reflex Lactic Acid Yes or No Add Lactic
--- NOTE | 2020-11-22 01:00 | ADMGEN ---
This patient, Jonny Pantoja, was admitted to IMU Room 205-01. Patient/family oriented to hospital policies and general routines including ID bracelet, bed and alarms, visiting hours, pain management, procedures, bathroom and other care routines, personal items, smoking policy, room service/diet, and visiting hours. Information on how to activate the Rapid Response Team has been discussed. Patient/Family are encouraged to report perceived risks to care and to ask questions if they do not understand what they are told or what they should do.
[2020-11-22] MEDS: SODIUM CHLORIDE 0.9% IV 1,000 ML 125 ML IV CONT ×3 (01:28→20:04)
--- NOTE | 2020-11-22 01:34 | PM.IMHP ---
H&P: HPI History of Present Illness Date/Time: 11/22/20 01:34 Chief Complaint: Acute Seizures Narrative: This is a demented 70 year old Diabetic male who is well known to our Hospitalist service was he was just admitted and discharged about 3 weeks ago when he was treated for a ESBL Klebsiella UTI and known to have a chronic suprapubic catheter, HTN, and chronic atrial fibrillation not on anticoagulation who presented to the ER tonight for seizure like activity. EMS was originally called as the patient was hypoxic but when they arrived they found him having a seizure. He was treated with ativan and brought to the ER. While in the ER tonight the patient was found to be severely septic and initially severely hypotensive with blood pressures of 80s/40s. It appears that the patient was treated with NS IV fluid boluses as well as multiple doses of ativan IV for ongoing seizures in the ER. He was then loaded with IV Keppra. Neurology was consulted by ER provider. Urinalysis came back grossly abnormal and the patient was treated with IV Imipenem. ABG demonstrated hypoxemic respiratory failure. CT brain was unremarkable for any acute pathology per Radiology. The patient is currently postictal and medicated. No history is obtainable from the patient at this time. Review of Systems Review of Systems: ROS unobtainable: Yes unobtainable due to medical condition and unobtainable due to mental status PMFSH Past Medical History Medical History Atrial fibrillation BPH (benign prostatic hyperplasia) Congestive heart failure Constipation Coronary artery disease CVA (cerebral vascular accident) Right side flaccid Dementia Depression Depression with anxiety Dyslipidemia Flexion contracture joint of multiple sites Gambino catheter in place History of DVT (deep vein thrombosis) Hypertension Obstructive sleep apnea Parkinson disease Suprapubic catheter Type 2 diabetes mellitus Complicated by diabetic retinopathy. He is blind in his left eye. Vitamin D deficiency Surgical History Surgical History History of cystoscopy Family History Family History Unknown Unknown family medical history Social History Social History Social History: The patient lives at [facility]. He grew up in [place]. He is retired from working for the post office. His was in the [employer] as a young man. His son in [place], Pete Pantoja, is his emergency contact and he is listed as a full code. His primary care provider is Dr. Diaz Shanks. He denies alcohol, tobacco, and drug use. Smoking status: Unknown if ever smoked Second hand tobacco smoke exposure: No Alcohol intake: never Substance use: never Substance use type: does not use Gender identity (if verbalized by the patient): Male Spiritual care concerns: No Agree to blood products: Yes Meds Home Medications and Allergies Home Medications Medication Instructions Recorded Confirmed Type acetaminophen 650 mg PO Q6H PRN 10/21/19 11/22/20 History amantadine HCl 100 mg PO QPM 10/21/19 11/22/20 History aspirin 81 mg PO DAILY 10/21/19 11/22/20 History atorvastatin 80 mg PO HS 10/21/19 11/22/20 History carbidopa-levodopa 1 tablet PO TIDWM 10/21/19 11/22/20 History digoxin [Digox] 125 mcg PO DAILY 10/21/19 11/22/20 History docusate sodium [Colace] 100 mg PO DAILY 10/21/19 11/22/20 History donepezil 10 mg PO DAILY 10/21/19 11/22/20 History fluoxetine 10 mg PO DAILY 10/21/19 11/22/20 History ondansetron 4 mg PO Q8H PRN 10/21/19 11/22/20 History metoprolol succinate 50 mg PO DAILY 03/10/20 11/22/20 History lisinopril 10 mg PO DAILY 30 Days #30 tablet 03/17/20 11/22/20 Rx cephalexin [Keflex] 500 mg PO DAILY 09/02/20 11/22/20 History polyethylene glycol 3350
[2020-11-22 01:35] LABS: Troponin I 0.187 ng/mL (0.000-0.034)
[2020-11-22 01:44] LABS: Alveolar/Arterial O2 Gradient 116.6 mmHg; Base Excess ABG -4.5 mEq/l (+/-2.0); Carboxyhemoglobin 0.2 % THb (0-2.0); Fractional Inspired Oxygen 36 %; Methemoglobin ABG 0.2 %THb (0-1.5); Oxygen Content ABG 14.6 %vol (16.0-22.0); Oxyhemoglobin 96.8 % THb (90.0-100.0); PCO2 ABG 29.6 mmHg (35.0-45.0); PO2 ABG 105.7 mmHg (80.0-100.0); PO2 FiO2 Ratio Arterial Blood 2.94 %; Reduced Hemoglobin 2.8 %THb (0-5.0); Total Hemoglobin 10.6 g/dL (12.0-18.0); pH ABG 7.425 (7.350-7.450)
[2020-11-22 01:45] LABS: Device NASAL CANNULA; Modified Allen's Test Pass; Site Drawn LEFT RADIAL
[2020-11-22 02:25] LABS: Phosphorus 3.2 mg/dL (2.5-4.5)
[2020-11-22 03:43] LABS: Basophils Percent Auto 0.1 % (0.2-1.2); Hematocrit 29.8 % (42.0-52.0); Hemoglobin 9.4 g/dL (14.0-18.0); Immature Granulocyte Absolute 0.03 K/mm3 (0.00-0.031); Immature Granulocyte Percent A 0.4 % (0-0.5); Lymphocytes Absolute Auto 0.35 K/mm3 (0.9-3.2); Lymphocytes Percent Auto 4.6 % (18.3-44.2); Mean Corpuscular HGB Conc 31.5 g/dl (32-36); Mean Corpuscular Hemoglobin 29.1 pg (26-34); Mean Corpuscular Volume 92.3 fl (80-100); Mean Platelet Volume 10.8 fl (7.4-10.4); Monocytes Absolute Auto 0.5 K/mm3 (0.1-0.6); Neutrophils Absolute Auto 6.8 K/mm3 (1.3-6.7); Neutrophils Percent Auto 88.9 % (45.5-73.1); Platelet Count Result 199 k/mm3 (150-375); Red Blood Count 3.23 M/mm3 (4.6-6.20); White Blood Count 7.6 K/mm3 (4.5-10.0)
[2020-11-22 03:56] LABS: Anion Gap 7 mmol/L (8-16); Blood Urea Nitrogen 13 mg/dL (9-20); Calcium 7.7 mg/dL (8.4-10.2); Carbon Dioxide 23 mmol/L (22-30); Chloride 107 mmol/L (98-107); Estimated CRCL calculation 77 ml/min; Estimated Glomerular Filt Rate > 60; Glucose 206 mg/dL (75-110); Magnesium 1.8 mg/dL (1.6-2.3); Potassium 4.5 mmol/L (3.4-5.0); Sodium 137 mmol/L (137-145)
[2020-11-22 04:16] LABS: Troponin I 0.198 ng/mL (0.000-0.034)
[2020-11-22 05:02] LABS: Folic Acid 6.6 ng/mL (2.76->20)
[2020-11-22 06:26] LABS: Glucose Point of Care 202 (65-105)
[2020-11-22 07:17] LABS: Lactic Acid Reflex 2.3 mmol/L (0.7-2.1)
[2020-11-22 11:54] LABS: Glucose Point of Care 164 (65-105)
--- NOTE | 2020-11-22 12:02 | WPDURCON ---
Assessment and Plan Assessment and plan (1) Catheter-associated urinary tract infection: Qualifiers: Indwelling urinary catheter type: unspecified Encounter type: initial encounter Qualified Code(s): T83.511A - Infection and inflammatory reaction due to indwelling urethral catheter, initial encounter; N39.0 - Urinary tract infection, site not specified Code(s): T83.511A - Infection and inflammatory reaction due to indwelling urethral catheter, initial encounter; N39.0 - Urinary tract infection, site not specified Status: Acute Assessment and Plan: -suprapubic tube successfully changed at bedside. It does drain nicely this time. -patient should continue with suprapubic tube changed every 3 weeks. If the patient continues to have issues with catheter at his nursing facility, we may need to switch back to urethral catheter in the future. -continue antibiotics per primary team. Await urine culture results. -planned outpatient followup for catheter change in 3 weeks. Will sign off for now, please contact Urology with further questions or concerns during hospitalization (2) Suprapubic catheter dysfunction: Qualifiers: Encounter type: initial encounter Qualified Code(s): T83.010A - Breakdown (mechanical) of cystostomy catheter, initial encounter Code(s): T83.010A - Breakdown (mechanical) of cystostomy catheter, initial encounter Status: Acute Additional Plan The previous suprapubic tube was removed. I prepped and draped in a normal fashion. A 18 F Gambino catheter was inserted with return clear urine. Catheter irrigated and aspirated easily. The suprapubic tube was left to gravity drainage Urology Consult Note HPI Date Seen: 11/22/20 Requesting Physician: Jeffy Sharp MD Primary Care Provider: Lisette Condon MD Consult Narrative Narrative: Jonny Pantoja is a demented 70 year old Diabetic male who is well known to our urology service was he was just admitted and discharged about 3 weeks ago when he was treated for a ESBL Klebsiella UTI and known to have a chronic suprapubic catheter. Patient was having seizure activity was admitted to the hospital night. Patient was found suprapubic tube morning. Urology was called to assess as nursing staff was unable to irrigate. Review of Systems Review of Systems: ROS unobtainable: Yes unobtainable due to mental status PMFSH Past Medical History Medical History Atrial fibrillation BPH (benign prostatic hyperplasia) Congestive heart failure Constipation Coronary artery disease CVA (cerebral vascular accident) Right side flaccid Dementia Depression Depression with anxiety Dyslipidemia Flexion contracture joint of multiple sites Gambino catheter in place History of DVT (deep vein thrombosis) Hypertension Obstructive sleep apnea Parkinson disease Suprapubic catheter Type 2 diabetes mellitus Complicated by diabetic retinopathy. He is blind in his left eye. Vitamin D deficiency Surgical History Surgical History History of cystoscopy Family History Family History Unknown Unknown family medical history Social History Social History Social History: The patient lives at [facility]. He grew up in [place]. He is retired from working for the post office. His was in the [employer] as a young man. His son in [place], Pete Pantoja, is his emergency contact and he is listed as a full code. His primary care provider is Dr. Diaz Shanks. He denies alcohol, tobacco, and drug use. Smoking status: Unknown if ever smoked Second hand tobacco smoke exposure: No Alcohol intake: never Substance use: never Substance use type: does not use Gender identity (if verbalized by the pat
--- NOTE | 2020-11-22 14:34 | PM.IMPN ---
Progress Note: A&P Assessment and Plan (1) Acute encephalopathy: Code(s): G93.40 - Encephalopathy, unspecified Status: Acute Assessment and Plan: Appears to be secondary to acute seizures. Neuro checks, bedrest, NPO overnight. Aspiration precautions. Neurology has been consulted by ER provider. Appreciate neurology input. 11/22/20 14:34 Patient is 70-year-old male with history of diabetes atrial fibrillation hypertension chronic urinary retention with a Gambino, patient was recently discharged back to long term after he was treated for Klebsiella pneumonia UTI ESBL, patient was brought to the emergency department as he was having seizures patient was given Ativan, and started on Keppra, neurologist consulted, patient is quite somnolent and nonverbal unable to provide any review of symptom, to further evaluate patient had a CT of head which is negative for any acute injury, patient will be seen by Neurology and will have EEG to further evaluate and further recommendation to follow. (2) Acute respiratory failure with hypoxemia: Code(s): J96.01 - Acute respiratory failure with hypoxia Status: Acute Assessment and Plan: At this time the patient's repeat ABG has normalized and he can be weaned down on his oxygen requirements. (3) Seizure: Code(s): R56.9 - Unspecified convulsions Status: Acute Assessment and Plan: Patient's acute seizures may have been secondary to hypoxia or other causes. CT brain was unremarkable for any acute pathology. We will check serum electrolytes, TSH reflex T4, B12 and folate levels. Seizure precautions. The patient has been loaded with Keppra IV. P.r.n. Ativan IV for any acute seizures. Neurology has been consulted by ER provider. EEG in a.m.. Continue neurology recommendations. (4) Catheter-associated urinary tract infection: Qualifiers: Encounter type: initial encounter Indwelling urinary catheter type: unspecified Qualified Code(s): T83.511A - Infection and inflammatory reaction due to indwelling urethral catheter, initial encounter; N39.0 - Urinary tract infection, site not specified Code(s): T83.511A - Infection and inflammatory reaction due to indwelling urethral catheter, initial encounter; N39.0 - Urinary tract infection, site not specified Status: Acute Assessment and Plan: The patient has a history of recurrent urinary tract infections and just 3 weeks ago had an ESBL Klebsiella multi-drug resistant urinary tract infection. We will continue imipenem that was started in the ER. Infectious disease consultation in a.m.. Urine cultures pending. (5) Severe sepsis: Code(s): A41.9 - Sepsis, unspecified organism; R65.20 - Severe sepsis without septic shock Status: Acute Assessment and Plan: With tachycardia, tachypnea, elevated lactic acid, and hypotension. patient's source of sepsis appears to be urinary at this time. We will check blood cultures which have not been done yet. Urine cultures are pending. Continue imipenem IV for catheter associated UTI. Check reflex lactic acid. Continue IV fluids. Monitor vital signs and urine output closely. We will consider central line placement and vasopressors if necessary overnight. (6) Elevated troponin: Code(s): R77.8 - Other specified abnormalities of plasma proteins Status: Acute Assessment and Plan: Rule out acute coronary syndrome versus demand ischemia. Trend troponin. Consider cardiology consultation in a.m.. Monitor for any signs or symptoms of chest pain. Continue telemetry. (7) Elevated lactic acid level: Code(s): R79.89 - Other specified abnormal findings of blood chemistry Status: Acute Assessment and Plan: Elevated lactic acid may be secondary to acute seizures. Check reflex lactic acid now monitor urine output and vital signs closely. Continue IV fluids. (8) Anemia: Qualifiers:
--- NOTE | 2020-11-22 15:08 | PCDIET ---
Nutrition Assessment Complete: Underweight related to poor intake as evidence by BMI 16.7 Goal: Total intake will meet estimated nutrition needs Additional Notes: Spoke with MD about previous diet of chaunceye with mildly thick level 2 liquids when here October 28. MD to check swallow ability. Will add Glucerna TID if/when diet advances. Recommend a regular diet if PO intake acceptable per speech. Recommend assistance with feedings if diet starts. Following diet, PO intake, weight every three days.
[2020-11-22 17:43] LABS: Glucose Point of Care 148 (65-105)
--- NOTE | 2020-11-22 19:18 | PC.NURSE ---
This patient, Jonny Pantoja, [facility]20 at 1918. Personal belongings sent with patient. Report given to Dunia BRISCOE. Appropriate documentation sent with patient.
--- NOTE | 2020-11-22 19:55 | PC.NURSE ---
This patient, Jonny Pantoja, was received from [IMU 205] on 11/22/20 at 1955. Patient/family oriented to unit policies and routines
--- NOTE | 2020-11-22 20:15 | PC.NURSE ---
This patient, Jonny Pantoja, was transferred to [[id number]] on 11/22/20 at 1955. Personal belongings sent with patient. Report given to [ ]. Appropriate documentation sent with patient.
[2020-11-22 23:07] LABS: Glucose Point of Care 114 (65-105)
[2020-11-23 05:38] LABS: Glucose Point of Care 129 (65-105)
[2020-11-23 05:48] LABS: Hematocrit 27.7 % (42.0-52.0); Mean Corpuscular HGB Conc 32.5 g/dl (32-36); Mean Corpuscular Hemoglobin 29.5 pg (26-34); Mean Corpuscular Volume 90.8 fl (80-100); Mean Platelet Volume 11.4 fl (7.4-10.4); Platelet Count Result 165 k/mm3 (150-375); Red Blood Count 3.05 M/mm3 (4.6-6.20)
[2020-11-23 05:57] VITALS: BP 111/66; PULSE 72; RESP 14; TEMP 36.8; O2SAT 100
[2020-11-23] MEDS: SODIUM CHLORIDE 0.9% IV 1,000 ML 125 ML IV CONT ×2 (06:03→20:52)
[2020-11-23 06:07] LABS: Alanine Aminotransferase 9 U/L (4-50); Albumin Level 2.3 g/dL (3.5-5.1); Alkaline Phosphatase 83 U/L (38-126); Anion Gap 4 mmol/L (8-16); Aspartate Amino Transferase 21 U/L (17-59); Bilirubin,Total 0.9 mg/dL (0.2-1.3); Blood Urea Nitrogen 10 mg/dL (9-20); Calcium 7.4 mg/dL (8.4-10.2); Carbon Dioxide 24 mmol/L (22-30); Chloride 110 mmol/L (98-107); Estimated CRCL calculation 126 ml/min; Estimated Glomerular Filt Rate > 60; Glucose 122 mg/dL (75-110); Magnesium 1.7 mg/dL (1.6-2.3); Potassium 3.1 mmol/L (3.4-5.0); Sodium 138 mmol/L (137-145)
--- NOTE | 2020-11-23 09:55 | WPDINFPN2 ---
Progress Note: A&P Assessment and Plan (1) Asymptomatic bacteriuria: Code(s): R82.71 - Bacteriuria Status: Acute Assessment and Plan: 1. ASB 2. Recent ca-UTI with bacteremia, resolved 3. Sz REC No further antibiotics. For future care, imipenem is relatively contraindicated in patients with active seizure disorder. Call if other Qs. I was not notified of this consult until this am. Subjective Date/time seen: 11/23/20 09:55 Objective Data Vital Signs Vital Signs: Vital Signs - 24 hr 11/22/20 10:00 11/22/20 12:00 11/22/20 12:21 Temperature 36.3 C L Pulse Rate 98 86 88 Respiratory Rate 16 Blood Pressure 123/69 Pulse Oximetry 100 11/22/20 16:30 11/22/20 21:08 11/23/20 05:57 Temperature 36.1 C L 36.6 C 36.8 C Pulse Rate 55 L 71 72 Respiratory Rate 16 16 14 Blood Pressure 126/80 130/67 111/66 Pulse Oximetry 100 100 100 Intake/Output Intake/Output: Intake & Output 11/20/20 11/21/20 11/22/20 11/23/20 23:59 23:59 23:59 23:59 Intake Total 1100 2750 1250 Output Total 1575 450 Balance 1100 1175 800 Meds/Results Medications: Active Medications Generic Name Dose Route Start Last Admin Trade Name Freq PRN Reason Stop Dose Admin Dextrose 12.5 gm 11/22/20 01:42 Dextrose 50% 25 Gm/50 Ml Syringe IV PUSH PRN PRN Hypoglycemia Protocol Glucagon 1 mg 11/22/20 01:42 Glucagon For Inj 1 Mg Vial IM PRN PRN Hypoglycemia Protocol Sodium Chloride 1,000 mls @ 125 mls/hr 11/21/20 23:35 11/23/20 06:03 Normal Saline Iv IV CONT 125 mls/hr .Q8H PAOLA Administration Dextrose 1,000 mls @ 100 mls/hr 11/22/20 01:42 Dextrose 5% 1,000 Ml IVPB PRN PRN Hypoglycemia Protocol Potassium Chloride 500 mls @ 125 mls/hr 11/23/20 08:17 11/23/20 09:52 Kcl 40 Meq/D5w 500 Ml Peripheral IVPB 11/23/20 12:16 125 mls/hr ONCE ONE Administration Insulin Aspart 2 - 5 units 11/22/20 06:00 11/23/20 05:06 Insulin Aspart (*Bkc) 100 Units/Ml SUB-Q Not Given Q6HR [facility] Protocol Radiology Results: ITS Impressions Chest X-Ray 11/22/20 10:42 IMPRESSION: 1. New patchy airspace opacities in the left lower lung zone which could represent pneumonia, atelectasis or potentially aspiration given the history of seizure. Head CT 11/22/20 14:07 IMPRESSION: 1. Stable appearance of multiple small old lacunar infarcts in the bilateral frontal lobes, jil and left cerebellar hemisphere. No acute intracranial process. 2. Age-related changes including moderate diffuse volume loss and moderate to severe scattered white matter hypoattenuation consistent with chronic small vessel ischemic disease. Labs Labs: Laboratory Results - last 24 hr 11/22/20 11/22/20 11/22/20 11:47 17:41 23:04 WBC RBC Hgb Hct MCV MCH MCHC RDW Plt Count MPV Sodium Potassium Chloride Carbon Dioxide Anion Gap BUN Creatinine Estim Creat Clear Calc Estimated GFR Glucose POC Capillary Glucose 164 H 148 H 114 H Calcium Magnesium Total Bilirubin AST ALT Alkaline Phosphatase Total Protein Albumin 11/23/20 11/23/20 11/23/20 05:04 05:07 05:07 WBC 5.0 RBC 3.05 L Hgb 9.0 L Hct 27.7 L MCV 90.8 MCH 29.5 MCHC 32.5 RDW 19.0 H Plt Count 165 MPV 11.4 H Sodium 138 Potassium 3.1 L Chloride 110 H Carbon Dioxide 24 Anion Gap 4 L BUN 10 Creatinine 0.40 L Estim Creat Clear Calc 126 Estimated GFR > 60 Glucose 122 H POC Capillary Glucose 129 H Calcium 7.4 L Magnesium 1.7 Total Bilirubin 0.9 AST 21 ALT 9 Alkaline Phosphatase 83 Total Protein 5.0 L Albumin 2.3 L
--- NOTE | 2020-11-23 11:14 | CONS_ITS ---
DATE OF CONSULTATION: 11/23/2020 REASON FOR CONSULTATION: Positive urine culture. HISTORY OF PRESENT ILLNESS: A 70-year-old male, who cannot provide any history as he has dementia. He has a chronic suprapubic catheter and was here in the hospital earlier last month with urinary tract infection, blood cultures were no growth. Urine culture revealed an ESBL producing E coli. The patient was discharged on the . He was started on cephalexin for prophylaxis. He returned to the hospital on the evening of the with active seizures, cephalexin was ongoing at this time. He has been treated with antiseizure medication. The patient had malfunction of his suprapubic catheter as it could not be irrigated. A new catheter was placed yesterday with good flow thereafter and the catheter remains in place, now with a drainage bag. For unknown reasons, a urine specimen was obtained upon admission and consultation requested. He has been on imipenem. No ongoing seizures this morning. ALLERGIES: NONE KNOWN. PRESENT MEDICATIONS: No immunosuppressants, extensive list reviewed. HABITS: Presumably no tobacco nor alcohol. PAST MEDICAL HISTORY: Prior cystoscopy, vitamin D deficiency, type 2 diabetes mellitus, Parkinson's, dementia, MARILIN, hypertension, prior DVT, flexion contractures, hyperlipidemia, prior stroke, CAD, chronic constipation, heart failure, BPH, AF. REVIEW OF SYSTEMS: 14-point review attempted, not obtainable from the patient due to dementia and aphasia. FAMILY HISTORY: Not pertinent to his present illness. SOCIAL HISTORY: [facility] resident. 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 PHYSICAL EXAMINATION: GENERAL: This is a chronically ill-appearing male, no acute distress, afebrile since arrival. VITAL SIGNS: 111/66, 72, 14, 100% saturation. SKIN: No rashes. Warm and dry. He has no ulcerations. NODES: No cervical adenopathy. EENT: No conjunctival injection. He resists further eye exam. He resists oral exam, but the lips are normal to inspection. NECK: There is no meningismus, mass, and no palpable shunts. LUNGS: Clear to auscultation and percussion, on tidal respirations. BACK: No CVAT is evident. CARDIAC: Regular rate and rhythm. No murmur or gallop. Pulses 1+. ABDOMEN: Firm, nontender. No organomegaly. No masses. He has a suprapubic catheter in place, draining clear yellow urine. : Normal phallus and no discharge. EXTREMITIES: Muscle wasting. No clubbing, cyanosis, edema. LABORATORY DATA: Blood cultures, no growth after 1-1/2 days incubation. Urine culture with an ESBL producing Klebsiella. Once again, his white count has been consistently normal, 5.0 today. Hemoglobin 9.0, platelets of 165. No differential done. His blood gases show a metabolic acidosis with respiratory compensation. His chemistry is normal other than low BUN and creatinine. Glucose 122. Lactate was high, improving at last check. His albumin is 2.3. His urinalysis, multiple abnormalities, which are reviewed. Drug screen positive for benzodiazepines. RADIOLOGY: Brain CT showed multiple chronic findings as described. Chest x-ray with left lower lung opacity. ASSESSMENT: 1. Elevated lactate level due to seizure, no sepsis. 2. Abnormal chest x-ray without evidence for aspiration pneumonia. 3. Seizure disorder, new onset. 4. Asymptomatic bacteriuria. 5. Chronic suprapubic catheter. 6. Dementia. RECOMMENDATIONS: 1. Imipenem relatively contraindicated in this patient due to active seizure. 2. He is not in need of any further antibiotics. I would not recommend use of cephalexin for suppression, but we will leave to your discretion. 3. Routine care of his suprapubic catheter. Thank you very much for asking me to see him. Jian
--- NOTE | 2020-11-23 11:35 | PM.IMPN ---
Progress Note: A&P Assessment and Plan (1) Acute encephalopathy: Code(s): G93.40 - Encephalopathy, unspecified Status: Acute Assessment and Plan: Appears to be secondary to acute seizures. Neuro checks, bedrest, NPO overnight. Aspiration precautions. Neurology has been consulted by ER provider. Appreciate neurology input. 11/23/20 11:35 Patient is 70-year-old male with history of diabetes atrial fibrillation hypertension chronic urinary retention with a Gambino, patient was recently [facility] after he was treated for Klebsiella pneumonia UTI ESBL, patient was brought to the emergency department as he was having seizures patient was given Ativan, and started on Keppra, neurologist consulted, patient is quite somnolent and nonverbal unable to provide any review of symptom, to further evaluate patient had a CT of head which is negative for any acute injury, patient will be seen by Neurology and will have EEG to further evaluate and further recommendation to follow. Patient has indwelling urinary catheter and was seen by urologist and catheter was replaced, patient was seen by Dr. Smith today 11/23/2019 does not recommend any antibiotic as patient has a chronic bacteriuria, patient remains clinically stable, unfortunately patient still not able to provide any review of symptoms, still pending to see neurology further recommendation (2) Acute respiratory failure with hypoxemia: Code(s): J96.01 - Acute respiratory failure with hypoxia Status: Acute Assessment and Plan: At this time the patient's repeat ABG has normalized and he can be weaned down on his oxygen requirements. (3) Seizure: Code(s): R56.9 - Unspecified convulsions Status: Acute Assessment and Plan: Patient's acute seizures may have been secondary to hypoxia or other causes. CT brain was unremarkable for any acute pathology. We will check serum electrolytes, TSH reflex T4, B12 and folate levels. Seizure precautions. The patient has been loaded with Keppra IV. P.r.n. Ativan IV for any acute seizures. Neurology has been consulted by ER provider. EEG in a.m.. Continue neurology recommendations. (4) Catheter-associated urinary tract infection: Qualifiers: Indwelling urinary catheter type: unspecified Encounter type: initial encounter Qualified Code(s): T83.511A - Infection and inflammatory reaction due to indwelling urethral catheter, initial encounter; N39.0 - Urinary tract infection, site not specified Code(s): T83.511A - Infection and inflammatory reaction due to indwelling urethral catheter, initial encounter; N39.0 - Urinary tract infection, site not specified Status: Acute Assessment and Plan: The patient has a history of recurrent urinary tract infections and just 3 weeks ago had an ESBL Klebsiella multi-drug resistant urinary tract infection. We will continue imipenem that was started in the ER. Infectious disease consultation in a.m.. Urine cultures pending. (5) Severe sepsis: Code(s): A41.9 - Sepsis, unspecified organism; R65.20 - Severe sepsis without septic shock Status: Acute Assessment and Plan: With tachycardia, tachypnea, elevated lactic acid, and hypotension. patient's source of sepsis appears to be urinary at this time. We will check blood cultures which have not been done yet. Urine cultures are pending. Continue imipenem IV for catheter associated UTI. Check reflex lactic acid. Continue IV fluids. Monitor vital signs and urine output closely. We will consider central line placement and vasopressors if necessary overnight. (6) Elevated troponin: Code(s): R77.8 - Other specified abnormalities of plasma proteins Status: Acute Assessment and Plan: Rule out acute coronary syndrome versus demand ischemia. Trend troponin. Consider cardiology consultation in a.m.. Monitor for any signs or symptoms of nelida
[2020-11-23 12:22] LABS: Glucose Point of Care 147 (65-105)
[2020-11-23 16:00] VITALS: BP 140/56; PULSE 68; RESP 16; TEMP 36.6; O2SAT 100
[2020-11-23 18:39] LABS: Glucose Point of Care 124 (65-105)
[2020-11-23 20:00] VITALS: O2SAT 100
[2020-11-23 21:19] LABS: Glucose Point of Care 132 (65-105)
[2020-11-23 21:33] VITALS: BP 146/84; PULSE 70; RESP 14; TEMP 36.4; O2SAT 100
[2020-11-24] VITALS (7 sets, daily range): BP systolic 144–151; BP diastolic 77–83; PULSE 59–96; RESP 14–16; TEMP 36.2–36.8; O2SAT 100
[2020-11-24] MEDS: METOPROLOL TARTRATE INJ 5 MG/5 ML VIAL 2.5 MG IV PUSH ×4 (04:02→22:18)
[2020-11-24 05:53] LABS: Hematocrit 29.5 % (42.0-52.0); Hemoglobin 9.6 g/dL (14.0-18.0); Mean Corpuscular HGB Conc 32.5 g/dl (32-36); Mean Corpuscular Hemoglobin 28.8 pg (26-34); Mean Corpuscular Volume 88.6 fl (80-100); Mean Platelet Volume 11.4 fl (7.4-10.4); Platelet Count Result 172 k/mm3 (150-375); Red Blood Count 3.33 M/mm3 (4.6-6.20); Red Cell Distribution Width 18.3 % (11.5-14.5); White Blood Count 4.2 K/mm3 (4.5-10.0)
[2020-11-24 06:08] LABS: Alanine Aminotransferase 8 U/L (4-50); Albumin Level 2.3 g/dL (3.5-5.1); Alkaline Phosphatase 86 U/L (38-126); Anion Gap 4 mmol/L (8-16); Aspartate Amino Transferase 27 U/L (17-59); Bilirubin,Total 0.8 mg/dL (0.2-1.3); Blood Urea Nitrogen 7 mg/dL (9-20); Calcium 7.3 mg/dL (8.4-10.2); Carbon Dioxide 23 mmol/L (22-30); Chloride 111 mmol/L (98-107); Estimated CRCL calculation 125 ml/min; Estimated Glomerular Filt Rate > 60; Glucose 101 mg/dL (75-110); Potassium 3.2 mmol/L (3.4-5.0); Sodium 138 mmol/L (137-145)
[2020-11-24] MEDS: SODIUM CHLORIDE 0.9% IV 1,000 ML 125 ML IV CONT (06:15)
[2020-11-24 08:06] LABS: Glucose Point of Care 95 (65-105)
[2020-11-24] MEDS: levETIRAcetam 500MG/NACL 100ML 500 MG/100 ML BAG 400 MG IVPB ×2 (08:16→21:50)
[2020-11-24 08:42] LABS: Partial Thromboplastin Time 35.6 SECONDS (22.3-36.8)
[2020-11-24 09:02] LABS: Magnesium 1.5 mg/dL (1.6-2.3)
[2020-11-24 12:38] LABS: Glucose Point of Care 144 (65-105)
--- NOTE | 2020-11-24 12:40 | PM.IMPN ---
Progress Note: A&P Assessment and Plan (1) Acute encephalopathy: Code(s): G93.40 - Encephalopathy, unspecified Status: Acute Assessment and Plan: Appears to be secondary to acute seizures. Neuro checks, bedrest, NPO overnight. Aspiration precautions. Neurology has been consulted by ER provider. Appreciate neurology input. 11/24/20 12:40 Patient is 70-year-old male with history of diabetes atrial fibrillation hypertension chronic urinary retention with a Gambino, patient was recently discharged back to [facility] after he was treated for Klebsiella pneumonia UTI ESBL, patient was brought to the emergency department as he was having seizures patient was given Ativan, and started on Keppra, neurologist consulted, patient is quite somnolent and nonverbal unable to provide any review of symptom, to further evaluate patient had a CT of head which is negative for any acute injury, patient will be seen by Neurology and will have EEG to further evaluate and further recommendation to follow. Patient has indwelling urinary catheter and was seen by urologist and catheter was replaced, patient was seen by Dr. Smith today 11/23/2019 does not recommend any antibiotic as patient has a chronic bacteriuria, patient remains clinically stable, unfortunately patient still not able to provide any review of symptoms, unable to participate in swallow study, will patient on PPN, still pending to see neurology further recommendation (2) Acute respiratory failure with hypoxemia: Code(s): J96.01 - Acute respiratory failure with hypoxia Status: Acute Assessment and Plan: At this time the patient's repeat ABG has normalized and he can be weaned down on his oxygen requirements. (3) Seizure: Code(s): R56.9 - Unspecified convulsions Status: Acute Assessment and Plan: Patient's acute seizures may have been secondary to hypoxia or other causes. CT brain was unremarkable for any acute pathology. We will check serum electrolytes, TSH reflex T4, B12 and folate levels. Seizure precautions. The patient has been loaded with Keppra IV. P.r.n. Ativan IV for any acute seizures. Neurology has been consulted by ER provider. EEG in a.m.. Continue neurology recommendations. (4) Catheter-associated urinary tract infection: Qualifiers: Indwelling urinary catheter type: unspecified Encounter type: initial encounter Qualified Code(s): T83.511A - Infection and inflammatory reaction due to indwelling urethral catheter, initial encounter; N39.0 - Urinary tract infection, site not specified Code(s): T83.511A - Infection and inflammatory reaction due to indwelling urethral catheter, initial encounter; N39.0 - Urinary tract infection, site not specified Status: Acute Assessment and Plan: The patient has a history of recurrent urinary tract infections and just 3 weeks ago had an ESBL Klebsiella multi-drug resistant urinary tract infection. We will continue imipenem that was started in the ER. Infectious disease consultation in a.m.. Urine cultures pending. (5) Severe sepsis: Code(s): A41.9 - Sepsis, unspecified organism; R65.20 - Severe sepsis without septic shock Status: Acute Assessment and Plan: With tachycardia, tachypnea, elevated lactic acid, and hypotension. patient's source of sepsis appears to be urinary at this time. We will check blood cultures which have not been done yet. Urine cultures are pending. Continue imipenem IV for catheter associated UTI. Check reflex lactic acid. Continue IV fluids. Monitor vital signs and urine output closely. We will consider central line placement and vasopressors if necessary overnight. (6) Elevated troponin: Code(s): R77.8 - Other specified abnormalities of plasma proteins Status: Acute Assessment and Plan: Rule out acute coronary syndrome versus demand ischemia. Trend troponin. Consider cardiology c
--- NOTE | 2020-11-24 12:53 | PC.NURSE ---
Spoke with Dr Oropeza. He plans to see the patient today.
--- NOTE | 2020-11-24 14:22 | WPDNEURCNPN ---
Assessment and Plan Assessment and plan (1) Seizure: Code(s): R56.9 - Unspecified convulsions Status: Acute Additional Plan generalized wasting with recurrence of the seizure plan is continue the Keppra Consult date: 11/24/20 Time Seen: 14:00 HPI: Jonny Pantoja is a 70 year old male20 years old has been admitted to the hospital through the emergency room for the complaints of acute seizure in addition to the ongoing history of 1. Diabetes mellitus 2. History of Klebsiella UTI 3. Suprapubic catheter on a chronic basis 4. Hypertension 5. Chronic atrial fibrillation in the emergency room he was treated with Ativan where he was found to be severely septic as well he was loaded with Keppra CT scan of the brain was negative and subsequently he was noted to be postictal. CT scan of the head documented small lacunar infarct in the both frontal lobes jil and left cerebellar hemisphere with no acute bleed and unchanged from the CT scan which was done on November 08, 2020 routine labs with low potassium patient was started on intravenous Keppra 500 q.12 hours in addition to his ongoing treatment intravenous fluids Review of Systems Review of Systems: All systems reviewed & are unremarkable except as noted in HPI and below PMFSH Past Medical History Medical History Atrial fibrillation BPH (benign prostatic hyperplasia) Congestive heart failure Constipation Coronary artery disease CVA (cerebral vascular accident) Right side flaccid Dementia Depression Depression with anxiety Dyslipidemia Flexion contracture joint of multiple sites Gambino catheter in place History of DVT (deep vein thrombosis) Hypertension Obstructive sleep apnea Parkinson disease Suprapubic catheter Type 2 diabetes mellitus Complicated by diabetic retinopathy. He is blind in his left eye. Vitamin D deficiency Surgical History Surgical History History of cystoscopy Family History Family History Unknown Unknown family medical history Social History Social History Social History: The patient lives at [facility]. He grew up in [place]. He is retired from working for the post [employer]. His was in the [employer] as a young man. His son in [place], Pete Pantoja, is his emergency contact and he is listed as a full code. His primary care provider is Dr. Diaz Shanks. He denies alcohol, tobacco, and drug use. Smoking status: Unknown if ever smoked Second hand tobacco smoke exposure: No Alcohol intake: never Substance use: never Substance use type: does not use Gender identity (if verbalized by the patient): Male Spiritual care concerns: No Agree to blood products: Yes Meds Home Medications and Allergies Home Medications Medication Instructions Recorded Confirmed Type acetaminophen 650 mg PO Q6H PRN 10/21/19 11/22/20 History amantadine HCl 100 mg PO QPM 10/21/19 11/22/20 History aspirin 81 mg PO DAILY 10/21/19 11/22/20 History atorvastatin 80 mg PO HS 10/21/19 11/22/20 History carbidopa-levodopa 1 tablet PO TIDWM 10/21/19 11/22/20 History digoxin [Digox] 125 mcg PO DAILY 10/21/19 11/22/20 History docusate sodium [Colace] 100 mg PO DAILY 10/21/19 11/22/20 History donepezil 10 mg PO DAILY 10/21/19 11/22/20 History fluoxetine 10 mg PO DAILY 10/21/19 11/22/20 History ondansetron 4 mg PO Q8H PRN 10/21/19 11/22/20 History metoprolol succinate 50 mg PO DAILY 03/10/20 11/22/20 History lisinopril 10 mg PO DAILY 30 Days #30 tablet 03/17/20 11/22/20 Rx cephalexin [Keflex] 500 mg PO DAILY 09/02/20 11/22/20 History polyethylene glycol 3350 [Miralax] 17 g PO DAILY #30 ea 10/02/20 11/22/20 Rx digoxin 250 mcg PO WEEKLY 11/22/20 11/22/20 History megestrol 5 ml PO DAILY 11/22/20 11/22/20 History mirtazapine 15 mg PO HS 11/22/2011/22
[2020-11-24] MEDS: AMINO ACIDS 4.25%/D5W/LYTES/CA 2,000 ML 80 ML IV CONT (15:10)
[2020-11-24] MEDS: FAT EMULSIONS IV 20% 250 ML 20.83 ML IVPB (15:11)
[2020-11-24 18:11] LABS: Glucose Point of Care 137 (65-105)
[2020-11-25 00:44] LABS: Glucose Point of Care 162 (65-105)
[2020-11-25 03:35] VITALS: PULSE 60
[2020-11-25] MEDS: METOPROLOL TARTRATE INJ 5 MG/5 ML VIAL 2.5 MG IV PUSH ×5 (03:35→22:12)
[2020-11-25 05:42] LABS: Glucose Point of Care 184 (65-105)
[2020-11-25 08:20] LABS: Glucose Point of Care 185 (65-105)
[2020-11-25] MEDS: SODIUM CHLORIDE 0.9% IV 1,000 ML 125 ML IV CONT ×2 (09:12→17:41)
[2020-11-25] MEDS: FAT EMULSIONS IV 20% 250 ML 20.83 ML IVPB (09:14)
[2020-11-25] MEDS: AMINO ACIDS 4.25%/D5W/LYTES/CA 2,000 ML 80 ML IV CONT (09:16)
[2020-11-25] MEDS: levETIRAcetam 500MG/NACL 100ML 500 MG/100 ML BAG 400 MG IVPB ×2 (09:16→21:07)
[2020-11-25 09:32] LABS: Basophils Percent Auto 0.3 % (0.2-1.2); Eosinophils Absolute Auto 0.2 K/mm3 (0-0.3); Eosinophils Percent Auto 4.1 % (0-4.4); Hematocrit 29.7 % (42.0-52.0); Hemoglobin 9.8 g/dL (14.0-18.0); Immature Granulocyte Absolute 0.01 K/mm3 (0.00-0.031); Immature Granulocyte Percent A 0.3 % (0-0.5); Lymphocytes Absolute Auto 0.84 K/mm3 (0.9-3.2); Lymphocytes Percent Auto 22.9 % (18.3-44.2); Mean Corpuscular Volume 87.9 fl (80-100); Mean Platelet Volume 10.6 fl (7.4-10.4); Monocytes Absolute Auto 0.2 K/mm3 (0.1-0.6); Monocytes Percent Auto 6.5 % (2.6-8.5); Neutrophils Absolute Auto 2.4 K/mm3 (1.3-6.7); Neutrophils Percent Auto 65.9 % (45.5-73.1); Platelet Count Result 180 k/mm3 (150-375); Red Blood Count 3.38 M/mm3 (4.6-6.20); Red Cell Distribution Width 17.9 % (11.5-14.5); White Blood Count 3.7 K/mm3 (4.5-10.0)
[2020-11-25 09:45] LABS: INR 1.1; Prothrombin Time 14.8 Seconds (11.1-14.7)
[2020-11-25 09:46] LABS: Partial Thromboplastin Time 32.5 SECONDS (22.3-36.8)
[2020-11-25 09:47] LABS: Alanine Aminotransferase 10 U/L (4-50); Albumin Level 2.5 g/dL (3.5-5.1); Alkaline Phosphatase 81 U/L (38-126); Anion Gap 3 mmol/L (8-16); Aspartate Amino Transferase 18 U/L (17-59); Bilirubin,Total 0.5 mg/dL (0.2-1.3); Blood Urea Nitrogen 8 mg/dL (9-20); Calcium 7.5 mg/dL (8.4-10.2); Carbon Dioxide 26 mmol/L (22-30); Chloride 106 mmol/L (98-107); Estimated CRCL calculation 127 ml/min; Estimated Glomerular Filt Rate > 60; Glucose 179 mg/dL (75-110); Magnesium 1.6 mg/dL (1.6-2.3); Phosphorus 2.6 mg/dL (2.5-4.5); Potassium 3.1 mmol/L (3.4-5.0); Sodium 135 mmol/L (137-145)
[2020-11-25 09:48] VITALS: PULSE 80
[2020-11-25 09:48] LABS: Triglycerides 78 mg/dL (<150)
[2020-11-25 09:54] LABS: Transferrin 119 mg/dL (206-381)
[2020-11-25 11:57] LABS: Glucose Point of Care 183 (65-105)
--- NOTE | 2020-11-25 12:02 | PCNFU ---
Nutrition Follow-Up Complete: Underweight related to poor intake as evidence by BMI 16.7 Goal: Total intake will meet estimated nutrition needs Limited progress towards goal. We will continue current goal. Pt current nutrition is NPO. Nutrition recommendation: tube feedings of Glucerna 1.2 at 80 ml/hr Last recorded weight is 65.5 kg,up from 56 kg on admit. Bowel Motility:+BM noted 11/24. Labs Reviewed:Cr 0.4,BUN 8,Na 135, K 3.1 Meds Noted:Keppra, NS, Lopressor, Clinimix 4.25/5 at 80 ml/hr with 250 ml of 20% Lipid Emulsion. Additional Notes: Spoke with Dr. Allen today, patient has a MBS ordered. Discussed Dobbhoff feedings vs parental feedings today. Recommend changed to Dobbhoff feedings of Glucerna 1.2 at 20 ml/hr advance by 10 ml/hr q 4 hours today goal rate of 80 ml/hr, if patient does not pass MBS. Monitoring: Diet, PO intake, weight every Wednesday/Wednesday
--- NOTE | 2020-11-25 13:46 | PM.IMPN ---
Progress Note: A&P Assessment and Plan (1) Acute encephalopathy: Code(s): G93.40 - Encephalopathy, unspecified Status: Acute Assessment and Plan: Appears to be secondary to acute seizures. Neuro checks, bedrest, NPO overnight. Aspiration precautions. Neurology has been consulted by ER provider. Appreciate neurology input. 11/25/20 13:46 Patient is 70-year-old male with history of diabetes atrial fibrillation hypertension chronic urinary retention with a Gambino, patient was [facility] after he was treated for Klebsiella pneumonia UTI ESBL, patient was brought to the emergency department as he was having seizures patient was given Ativan, and started on Keppra, neurologist consulted, patient is quite somnolent and nonverbal unable to provide any review of symptom, to further evaluate patient had a CT of head which is negative for any acute injury, patient will be seen by Neurology and will have EEG to further evaluate and further recommendation to follow. Patient has indwelling urinary catheter and was seen by urologist and catheter was replaced, patient was seen by Dr. Smith today 11/23/2019 does not recommend any antibiotic as patient has a chronic bacteriuria, patient remains clinically stable, unfortunately patient still not able to provide any review of symptoms, unable to participate in swallow study, will do MDS study today, started the patient on PPN, if patient fails MDS, will place NG tube and may discuss about PEG. (2) Acute respiratory failure with hypoxemia: Code(s): J96.01 - Acute respiratory failure with hypoxia Status: Acute Assessment and Plan: At this time the patient's repeat ABG has normalized and he can be weaned down on his oxygen requirements. (3) Seizure: Code(s): R56.9 - Unspecified convulsions Status: Acute Assessment and Plan: Patient's acute seizures may have been secondary to hypoxia or other causes. CT brain was unremarkable for any acute pathology. We will check serum electrolytes, TSH reflex T4, B12 and folate levels. Seizure precautions. The patient has been loaded with Keppra IV. P.r.n. Ativan IV for any acute seizures. Neurology has been consulted by ER provider. EEG in a.m.. Continue neurology recommendations. (4) Catheter-associated urinary tract infection: Qualifiers: Encounter type: initial encounter Indwelling urinary catheter type: unspecified Qualified Code(s): T83.511A - Infection and inflammatory reaction due to indwelling urethral catheter, initial encounter; N39.0 - Urinary tract infection, site not specified Code(s): T83.511A - Infection and inflammatory reaction due to indwelling urethral catheter, initial encounter; N39.0 - Urinary tract infection, site not specified Status: Acute Assessment and Plan: The patient has a history of recurrent urinary tract infections and just 3 weeks ago had an ESBL Klebsiella multi-drug resistant urinary tract infection. We will continue imipenem that was started in the ER. Infectious disease consultation in a.m.. Urine cultures pending. (5) Severe sepsis: Code(s): A41.9 - Sepsis, unspecified organism; R65.20 - Severe sepsis without septic shock Status: Acute Assessment and Plan: With tachycardia, tachypnea, elevated lactic acid, and hypotension. patient's source of sepsis appears to be urinary at this time. We will check blood cultures which have not been done yet. Urine cultures are pending. Continue imipenem IV for catheter associated UTI. Check reflex lactic acid. Continue IV fluids. Monitor vital signs and urine output closely. We will consider central line placement and vasopressors if necessary overnight. (6) Elevated troponin: Code(s): R77.8 - Other specified abnormalities of plasma proteins Status: Acute Assessment and Plan: Rule out acute coronary syndrome versus demand
[2020-11-25 14:00] VITALS: BP 153/88; PULSE 74; RESP 16; TEMP 36.4; O2SAT 100
[2020-11-25 14:20] VITALS: BP 153/88; PULSE 74; RESP 16; TEMP 36.4; O2SAT 100
[2020-11-25 15:33] VITALS: PULSE 80
--- NOTE | 2020-11-25 16:36 | PCSTNOTE ---
Please refer to the Modified Barium Swallow Evaluation in the EMR.
[2020-11-25 16:58] LABS: Glucose Point of Care 179 (65-105)
[2020-11-25 21:33] VITALS: BP 151/78; PULSE 77; RESP 16; TEMP 36.3; O2SAT 98
[2020-11-26 00:33] LABS: Glucose Point of Care 140 (65-105)
[2020-11-26 05:37] VITALS: BP 144/73; PULSE 67; RESP 16; TEMP 36.4; O2SAT 97
[2020-11-26 05:40] LABS: Hematocrit 30.9 % (42.0-52.0); Hemoglobin 10.2 g/dL (14.0-18.0); Mean Corpuscular Hemoglobin 29.3 pg (26-34); Mean Corpuscular Volume 88.8 fl (80-100); Mean Platelet Volume 11.1 fl (7.4-10.4); Platelet Count Result 202 k/mm3 (150-375); Red Blood Count 3.48 M/mm3 (4.6-6.20); Red Cell Distribution Width 17.8 % (11.5-14.5); White Blood Count 3.9 K/mm3 (4.5-10.0)
[2020-11-26 05:58] LABS: Anion Gap 4 mmol/L (8-16); Blood Urea Nitrogen 10 mg/dL (9-20); Calcium 7.7 mg/dL (8.4-10.2); Carbon Dioxide 27 mmol/L (22-30); Chloride 106 mmol/L (98-107); Estimated CRCL calculation 128 ml/min; Estimated Glomerular Filt Rate > 60; Glucose 146 mg/dL (75-110); Phosphorus 2.7 mg/dL (2.5-4.5); Sodium 137 mmol/L (137-145)
[2020-11-26 05:59] LABS: Alanine Aminotransferase 10 U/L (4-50); Albumin Level 2.7 g/dL (3.5-5.1); Alkaline Phosphatase 87 U/L (38-126); Anion Gap 3 mmol/L (8-16); Aspartate Amino Transferase 19 U/L (17-59); Bilirubin,Total 0.7 mg/dL (0.2-1.3); Blood Urea Nitrogen 10 mg/dL (9-20); Calcium 7.7 mg/dL (8.4-10.2); Carbon Dioxide 28 mmol/L (22-30); Chloride 106 mmol/L (98-107); Estimated CRCL calculation 105 ml/min; Estimated Glomerular Filt Rate > 60; Glucose 147 mg/dL (75-110); Potassium 3.1 mmol/L (3.4-5.0); Sodium 137 mmol/L (137-145)
[2020-11-26 06:02] LABS: Glucose Point of Care 137 (65-105)
--- NOTE | 2020-11-26 06:05 | PC.NURSE ---
Unable to give metoprolol due to no IV access 11/26/2020 06:00
[2020-11-26] MEDS: POTASSIUM CHLORIDE 20 MEQ TABLET 40 MEQ PO (09:07)
[2020-11-26] MEDS: MAGNESIUM OXIDE 400 MG TABLET PO (09:07)
[2020-11-26] MEDS: levETIRAcetam 500 MG TABLET PO (09:07)
--- NOTE | 2020-11-26 11:09 | PCNFU ---
Nutrition Follow-Up Complete: Underweight related to poor intake as evidence by BMI 16.7 Goal: Total intake will meet estimated nutrition needs Progressing towards goal. We will continue current goal. Pt current nutrition is Pureed, Level 4 with Mildly Thick liquids, Level 2. Nutrition recommendation:Agree Last recorded weight is 65.9 kg. up from 56 kg on admit. Bowel Motility:+BM 11/26 Labs Reviewed:K 3.0,Glu 146,Hct 30.9,Hgb 10.2 Meds Noted:Keppra, Lopressor, NS, Clinimix 4.25/5 at 80 ml/hr, 250 ml 20% Lipid Emulsion. Additional Notes: Patient had MBS 11/25/19-Pureed, Level 4 with Mildly Thick liquids, Level 2 recommended. Patient is tolerating oral diet, 75% of breakfast eaten today. PPN to be discontinued. Glucerna shake added BID for additional 240 kcals and 10 gms protein. Monitoring: Diet, PO intake, weight every 5 days
--- NOTE | 2020-11-26 11:54 | PM.DS ---
DS: Admitting Diagnosis Admitting Diagnosis Admitting Diagnosis: Chief Complaint: Acute Seizures DS: Discharge Diagnosis Discharge Diagnosis (1) Acute encephalopathy: Code(s): G93.40 - Encephalopathy, unspecified Status: Acute Assessment and Plan: Appears to be secondary to acute seizures. Neuro checks, bedrest, NPO overnight. Aspiration precautions. Neurology has been consulted by ER provider. Appreciate neurology input. 11/25/20 13:46 Patient is 70-year-old male with history of diabetes atrial fibrillation hypertension chronic urinary retention with a Gambino, patient was [facility] after he was treated for Klebsiella pneumonia UTI ESBL, patient was brought to the emergency department as he was having seizures patient was given Ativan, and started on Keppra, neurologist consulted, patient is quite somnolent and nonverbal unable to provide any review of symptom, to further evaluate patient had a CT of head which is negative for any acute injury, patient will be seen by Neurology and will have EEG to further evaluate and further recommendation to follow. Patient has indwelling urinary catheter and was seen by urologist and catheter was replaced, patient was seen by Dr. Smith today 11/23/2019 does not recommend any antibiotic as patient has a chronic bacteriuria, patient remains clinically stable, unfortunately patient still not able to provide any review of symptoms, unable to participate in swallow study, will do MDS study today, started the patient on PPN, if patient fails MDS, will place NG tube and may discuss about PEG. (2) Acute respiratory failure with hypoxemia: Code(s): J96.01 - Acute respiratory failure with hypoxia Status: Acute Assessment and Plan: At this time the patient's repeat ABG has normalized and he can be weaned down on his oxygen requirements. (3) Seizure: Code(s): R56.9 - Unspecified convulsions Status: Acute Assessment and Plan: Patient's acute seizures may have been secondary to hypoxia or other causes. CT brain was unremarkable for any acute pathology. We will check serum electrolytes, TSH reflex T4, B12 and folate levels. Seizure precautions. The patient has been loaded with Keppra IV. P.r.n. Ativan IV for any acute seizures. Neurology has been consulted by ER provider. EEG in a.m.. Continue neurology recommendations. (4) Catheter-associated urinary tract infection: Qualifiers: Indwelling urinary catheter type: unspecified Encounter type: initial encounter Qualified Code(s): T83.511A - Infection and inflammatory reaction due to indwelling urethral catheter, initial encounter; N39.0 - Urinary tract infection, site not specified Code(s): T83.511A - Infection and inflammatory reaction due to indwelling urethral catheter, initial encounter; N39.0 - Urinary tract infection, site not specified Status: Acute Assessment and Plan: The patient has a history of recurrent urinary tract infections and just 3 weeks ago had an ESBL Klebsiella multi-drug resistant urinary tract infection. We will continue imipenem that was started in the ER. Infectious disease consultation in a.m.. Urine cultures pending. (5) Severe sepsis: Code(s): A41.9 - Sepsis, unspecified organism; R65.20 - Severe sepsis without septic shock Status: Acute Assessment and Plan: With tachycardia, tachypnea, elevated lactic acid, and hypotension. patient's source of sepsis appears to be urinary at this time. We will check blood cultures which have not been done yet. Urine cultures are pending. Continue imipenem IV for catheter associated UTI. Check reflex lactic acid. Continue IV fluids. Monitor vital signs and urine output closely. We will consider central line placement and vasopressors if necessary overnight. (6) Elevated troponin: Code(s): R77.8 - Other specified abnormalities of plasma p
[2020-11-26 15:54] VITALS: O2SAT 97
== END 2020-11-26 18:20 | DRG 698 ==
LOC: ANHED 23:41 → ANHIMU 11-22 00:59 → ANH2MED 11-22 22:51 → ANHIMU 11-28 15:08
PROVIDERS: Admitting Provider Family Medicine; Emergency Provider Emergency Medicine; PCP Family Medicine; Visit Provider Family Medicine
DX: T83.510A Infection and inflammatory reaction due to cystostomy catheter, initial encounter (principal); A41.9 Sepsis, unspecified organism; J96.01 Acute respiratory failure with hypoxia; R65.20 Severe sepsis without septic shock; N39.0 Urinary tract infection, site not specified; G93.40 Encephalopathy, unspecified; I48.21 Permanent atrial fibrillation; T83.010A Breakdown (mechanical) of cystostomy catheter, initial encounter; R56.9 Unspecified convulsions; N40.1 Benign prostatic hyperplasia with lower urinary tract symptoms; R33.8 Other retention of urine; E55.9 Vitamin D deficiency, unspecified; E11.319 Type 2 diabetes mellitus with unspecified diabetic retinopathy without macular edema; R91.8 Other nonspecific abnormal finding of lung field; R77.8 Other specified abnormalities of plasma proteins; R79.89 Other specified abnormal findings of blood chemistry; D63.8 Anemia in other chronic diseases classified elsewhere; G20 Parkinson's disease; F02.80 Dementia in other diseases classified elsewhere, unspecified severity, without behavioral disturbance, psychotic disturbance, mood disturbance, and anxiety; G47.33 Obstructive sleep apnea (adult) (pediatric); I10 Essential (primary) hypertension; E78.5 Hyperlipidemia, unspecified; Z79.82 Long term (current) use of aspirin; Z79.899 Other long term (current) drug therapy; Z86.718 Personal history of other venous thrombosis and embolism; Z86.73 Personal history of transient ischemic attack (TIA), and cerebral infarction without residual deficits; Z87.440 Personal history of urinary (tract) infections
CPT/HCPCS: 36415; 36600; 70450; 71045; 80048; 80053; 80307; 81001; 82375; 82607; 82746; 82805; 82948; 83050; 83605; 83735; 84100; 84443; 84466; 84478; 84484; 85025; 85027; 85610; 85730; 87040; 87077; 87086; 87088; 87186; 92611; 93005; 96361; 96374; 96375; 96376; 99285; A9270; J0743; J1953; J2060; J3480; J7030; J7060

== ENCOUNTER 2020-11-29 12:55 | Emergency (ER) | payer OTHER, SELFPAY ==
[2020-11-29] VITALS (8 sets, daily range): BP systolic 138–161; BP diastolic 73–95; PULSE 73–98; RESP 12–19; TEMP 36.6–36.7; O2SAT 98–100
--- NOTE | 2020-11-29 12:48 | ED.SOB ---
HPI - SOB/Dyspnea General Chief Complaint: Shortness of Breath/Dyspnea Stated Complaint: SHORT OF BREATH/ LOW O2 History of Present Illness HPI Narrative: Brought in by EMS from halfway for low oxygen saturation. Per EMS the halfway called saying that his O2 saturation on RA was in the 70s. When they arrived he was on 6LNC and oxygen saturation was 98-100. He is not on O2 at baseline. On arival here his room air oxygen saturation is 100%. He has no respiratory issues at baseline. He is oriented x1 and nonverbal at baseline. The halfway was called to clarify the reason for sending him. They report that he also had an irregular pulse and is refusing to take his medications. He has chronic atrial fibrillation and is rate controlled. Related Data Home Medications Medication Instructions Recorded Confirmed acetaminophen 650 mg PO Q6H PRN 10/21/19 11/22/20 amantadine HCl 100 mg PO QPM 10/21/19 11/22/20 aspirin 81 mg PO DAILY 10/21/19 11/22/20 atorvastatin 80 mg PO HS 10/21/19 11/22/20 carbidopa-levodopa 1 tablet PO TIDWM 10/21/19 11/22/20 digoxin [Digox] 125 mcg PO DAILY 10/21/19 11/22/20 docusate sodium [Colace] 100 mg PO DAILY 10/21/19 11/22/20 donepezil 10 mg PO DAILY 10/21/19 11/22/20 fluoxetine 10 mg PO DAILY 10/21/19 11/22/20 ondansetron 4 mg PO Q8H PRN 10/21/19 11/22/20 metoprolol succinate 50 mg PO DAILY 03/10/20 11/22/20 digoxin 250 mcg PO WEEKLY 11/22/20 11/22/20 megestrol 5 ml PO DAILY 11/22/20 11/22/20 mirtazapine 15 mg PO HS 11/22/20 11/22/20 polysaccharide iron complex 150 mg PO BID 11/22/20 11/22/20 Allergies Allergy/AdvReac Type Severity Reaction Status Date / Time No Known Allergies Allergy Verified 10/28/20 20:08 Review of Systems Review of Systems: ROS unobtainable: Yes unobtainable due to mental status PMFSH Past Medical History Medical History Atrial fibrillation BPH (benign prostatic hyperplasia) Congestive heart failure Constipation Coronary artery disease CVA (cerebral vascular accident) Right side flaccid Dementia Depression Depression with anxiety Dyslipidemia Flexion contracture joint of multiple sites Gambino catheter in place History of DVT (deep vein thrombosis) Hypertension Obstructive sleep apnea Parkinson disease Suprapubic catheter Type 2 diabetes mellitus Complicated by diabetic retinopathy. He is blind in his left eye. Vitamin D deficiency Surgical History Surgical History History of cystoscopy Family History Family History Unknown Unknown family medical history Social History Social History Social History: The patient lives at [facility] and [facility]. He grew up in [place]. He is retired from working for the post office. His was in the [employer] as a young man. His son in [place], Pete Pantoja, is his emergency contact and he is listed as a full code. His primary care provider is Dr. Diaz Sahnks. He denies alcohol, tobacco, and drug use. Smoking status: Unknown if ever smoked Second hand tobacco smoke exposure: No Alcohol intake: never Substance use: never Substance use type: does not use Gender identity (if verbalized by the patient): Male Spiritual care concerns: No Agree to blood products: Yes Exam Const: General: alert and ill appearing chronically Nutritional Appearance: well nourished HENMT: Head: normal to inspection Eyes: Pupils: Equal, round and reactive pupils present Neck: Neck: normal visual inspection Resp: Effort & Inspection: normal respiratory effort Auscultation: clear to auscultation bilaterally Cardio: Rate: regular rate Rhythm: abnormal rhythm irregularly irregular GI: GI Palp: Yes Soft to palpation and No Tenderness to palpation present (GI) Skin: General skin ex
--- NOTE | 2020-11-29 13:30 | PC.NURSE ---
REPORT TO RACHNA STERLING AT [facility] AT THIS TIME.
--- NOTE | 2020-11-29 14:04 | ECG_ITS ---
Measurements Intervals [place] Rate: 82 P: DC: 0 QRS: -40 QRSD: 101 T: 78 QT: 393 QTc: 461 Interpretive Statements ATRIAL FLUTTER/TACHYCARDIA LEFT AXIS DEVIATION NONSPECIFIC ST & T-WAVE ABNORMALITY- HIGH LATERAL LEADS BASELINE ARTIFACT- I, II, III, AVR, AVL, AVF, V1-V3 ABNORMAL ECG Electronically Signed On 11-29-2020 14:59:28 [employer] by Randall Leyva D.O.
== END 2020-11-29 14:41 ==
PROVIDERS: Emergency Provider Emergency Medicine; PCP Family Medicine
DX: I48.21 Permanent atrial fibrillation (principal); N40.0 Benign prostatic hyperplasia without lower urinary tract symptoms; I50.9 Heart failure, unspecified; I11.0 Hypertensive heart disease with heart failure; I25.10 Atherosclerotic heart disease of native coronary artery without angina pectoris; F03.90 Unspecified dementia, unspecified severity, without behavioral disturbance, psychotic disturbance, mood disturbance, and anxiety; E78.5 Hyperlipidemia, unspecified; Z86.718 Personal history of other venous thrombosis and embolism; G47.33 Obstructive sleep apnea (adult) (pediatric); G20 Parkinson's disease; E11.319 Type 2 diabetes mellitus with unspecified diabetic retinopathy without macular edema; E55.9 Vitamin D deficiency, unspecified; F41.8 Other specified anxiety disorders; R00.0 Tachycardia, unspecified; I48.92 Unspecified atrial flutter; R94.31 Abnormal electrocardiogram [ECG] [EKG]; Z79.82 Long term (current) use of aspirin
CPT/HCPCS: 93005; 99283

== ENCOUNTER 2021-02-18 13:56 | Inpatient (IN) | payer MEDICARE, OTHER, SELFPAY ==
[2021-02-18] VITALS (21 sets, daily range): BP systolic 76–106; BP diastolic 48–65; PULSE 88–130; RESP 18–27; TEMP 36.6–37; O2SAT 97–100; BMI 21.2
--- NOTE | ~2021-02-18 | XR_ITS ---
EXAMINATION: XR chest 1V portable EXAM DATE: 02/18/2021 14:37 INDICATION: Altered mental status. Weakness. TECHNIQUE: Portable AP frontal chest x-ray was obtained. Comparison is made to prior examination from 11/21/2020. FINDINGS: Mild cardiomegaly and pulmonary vascular congestion. No confluent consolidation, pneumothor ax or pleural effusion suspected. There is moderate right shoulder primary osteoarthritis. IMPRESSION: Cardiomegaly, pulmonary vascular congestion. Reviewed, dictated and finalized at location A.
--- NOTE | ~2021-02-18 | XR_ITS ---
EXAMINATION: XR chest PICC line DATE: 02/22/2021 15:53 INDICATION: Central line placement. TECHNIQUE: A single frontal view of the chest was obtained. COMPARISON: Chest single view 02/18/2021, CT abdomen and pelvis 10/28/2020 FINDINGS: Left lateral costophrenic angle is excluded. There are airspace opacities in the lower lung zones. No pleural effusion or pneumothorax. The heart size is normal. A right upper extremity periph erally inserted central venous catheter (PICC) is seen with tip in the superior vena cava. The nasoga stric tube tip is in the stomach. IMPRESSION: 1. PICC tip in superior vena cava. 2. Worsened airspace opacities in the lower lung zones, consistent with atelectasis versus pneumonia. Reviewed, dictated and finalized at location A. IMPRESSION: 1. PICC tip in superior vena cava. 2. Worsened airspace opacities in the lower lung zones, consistent with atelect asis versus pneumonia.
--- NOTE | ~2021-02-18 | XR_ITS ---
EXAMINATION: XR abdomen NG/feed tube insert DATE: 02/20/2021 18:37 INDICATION: Nasogastric tube placement. TECHNIQUE: An upright view of the abdomen was obtained. COMPARISON: CT abdomen and pelvis 10/28/2020, chest single view 02/18/2021 FINDINGS: The lower abdomen is excluded. There are no dilated loops of bowel. The nasogastric tube ti p is in the stomach. There are airspace opacities at the lung bases, likely atelectasis. IMPRESSION: 1. Nasogastric tube tip in the stomach. Reviewed, dictated and finalized at location A.
--- NOTE | ~2021-02-18 | CT_ITS ---
EXAMINATION: CT brain wo con DATE: 02/21/2021 15:45 INDICATION: Altered mental status TECHNIQUE: Computed tomography (CT) of the head was performed without intravenous contrast. The dose- length product was 605.33 mGy-cm. The mA was adjusted according to patient size. Iterative reconstruc tion technique was employed. COMPARISON: CT dated 11/21/2020 FINDINGS: There is generalized atrophy. There are scattered severe periventricular and subcortical wh ite matter changes, most likely related to small vessel ischemic disease (microangiopathy). There are chronic infarcts of the jil and left cerebellum. Chronic left frontal lobe infarction. No ventricul omegaly or midline shift. No acute intracranial hemorrhage, infarction, mass or mass effect. Basilar cisterns are patent. Paranasal sinuses and mastoids are pneumatized. No depressed skull fractures. IMPRESSION: 1. No acute intracranial abnormality. 2: Chronic infarctions of the left frontal lobe, left cerebellum and jil. 3: Chronic age-related findings. Reviewed, dictated and finalized at location B.
--- NOTE | ~2021-02-18 | XR_ITS ---
EXAMINATION: XR chest 1V portable EXAM DATE: 02/24/2021 11:30 INDICATION: Tachypnea. PICC line placement. TECHNIQUE: Portable AP frontal chest x-ray was obtained. Comparison is made to prior examination from 02/22/2021. FINDINGS: There is a right-sided PICC line in position. Also a nasogastric tube. Mild cardiomegaly. S mall amount retrocardiac airspace disease with interval improvement. There is no Pneumothorax or pleu ral effusion suspected. There is aortic arteriosclerosis. Severe left, moderate right shoulder osteoa rthritis. IMPRESSION: 1. Mild cardiomegaly. 2. Interval improvement in previously seen left basilar airspace disease. Reviewed, dictated and finalized at location A.
--- NOTE | 2021-02-18 14:10 | ECG_ITS ---
Measurements Intervals [place] Rate: 145 P: DC: 0 QRS: -48 QRSD: 92 T: 95 QT: 230 QTc: 357 Interpretive Statements ATRIAL FIBRILLATION WITH RAPID VENTRICULAR RESPONSE VENTRICULAR PREMATURE COMPLEXES LEFT ANTERIOR FASCICULAR BLOCK CANNOT RULE OUT SEPTAL INFARCT, AGE INDETERMINATE ST-T WAVE ABNORMALITY IN ANTEROLAT/HIGH LAT LEADS- CONSIDER ISCHEMIA ABNORMAL ECG Electronically Signed On 02-18-2021 19:01:10 CDT by Randall Leyva D.O.
[2021-02-18] MEDS: SODIUM CHLORIDE 0.9% IV 2,000 ML 999 ML IV CONT (14:21)
[2021-02-18 14:26] LABS: Hemoglobin 11.1 g/dL (14.0-18.0); Mean Corpuscular HGB Conc 31.7 g/dl (32-36); Mean Corpuscular Hemoglobin 30.5 pg (26-34); Mean Corpuscular Volume 96.2 fl (80-100); Red Blood Count 3.64 M/mm3 (4.6-6.20)
--- NOTE | 2021-02-18 14:33 | ED.AMS ---
HPI - Altered Mental Status General Chief Complaint: Altered Mental Status Stated Complaint: AMS Time Seen by Provider: 02/18/21 13:59 History of Present Illness HPI narrative: Patient is a 70-year-old male with history of Parkinson's and vascular dementia who at baseline is nonverbal and only makes sounds who presents to the ER with change in mental status. Patient he is not responding to questions and stimuli the way he typically would. He was found to be newly febrile today and also there is discovered that his urine coming from his Gambino catheter is quite dark. Patient does have history of ESBL positive Klebsiella UTI. Related Data Home Medications Medication Instructions Recorded Confirmed acetaminophen 650 mg PO Q6H PRN 10/21/19 02/18/21 amantadine HCl 100 mg PO QPM 10/21/19 02/18/21 aspirin 81 mg PO DAILY 10/21/19 02/18/21 atorvastatin 80 mg PO HS 10/21/19 02/18/21 carbidopa-levodopa 1 tablet PO TIDWM 10/21/19 02/18/21 digoxin [Digox] 125 mcg PO DAILY 10/21/19 02/18/21 docusate sodium [Colace] 100 mg PO DAILY 10/21/19 02/18/21 donepezil 10 mg PO DAILY 10/21/19 02/18/21 fluoxetine 10 mg PO DAILY 10/21/19 02/18/21 ondansetron 4 mg PO Q8H PRN 10/21/19 02/18/21 metoprolol succinate 50 mg PO DAILY 03/10/20 02/18/21 digoxin 250 mcg PO WEEKLY 11/22/20 02/18/21 megestrol 5 ml PO DAILY 11/22/20 02/18/21 mirtazapine 15 mg PO HS 11/22/20 02/18/21 polysaccharide iron complex 150 mg PO BID 11/22/20 02/18/21 lisinopril 10 mg PO DAILY 02/18/21 02/18/21 Allergies Allergy/AdvReac Type Severity Reaction Status Date / Time No Known Allergies Allergy Verified 02/19/21 02:04 Review of Systems Review of Systems: ROS unobtainable: Yes unobtainable due to mental status PMFSH Past Medical History Medical History Atrial fibrillation BPH (benign prostatic hyperplasia) Congestive heart failure Constipation Coronary artery disease CVA (cerebral vascular accident) Right side flaccid Dementia Depression Depression with anxiety Dyslipidemia Flexion contracture joint of multiple sites Gambino catheter in place History of DVT (deep vein thrombosis) Hypertension Obstructive sleep apnea Parkinson disease Suprapubic catheter Type 2 diabetes mellitus Complicated by diabetic retinopathy. He is blind in his left eye. Vitamin D deficiency Surgical History Surgical History History of cystoscopy Family History Family History Unknown Unknown family medical history Social History Social History Social History: The patient lives at [facility] and [facility]. He grew up in [place]. He is retired from working for the post office. His was in the [employer] as a young man. His son in [place], Pete Pantoja, is his emergency contact and he is listed as a full code. His primary care provider is Dr. Diaz Shanks. He denies alcohol, tobacco, and drug use. Smoking status: Unknown if ever smoked Second hand tobacco smoke exposure: No Alcohol intake: unknown Substance use: unknown Substance use type: does not use Gender identity (if verbalized by the patient): Male Spiritual care concerns: No Agree to blood products: Yes Exam Narrative: Exam Narrative: GENERAL: Chronically ill-appearing, well-nourished, and in no acute distress. HEAD: Normocephalic, atraumatic. EYES: PERRL and EOMI. ENT: Mucous membranes moist. CHEST: Clear to auscultation. No respiratory distress. HEART: Tachycardic and irregular regular rate and rhythm. Normal peripheral pulses. ABDOMEN: Soft, nontender, nondistended. EXTREMITIES: No deformity of her lower extremities. 1+ edema. SKIN: Warm, dry, no rash. NEURO: Awake and somewhat alert, he will known to noxious stimuli. Course Vital Signs Vital signs: Vital Signs Temperatur
[2021-02-18 14:53] LABS: Band Neutrophils Percent 11 % (0-6); Lymphocytes Percent Manual 4 % (18-44); Neutrophils Percent Manual 83 % (46-73); Total Cells Counted 100
[2021-02-18 14:54] LABS: Metamyelocytes Percent 1 %; Monocytes Absolute Manual 0.05 K/mm3 (0.1-0.90); Monocytes Percent Manual 1 % (3-9); Platelet Clumps Present; Platelet Estimate Adequate (Adequate)
[2021-02-18 14:55] LABS: Burr Cells 1+ (NORMAL); Schistocytes 1+ (NORMAL)
[2021-02-18 15:10] LABS: Lactic Acid Reflex 2.5 mmol/L (0.7-2.1)
[2021-02-18 15:15] LABS: Anion Gap 3 mmol/L (8-16); Blood Urea Nitrogen 12 mg/dL (9-20); Calcium 2.7 mg/dL (8.4-10.2); Carbon Dioxide 12 mmol/L (22-30); Chloride 130 mmol/L (98-107); Estimated CRCL calculation 138 ml/min; Estimated Glomerular Filt Rate > 60; Glucose 45 mg/dL (75-110); Potassium < 2.0 mmol/L (3.4-5.0); Sodium 145 mmol/L (137-145)
[2021-02-18 15:17] LABS: INR 2.8; Prothrombin Time 29.7 Seconds (11.1-14.7)
[2021-02-18 15:18] LABS: Partial Thromboplastin Time 55.2 SECONDS (22.3-36.8)
[2021-02-18 15:37] LABS: Glucose Point of Care 91 (65-105)
--- NOTE | 2021-02-18 15:48 | PC.NURSE ---
pt has approx 3cm size wound to buttocks, present on arrival. pt also arrives c suprapubic cath and tea-colored, cloudy urine.
[2021-02-18 16:11] LABS: Anion Gap 4 mmol/L (8-16); Blood Urea Nitrogen 17 mg/dL (9-20); Calcium 4.2 mg/dL (8.4-10.2); Carbon Dioxide 14 mmol/L (22-30); Chloride 126 mmol/L (98-107); Estimated CRCL calculation 97 ml/min; Estimated Glomerular Filt Rate > 60; Glucose 64 mg/dL (75-110); Potassium < 2.0 mmol/L (3.4-5.0); Sodium 144 mmol/L (137-145)
[2021-02-18 16:35] LABS: Add Urine Microscopic? YES; Appearance Urine Turbid (Clear); Bacteria Urine 4+ /hpf; Bilirubin Urine Negative (Negative); Blood Urine 3+ (Negative); Color Urine Yellow (Yellow); Glucose Urine UA Negative (Negative); Ketones Urine Negative (Negative); Leukocyte Esterase Ur 2+ LEU/UL (Negative); Mucus Urine Heavy /lpf; Nitrate Urine Negative (Negative); Protein Urine 2+ mg/dL (Negative); RBC Urine >75 /hpf (0-2); Specific Grav Ur 1.018 (1.001-1.035); WBC Clumps Urine Present /HPF; WBC Urine >75 /hpf
--- NOTE | 2021-02-18 17:13 | PC.NURSE ---
electrolysis investigator here to redraw BMP, due to 2 results that are partial hemolyzed specimens.
--- NOTE | 2021-02-18 17:15 | PC.NURSE ---
Phlebotomy is at bedside to redraw per EDP request patient's BMP
[2021-02-18 17:52] LABS: Reflex Lactic Acid Yes or No Add Lactic
[2021-02-18] MEDS: ERTAPENEM 1 GM/NS 50 ML 1 GM/50 ML BAG IVPB (17:55)
[2021-02-18 18:10] LABS: Anion Gap 6 mmol/L (8-16); Blood Urea Nitrogen 30 mg/dL (9-20); Calcium 7.1 mg/dL (8.4-10.2); Carbon Dioxide 21 mmol/L (22-30); Chloride 113 mmol/L (98-107); Estimated CRCL calculation 60 ml/min; Estimated Glomerular Filt Rate > 60; Glucose 103 mg/dL (75-110); Potassium 2.8 mmol/L (3.4-5.0); Sodium 140 mmol/L (137-145)
--- NOTE | 2021-02-18 18:30 | PC.NURSE ---
delay on administering K+ infusions d/t multiple redraws requested by lab. aware.
--- NOTE | 2021-02-18 18:44 | PC.NURSE ---
Pt's son JONE [phone]. Pls. update.
[2021-02-18 19:43] LABS: Lactic Acid 4.7 mmol/L (0.7-2.1)
[2021-02-18] MEDS: SODIUM CHLORIDE 0.9% IV 1,000 ML 999 ML IV CONT ×2 (20:42→23:52)
--- NOTE | 2021-02-18 22:01 | PM.IMHP ---
H&P: HPI History of Present Illness Date/Time: 02/18/21 22:01 this is a 70-year-old diabetic male who has been on the hospitalist service is many times. Patient was just discharged from here on 11/26/2020 the patient has a suprapubic catheter and has had multiple urinary tract infections. The last time the patient was admitted he was hypoxic was having a seizure. His blood pressures were 80s over 40s. The patient was treated with IV boluses. The patient comes in today with altered mental status changes. He does have a history of Parkinson's and vascular dementia. His baseline is nonverbal and only make sounds 2 presents to the ER which change in mental status. He was not responding to any questions or stimuli the way typically does. I was able to get his eyes open at 1 time. The patient has a history of having a suprapubic catheter with the ESBL positive Klebsiella UTI. His urine is found to be positive for UTI today is very cloudy. Patient was started on Invanz. The patient is septic. The patient initially was placed on medical-surgical floor per ED provider. The patient's blood pressure was dropping it 80/50. He had IV fluid bolus infusing at the time that he was placed on medical floor. The patient is unresponsive. Due to concern for the patient's septic status. I chose to move the patient to IMU so that he may be monitored more closely. I assessed the patient as soon as he was brought to the medical floor. I spoke to the candy supervisor to get the patient transferred to IMU. Chief Complaint: Sepsis Review of Systems Review of Systems: ROS unobtainable: Yes unobtainable due to mental status PMFSH Past Medical History Medical History Atrial fibrillation BPH (benign prostatic hyperplasia) Congestive heart failure Constipation Coronary artery disease CVA (cerebral vascular accident) Right side flaccid Dementia Depression Depression with anxiety Dyslipidemia Flexion contracture joint of multiple sites Gambino catheter in place History of DVT (deep vein thrombosis) Hypertension Obstructive sleep apnea Parkinson disease Suprapubic catheter Type 2 diabetes mellitus Complicated by diabetic retinopathy. He is blind in his left eye. Vitamin D deficiency Surgical History Surgical History History of cystoscopy Family History Family History Unknown Unknown family medical history Social History Social History Social History: The patient lives at [facility]. He grew up in [place]. He is retired from working for the post office. His was in the [employer] as a young man. His son in [place], Pete Pantoja, is his emergency contact and he is listed as a full code. His primary care provider is Dr. Diaz Shanks. He denies alcohol, tobacco, and drug use. Smoking status: Unknown if ever smoked Second hand tobacco smoke exposure: No Alcohol intake: never Substance use: never Substance use type: does not use Gender identity (if verbalized by the patient): Male Spiritual care concerns: No Agree to blood products: Yes Meds Home Medications and Allergies Home Medications Medication Instructions Recorded Confirmed Type acetaminophen 650 mg PO Q6H PRN 10/21/19 11/22/20 History amantadine HCl 100 mg PO QPM 10/21/19 11/22/20 History aspirin 81 mg PO DAILY 10/21/19 11/22/20 History atorvastatin 80 mg PO HS 10/21/19 11/22/20 History carbidopa-levodopa 1 tablet PO TIDWM 10/21/19 11/22/20 History digoxin [Digox] 125 mcg PO DAILY 10/21/19 11/22/20 History docusate sodium [Colace] 100 mg PO DAILY 10/21/19 11/22/20 History donepezil 10 mg PO DAILY 10/21/19 11/22/20 History fluoxetine 10 mg PO DAILY 10/21/19 11/22/20 History ondansetron 4 mg PO Q8H PRN 10/21/19 11/22/20
[2021-02-18] MEDS: SODIUM CHLORIDE 0.9% IV 1,000 ML 100 ML IV CONT (22:24)
[2021-02-18 22:39] LABS: Base Excess ABG -2.7 mEq/l (+/-2.0); Fractional Inspired Oxygen 21 %; HCO3 ABG 20.6 mEq/l (22.0-26.0); Oxygen Content ABG 12.7 %vol (16.0-22.0); Oxygen Saturation ABG 96.2 % (95.0-100.0); Oxyhemoglobin 94.7 % THb (90.0-100.0); PCO2 ABG 30.2 mmHg (35.0-45.0); PO2 ABG 77.6 mmHg (80.0-100.0); Total Hemoglobin 9.5 g/dL (12.0-18.0); pH ABG 7.452 (7.350-7.450)
[2021-02-18 22:40] LABS: Device ROOM AIR; Site Drawn RIGHT BRACHIAL
[2021-02-18 22:42] LABS: Glucose Point of Care 121 (65-105)
--- NOTE | 2021-02-18 23:25 | PC.NURSE ---
RN notified ANISHA Chirinos the patient does not have stable vitals and is concerning for sepsis. bp has not improved after the bolus, BOTTLE WASHER stated to transfer to the IMU, report called to pavan BRISCOE
[2021-02-18 23:40] LABS: Glucose Point of Care 105 (65-105)
[2021-02-19] VITALS (17 sets, daily range): BP systolic 87–123; BP diastolic 51–94; PULSE 82–96; RESP 12–20; TEMP 36.6–36.8; O2SAT 99–100; BMI 21.2
[2021-02-19 00:31] LABS: Anion Gap 7 mmol/L (8-16); Blood Urea Nitrogen 30 mg/dL (9-20); Calcium 7.2 mg/dL (8.4-10.2); Carbon Dioxide 22 mmol/L (22-30); Chloride 112 mmol/L (98-107); Estimated CRCL calculation 55 ml/min; Estimated Glomerular Filt Rate > 60; Glucose 108 mg/dL (75-110); Potassium 3.5 mmol/L (3.4-5.0); Sodium 141 mmol/L (137-145)
[2021-02-19 00:33] LABS: Lactic Acid Reflex 4.2 mmol/L (0.7-2.1)
[2021-02-19 00:33] LABS: Magnesium 1.8 mg/dL (1.6-2.3)
[2021-02-19] MEDS: levETIRAcetam 500MG/NACL 100ML 500 MG/100 ML BAG 400 MG IVPB ×3 (00:37→20:42)
[2021-02-19 00:49] LABS: Digoxin 0.7 ng/mL (0.8-2.0)
[2021-02-19] MEDS: LACTATED RINGERS 1,000 ML 100 ML IV CONT (00:56)
[2021-02-19] MEDS: MAGNESIUM SULF 2 GM/WATER 50ML 2 GM/50 ML BAG IVPB (01:14)
--- NOTE | 2021-02-19 02:21 | PC.NURSE ---
This patient, Jonny Pantoja, was admitted to Med/Surg 324 and then transferred IMU Room 202-01 @[id number] for blood pressure monitoring and support. Patient is not alert and unable to be oriented to hospital policies and general routines including ID bracelet, bed and alarms, visiting hours, pain management, procedures, bathroom and other care routines, personal items, smoking policy, room service/diet, and visiting hours.
--- NOTE | 2021-02-19 02:29 | PC.NURSE ---
This patient, Jonny Pantoja, was received from [ 324] on 02/18/21 at 2259 for blood pressure monitoring and support. Report received from Juliette BRISCOE. Pt is not alert and unable to receive orientation to the unit.
[2021-02-19 03:28] LABS: Hemoglobin A1C 6.5 % (<5.7)
[2021-02-19 05:12] LABS: Hematocrit 32.3 % (42.0-52.0); Hemoglobin 10.2 g/dL (14.0-18.0); Mean Corpuscular HGB Conc 31.6 g/dl (32-36); Mean Corpuscular Hemoglobin 29.8 pg (26-34); Mean Corpuscular Volume 94.4 fl (80-100); Mean Platelet Volume 13.2 fl (7.4-10.4); Platelet Count Result 130 k/mm3 (150-375); Red Blood Count 3.42 M/mm3 (4.6-6.20); Red Cell Distribution Width 14.9 % (11.5-14.5); White Blood Count 15.8 K/mm3 (4.5-10.0)
[2021-02-19 05:26] LABS: Alanine Aminotransferase 13 U/L (4-50); Albumin Level 2.5 g/dL (3.5-5.1); Alkaline Phosphatase 67 U/L (38-126); Anion Gap 10 mmol/L (8-16); Aspartate Amino Transferase 26 U/L (17-59); Bilirubin,Total 0.5 mg/dL (0.2-1.3); Blood Urea Nitrogen 31 mg/dL (9-20); Calcium 7.2 mg/dL (8.4-10.2); Carbon Dioxide 19 mmol/L (22-30); Chloride 113 mmol/L (98-107); Estimated CRCL calculation 51 ml/min; Estimated Glomerular Filt Rate > 60; Glucose 100 mg/dL (75-110); Magnesium 2.1 mg/dL (1.6-2.3); Potassium 3.3 mmol/L (3.4-5.0); Sodium 142 mmol/L (137-145)
[2021-02-19 05:27] LABS: Lactic Acid Reflex 3.4 mmol/L (0.7-2.1)
[2021-02-19 05:43] LABS: Band Neutrophils Percent 11 % (0-6); Lymphocytes Absolute Manual 0.63 K/mm3 (1.1-4.5); Monocytes Absolute Manual 0.47 K/mm3 (0.1-0.90); Monocytes Percent Manual 3 % (3-9); Neutrophils Absolute Manual 14.69 K/mm3 (1.3-6.7); Neutrophils Percent Manual 82 % (46-73); Platelet Estimate Adequate (Adequate); Total Cells Counted 100
[2021-02-19 05:45] LABS: Lipase < 10 U/L (23-300)
[2021-02-19 08:06] LABS: Reflex Lactic Acid Yes or No Add Lactic
[2021-02-19] MEDS: DIGOXIN INJ 250 MCG/ML 2 ML AMP (*BKC) 125 MCG IV PUSH (08:33)
[2021-02-19 09:06] LABS: Lactic Acid 2.9 mmol/L (0.7-2.1)
[2021-02-19 12:16] LABS: Glucose Point of Care 84 (65-105)
[2021-02-19 12:16] LABS: Glucose Point of Care 96 (65-105)
--- NOTE | 2021-02-19 15:21 | PM.IMPN ---
Progress Note: A&P Assessment and Plan (1) Severe sepsis: Code(s): A41.9 - Sepsis, unspecified organism; R65.20 - Severe sepsis without septic shock Status: Acute Assessment and Plan: Patietn with severe sepsis present on admission. Lactic acid climbed to 4.7 and WBC to 15.8K. UA consistent with UTI and BCx (2of2) positive for gram negative bacilli. Hx of ESBL so will continue Ertapenem. Complicated UTI with chronic indwelling suprapubic catheter. Patient's blood pressures was low and treated with 30 milligrams/kilogram per hour for IV fluids. BP better. Monitor in IMU. (2) Hypokalemia: Code(s): E87.6 - Hypokalemia Status: Acute Assessment and Plan: Potassium was <2.0 on admission. With replacement, potassium up to 3.3 this morning. Since having increased ectopy, will order replacement. RN states he is not eating so replace IV. Start maintenance fluids as well. Repeat levels later today (3) Acute UTI: Code(s): N39.0 - Urinary tract infection, site not specified Status: Acute Assessment and Plan: Complicated UTI with chronic indwelling suprapubic Gambino with hx of ESBL. Bacteremia felt related from urinary source. As above. (4) Hypocalcemia: Code(s): E83.51 - Hypocalcemia Status: Acute Assessment and Plan: Calcium listed as low as 2.7. On repeat, it was 4.2. Albumin was 2.5. Calcium replaced and better today at 7.2. Jose follow. (5) Type 2 diabetes mellitus: Qualifiers: Diabetes mellitus complication status: without complication Diabetes mellitus [facility] insulin use: without [facility] use Qualified Code(s): E11.9 - Type 2 diabetes mellitus without complications Code(s): E11.9 - Type 2 diabetes mellitus without complications Status: Chronic Assessment and Plan: A1c 6.5. The patient's blood glucose was reviewed on 02/19 Glucose remains well controlled. Continue AccuCheks covering with sliding scale. Hypoglycemia protocol available as needed. (6) Atrial fibrillation: Qualifiers: Atrial fibrillation type: permanent Qualified Code(s): I48.21 - Permanent atrial fibrillation Code(s): I48.91 - Unspecified atrial fibrillation Status: Chronic Assessment and Plan: Heart rate well controlled. Digoxin level 0.7. Metoprolol on hold due to low blood pressure. Will hold IV digoxin for now until patient more stable. Resume medications when able. Does not appear to be on long-term anticoagulation. (7) Seizure: Code(s): R56.9 - Unspecified convulsions Status: Acute Assessment and Plan: Patient was found to have 'micro seizures' at the [place]. Continue Keppra. (8) Hypertension: Qualifiers: Hypertension type: essential hypertension Qualified Code(s): I10 - Essential (primary) hypertension Code(s): I10 - Essential (primary) hypertension Status: Chronic Assessment and Plan: Blood pressure soft as mentioned above. Continue to hold antihypertensive medications at this time. (9) Dementia: Qualifiers: Dementia behavioral disturbance: without behavioral disturbance Dementia type: unspecified type Qualified Code(s): F03.90 - Unspecified dementia without behavioral disturbance Code(s): F03.90 - Unspecified dementia without behavioral disturbance Status: Chronic Assessment and Plan: Stable. (10) CVA (cerebral vascular accident): Code(s): I63.9 - Cerebral infarction, unspecified Status: Chronic Assessment and Plan: Patient with a history of CVA and right hemiplegia. He is nonverbal. Discussed with son. Patient remains a full code. (11) DVT prophylaxis: Code(s): Z29.9 - Encounter for prophylactic measures, unspecified Status: Acute Assessment and Plan: Lovenox Subjective Date/time seen: 02/19/21 15:21 Interval history:
[2021-02-19] MEDS: KCL 20 MEQ/D5/0.9% SOD CHL 1,000 ML 70 ML IV CONT (16:28)
[2021-02-19] MEDS: ENOXAPARIN 40 MG/0.4 ML SYRINGE SUB-Q (16:44)
[2021-02-19 18:27] LABS: Anion Gap 8 mmol/L (8-16); Blood Urea Nitrogen 34 mg/dL (9-20); Carbon Dioxide 22 mmol/L (22-30); Chloride 113 mmol/L (98-107); Estimated CRCL calculation 47 ml/min; Estimated Glomerular Filt Rate > 60; Glucose 91 mg/dL (75-110); Potassium 3.3 mmol/L (3.4-5.0); Sodium 143 mmol/L (137-145)
[2021-02-19 18:45] LABS: Glucose Point of Care 120 (65-105)
[2021-02-19] MEDS: ERTAPENEM 1 GM/NS 50 ML 1 GM/50 ML BAG IVPB (23:39)
[2021-02-19 23:55] LABS: Glucose Point of Care 106 (65-105)
[2021-02-20] VITALS (17 sets, daily range): BP systolic 110–144; BP diastolic 54–77; PULSE 46–155; RESP 18–26; TEMP 36.1–36.7; O2SAT 97–100
--- NOTE | 2021-02-20 03:23 | ECHO_ITS ---
Patient Info Name: Jonny Pantoja Age: 70 years : 1950 Gender: Male Ht: 72 in Wt: 156 lbs BSA: 1.89 m2 HR: 96 bpm BP: 132 / 64 mmHg Heart Rhythm: Atrial Fibrillation Technical Quality: Good Exam Date: 02/20/2021 10:55 AM Exam Location: [facility] Pulmonary Patient Status: Inpatient Admit Date: 02/19/2021 Staff Ordering Physician: Jeffy Sharp MD Concierge Manager: Nickie Cates RDCS Attending Provider: Maxim Gutierres MD Referring Physician: Lila WEBSTER; Exam Type: CA echo doppler color flow Study Info Indications I48.1 - Persistent atrial fibrillation Complete two-dimensional, color flow and Doppler transthoracic echocardiogram is performed. Summary 1. Complete two-dimensional, color flow and Doppler transthoracic echocardiogram is performed. 2. Left ventricular chamber dimension is normal. 3. Left ventricular systolic function is moderately reduced, estimated at 40-45%. 4. There is mildly increased left ventricular wall thickness. 5. The left ventricular diastolic function is abnormal. 6. Left atrial chamber dimension is moderately enlarged. 7. Right atrial chamber dimension is mildly enlarged. 8. The mitral valve has thickened leaflets and calcified leaflets. 9. There is mild mitral valve regurgitation. 10. There is mild tricuspid valve regurgitation. 11. Mild pulmonary hypertension, estimated pulmonary arterial systolic pressure is 38 mmHg. 12. There is moderate pulmonic regurgitation. Left Ventricle Left ventricular chamber dimension is normal. Left ventricular systolic function is moderately reduced, estimated at 40-45%. There is mildly increased left ventricular wall thickness. The left ventricular diastolic function is abnormal. Right Ventricle Right ventricular chamber dimension is normal. Right ventricular systolic function is normal. Left Atria Left atrial chamber dimension is moderately enlarged. Right Atria Right atrial chamber dimension is mildly enlarged. Aortic Valve The aortic valve is trileaflet. There is mild aortic valve sclerosis. There is no aortic valve stenosis. There is trace aortic valve regurgitation. Pulmonic Valve The pulmonic valve is normal. There is no pulmonic valve stenosis. There is moderate pulmonic regurgitation. Mitral Valve The mitral valve has thickened leaflets and calcified leaflets. There is no mitral valve stenosis. There is mild mitral valve regurgitation. Tricuspid Valve The tricuspid valve leaflets are normal. There is no significant tricuspid valve stenosis. There is mild tricuspid valve regurgitation. Mild pulmonary hypertension, estimated pulmonary arterial systolic pressure is 38 mmHg. Pericardium/Pleural The pericardium appears normal. There is trivial pericardial effusion. Inferior Vena Cava Normal inferior vena cava with <50% collapse upon inspiration consistent with elevated right atrial pressure, 10 mmHg. Aorta The aortic root size at the sinus of Valsalva is normal. Left Ventricular Outflow Tract Name Value Normal LVOT 2D LVOT Diameter 2.0 cm LVOT Doppler LVOT Peak Gradient
--- NOTE | 2021-02-20 03:58 | ECG_ITS ---
Measurements Intervals Isabella Rate: 140 P: SD: 0 QRS: -47 QRSD: 90 T: 89 QT: 339 QTc: 519 Interpretive Statements ATRIAL FIBRILLATION WITH RAPID VENTRICULAR RESPONSE VENTRICULAR COUPLET AND FREQUENT VENTRICULAR PREMATURE COMPLEXES LEFT AXIS DEVIATION LOW QRS VOLTAGE IN LIMB LEADS BORDERLINE ST-T WAVE ABNORMALITY- LAT/HIGH LAT LEADS BASELINE ARTIFACT- I, II, III, AVR, AVL, AVF, V1-V6 ABNORMAL ECG Electronically Signed On 02-20-2021 7:18:02 CDT by Randall Leyva D.O.
[2021-02-20 09:04] LABS: Basophils Percent Auto 0.2 % (0.2-1.2); Hematocrit 31.7 % (42.0-52.0); Hemoglobin 10.3 g/dL (14.0-18.0); Immature Granulocyte Absolute 0.24 K/mm3 (0.00-0.031); Immature Granulocyte Percent A 1.5 % (0-0.5); Lymphocytes Absolute Auto 0.26 K/mm3 (0.9-3.2); Lymphocytes Percent Auto 1.6 % (18.3-44.2); Mean Corpuscular HGB Conc 32.5 g/dl (32-36); Mean Corpuscular Hemoglobin 29.5 pg (26-34); Mean Corpuscular Volume 90.8 fl (80-100); Monocytes Absolute Auto 0.3 K/mm3 (0.1-0.6); Monocytes Percent Auto 1.6 % (2.6-8.5); Neutrophils Absolute Auto 15.4 K/mm3 (1.3-6.7); Neutrophils Percent Auto 95.1 % (45.5-73.1); Platelet Count Result 102 k/mm3 (150-375); Red Blood Count 3.49 M/mm3 (4.6-6.20); Red Cell Distribution Width 14.8 % (11.5-14.5); White Blood Count 16.2 K/mm3 (4.5-10.0)
[2021-02-20] MEDS: levETIRAcetam 500MG/NACL 100ML 500 MG/100 ML BAG 400 MG IVPB ×2 (09:09→21:13)
[2021-02-20] MEDS: ENOXAPARIN 40 MG/0.4 ML SYRINGE SUB-Q (09:10)
[2021-02-20] MEDS: KCL 20 MEQ/D5/0.9% SOD CHL 1,000 ML 70 ML IV CONT ×2 (09:26→22:17)
[2021-02-20 09:49] LABS: Burr Cells 2+ (NORMAL); Helmet Cells 1+ (NORMAL)
[2021-02-20 09:50] LABS: Hypochromasia 2+ (NORMAL); Platelet Estimate Decreased (Adequate)
[2021-02-20 10:57] LABS: Albumin Level 1.9 g/dL (3.5-5.1); Anion Gap 5 mmol/L (8-16); Blood Urea Nitrogen 39 mg/dL (9-20); Calcium 6.9 mg/dL (8.4-10.2); Carbon Dioxide 21 mmol/L (22-30); Chloride 116 mmol/L (98-107); Estimated CRCL calculation 60 ml/min; Estimated Glomerular Filt Rate > 60; Glucose 116 mg/dL (75-110); Phosphorus 2.9 mg/dL (2.5-4.5); Potassium 3.7 mmol/L (3.4-5.0); Sodium 142 mmol/L (137-145)
[2021-02-20 12:11] LABS: Glucose Point of Care 123 (65-105)
--- NOTE | 2021-02-20 15:25 | PM.IMPN ---
Progress Note: A&P Assessment and Plan (1) Severe sepsis: Code(s): A41.9 - Sepsis, unspecified organism; R65.20 - Severe sepsis without septic shock Status: Acute Assessment and Plan: Patietn with severe sepsis present on admission. Lactic acid climbed to 4.7 and WBC to 15.8K. Patient's blood pressures was low and was treated with IV fluids. BP better. UA consistent with UTI and UCx growing EColi. BCx also (2of2) positive for EColi. Hx of ESBL so will continue Ertapenem. WBC higher today at 16K. Complicated UTI with chronic indwelling suprapubic catheter. Monitor in IMU. Follow up on culture results. (2) Hypokalemia: Code(s): E87.6 - Hypokalemia Status: Acute Assessment and Plan: Potassium was <2.0 on admission. With replacement, potassium up to 3.7 this morning. RN states he is still not eating. Continue maintenance fluids. (3) Acute UTI: Code(s): N39.0 - Urinary tract infection, site not specified Status: Acute Assessment and Plan: Complicated UTI with chronic indwelling suprapubic Gambino with hx of ESBL. Bacteremia felt related from urinary source. As above. (4) Hypocalcemia: Code(s): E83.51 - Hypocalcemia Status: Acute Assessment and Plan: Calcium listed as low as 2.7. On repeat, it was 4.2. Albumin was 2.5. Calcium replaced. Was up to 7.2 but dropped today at 6.4 (but albumin 1.9 and corrected calcium is 8.1). Will follow. 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 The patient's blood glucose was reviewed on 02/20 Glucose remains well controlled. Continue AccuCheks covering with sliding scale. Hypoglycemia protocol available as needed. (6) Atrial fibrillation: Qualifiers: Atrial fibrillation type: permanent Qualified Code(s): I48.21 - Permanent atrial fibrillation Code(s): I48.91 - Unspecified atrial fibrillation Status: Chronic Assessment and Plan: Heart rate well controlled. Digoxin level 0.7. Metoprolol on hold due to low blood pressure. Will hold IV digoxin for now until patient more stable. Resume medications when able. BP overall better. Does not appear to be on long-term anticoagulation. (7) Seizure: Code(s): R56.9 - Unspecified convulsions Status: Acute Assessment and Plan: Patient was found to have 'micro seizures' at the [place]. Continue Keppra IV. (8) Hypertension: Qualifiers: Hypertension type: essential hypertension Qualified Code(s): I10 - Essential (primary) hypertension Code(s): I10 - Essential (primary) hypertension Status: Chronic Assessment and Plan: Blood pressure soft on admission but better now. Continue to hold antihypertensive medications at this time. (9) Dementia: Qualifiers: Dementia behavioral disturbance: without behavioral disturbance Dementia type: unspecified type Qualified Code(s): F03.90 - Unspecified dementia without behavioral disturbance Code(s): F03.90 - Unspecified dementia without behavioral disturbance Status: Chronic Assessment and Plan: Stable. (10) CVA (cerebral vascular accident): Code(s): I63.9 - Cerebral infarction, unspecified Status: Chronic Assessment and Plan: Patient with a history of CVA and right hemiplegia. He is nonverbal. Discussed with son yesterday. Patient remains a full code. (11) DVT prophylaxis: Code(s): Z29.9 - Encounter for prophylactic measures, unspecified Status: Acute Assessment and Plan: Lovenox Subjective Date/t
[2021-02-20] MEDS: ERTAPENEM 1 GM/NS 50 ML 1 GM/50 ML BAG IVPB (18:02)
[2021-02-20] MEDS: MIRTAZAPINE 15 MG TABLET FEED TUBE (22:08)
[2021-02-21] VITALS (14 sets, daily range): BP systolic 137–146; BP diastolic 66–81; PULSE 82–114; RESP 20–26; TEMP 36.1–37.3; O2SAT 94–100
[2021-02-21 00:13] LABS: Glucose Point of Care 164 (65-105)
[2021-02-21 05:14] LABS: Basophils Percent Auto 0.1 % (0.2-1.2); Hematocrit 27.4 % (42.0-52.0); Immature Granulocyte Absolute 0.22 K/mm3 (0.00-0.031); Immature Granulocyte Percent A 1.6 % (0-0.5); Immature Platelet Fraction Pct 12.2 % (0.9-11.2); Lymphocytes Absolute Auto 0.41 K/mm3 (0.9-3.2); Lymphocytes Percent Auto 2.9 % (18.3-44.2); Mean Corpuscular HGB Conc 32.8 g/dl (32-36); Mean Corpuscular Hemoglobin 29.2 pg (26-34); Monocytes Absolute Auto 0.2 K/mm3 (0.1-0.6); Monocytes Percent Auto 1.4 % (2.6-8.5); Neutrophils Absolute Auto 13.1 K/mm3 (1.3-6.7); Platelet Count Result 54 k/mm3 (150-375); Red Blood Count 3.08 M/mm3 (4.6-6.20); Red Cell Distribution Width 14.6 % (11.5-14.5); White Blood Count 13.9 K/mm3 (4.5-10.0)
[2021-02-21 05:25] LABS: Albumin Level 2.1 g/dL (3.5-5.1); Anion Gap 4 mmol/L (8-16); Blood Urea Nitrogen 39 mg/dL (9-20); Carbon Dioxide 22 mmol/L (22-30); Chloride 120 mmol/L (98-107); Estimated CRCL calculation 55 ml/min; Estimated Glomerular Filt Rate > 60; Glucose 189 mg/dL (75-110); Magnesium 2.1 mg/dL (1.6-2.3); Phosphorus 2.4 mg/dL (2.5-4.5); Potassium 2.9 mmol/L (3.4-5.0); Sodium 146 mmol/L (137-145)
--- NOTE | 2021-02-21 07:58 | PC.NURSE ---
Notified Dr. Gutierres of patient Potassium evel of 2.9. New orders being entered by Doctor
[2021-02-21] MEDS: POTASSIUM/PHOSPHORUS/SODIUM 1.5 GM PACKET 1 PACKET FEED TUBE (09:58)
[2021-02-21] MEDS: CARBIDOPA/LEVODOPA 10/100 MG TABLET 1 TABLET FEED TUBE ×3 (10:03→17:36)
[2021-02-21] MEDS: ENOXAPARIN 40 MG/0.4 ML SYRINGE SUB-Q (10:04)
[2021-02-21] MEDS: levETIRAcetam 500MG/NACL 100ML 500 MG/100 ML BAG 400 MG IVPB ×2 (10:08→22:22)
[2021-02-21 12:14] LABS: Glucose Point of Care 212 (65-105)
--- NOTE | 2021-02-21 12:32 | PM.IMPN ---
Progress Note: A&P Assessment and Plan (1) Severe sepsis: Code(s): A41.9 - Sepsis, unspecified organism; R65.20 - Severe sepsis without septic shock Status: Acute Assessment and Plan: Patietn with severe sepsis present on admission. Lactic acid climbed to 4.7 and WBC to 15.8K. Patient's blood pressures was low and was treated with IV fluids. BP better. UA consistent with UTI and UCx growing EColi and a 2nd GNB. BCx also (2of2) positive for EColi as well as for Klebsiella. Sensitivities pending. Hx of ESBL so will continue Ertapenem. WBC better today at 14K. Complicated UTI with chronic indwelling suprapubic catheter. Monitor in IMU. Follow up on culture results. (2) C. difficile diarrhea: Code(s): A04.72 - Enterocolitis due to Clostridium difficile, not specified as recurrent Status: Acute Assessment and Plan: Patient with diarrhea and stool studies positive for CDiff both for Ag and for toxin. Will add oral Vanco via NGT. (3) Hypokalemia: Code(s): E87.6 - Hypokalemia Status: Acute Assessment and Plan: Potassium was <2.0 on admission. With replacement, potassium up to 3.7 yesterday morning but down again to 2.9. Continue to replace. (4) Acute UTI: Code(s): N39.0 - Urinary tract infection, site not specified Status: Acute Assessment and Plan: Complicated UTI with chronic indwelling suprapubic Gambino with hx of ESBL. Bacteremia felt related from urinary source. As above. (5) Hypocalcemia: Code(s): E83.51 - Hypocalcemia Status: Acute Assessment and Plan: Calcium listed as low as 2.7. On repeat, it was 4.2. Albumin was 2.5. Calcium replaced and now up to 7.0. Will follow. (6) Type 2 diabetes mellitus: Qualifiers: Diabetes mellitus complication status: without complication Diabetes mellitus correction insulin use: without correction use Qualified Code(s): E11.9 - Type 2 diabetes mellitus without complications Code(s): E11.9 - Type 2 diabetes mellitus without complications Status: Chronic Assessment and Plan: A1c 6.5. The patient's blood glucose was reviewed on 02/21 Glucose remains well controlled and high at 212 currently related to TF. Continue AccuCheks covering with sliding scale. Hypoglycemia protocol available as needed. May need to change to glucerna if this becomes an issue (7) Atrial fibrillation: Qualifiers: Atrial fibrillation type: permanent Qualified Code(s): I48.21 - Permanent atrial fibrillation Code(s): I48.91 - Unspecified atrial fibrillation Status: Chronic Assessment and Plan: Heart rate elevated at times. Digoxin level 0.7. Metoprolol on hold due to low blood pressure. Digoxin held as well. BP overall better. Does not appear to be on long-term anticoagulation. Will resume metoprolol. (8) Seizure: Code(s): R56.9 - Unspecified convulsions Status: Acute Assessment and Plan: Patient was found to have 'micro seizures' at the [place]. Continue Keppra IV. (9) Hypertension: Qualifiers: Hypertension type: essential hypertension Qualified Code(s): I10 - Essential (primary) hypertension Code(s): I10 - Essential (primary) hypertension Status: Chronic Assessment and Plan: Blood pressure soft on admission but better now. Jose resume metoprolol. Monitor closely (10) Dementia: Qualifiers: Dementia behavioral disturbance: without behavioral disturbance Dementia type: unspecified type Qualified Code(s): F03.90 - Unspecified dementia without behavioral disturbance Code(s): F03.90 - Unspecified dementia without behavioral disturbance Status: Chronic Assessment and Plan: Stable. Resumed Remeron and Sinemet. Add back aricept today. Check CT brain. Will need to discuss with son again about plan for nutrition. (11) CVA (cerebral
[2021-02-21] MEDS: METOPROLOL TARTRATE 25 MG TABLET FEED TUBE ×2 (13:16→22:21)
[2021-02-21] MEDS: DONEPEZIL HCL 10 MG TABLET FEED TUBE (13:18)
[2021-02-21] MEDS: INSULIN ASPART (*BKC) 100 UNITS/ML SUB-Q ×2 (13:18→17:36)
--- NOTE | 2021-02-21 13:34 | PCDIET ---
Nutrition Follow-Up Complete: Nutrition Diagnosis: Inadequate oral intake related to decreased level of alertness as evidenced by no intake thus far, per nursing. Nutrition Goal: Patient to meet estimated nutritional needs. Goal in progress. Oral intakes minimal, but NG tube placed with Jevity 1.2 advancing toward goal of 60mL/hr. Recommend goal rate of 70mL/hr for 1848kcal, 85g protein and 1242mL free water over 22 hours/day. If blood sugars remain elevated, could also consider change to Glucerna 1.2 at same rate. Last recorded weight is 71.1 kg. Recommend obtaining new weight. Bowel Motility: Diarrhea reported. Checking stools for c. diff. Labs Reviewed: Hgb (9.0), Hct (27.4), Glu (189), BUN (39), Cl (120), K (2.9), Na (146), Alb (2.1), Hellen Ca (8.52), PO4 (2.4) Meds Noted: Sinemet, Aricept, Invanz, Novolog, Keppra, Lopressor, Remeron, Megestrol, Vancomycin, KCl, Phos-NaK Additional Notes: Deep tissue injury to sacrum. Will continue to monitor with same goal. Nutrition Monitoring and Evaluation: Follow up every Wednesday/Wednesday.
[2021-02-21] MEDS: VANCOMYCIN ORAL 125 MG/2.5 ML SYRUP FEED TUBE ×2 (13:52→17:36)
[2021-02-21 16:50] LABS: Glucose Point of Care 261 (65-105)
[2021-02-21] MEDS: ERTAPENEM 1 GM/NS 50 ML 1 GM/50 ML BAG IVPB (17:36)
[2021-02-21] MEDS: MIRTAZAPINE 15 MG TABLET FEED TUBE (22:21)
[2021-02-22] VITALS (14 sets, daily range): BP systolic 121–144; BP diastolic 49–86; PULSE 80–112; RESP 16–24; TEMP 36.2–37.9; O2SAT 96–99
[2021-02-22 00:13] LABS: Glucose Point of Care 205 (65-105)
[2021-02-22] MEDS: POTASSIUM CHLORIDE 20 MEQ PACKET (FOR LIQUID) 40 MEQ FEED TUBE (01:20)
[2021-02-22] MEDS: INSULIN ASPART (*BKC) 100 UNITS/ML SUB-Q ×3 (01:23→17:27)
[2021-02-22] MEDS: VANCOMYCIN ORAL 125 MG/2.5 ML SYRUP FEED TUBE ×3 (01:23→17:01)
[2021-02-22 06:14] LABS: Glucose Point of Care 208 (65-105)
[2021-02-22] MEDS: CARBIDOPA/LEVODOPA 10/100 MG TABLET 1 TABLET FEED TUBE ×2 (09:56→16:43)
[2021-02-22] MEDS: METOPROLOL TARTRATE 25 MG TABLET FEED TUBE ×2 (09:56→21:46)
[2021-02-22] MEDS: DONEPEZIL HCL 10 MG TABLET FEED TUBE (09:56)
[2021-02-22] MEDS: levETIRAcetam 500MG/NACL 100ML 500 MG/100 ML BAG 400 MG IVPB ×2 (09:57→21:47)
[2021-02-22 10:42] LABS: Basophils Percent Auto 0.1 % (0.2-1.2); Eosinophils Absolute Auto 0.1 K/mm3 (0-0.3); Eosinophils Percent Auto 0.7 % (0-4.4); Hematocrit 28.9 % (42.0-52.0); Hemoglobin 9.5 g/dL (14.0-18.0); Immature Granulocyte Absolute 0.15 K/mm3 (0.00-0.031); Immature Granulocyte Percent A 1.7 % (0-0.5); Immature Platelet Fraction Pct 16.1 % (0.9-11.2); Lymphocytes Absolute Auto 0.45 K/mm3 (0.9-3.2); Lymphocytes Percent Auto 5.2 % (18.3-44.2); Mean Corpuscular HGB Conc 32.9 g/dl (32-36); Mean Corpuscular Hemoglobin 29.5 pg (26-34); Mean Corpuscular Volume 89.8 fl (80-100); Monocytes Absolute Auto 0.2 K/mm3 (0.1-0.6); Monocytes Percent Auto 2.5 % (2.6-8.5); Neutrophils Absolute Auto 7.8 K/mm3 (1.3-6.7); Neutrophils Percent Auto 89.8 % (45.5-73.1); Red Blood Count 3.22 M/mm3 (4.6-6.20); White Blood Count 8.7 K/mm3 (4.5-10.0)
[2021-02-22 10:51] LABS: Albumin Level 2.1 g/dL (3.5-5.1); Anion Gap 4 mmol/L (8-16); Blood Urea Nitrogen 39 mg/dL (9-20); Calcium 7.5 mg/dL (8.4-10.2); Carbon Dioxide 23 mmol/L (22-30); Chloride 121 mmol/L (98-107); Estimated CRCL calculation 51 ml/min; Estimated Glomerular Filt Rate > 60; Glucose 179 mg/dL (75-110); Magnesium 2.1 mg/dL (1.6-2.3); Potassium 3.8 mmol/L (3.4-5.0); Sodium 148 mmol/L (137-145)
[2021-02-22 10:54] LABS: Platelet Count Result 24 k/mm3 (150-375)
[2021-02-22 11:03] LABS: Burr Cells 2+ (NORMAL); Helmet Cells 1+ (NORMAL); Hypochromasia 1+ (NORMAL); Platelet Estimate Decreased (Adequate); Target Cells 1+ (NORMAL)
--- NOTE | 2021-02-22 14:28 | PM.IMPN ---
Progress Note: A&P Assessment and Plan (1) Severe sepsis: Code(s): A41.9 - Sepsis, unspecified organism; R65.20 - Severe sepsis without septic shock Status: Acute Assessment and Plan: Patietn with severe sepsis present on admission. Lactic acid climbed to 4.7 and WBC to 15.8K. Patient's blood pressure was low and was treated with IV fluids. BP better. UA consistent with UTI and UCx growing ESBL EColi and ESBL Klebsiella. BCx also (2of2) positive for EColi and Klebsiella with sensitivities still pending. Hx of ESBL so will continue Ertapenem. WBC normal now. Complicated UTI with chronic indwelling suprapubic catheter. Monitor in IMU. Follow up on culture results. (2) C. difficile diarrhea: Code(s): A04.72 - Enterocolitis due to Clostridium difficile, not specified as recurrent Status: Acute Assessment and Plan: Patient with diarrhea and stool studies positive for CDiff both for Ag and for toxin. We added oral Vanco via NGT. (3) Dementia: Qualifiers: Dementia behavioral disturbance: without behavioral disturbance Dementia type: unspecified type Qualified Code(s): F03.90 - Unspecified dementia without behavioral disturbance Code(s): F03.90 - Unspecified dementia without behavioral disturbance Status: Chronic Assessment and Plan: Stable. Patietn still with altered mental status and doed not appear to be at baseline. We resumed Remeron, Sinemet and Aricept. CT brain showing no acute findings. Spoke with son and explained these findings. Suspect infectious encephalopathy from these infections. (4) Hypokalemia: Code(s): E87.6 - Hypokalemia Status: Acute Assessment and Plan: Potassium was <2.0 on admission. With replacement, potassium up to 3.8 today. Continue to monitor. (5) Acute UTI: Code(s): N39.0 - Urinary tract infection, site not specified Status: Acute Assessment and Plan: Complicated UTI with chronic indwelling suprapubic Gambino with ESBL. Bacteremia felt related from urinary source. As above. (6) Hypocalcemia: Code(s): E83.51 - Hypocalcemia Status: Acute Assessment and Plan: Calcium listed as low as 2.7. On repeat, it was 4.2. Albumin was 2.5. Calcium replaced and now up to 7.5. Will follow. (7) Type 2 diabetes mellitus: Qualifiers: Diabetes mellitus complication status: without complication Diabetes mellitus usp insulin use: without usp use Qualified Code(s): E11.9 - Type 2 diabetes mellitus without complications Code(s): E11.9 - Type 2 diabetes mellitus without complications Status: Chronic Assessment and Plan: A1c 6.5. The patient's blood glucose was reviewed on 4/3 Glucose higher now that he is on TF. Continue AccuCheks covering with sliding scale. Hypoglycemia protocol available as needed. Change to glucerna (8) Atrial fibrillation: Qualifiers: Atrial fibrillation type: permanent Qualified Code(s): I48.21 - Permanent atrial fibrillation Code(s): I48.91 - Unspecified atrial fibrillation Status: Chronic Assessment and Plan: Heart rate elevated at times. Digoxin level 0.7. Metoprolol was on hold due to low blood pressure. Digoxin held as well. BP overall better. Does not appear to be on long-term anticoagulation. We resumed metoprolol and he is tolerating. Follow (9) Seizure: Code(s): R56.9 - Unspecified convulsions Status: Acute Assessment and Plan: Patient was found to have 'micro seizures' at the [place]. Continue Keppra IV. (10) Hypertension: Qualifiers: Hypertension type: essential hypertension Qualified Code(s): I10 - Essential (primary) hypertension Code(s): I10 - Essential (primary) hypertension Status: Chronic Assessment and Plan: Blood pressure soft on admission but better now. We resumed metop
[2021-02-22] MEDS: POTASSIUM/PHOSPHORUS/SODIUM 1.5 GM PACKET 1 PACKET FEED TUBE (16:43)
[2021-02-22] MEDS: FUROSEMIDE INJ 40 MG/4 ML VIAL 20 MG IV PUSH (17:01)
[2021-02-22] MEDS: METOCLOPRAMIDE HCL INJ 10 MG/2 ML VIAL 5 MG IV PUSH (17:03)
[2021-02-22] MEDS: ERTAPENEM 1 GM/NS 50 ML 1 GM/50 ML BAG IVPB (17:09)
[2021-02-22 18:53] LABS: Glucose Point of Care 222 (65-105)
[2021-02-22 19:33] LABS: SARS-CoV-2 RNA PCR Negative
[2021-02-22] MEDS: CENTRAL LINE FLUSH 10 ML IV PUSH (21:46)
[2021-02-22] MEDS: MIRTAZAPINE 15 MG TABLET FEED TUBE (21:46)
[2021-02-23] VITALS (17 sets, daily range): BP systolic 115–144; BP diastolic 56–78; PULSE 71–122; RESP 12–100; TEMP 36.4–38; O2SAT 96–100
[2021-02-23 00:07] LABS: Glucose Point of Care 304 (65-105)
[2021-02-23] MEDS: VANCOMYCIN ORAL 125 MG/2.5 ML SYRUP FEED TUBE ×5 (00:14→23:35)
[2021-02-23] MEDS: INSULIN ASPART (*BKC) 100 UNITS/ML SUB-Q ×4 (00:15→23:41)
[2021-02-23] MEDS: METOCLOPRAMIDE HCL INJ 10 MG/2 ML VIAL 5 MG IV PUSH ×5 (00:15→23:34)
[2021-02-23 06:13] LABS: Glucose Point of Care 186 (65-105)
[2021-02-23] MEDS: CENTRAL LINE FLUSH 10 ML IV PUSH ×3 (06:15→20:28)
[2021-02-23 06:17] LABS: Hematocrit 26.5 % (42.0-52.0); Hemoglobin 8.7 g/dL (14.0-18.0); Mean Corpuscular HGB Conc 32.8 g/dl (32-36); Mean Corpuscular Hemoglobin 29.3 pg (26-34); Mean Corpuscular Volume 89.2 fl (80-100); Red Blood Count 2.97 M/mm3 (4.6-6.20); Red Cell Distribution Width 15.4 % (11.5-14.5); White Blood Count 8.8 K/mm3 (4.5-10.0)
[2021-02-23 06:38] LABS: Albumin Level 2.1 g/dL (3.5-5.1); Anion Gap 2 mmol/L (8-16); Blood Urea Nitrogen 43 mg/dL (9-20); Calcium 7.7 mg/dL (8.4-10.2); Carbon Dioxide 25 mmol/L (22-30); Chloride 121 mmol/L (98-107); Estimated CRCL calculation 55 ml/min; Estimated Glomerular Filt Rate > 60; Glucose 250 mg/dL (75-110); Magnesium 2.1 mg/dL (1.6-2.3); Phosphorus 2.3 mg/dL (2.5-4.5); Potassium 4.3 mmol/L (3.4-5.0); Sodium 148 mmol/L (137-145)
[2021-02-23 06:51] LABS: Platelet Count Result 19 k/mm3 (150-375)
[2021-02-23 06:54] LABS: Burr Cells 2+ (NORMAL); Eosinophils Absolute Manual 0.44 K/mm3 (0.02-0.5); Eosinophils Percent Manual 5 % (0-4); Lymphocytes Absolute Manual 0.61 K/mm3 (1.1-4.5); Monocytes Absolute Manual 0.26 K/mm3 (0.1-0.90); Monocytes Percent Manual 3 % (3-9); Neutrophils Percent Manual 85 % (46-73); Platelet Estimate Decreased (Adequate); Total Cells Counted 100
[2021-02-23 06:55] LABS: Schistocytes 1+ (NORMAL)
[2021-02-23] MEDS: METOPROLOL TARTRATE 25 MG TABLET FEED TUBE ×2 (08:44→20:28)
[2021-02-23] MEDS: DONEPEZIL HCL 10 MG TABLET FEED TUBE (08:45)
[2021-02-23] MEDS: CARBIDOPA/LEVODOPA 10/100 MG TABLET 1 TABLET FEED TUBE ×3 (08:45→17:50)
[2021-02-23] MEDS: POTASSIUM/PHOSPHORUS/SODIUM 1.5 GM PACKET 1 PACKET FEED TUBE (08:46)
[2021-02-23] MEDS: levETIRAcetam 500MG/NACL 100ML 500 MG/100 ML BAG 400 MG IVPB ×2 (08:53→20:28)
--- NOTE | 2021-02-23 11:01 | PM.IMPN ---
Progress Note: A&P Assessment and Plan (1) Severe sepsis: Code(s): A41.9 - Sepsis, unspecified organism; R65.20 - Severe sepsis without septic shock Status: Acute Assessment and Plan: Patient with severe sepsis present on admission and now septicemia. Lactic acid climbed to 4.7 and WBC to 15.8K. Patient's blood pressures was low and was treated with appropriate IV fluids. BP better. UA consistent with UTI and UCx growing ESBL EColi and ESBL Klebsiella. BCx also (2of2) positive for ESBL EColi and ESBL Klebsiella. ESBL so will continue Ertapenem. WBC normal now. Complicated UTI with chronic indwelling suprapubic catheter. Monitor in IMU. (2) C. difficile diarrhea: Code(s): A04.72 - Enterocolitis due to Clostridium difficile, not specified as recurrent Status: Acute Assessment and Plan: Patient with diarrhea and stool studies positive for CDiff both for Ag and for toxin. We added oral Vanco via NGT. Diarrhea improving. (3) Dementia: Qualifiers: Dementia behavioral disturbance: without behavioral disturbance Dementia type: unspecified type Qualified Code(s): F03.90 - Unspecified dementia without behavioral disturbance Code(s): F03.90 - Unspecified dementia without behavioral disturbance Status: Chronic Assessment and Plan: Stable. Patient still with altered mental status and does not appear to be at baseline. We resumed Remeron, Sinemet and Aricept. CT brain showing no acute findings. Spoke with son yesterday and explained these findings. Suspect infectious encephalopathy from these infections. (4) Hypokalemia: Code(s): E87.6 - Hypokalemia Status: Acute Assessment and Plan: Potassium was <2.0 on admission. With replacement, potassium up to 4.3 today. Continue to monitor. (5) Acute UTI: Code(s): N39.0 - Urinary tract infection, site not specified Status: Acute Assessment and Plan: Complicated UTI with chronic indwelling suprapubic Gambino with ESBL. Bacteremia felt related from urinary source. As above. (6) Hypocalcemia: Code(s): E83.51 - Hypocalcemia Status: Acute Assessment and Plan: Calcium listed as low as 2.7. On repeat, it was 4.2. Albumin was 2.5. Calcium replaced and now up to 7.7. Will follow. (7) Type 2 diabetes mellitus: Qualifiers: Diabetes mellitus complication status: without complication Diabetes mellitus long line teamster insulin use: without correction use Qualified Code(s): E11.9 - Type 2 diabetes mellitus without complications Code(s): E11.9 - Type 2 diabetes mellitus without complications Status: Chronic Assessment and Plan: A1c 6.5. The patient's blood glucose was reviewed on 02/23 Glucose remains elevated on TF. He was changed to Glucerna. Continue AccuCheks covering with sliding scale. Hypoglycemia protocol available as needed. Add low-dose Lantus. (8) Atrial fibrillation: Qualifiers: Atrial fibrillation type: permanent Qualified Code(s): I48.21 - Permanent atrial fibrillation Code(s): I48.91 - Unspecified atrial fibrillation Status: Chronic Assessment and Plan: Heart rate elevated at times. Digoxin level 0.7. Metoprolol was on hold due to low blood pressure. Digoxin held as well. BP overall better. Does not appear to be on long-term anticoagulation. We resumed metoprolol and he is tolerating this well. Suspect mildly elevated heart rate related to his fever. Continue to follow on telemetry. (9) Seizure: Code(s): R56.9 - Unspecified convulsions Status: Acute Assessment and Plan: Patient was found to have 'micro seizures' at the [place]. Continue Keppra IV. (10) Hypertension: Qualifiers: Hypertension type: essential hypertension Qualified Code(s): I10 - Essential (primary) hypertension Code(s): I10 - Essential (primary) hyperte
[2021-02-23 12:01] LABS: Glucose Point of Care 269 (65-105)
[2021-02-23 12:37] LABS: Immature Platelet Fraction Pct 20.9 % (0.9-11.2)
[2021-02-23 12:39] LABS: Platelet Count Result 22 k/mm3 (150-375)
[2021-02-23] MEDS: ACETAMINOPHEN 325 MG TABLET 650 MG PO (13:59)
[2021-02-23 17:54] LABS: Glucose Point of Care 255 (65-105)
[2021-02-23] MEDS: ERTAPENEM 1 GM/NS 50 ML 1 GM/50 ML BAG IVPB (17:56)
[2021-02-23] MEDS: MIRTAZAPINE 15 MG TABLET FEED TUBE (20:27)
[2021-02-23] MEDS: INSULIN GLARGINE (*BKC) 100 UNITS/ML 10 UNITS SUB-Q (20:28)
[2021-02-23 23:46] LABS: Glucose Point of Care 268 (65-105)
[2021-02-24] VITALS (16 sets, daily range): BP systolic 119–148; BP diastolic 60–71; PULSE 65–107; RESP 18–26; TEMP 36.4–37.3; O2SAT 96–100
[2021-02-24] MEDS: METOCLOPRAMIDE HCL INJ 10 MG/2 ML VIAL 5 MG IV PUSH ×4 (05:03→23:51)
[2021-02-24] MEDS: CENTRAL LINE FLUSH 10 ML IV PUSH ×3 (05:03→21:00)
[2021-02-24] MEDS: VANCOMYCIN ORAL 125 MG/2.5 ML SYRUP FEED TUBE ×4 (05:03→23:52)
[2021-02-24 06:14] LABS: Glucose Point of Care 231 (65-105)
[2021-02-24] MEDS: INSULIN ASPART (*BKC) 100 UNITS/ML SUB-Q (07:04)
[2021-02-24 07:06] LABS: Basophils Percent Auto 0.2 % (0.2-1.2); Eosinophils Absolute Auto 0.2 K/mm3 (0-0.3); Eosinophils Percent Auto 1.9 % (0-4.4); Hematocrit 24.1 % (42.0-52.0); Immature Granulocyte Absolute 0.11 K/mm3 (0.00-0.031); Immature Platelet Fraction Pct 22.5 % (0.9-11.2); Lymphocytes Absolute Auto 0.86 K/mm3 (0.9-3.2); Mean Corpuscular HGB Conc 33.2 g/dl (32-36); Mean Corpuscular Hemoglobin 29.3 pg (26-34); Mean Corpuscular Volume 88.3 fl (80-100); Monocytes Absolute Auto 0.7 K/mm3 (0.1-0.6); Monocytes Percent Auto 6.3 % (2.6-8.5); Neutrophils Absolute Auto 8.9 K/mm3 (1.3-6.7); Neutrophils Percent Auto 82.6 % (45.5-73.1); Platelet Count Result 28 k/mm3 (150-375); Red Blood Count 2.73 M/mm3 (4.6-6.20); Red Cell Distribution Width 15.7 % (11.5-14.5); White Blood Count 10.8 K/mm3 (4.5-10.0)
[2021-02-24 07:18] LABS: Alanine Aminotransferase 7 U/L (4-50); Alkaline Phosphatase 167 U/L (38-126); Anion Gap 3 mmol/L (8-16); Aspartate Amino Transferase 13 U/L (17-59); Bilirubin,Total 0.3 mg/dL (0.2-1.3); Blood Urea Nitrogen 47 mg/dL (9-20); Calcium 7.7 mg/dL (8.4-10.2); Carbon Dioxide 26 mmol/L (22-30); Chloride 120 mmol/L (98-107); Estimated CRCL calculation 60 ml/min; Estimated Glomerular Filt Rate > 60; Glucose 246 mg/dL (75-110); Phosphorus 2.7 mg/dL (2.5-4.5); Potassium 4.9 mmol/L (3.4-5.0); Sodium 149 mmol/L (137-145)
[2021-02-24 07:31] LABS: Large Platelets Present; Platelet Estimate Decreased (Adequate)
[2021-02-24 07:32] LABS: Helmet Cells 1+ (NORMAL); Hypochromasia 2+ (NORMAL); Tear Drop Cells 1+ (NORMAL)
[2021-02-24] MEDS: CARBIDOPA/LEVODOPA 10/100 MG TABLET 1 TABLET FEED TUBE ×3 (08:42→16:34)
[2021-02-24] MEDS: DONEPEZIL HCL 10 MG TABLET FEED TUBE (08:42)
[2021-02-24] MEDS: METOPROLOL TARTRATE 25 MG TABLET FEED TUBE ×2 (08:42→20:59)
[2021-02-24] MEDS: levETIRAcetam 500MG/NACL 100ML 500 MG/100 ML BAG 400 MG IVPB ×2 (09:02→21:00)
--- NOTE | 2021-02-24 10:55 | PM.IMPN ---
Progress Note: A&P Assessment and Plan (1) Severe sepsis: Code(s): A41.9 - Sepsis, unspecified organism; R65.20 - Severe sepsis without septic shock Status: Acute Assessment and Plan: Patient with severe sepsis present on admission and now septicemia. Lactic acid climbed to 4.7 and WBC to 15.8K. Patient's blood pressures was low and was treated with appropriate IV fluids. BP better and has since remained stable. UA consistent with UTI and UCx growing ESBL EColi and ESBL Klebsiella. BCx also (2of2) positive for ESBL EColi and ESBL Klebsiella so will continue Ertapenem. Complicated UTI with chronic indwelling suprapubic catheter. WBC normal now. Was having low grade fevers yesterday - PNA (aspiration?) or atelectasis? DVT possible now that he is off Lovenox. Will check CXR. Monitor in IMU. Spoke with son and discussed options regarding continued care vs Hospice. Explained that patient may have had a stroke given the patient's AFib and no anticoagulation. Also explained that the patient may not improve much beyond his current condition. Will need GTube if son wants to pursue continued care. Son will let me know later today or tommorow about his decision. CXR reviewed personally and showing improvement in airspace disease. (2) C. difficile diarrhea: Code(s): A04.72 - Enterocolitis due to Clostridium difficile, not specified as recurrent Status: Acute Assessment and Plan: Patient with diarrhea and stool studies positive for CDiff both for Ag and for toxin. We added oral Vanco via NGT. Diarrhea improving. Complete a 10 day course. (3) Dementia: Qualifiers: Dementia behavioral disturbance: without behavioral disturbance Dementia type: unspecified type Qualified Code(s): F03.90 - Unspecified dementia without behavioral disturbance Code(s): F03.90 - Unspecified dementia without behavioral disturbance Status: Chronic Assessment and Plan: Stable. Patient still with altered mental status and does not appear to be at baseline. We resumed Remeron, Sinemet and Aricept. CT brain showing no acute findings. Son was aware of these findings. Suspect infectious encephalopathy from these infections but can not exclude CVA. (4) Hypokalemia: Code(s): E87.6 - Hypokalemia Status: Acute Assessment and Plan: Potassium was <2.0 on admission. With replacement, potassium up to 4.9 today. Continue to monitor. (5) Acute UTI: Code(s): N39.0 - Urinary tract infection, site not specified Status: Acute Assessment and Plan: Complicated UTI with chronic indwelling suprapubic Gambino with ESBL. Bacteremia felt related from urinary source. As above. (6) Hypocalcemia: Code(s): E83.51 - Hypocalcemia Status: Acute Assessment and Plan: Calcium listed as low as 2.7. On repeat, it was 4.2. Albumin was 2.5. Calcium replaced and now up to 7.7. Will follow. (7) Type 2 diabetes mellitus: Qualifiers: Diabetes mellitus complication status: without complication Diabetes mellitus nursing home insulin use: without nursing home use Qualified Code(s): E11.9 - Type 2 diabetes mellitus without complications Code(s): E11.9 - Type 2 diabetes mellitus without complications Status: Chronic Assessment and Plan: A1c 6.5. The patient's blood glucose was reviewed on 02/24 Glucose remains elevated on TF. He was changed to Glucerna. Continue AccuCheks covering with sliding scale. Hypoglycemia protocol available as needed. Glucose still elevated this morning. Will advance Lantus. (8) Atrial fibrillation: Qualifiers: Atrial fibrillation type: permanent Qualified Code(s): I48.21 - Permanent atrial fibrillation Code(s): I48.91 - Unspecified atrial fibrillation Status: Chronic Assessment and Plan: Heart rate elevated at times. Digoxin level 0.7. Metoprolol was on hol
[2021-02-24 13:00] LABS: Glucose Point of Care 159 (65-105)
[2021-02-24] MEDS: ERTAPENEM 1 GM/NS 50 ML 1 GM/50 ML BAG IVPB (17:11)
[2021-02-24 18:12] LABS: Glucose Point of Care 155 (65-105)
[2021-02-24] MEDS: MIRTAZAPINE 15 MG TABLET FEED TUBE (20:59)
[2021-02-24] MEDS: INSULIN GLARGINE (*BKC) 100 UNITS/ML 15 UNITS SUB-Q (21:00)
[2021-02-24 23:46] LABS: Glucose Point of Care 168 (65-105)
[2021-02-25] VITALS (16 sets, daily range): BP systolic 115–145; BP diastolic 62–82; PULSE 79–113; RESP 18–24; TEMP 36.1–36.6; O2SAT 95–100
[2021-02-25] MEDS: CENTRAL LINE FLUSH 10 ML IV PUSH ×3 (04:47→21:42)
[2021-02-25] MEDS: VANCOMYCIN ORAL 125 MG/2.5 ML SYRUP FEED TUBE ×3 (04:47→17:00)
[2021-02-25] MEDS: METOCLOPRAMIDE HCL INJ 10 MG/2 ML VIAL 5 MG IV PUSH ×3 (04:48→17:00)
[2021-02-25 05:08] LABS: Basophils Percent Auto 0.1 % (0.2-1.2); Eosinophils Absolute Auto 0.3 K/mm3 (0-0.3); Eosinophils Percent Auto 3.2 % (0-4.4); Hematocrit 23.6 % (42.0-52.0); Hemoglobin 7.8 g/dL (14.0-18.0); Immature Granulocyte Absolute 0.09 K/mm3 (0.00-0.031); Immature Platelet Fraction Pct 20.5 % (0.9-11.2); Mean Corpuscular HGB Conc 33.1 g/dl (32-36); Mean Corpuscular Hemoglobin 28.9 pg (26-34); Mean Corpuscular Volume 87.4 fl (80-100); Monocytes Absolute Auto 0.8 K/mm3 (0.1-0.6); Monocytes Percent Auto 8.7 % (2.6-8.5); Neutrophils Absolute Auto 6.9 K/mm3 (1.3-6.7); Platelet Count Result 46 k/mm3 (150-375); Red Cell Distribution Width 15.5 % (11.5-14.5); White Blood Count 9.1 K/mm3 (4.5-10.0)
[2021-02-25 05:26] LABS: Anion Gap -2 mmol/L (8-16); Blood Urea Nitrogen 41 mg/dL (9-20); Calcium 7.7 mg/dL (8.4-10.2); Carbon Dioxide 28 mmol/L (22-30); Chloride 120 mmol/L (98-107); Estimated CRCL calculation 84 ml/min; Estimated Glomerular Filt Rate > 60; Glucose 193 mg/dL (75-110); Magnesium 1.8 mg/dL (1.6-2.3); Phosphorus 3.3 mg/dL (2.5-4.5); Potassium 4.7 mmol/L (3.4-5.0); Sodium 146 mmol/L (137-145)
[2021-02-25 06:14] LABS: Glucose Point of Care 165 (65-105)
[2021-02-25 06:46] LABS: Platelet Estimate Decreased (Adequate)
[2021-02-25 06:48] LABS: Anisocytosis 1+ (NORMAL); Hypochromasia 2+ (NORMAL); Poikilocytosis 1+ (NORMAL); Target Cells 2+ (NORMAL)
[2021-02-25] MEDS: METOPROLOL TARTRATE 25 MG TABLET FEED TUBE ×2 (10:10→21:41)
[2021-02-25] MEDS: CARBIDOPA/LEVODOPA 10/100 MG TABLET 1 TABLET FEED TUBE ×3 (10:10→17:00)
[2021-02-25] MEDS: DONEPEZIL HCL 10 MG TABLET FEED TUBE (10:11)
[2021-02-25] MEDS: levETIRAcetam 500MG/NACL 100ML 500 MG/100 ML BAG 400 MG IVPB ×2 (10:11→22:03)
[2021-02-25 12:57] LABS: Glucose Point of Care 134 (65-105)
--- NOTE | 2021-02-25 14:11 | PM.IMPN ---
Progress Note: A&P Assessment and Plan (1) Severe sepsis: Code(s): A41.9 - Sepsis, unspecified organism; R65.20 - Severe sepsis without septic shock Status: Acute Assessment and Plan: Patient with severe sepsis present on admission and now septicemia. Lactic acid climbed to 4.7 and WBC to 15.8K. Patient's blood pressures was low and was treated with appropriate IV fluids. BP better and has since remained stable. UA consistent with UTI and UCx growing ESBL EColi and ESBL Klebsiella. BCx also (2of2) positive for ESBL EColi and ESBL Klebsiella so will continue Ertapenem. Complicated UTI with chronic indwelling suprapubic catheter. WBC normal now. Was having low grade fevers yesterday - PNA (aspiration?) or atelectasis? DVT possible now that he is off Lovenox. Will check CXR. Monitor in IMU. Spoke with son and discussed options regarding continued care vs Hospice. Explained that patient may have had a stroke given the patient's AFib and no anticoagulation. Also explained that the patient may not improve much beyond his current condition. discussed with son again today 02/25: wants to have G tube placed. discussed side effects and utility of g tube at this point. will consult Gi for G tube placement. (2) C. difficile diarrhea: Code(s): A04.72 - Enterocolitis due to Clostridium difficile, not specified as recurrent Status: Acute Assessment and Plan: Patient with diarrhea and stool studies positive for CDiff both for Ag and for toxin. We added oral Vanco via NGT. Diarrhea improving. Complete a 10 day course. (3) Dementia: Qualifiers: Dementia behavioral disturbance: without behavioral disturbance Dementia type: unspecified type Qualified Code(s): F03.90 - Unspecified dementia without behavioral disturbance Code(s): F03.90 - Unspecified dementia without behavioral disturbance Status: Chronic Assessment and Plan: Stable. Patient still with altered mental status and does not appear to be at baseline. We resumed Remeron, Sinemet and Aricept. CT brain showing no acute findings. Son was aware of these findings. Suspect infectious encephalopathy from these infections but can not exclude CVA. (4) Hypokalemia: Code(s): E87.6 - Hypokalemia Status: Acute Assessment and Plan: Potassium was <2.0 on admission. With replacement potassium has been nromal. continue to monitor. (5) Acute UTI: Code(s): N39.0 - Urinary tract infection, site not specified Status: Acute Assessment and Plan: Complicated UTI with chronic indwelling suprapubic Gambino with ESBL. Bacteremia felt related from urinary source. As above. (6) Hypocalcemia: Code(s): E83.51 - Hypocalcemia Status: Acute Assessment and Plan: Calcium listed as low as 2.7. On repeat, it was 4.2. Albumin was 2.5. Calcium replaced and now up to 7.7. Will follow. (7) Type 2 diabetes mellitus: Qualifiers: Diabetes mellitus rodent exterminator insulin use: without mcc use Diabetes mellitus complication status: without complication Qualified Code(s): E11.9 - Type 2 diabetes mellitus without complications Code(s): E11.9 - Type 2 diabetes mellitus without complications Status: Chronic Assessment and Plan: A1c 6.5. The patient's blood glucose was reviewed on 02/24 Glucose remains elevated on TF. He was changed to Glucerna. Continue AccuCheks covering with sliding scale. Hypoglycemia protocol available as needed. Glucose still elevated this morning. Will advance Lantus. (8) Atrial fibrillation: Qualifiers: Atrial fibrillation type: permanent Qualified Code(s): I48.21 - Permanent atrial fibrillation Code(s): I48.91 - Unspecified atrial fibrillation Status: Chronic Assessment and Plan: Heart rate elevated at times. Digoxin level 0.7. Metoprolol was on hold due to low blood pressure
--- NOTE | 2021-02-25 15:08 | PCDIET ---
Nutrition Follow-Up Complete: Nutrition Diagnosis: Inadequate oral intake related to decreased level of alertness as evidenced by no intake thus far, per nursing. Nutrition Goal: Patient to meet estimated nutritional needs. Goal in progress. Patient tolerating Glucerna 1.2 at 60mL/hr with 120mL water flush every 4 hours. Plan to proceed with PEG noted. Recommend goal tube feeding rate of 70mL/hr. Last recorded weight is 71.1 kg. Recommend obtaining new weight. Bowel Motility: BM x 4 on 02/24/21. Labs Reviewed: Hgb (7.8), Hct (23.6), Glu (193), BUN (41), Alb (2.0), [place] Ca (9.3), Na (146), Cl (120) Meds Noted: Sinemet, Aricept, Invanz, Novolog, Lantus, Reglan, Lopressor, Vancomycin Additional Notes: No significant change in sacral wound documented. Sodium improved with increased free water flush. Will continue to monitor with same goal. Nutrition Monitoring and Evaluation: Follow up every Wednesday/Wednesday.
[2021-02-25] MEDS: ERTAPENEM 1 GM/NS 50 ML 1 GM/50 ML BAG IVPB (17:00)
--- NOTE | 2021-02-25 17:11 | WPDGICN ---
Assessment and Plan Assessment and plan (1) Dysphagia: Code(s): R13.10 - Dysphagia, unspecified Status: Acute Assessment and Plan: inability to eat due to dementia, cva and sepsis now he is getting tube feeding using OGT family would like to get definitive G-tube before we can entertain the idea, we would need to wait until coagulopathy resolves (elevated inr on admission- will repeat, ? from severe sepsis) and also presented with thrombocytopenia- work up in progress (HIT ab, ? from sepsis) prognosis is guarded based on overall poor condition (2) Bacteremia due to Gram-negative bacteria: Code(s): R78.81 - Bacteremia Status: Acute Assessment and Plan: on iv antibiotics (3) Severe sepsis: Code(s): A41.9 - Sepsis, unspecified organism; R65.20 - Severe sepsis without septic shock Status: Acute Assessment and Plan: on admission with bacteremia (4) Catheter-associated urinary tract infection: Qualifiers: Indwelling urinary catheter type: indwelling urethral catheter Encounter type: initial encounter Qualified Code(s): T83.511A - Infection and inflammatory reaction due to indwelling urethral catheter, initial encounter; N39.0 - Urinary tract infection, site not specified Code(s): T83.511A - Infection and inflammatory reaction due to indwelling urethral catheter, initial encounter; N39.0 - Urinary tract infection, site not specified Status: Acute Assessment and Plan: probably source of infection (5) Thrombocytopenia: Code(s): D69.6 - Thrombocytopenia, unspecified Status: Acute Assessment and Plan: by primary team hold off g-tube placement until improvement of platelets (6) C. difficile diarrhea: Code(s): A04.72 - Enterocolitis due to Clostridium difficile, not specified as recurrent Status: Acute Assessment and Plan: also on oral vancomycin (7) Acute encephalopathy: Code(s): G93.40 - Encephalopathy, unspecified Status: Acute (8) Seizure: Code(s): R56.9 - Unspecified convulsions Status: Acute (9) Dementia: Qualifiers: Dementia type: unspecified type Dementia behavioral disturbance: without behavioral disturbance Qualified Code(s): F03.90 - Unspecified dementia without behavioral disturbance Code(s): F03.90 - Unspecified dementia without behavioral disturbance Status: Chronic (10) Coagulopathy: Code(s): D68.9 - Coagulation defect, unspecified Status: Acute Assessment and Plan: repeat labs GI Consult Note Consult date/time: 02/25/21 17:11 Reason for consult: dysphagia, malnutrition HPI: Jonny Pantoja is a 70 year old male with multiple medical problems including CVA with advanced dementia, non-verbal, suprapubic catheter with multiple urinary tract infections, heart disease. History is obtained from records. He was admitted after was found to be hypoxic and seizures, also hypotensive, he was found to have sepsis with bacteremia complicated from suprapubic catheter (E coli and Klebsiella). Also noted elevated INR few days ago (no records of using blood thinners) and low platelets ~ 20's (previously normal), HIT ab pending. He is now getting tube feeding by OGT and family would like for him to get G-tube for bed bug exterminator nutrition. Review of Systems Review of Systems: ROS unobtainable: Yes unobtainable due to medical condition and unobtainable due to mental status PMFSH Past Medical History Medical History Atrial fibrillation BPH (benign prostatic hyperplasia) Congestive heart failure Constipation Coronary artery disease CVA (cerebral vascular accident) Right side flaccid Dementia Depression Depression with anxiety Dyslipidemia Flexion contracture joint of multiple sites Gambino catheter in place History of DVT (deep vein thrombosis) Hypertension Obstructive sleep apnea [place]
[2021-02-25 17:26] LABS: Glucose Point of Care 117 (65-105)
[2021-02-25 20:25] LABS: Heparin Induced Platelet Antib Negative (Negative)
[2021-02-25] MEDS: MIRTAZAPINE 15 MG TABLET FEED TUBE (21:41)
[2021-02-25] MEDS: INSULIN GLARGINE (*BKC) 100 UNITS/ML 15 UNITS SUB-Q (21:41)
[2021-02-25 23:56] LABS: Glucose Point of Care 100 (65-105)
[2021-02-26] VITALS (16 sets, daily range): BP systolic 117–156; BP diastolic 53–85; PULSE 67–128; RESP 12–20; TEMP 36.2–37.4; O2SAT 95–100
[2021-02-26] MEDS: VANCOMYCIN ORAL 125 MG/2.5 ML SYRUP FEED TUBE ×4 (00:05→23:41)
[2021-02-26] MEDS: METOCLOPRAMIDE HCL INJ 10 MG/2 ML VIAL 5 MG IV PUSH ×4 (00:05→23:42)
[2021-02-26] MEDS: CENTRAL LINE FLUSH 10 ML IV PUSH ×3 (05:17→21:23)
[2021-02-26 05:22] LABS: Basophils Percent Auto 0.1 % (0.2-1.2); Eosinophils Absolute Auto 0.3 K/mm3 (0-0.3); Eosinophils Percent Auto 3.2 % (0-4.4); Hematocrit 22.7 % (42.0-52.0); Hemoglobin 7.4 g/dL (14.0-18.0); Immature Granulocyte Absolute 0.05 K/mm3 (0.00-0.031); Immature Granulocyte Percent A 0.5 % (0-0.5); Immature Platelet Fraction Pct 19.2 % (0.9-11.2); Lymphocytes Absolute Auto 1.27 K/mm3 (0.9-3.2); Lymphocytes Percent Auto 13.5 % (18.3-44.2); Mean Corpuscular HGB Conc 32.6 g/dl (32-36); Monocytes Absolute Auto 0.7 K/mm3 (0.1-0.6); Monocytes Percent Auto 7.3 % (2.6-8.5); Neutrophils Absolute Auto 7.1 K/mm3 (1.3-6.7); Neutrophils Percent Auto 75.4 % (45.5-73.1); Nucleated Red Blood Cells Perc 0.2 % (0.0-0.2); Platelet Count Result 79 k/mm3 (150-375); Red Blood Count 2.55 M/mm3 (4.6-6.20); Red Cell Distribution Width 15.6 % (11.5-14.5); White Blood Count 9.4 K/mm3 (4.5-10.0)
[2021-02-26 05:33] LABS: INR 1.1; Partial Thromboplastin Time 30.7 SECONDS (22.3-36.8); Prothrombin Time 14.5 Seconds (11.1-14.7)
[2021-02-26 05:35] LABS: Anion Gap 0 mmol/L (8-16); Blood Urea Nitrogen 34 mg/dL (9-20); Calcium 7.4 mg/dL (8.4-10.2); Carbon Dioxide 30 mmol/L (22-30); Chloride 118 mmol/L (98-107); Estimated CRCL calculation 114 ml/min; Estimated Glomerular Filt Rate > 60; Glucose 96 mg/dL (75-110); Potassium 4.4 mmol/L (3.4-5.0); Sodium 148 mmol/L (137-145)
[2021-02-26 05:52] LABS: Platelet Estimate Decreased (Adequate)
[2021-02-26 05:53] LABS: Hypochromasia 1+ (NORMAL); Large Platelets Present
[2021-02-26 08:01] LABS: Glucose Point of Care 74 (65-105)
[2021-02-26] MEDS: METOPROLOL TARTRATE 25 MG TABLET FEED TUBE ×2 (08:58→18:20)
[2021-02-26] MEDS: DONEPEZIL HCL 10 MG TABLET FEED TUBE (08:58)
[2021-02-26] MEDS: CARBIDOPA/LEVODOPA 10/100 MG TABLET 1 TABLET FEED TUBE ×2 (08:58→17:07)
[2021-02-26] MEDS: levETIRAcetam 500MG/NACL 100ML 500 MG/100 ML BAG 400 MG IVPB ×2 (09:13→21:21)
[2021-02-26] MEDS: DEXTROSE 50% 25 GM/50 ML SYRINGE IV PUSH ×2 (11:40→14:30)
[2021-02-26 12:22] LABS: Glucose Point of Care 44 (65-105)
[2021-02-26 12:22] LABS: Glucose Point of Care 93 (65-105)
--- NOTE | 2021-02-26 12:51 | WPDANESEPPF ---
Anes - Initial Pre Proc Eval Procedure: Operation Date: 02/26/21 15:00 Proposed Procedures p Esophagogastroduodenoscopy - Chad Berrios MD s Percutaneous Endoscopic Gastrostomy Placement - Chad Berrios MD Date/Time: 02/26/21 12:51 Surgeon: Bony Krueger MD Pre Op Diagnosis: uti, hypokalemia Patient Data Age: 70 Gender: M Height: 6 ft Weight: 71.1 kg Last Vital Signs Temp 98.2 F 02/26/21 12:00 Pulse 76 02/26/21 12:00 Resp 16 02/26/21 12:00 BP 134/74 02/26/21 12:00 Pulse Ox 98 02/26/21 12:00 Allergies Allergy/AdvReac Type Severity Reaction Status Date / Time No Known Allergies Allergy Verified 02/19/21 02:04 Home Medications Medication Instructions Recorded Confirmed Type acetaminophen 650 mg PO Q6H PRN 10/21/19 02/18/21 History amantadine HCl 100 mg PO QPM 10/21/19 02/18/21 History aspirin 81 mg PO DAILY 10/21/19 02/18/21 History atorvastatin 80 mg PO HS 10/21/19 02/18/21 History carbidopa-levodopa 1 tablet PO TIDWM 10/21/19 02/18/21 History digoxin [Digox] 125 mcg PO DAILY 10/21/19 02/18/21 History docusate sodium [Colace] 100 mg PO DAILY 10/21/19 02/18/21 History donepezil 10 mg PO DAILY 10/21/19 02/18/21 History fluoxetine 10 mg PO DAILY 10/21/19 02/18/21 History ondansetron 4 mg PO Q8H PRN 10/21/19 02/18/21 History metoprolol succinate 50 mg PO DAILY 03/10/20 02/18/21 History polyethylene glycol 3350 [Miralax] 17 g PO DAILY #30 ea 10/02/20 02/18/21 Rx digoxin 250 mcg PO WEEKLY 11/22/20 02/18/21 History megestrol 5 ml PO DAILY 11/22/20 02/18/21 History mirtazapine 15 mg PO HS 11/22/20 02/18/21 History polysaccharide iron complex 150 mg PO BID 11/22/20 02/18/21 History levetiracetam [Keppra] 500 mg PO Q12HR #60 tablet 11/26/20 02/18/21 Rx magnesium oxide 400 mg PO QAM #30 tablet 11/26/20 02/18/21 Rx lisinopril 10 mg PO DAILY 02/18/21 02/18/21 History Laboratory Tests 02/23/21 02/25/21 02/25/21 06:09 12:51 16:59 WBC RBC Hgb Hct MCV MCH MCHC RDW Plt Count MPV Immature Gran % (Auto) Neut % (Auto) Lymph % (Auto) [place] % (Auto) Eos % (Auto) Baso % (Auto) Lymph # (Auto) [place] # (Auto) Eos # (Auto) Baso # (Auto) Abs Immat Gran (auto) Absolute Neuts (auto) Absolute Nucleated RBC Nucleated RBC % Platelet Estimate Large Platelets % Immature Plt Fraction Hypochromasia PT INR APTT Sodium Potassium Chloride Carbon Dioxide Anion Gap BUN Creatinine Estim Creat Clear Calc Estimated GFR Glucose POC Capillary Glucose 134 mg/dl H mg/dl 117 mg/dl H mg/dl (65-105) (65-105) Calcium Heparin-induced Plt Ab Negative (Negative) Hep-Induced Plt Ab Cmmt 0.060 02/25/21 02/26/21 02/26/21 23:51 04:46 04:46 WBC 9.4 K/mm3 K/mm3 (4.5-10.0) RBC 2.55 M/mm3 L M/mm3 (4.6-6.20) Hgb 7.4 g/dL L g/dL (14.0-18.0) Hct 22.7 % L % (42.0-52.0) MCV 89.0 fl fl (80-100) MCH 29.0 pg pg (26-34) MCHC 32.6 g/dl g/dl (32-36) RDW 15.6 % H % (11.5-14.5) Plt Count 79 k/mm3 L D k/mm3 (150-375) MPV TNP Immature Gran % (Auto) 0.5 % % (0-0.5) Neut % (Auto) 75.4 % H % (45.5-73.1) Lymph % (Auto) 13.5 % L % (18.3-44.2) [place] % (Auto) 7.3 % % (2.6-8.5) Eos % (Auto) 3.2 % % (0-4.4) Baso % (Auto) 0.1 % L % (0.2-1.2) Lymph # (Auto) 1.27 K/mm3 K/mm3 (0.9-3.2)
--- NOTE | 2021-02-26 12:56 | PM.IMPN ---
Progress Note: A&P Assessment and Plan (1) Severe sepsis: Code(s): A41.9 - Sepsis, unspecified organism; R65.20 - Severe sepsis without septic shock Status: Acute Assessment and Plan: Patient with severe sepsis present on admission and now septicemia. Lactic acid climbed to 4.7 and WBC to 15.8K. Patient's blood pressures was low and was treated with appropriate IV fluids. BP better and has since remained stable. UA consistent with UTI and UCx growing ESBL EColi and ESBL Klebsiella. BCx also (2of2) positive for ESBL EColi and ESBL Klebsiella so will continue Ertapenem. Complicated UTI with chronic indwelling suprapubic catheter. WBC normal now. Was having low grade fevers yesterday - PNA (aspiration?) or atelectasis? DVT possible now that he is off Lovenox. Will check CXR. Monitor in IMU. Spoke with son and discussed options regarding continued care vs Hospice. Explained that patient may have had a stroke given the patient's AFib and no anticoagulation. Also explained that the patient may not improve much beyond his current condition. discussed with son again today 02/25: wants to have G tube placed. discussed side effects and utility of g tube at this point. will consult Gi for G tube placement. he is gonig for one today. (2) C. difficile diarrhea: Code(s): A04.72 - Enterocolitis due to Clostridium difficile, not specified as recurrent Status: Acute Assessment and Plan: Patient with diarrhea and stool studies positive for CDiff both for Ag and for toxin. We added oral Vanco via NGT. Diarrhea improving. Complete a 10 day course. (3) Dementia: Qualifiers: Dementia behavioral disturbance: without behavioral disturbance Dementia type: unspecified type Qualified Code(s): F03.90 - Unspecified dementia without behavioral disturbance Code(s): F03.90 - Unspecified dementia without behavioral disturbance Status: Chronic Assessment and Plan: Stable. Patient still with altered mental status and does not appear to be at baseline. We resumed Remeron, Sinemet and Aricept. CT brain showing no acute findings. Son was aware of these findings. Suspect infectious encephalopathy from these infections but can not exclude CVA. (4) Hypokalemia: Code(s): E87.6 - Hypokalemia Status: Acute Assessment and Plan: Potassium was <2.0 on admission. With replacement potassium has been normal. continue to monitor. (5) Acute UTI: Code(s): N39.0 - Urinary tract infection, site not specified Status: Acute Assessment and Plan: Complicated UTI with chronic indwelling suprapubic Gambino with ESBL. Bacteremia felt related from urinary source. As above. (6) Hypocalcemia: Code(s): E83.51 - Hypocalcemia Status: Acute Assessment and Plan: Calcium listed as low as 2.7. On repeat, it was 4.2. Albumin was 2.5. Calcium replaced and now up to 7.7. Will follow. (7) Type 2 diabetes mellitus: Qualifiers: Diabetes mellitus longterm insulin use: without roasterman use Diabetes mellitus complication status: without complication Qualified Code(s): E11.9 - Type 2 diabetes mellitus without complications Code(s): E11.9 - Type 2 diabetes mellitus without complications Status: Chronic Assessment and Plan: A1c 6.5. The patient's blood glucose was reviewed on 02/24 Glucose remains elevated on TF. He was changed to Glucerna. Continue AccuCheks covering with sliding scale. Hypoglycemia protocol available as needed. Glucose still elevated this morning. Will advance Lantus. (8) Atrial fibrillation: Qualifiers: Atrial fibrillation type: permanent Qualified Code(s): I48.21 - Permanent atrial fibrillation Code(s): I48.91 - Unspecified atrial fibrillation Status: Chronic Assessment and Plan: Heart rate elevated at times. Digoxin level 0.7. Metoprolol was on hold
[2021-02-26] MEDS: LACTATED RINGERS 1,000 ML 150 ML IV CONT (13:54)
[2021-02-26 14:09] LABS: Glucose Point of Care 75 (65-105)
[2021-02-26] MEDS: ceFAZolin SODIUM 1 GM VIAL IV PUSH (14:29)
--- NOTE | 2021-02-26 14:33 | SUR.PREOP ---
pts blood glucose 75, per dr perez gave 1/2 amp of D50.
[2021-02-26] MEDS: BENZOCAINE (*SP) 60 ML SPRAY CAN (HURRICAINE) 1 SPRAY MUCOUS MEM (14:43)
[2021-02-26 15:04] LABS: Glucose Point of Care 105 (65-105)
[2021-02-26] MEDS: ERTAPENEM 1 GM/NS 50 ML 1 GM/50 ML BAG IVPB (17:07)
[2021-02-26 17:16] LABS: Glucose Point of Care 84 (65-105)
[2021-02-26 18:16] LABS: Glucose Point of Care 82 (65-105)
[2021-02-26 18:34] LABS: Glucose Point of Care 77 (65-105)
[2021-02-26] MEDS: MIRTAZAPINE 15 MG TABLET FEED TUBE (21:22)
[2021-02-27] VITALS (11 sets, daily range): BP systolic 94–129; BP diastolic 49–66; PULSE 58–129; RESP 14–18; TEMP 36.3–37.1; O2SAT 92–97
[2021-02-27 00:05] LABS: Glucose Point of Care 70 (65-105)
[2021-02-27] MEDS: VANCOMYCIN ORAL 125 MG/2.5 ML SYRUP FEED TUBE ×3 (05:23→18:02)
[2021-02-27] MEDS: METOCLOPRAMIDE HCL INJ 10 MG/2 ML VIAL 5 MG IV PUSH ×3 (05:24→18:02)
[2021-02-27] MEDS: CENTRAL LINE FLUSH 10 ML IV PUSH ×3 (05:24→21:01)
[2021-02-27 05:35] LABS: Basophils Percent Auto 0.2 % (0.2-1.2); Eosinophils Absolute Auto 0.2 K/mm3 (0-0.3); Eosinophils Percent Auto 1.9 % (0-4.4); Hematocrit 22.4 % (42.0-52.0); Hemoglobin 7.3 g/dL (14.0-18.0); Immature Granulocyte Absolute 0.07 K/mm3 (0.00-0.031); Immature Granulocyte Percent A 0.6 % (0-0.5); Immature Platelet Fraction Pct 16.1 % (0.9-11.2); Lymphocytes Absolute Auto 1.11 K/mm3 (0.9-3.2); Lymphocytes Percent Auto 10.2 % (18.3-44.2); Mean Corpuscular HGB Conc 32.6 g/dl (32-36); Mean Corpuscular Hemoglobin 29.1 pg (26-34); Mean Corpuscular Volume 89.2 fl (80-100); Monocytes Absolute Auto 0.5 K/mm3 (0.1-0.6); Monocytes Percent Auto 4.8 % (2.6-8.5); Neutrophils Absolute Auto 8.9 K/mm3 (1.3-6.7); Neutrophils Percent Auto 82.3 % (45.5-73.1); Nucleated Red Blood Cells Perc 0.3 % (0.0-0.2); Platelet Count Result 130 k/mm3 (150-375); Red Blood Count 2.51 M/mm3 (4.6-6.20); Red Cell Distribution Width 15.5 % (11.5-14.5); White Blood Count 10.9 K/mm3 (4.5-10.0)
[2021-02-27 05:54] LABS: Anion Gap 2 mmol/L (8-16); Blood Urea Nitrogen 26 mg/dL (9-20); Calcium 7.1 mg/dL (8.4-10.2); Carbon Dioxide 30 mmol/L (22-30); Chloride 116 mmol/L (98-107); Estimated CRCL calculation 114 ml/min; Estimated Glomerular Filt Rate > 60; Glucose 133 mg/dL (75-110); Potassium 3.9 mmol/L (3.4-5.0); Sodium 148 mmol/L (137-145)
[2021-02-27 07:07] LABS: Hypochromasia 1+ (NORMAL); Platelet Estimate Decreased (Adequate)
--- NOTE | 2021-02-27 07:33 | WPDANESPN ---
Anes - Prog Note Post-Op Date/Time: 02/27/21 07:33 Cardiovascular status: normal Respiratory status: normal Airway patency: baseline Mental status: baseline Post-Op hydration status: normal Vital Signs: Last Vital Signs Temp 37.1 C 02/27/21 00:00 Pulse 118 H 02/27/21 03:52 Resp 18 02/27/21 00:00 BP 113/61 02/27/21 00:00 Pulse Ox 96 02/27/21 00:00 Pain Score (VAS): 0 I/O: Intake & Output 02/26/21 02/26/21 02/27/21 15:59 23:59 07:59 Intake Total 150 150 Output Total 800 625 Balance 150 -650 -625 Laboratory Tests 02/27/21 05:01 02/27/21 05:01 02/26/21 02/26/21 02/26/21 07:35 11:38 11:57 WBC RBC Hgb Hct MCV MCH MCHC RDW Plt Count MPV Immature Gran % (Auto) Neut % (Auto) Lymph % (Auto) [place] % (Auto) Eos % (Auto) Baso % (Auto) Lymph # (Auto) [place] # (Auto) Eos # (Auto) Baso # (Auto) Abs Immat Gran (auto) Absolute Neuts (auto) Absolute Nucleated RBC Nucleated RBC % Platelet Estimate % Immature Plt Fraction Hypochromasia Sodium Potassium Chloride Carbon Dioxide Anion Gap BUN Creatinine Estim Creat Clear Calc Estimated GFR Glucose POC Capillary Glucose 74 44 L* 93 Calcium 02/26/21 02/26/21 02/26/21 14:07 15:00 15:41 WBC RBC Hgb Hct MCV MCH MCHC RDW Plt Count MPV Immature Gran % (Auto) Neut % (Auto) Lymph % (Auto) [place] % (Auto) Eos % (Auto) Baso % (Auto) Lymph # (Auto) [place] # (Auto) Eos # (Auto) Baso # (Auto) Abs Immat Gran (auto) Absolute Neuts (auto) Absolute Nucleated RBC Nucleated RBC % Platelet Estimate % Immature Plt Fraction Hypochromasia Sodium Potassium Chloride Carbon Dioxide Anion Gap BUN Creatinine Estim Creat Clear Calc Estimated GFR Glucose POC Capillary Glucose 75 105 84 Calcium 02/26/21 02/26/21 02/26/21 18:13 18:29 23:11 WBC RBC Hgb Hct MCV MCH MCHC RDW Plt Count MPV Immature Gran % (Auto) Neut % (Auto) Lymph % (Auto) [place] % (Auto) Eos % (Auto) Baso % (Auto) Lymph # (Auto) [place] # (Auto) Eos # (Auto) Baso # (Auto) Abs Immat Gran (auto) Absolute Neuts (auto) Absolute Nucleated RBC Nucleated RBC % Platelet Estimate % Immature Plt Fraction Hypochromasia Sodium Potassium Chloride Carbon Dioxide Anion Gap BUN Creatinine Estim Creat Clear Calc Estimated GFR Glucose POC Capillary Glucose 82 77 70 Calcium 02/27/21 02/27/21 05:01 05:01 WBC 10.9 H RBC 2.51 L Hgb 7.3 L Hct 22.4 L MCV 89.2 MCH 29.1 MCHC 32.6 RDW 15.5 H Plt Count 130 L D MPV TNP Immature Gran % (Auto) 0.6 H Neut % (Auto) 82.3 H Lymph % (Auto) 10.2 L [place] % (Auto) 4.8 Eos % (Auto) 1.9 Baso % (Auto) 0.2 Lymph # (Auto) 1.11 [place] # (Auto) 0.5 Eos # (Auto) 0.2 Baso # (Auto) 0.0 Abs Immat Gran (auto) 0.07 H Absolute Neuts (auto) 8.9 H Absolute Nucleated RBC 0.0 Nucleated RBC % 0.3 H Platelet Estimate Decreased % Immature Plt Fraction 16.1 H Hypochromasia 1+ Sodium 148 H Potassium 3.9 Chloride 116 H Carbon Dioxide 30 Anion Gap 2 L BUN 26 H Creatinine 0.50 L Estim Creat Clear Calc 114 Estimated GFR > 60 Glucose 133 H POC Capillary Glucose Calcium 7.1 L Post-procedural complaints: none Patient Feedback: Patient satisfied with anesthetic care.
[2021-02-27] MEDS: DONEPEZIL HCL 10 MG TABLET FEED TUBE (08:11)
[2021-02-27] MEDS: CARBIDOPA/LEVODOPA 10/100 MG TABLET 1 TABLET FEED TUBE ×3 (08:11→18:03)
[2021-02-27] MEDS: METOPROLOL TARTRATE 25 MG TABLET FEED TUBE ×2 (08:11→20:21)
[2021-02-27] MEDS: levETIRAcetam 500MG/NACL 100ML 500 MG/100 ML BAG 400 MG IVPB (08:12)
[2021-02-27 12:57] LABS: Glucose Point of Care 144 (65-105)
--- NOTE | 2021-02-27 13:06 | PM.IMPN ---
Progress Note: A&P Assessment and Plan (1) Severe sepsis: Code(s): A41.9 - Sepsis, unspecified organism; R65.20 - Severe sepsis without septic shock Status: Acute Assessment and Plan: Patient with severe sepsis present on admission and now septicemia. Lactic acid climbed to 4.7 and WBC to 15.8K. Patient's blood pressures was low and was treated with appropriate IV fluids. BP better and has since remained stable. UA consistent with UTI and UCx growing ESBL EColi and ESBL Klebsiella. BCx also (2of2) positive for ESBL EColi and ESBL Klebsiella so will continue Ertapenem. Complicated UTI with chronic indwelling suprapubic catheter. WBC normal now. Was having low grade fevers yesterday - PNA (aspiration?) or atelectasis? DVT possible now that he is off Lovenox. Will check CXR. Monitor in IMU. Spoke with son and discussed options regarding continued care vs Hospice. Explained that patient may have had a stroke given the patient's AFib and no anticoagulation. Also explained that the patient may not improve much beyond his current condition. discussed with son again today 02/25: wants to have G tube placed. discussed side effects and utility of g tube at this point. will consult Gi for G tube placement. s/p G tube placement tolerating tube feeds. (2) C. difficile diarrhea: Code(s): A04.72 - Enterocolitis due to Clostridium difficile, not specified as recurrent Status: Acute Assessment and Plan: Patient with diarrhea and stool studies positive for CDiff both for Ag and for toxin. We added oral Vanco via NGT. Diarrhea improving. Complete a 10 day course. Day 05/01 (3) Dementia: Qualifiers: Dementia behavioral disturbance: without behavioral disturbance Dementia type: unspecified type Qualified Code(s): F03.90 - Unspecified dementia without behavioral disturbance Code(s): F03.90 - Unspecified dementia without behavioral disturbance Status: Chronic Assessment and Plan: Stable. Patient still with altered mental status and does not appear to be at baseline. We resumed Remeron, Sinemet and Aricept. CT brain showing no acute findings. Son was aware of these findings. Suspect infectious encephalopathy from these infections but can not exclude CVA. (4) Hypokalemia: Code(s): E87.6 - Hypokalemia Status: Acute Assessment and Plan: Potassium was <2.0 on admission. With replacement potassium has been normal. continue to monitor. (5) Acute UTI: Code(s): N39.0 - Urinary tract infection, site not specified Status: Acute Assessment and Plan: Complicated UTI with chronic indwelling suprapubic Gambino with ESBL. Bacteremia felt related from urinary source. As above. (6) Hypocalcemia: Code(s): E83.51 - Hypocalcemia Status: Acute Assessment and Plan: Calcium listed as low as 2.7. On repeat, it was 4.2. Albumin was 2.5. Calcium replaced and now up to 7.7. Will follow. (7) Type 2 diabetes mellitus: Qualifiers: Diabetes mellitus ferry terminal agent insulin use: without ferry terminal agent use Diabetes mellitus complication status: without complication Qualified Code(s): E11.9 - Type 2 diabetes mellitus without complications Code(s): E11.9 - Type 2 diabetes mellitus without complications Status: Chronic Assessment and Plan: A1c 6.5. The patient's blood glucose was reviewed on 02/24 Glucose remains elevated on TF. He was changed to Glucerna. Continue AccuCheks covering with sliding scale. Hypoglycemia protocol available as needed. Glucose still elevated this morning. Will advance Lantus. (8) Atrial fibrillation: Qualifiers: Atrial fibrillation type: permanent Qualified Code(s): I48.21 - Permanent atrial fibrillation Code(s): I48.91 - Unspecified atrial fibrillation Status: Chronic Assessment and Plan: Heart rate elevated at times. Digoxin level
--- NOTE | 2021-02-27 15:30 | PC.NURSE ---
This patient, Jonny Pantoja, was received from IMU on 02/27/21 at 1530. Received report from RACHNA Freitas. Patient/family oriented to unit policies and routines.
--- NOTE | 2021-02-27 16:33 | WPDGIPROGNO ---
Progress Note: A&P Assessment and Plan (1) Dysphagia: Code(s): R13.10 - Dysphagia, unspecified Status: Acute Assessment and Plan: with malnutrition, failure to thrive G-tube placed yesterday and tolerating call us if questions (2) CVA (cerebral vascular accident): Code(s): I63.9 - Cerebral infarction, unspecified Status: Chronic (3) Severe sepsis: Code(s): A41.9 - Sepsis, unspecified organism; R65.20 - Severe sepsis without septic shock Status: Acute Assessment and Plan: treated with abx (4) Bacteremia due to Gram-negative bacteria: Code(s): R78.81 - Bacteremia Status: Acute (5) C. 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 Neck: Neck: supple Resp: Auscultation: clear to auscultation bilaterally Cardio: Rate: regular rate GI: GI Palp: Yes Soft to palpation and No Guarding due to palpation present (GI) Auscultation: normal bowel sounds Other: G-tube in place, no drainage, working ok Urinary Catheter: Urinary Catheter: other (suprapubic catheter) Skin: General skin exam: normal color Neuro: Cognition (Neuro): abnormal cognition Other: non-verbal Extrem: General: no edema Psych: Other: unable to assess Objective Data Vital Signs Vital Signs: Vital Signs - 24 hr 02/26/21 18:20 02/26/21 18:38 02/26/21 20:00 Temperature 97.8 F Pulse Rate 128 H 94 79 Respiratory Rate 12 12 Blood Pressure 138/76 Pulse Oximetry 98 98 02/27/21 00:00 02/27/21 03:52 02/27/21 08:00 Temperature 98.7 F 98.4 F Pulse Rate 129 H 118 H 113 H Respiratory Rate 18 14 Blood Pressure 113/61 112/60 Pulse Oximetry 96 97 04/08/21 08:11 02/27/21 12:56 02/27/21 13:25 Temperature 98.6 F Pulse Rate 112 H 123 H Respiratory Rate 16 Blood Pressure 94/49 L 101/59 L Pulse Oximetry 96 Intake/Output Intake/Output: Intake & Output 02/24/21 02/25/21 02/26/21 02/27/21 23:59 23:59 23:59 23:59 Intake Total 1325 9364 854 1203 Output Total 551 876 8960 625 Balance 475 320 -1400 505 Meds/Results Medications: Active Medications Generic Name Dose Route Start Last Admin Trade Name Freq PRN Reason Stop Dose Admin Acetaminophen 650 mg 02/18/21 19:39 02/23/21 13:59 Acetaminophen 325 Mg Tablet PO 650 mg Q4H PRN Administration Mild Pain (1-3) or Fever Carbidopa/Levodopa 1 tablet 02/21/21 08:00 02/27/21 13:23 Carbidopa/Levodopa 10/100 Mg Tablet FEED TUBE 1 tablet TIDWM PAOLA Administration Dextrose 12.5 gm 02/18/21 22:35 02/26/21 11:40 Dextrose 50% 25 Gm/50 Ml Syringe IV PUSH 12.5 gm PRN PRN Administration Hypoglycemia Protocol Digoxin 125 mcg 02/19/21 09:00 02/19/21 08:33 Digoxin Inj 250 Mcg/Ml 2 Ml Amp (*Bkc) IV PUSH 125 mcg DAILY PAOLA Administration Donepezil HCl 10 mg 02/21/21 12:45 02/27/21 08:11 Donepezil Hcl 10 Mg Tablet FEED TUBE 10 mg DAILY PAOLA Administration Glucagon 1 mg 02/18/21 22:35 Glucagon For Inj 1 Mg Vial IM PRN PRN Hypoglycemia Protocol Glucose 15 gm 02/18/21 22:35 Glucose Oral Gel 15 Gm Of Glucse In 37.5 Gm Tube PO PRN PRN Hypoglycemia Protocol Ertapenem 1 gm in 50 mls @ 100 mls/hr 02/19/21 18:00 02/26/21 17:57 Invanz 1 Gm/Ns 50 Ml IVPB Infused Q24H PAOLA Infusion Dextrose 1,000 mls @ 100 mls/hr 02/18/21 22:35 Dextrose 5% 1,000 Ml IVPB PRN PRN Hypoglycemia Protocol Insulin Aspart 2 - 5 units 02/19
--- NOTE | 2021-02-27 17:35 | PC.NURSE ---
This patient, Jonny Pantoja, was transferred to [facility] on 02/27/21 at 1517. Personal belongings sent with patient. Report given to RACHNA Santos. Appropriate documentation sent with patient.
[2021-02-27] MEDS: ERTAPENEM 1 GM/NS 50 ML 1 GM/50 ML BAG IVPB (18:02)
[2021-02-27 18:15] LABS: Glucose Point of Care 174 (65-105)
[2021-02-27] MEDS: levETIRAcetam ORAL SOL 500 MG/5 ML UDC FEED TUBE (20:21)
[2021-02-27] MEDS: MIRTAZAPINE 15 MG TABLET FEED TUBE (20:21)
[2021-02-27] MEDS: INSULIN GLARGINE (*BKC) 100 UNITS/ML 15 UNITS SUB-Q (20:46)
[2021-02-27 23:07] LABS: Glucose Point of Care 213 (65-105)
[2021-02-28] VITALS (14 sets, daily range): BP systolic 127–142; BP diastolic 57–76; PULSE 76–121; RESP 16–21; TEMP 36.1–36.6; O2SAT 98–100
[2021-02-28] MEDS: METOCLOPRAMIDE HCL INJ 10 MG/2 ML VIAL 5 MG IV PUSH ×5 (00:14→23:28)
[2021-02-28] MEDS: VANCOMYCIN ORAL 125 MG/2.5 ML SYRUP FEED TUBE ×5 (00:14→23:28)
[2021-02-28 00:27] LABS: Glucose Point of Care 168 (65-105)
[2021-02-28 05:43] LABS: Glucose Point of Care 106 (65-105)
[2021-02-28] MEDS: CENTRAL LINE FLUSH 10 ML IV PUSH ×3 (05:49→20:31)
[2021-02-28] MEDS: DONEPEZIL HCL 10 MG TABLET FEED TUBE (08:53)
[2021-02-28] MEDS: CARBIDOPA/LEVODOPA 10/100 MG TABLET 1 TABLET FEED TUBE ×3 (08:53→17:04)
[2021-02-28] MEDS: METOPROLOL TARTRATE 25 MG TABLET FEED TUBE ×2 (08:53→20:31)
[2021-02-28] MEDS: levETIRAcetam ORAL SOL 500 MG/5 ML UDC FEED TUBE ×2 (08:54→20:31)
--- NOTE | 2021-02-28 11:18 | PM.IMPN ---
Progress Note: A&P Assessment and Plan (1) Severe sepsis: Code(s): A41.9 - Sepsis, unspecified organism; R65.20 - Severe sepsis without septic shock Status: Acute Assessment and Plan: Patient with severe sepsis present on admission and now septicemia. Lactic acid climbed to 4.7 and WBC to 15.8K. Patient's blood pressures was low and was treated with appropriate IV fluids. BP better and has since remained stable. UA consistent with UTI and UCx growing ESBL EColi and ESBL Klebsiella. BCx also (2of2) positive for ESBL EColi and ESBL Klebsiella so will continue Ertapenem. Complicated UTI with chronic indwelling suprapubic catheter. WBC normal now. Was having low grade fevers yesterday - PNA (aspiration?) or atelectasis? DVT possible now that he is off Lovenox. Will check CXR. Monitor in IMU. Spoke with son and discussed options regarding continued care vs Hospice. Explained that patient may have had a stroke given the patient's AFib and no anticoagulation. Also explained that the patient may not improve much beyond his current condition. discussed with son again today 02/25: wants to have G tube placed. discussed side effects and utility of g tube at this point. will consult Gi for G tube placement. s/p G tube placement tolerating tube feeds. (2) C. difficile diarrhea: Code(s): A04.72 - Enterocolitis due to Clostridium difficile, not specified as recurrent Status: Acute Assessment and Plan: Patient with diarrhea and stool studies positive for CDiff both for Ag and for toxin. We added oral Vanco via NGT. Diarrhea improving. Complete a 10 day course. Day 05/31 (3) Dementia: Qualifiers: Dementia behavioral disturbance: without behavioral disturbance Dementia type: unspecified type Qualified Code(s): F03.90 - Unspecified dementia without behavioral disturbance Code(s): F03.90 - Unspecified dementia without behavioral disturbance Status: Chronic Assessment and Plan: Stable. Patient still with altered mental status and does not appear to be at baseline. We resumed Remeron, Sinemet and Aricept. CT brain showing no acute findings. Son was aware of these findings. Suspect infectious encephalopathy from these infections but can not exclude CVA. (4) Hypokalemia: Code(s): E87.6 - Hypokalemia Status: Acute Assessment and Plan: Potassium was <2.0 on admission. With replacement potassium has been normal. continue to monitor. (5) Acute UTI: Code(s): N39.0 - Urinary tract infection, site not specified Status: Acute Assessment and Plan: Complicated UTI with chronic indwelling suprapubic Gambino with ESBL. Bacteremia felt related from urinary source. As above. (6) Hypocalcemia: Code(s): E83.51 - Hypocalcemia Status: Acute Assessment and Plan: Calcium listed as low as 2.7. On repeat, it was 4.2. Albumin was 2.5. Calcium replaced and now up to 7.7. Will follow. (7) Type 2 diabetes mellitus: Qualifiers: Diabetes mellitus intermodal owner operator truck driver insulin use: without intermodal owner operator truck driver use Diabetes mellitus complication status: without complication Qualified Code(s): E11.9 - Type 2 diabetes mellitus without complications Code(s): E11.9 - Type 2 diabetes mellitus without complications Status: Chronic Assessment and Plan: A1c 6.5. The patient's blood glucose was reviewed on 02/24 Glucose remains elevated on TF. He was changed to Glucerna. Continue AccuCheks covering with sliding scale. Hypoglycemia protocol available as needed. Glucose still elevated this morning. Will advance Lantus. (8) Atrial fibrillation: Qualifiers: Atrial fibrillation type: permanent Qualified Code(s): I48.21 - Permanent atrial fibrillation Code(s): I48.91 - Unspecified atrial fibrillation Status: Chronic Assessment and Plan: Heart rate elevated at times. Digoxin level
[2021-02-28 12:02] LABS: Glucose Point of Care 121 (65-105)
[2021-02-28 12:09] LABS: Basophils Percent Auto 0.1 % (0.2-1.2); Eosinophils Absolute Auto 0.2 K/mm3 (0-0.3); Eosinophils Percent Auto 1.9 % (0-4.4); Immature Granulocyte Absolute 0.05 K/mm3 (0.00-0.031); Immature Granulocyte Percent A 0.6 % (0-0.5); Lymphocytes Absolute Auto 1.16 K/mm3 (0.9-3.2); Lymphocytes Percent Auto 13.6 % (18.3-44.2); Mean Corpuscular HGB Conc 32.7 g/dl (32-36); Mean Corpuscular Hemoglobin 28.6 pg (26-34); Mean Corpuscular Volume 87.4 fl (80-100); Monocytes Absolute Auto 0.5 K/mm3 (0.1-0.6); Monocytes Percent Auto 6.2 % (2.6-8.5); Neutrophils Absolute Auto 6.6 K/mm3 (1.3-6.7); Neutrophils Percent Auto 77.6 % (45.5-73.1); Nucleated Red Blood Cells Perc 0.5 % (0.0-0.2); Platelet Count Result 217 k/mm3 (150-375); Red Blood Count 2.31 M/mm3 (4.6-6.20); Red Cell Distribution Width 15.9 % (11.5-14.5); White Blood Count 8.5 K/mm3 (4.5-10.0)
[2021-02-28 12:13] LABS: Hematocrit 20.2 % (42.0-52.0); Hemoglobin 6.6 g/dL (14.0-18.0)
[2021-02-28 12:24] LABS: Alkaline Phosphatase 90 U/L (38-126); Anion Gap 0 mmol/L (8-16); Aspartate Amino Transferase 15 U/L (17-59); Bilirubin,Total 0.3 mg/dL (0.2-1.3); Blood Urea Nitrogen 23 mg/dL (9-20); Calcium 6.8 mg/dL (8.4-10.2); Carbon Dioxide 31 mmol/L (22-30); Chloride 113 mmol/L (98-107); Estimated CRCL calculation 114 ml/min; Estimated Glomerular Filt Rate > 60; Glucose 128 mg/dL (75-110); Sodium 144 mmol/L (137-145)
[2021-02-28 12:55] LABS: Alanine Aminotransferase < 4 U/L (4-50)
--- NOTE | 2021-02-28 13:25 | PCDIET ---
Nutrition Follow-Up Complete: Nutrition Diagnosis: Inadequate oral intake related to decreased level of alertness as evidenced by no intake thus far, per nursing. Nutrition Goal: Patient to meet estimated nutritional needs. Goal in progress. Patient tolerating Glucerna 1.2 at 60mL/hr goal rate with 200mL water flush every 4 hours. No issues, per RN. Last recorded weight is 71.1 kg. Recommend obtaining new weight. Bowel Motility: BM x 2 today. Labs Reviewed: Hgb (6.6), Hct (20.2), Glu (128), BUN (23), Cr (0.5), Alb (2.0), Hellen Ca (8.4) Meds Noted: Sinemet, Novolog, Lopressor, Aricept, Lantus, Remeron, Invanz, Reglan, Vancomycin Additional Notes: Patient with sacral ulcer. Integumentary notes reviewed. Will continue to monitor with same goal. Nutrition Monitoring and Evaluation: Follow up every Wednesday/Wednesday.
[2021-02-28] MEDS: SODIUM CHLORIDE 0.9% IV 250 ML 30 ML IV CONT (17:04)
[2021-02-28] MEDS: ERTAPENEM 1 GM/NS 50 ML 1 GM/50 ML BAG IVPB (17:27)
[2021-02-28 17:59] LABS: Glucose Point of Care 146 (65-105)
[2021-02-28] MEDS: INSULIN GLARGINE (*BKC) 100 UNITS/ML 15 UNITS SUB-Q (20:30)
[2021-02-28] MEDS: MIRTAZAPINE 15 MG TABLET FEED TUBE (20:31)
[2021-02-28 20:38] LABS: Glucose Point of Care 152 (65-105)
[2021-02-28 21:26] LABS: Hematocrit 25.1 % (42.0-52.0); Hemoglobin 8.1 g/dL (14.0-18.0)
[2021-02-28 23:38] LABS: Glucose Point of Care 154 (65-105)
[2021-03-01] VITALS (12 sets, daily range): BP systolic 127–135; BP diastolic 66–81; PULSE 60–90; RESP 16–18; TEMP 35.8–36.3; O2SAT 93–99
[2021-03-01] MEDS: CENTRAL LINE FLUSH 20 ML IV PUSH (05:36)
[2021-03-01] MEDS: CENTRAL LINE FLUSH 10 ML IV PUSH ×3 (05:37→20:31)
[2021-03-01] MEDS: VANCOMYCIN ORAL 125 MG/2.5 ML SYRUP FEED TUBE ×3 (05:37→17:38)
[2021-03-01] MEDS: METOCLOPRAMIDE HCL INJ 10 MG/2 ML VIAL 5 MG IV PUSH ×3 (05:37→17:38)
[2021-03-01 05:50] LABS: Glucose Point of Care 117 (65-105)
[2021-03-01 05:57] LABS: Basophils Percent Auto 0.3 % (0.2-1.2); Eosinophils Absolute Auto 0.2 K/mm3 (0-0.3); Eosinophils Percent Auto 2.8 % (0-4.4); Hematocrit 23.8 % (42.0-52.0); Hemoglobin 7.9 g/dL (14.0-18.0); Immature Granulocyte Absolute 0.03 K/mm3 (0.00-0.031); Immature Granulocyte Percent A 0.4 % (0-0.5); Lymphocytes Absolute Auto 0.99 K/mm3 (0.9-3.2); Mean Corpuscular HGB Conc 33.2 g/dl (32-36); Mean Corpuscular Hemoglobin 29.4 pg (26-34); Mean Corpuscular Volume 88.5 fl (80-100); Monocytes Absolute Auto 0.5 K/mm3 (0.1-0.6); Neutrophils Absolute Auto 5.8 K/mm3 (1.3-6.7); Neutrophils Percent Auto 76.5 % (45.5-73.1); Nucleated Red Blood Cells Perc 0.5 % (0.0-0.2); Platelet Count Result 256 k/mm3 (150-375); Red Blood Count 2.69 M/mm3 (4.6-6.20); Red Cell Distribution Width 15.2 % (11.5-14.5); White Blood Count 7.6 K/mm3 (4.5-10.0)
[2021-03-01 06:04] LABS: Anion Gap 0 mmol/L (8-16); Blood Urea Nitrogen 19 mg/dL (9-20); Carbon Dioxide 31 mmol/L (22-30); Chloride 110 mmol/L (98-107); Estimated CRCL calculation 138 ml/min; Estimated Glomerular Filt Rate > 60; Glucose 135 mg/dL (75-110); Potassium 4.1 mmol/L (3.4-5.0); Sodium 141 mmol/L (137-145)
[2021-03-01] MEDS: DONEPEZIL HCL 10 MG TABLET FEED TUBE (10:07)
[2021-03-01] MEDS: CARBIDOPA/LEVODOPA 10/100 MG TABLET 1 TABLET FEED TUBE ×3 (10:07→17:38)
[2021-03-01] MEDS: levETIRAcetam ORAL SOL 500 MG/5 ML UDC FEED TUBE ×2 (10:07→20:30)
[2021-03-01] MEDS: METOPROLOL TARTRATE 25 MG TABLET FEED TUBE ×2 (10:08→20:30)
[2021-03-01 11:54] LABS: SARS-CoV-2 RNA PCR Negative
--- NOTE | 2021-03-01 13:18 | PM.IMPN ---
Progress Note: A&P Assessment and Plan (1) Severe sepsis: Code(s): A41.9 - Sepsis, unspecified organism; R65.20 - Severe sepsis without septic shock Status: Acute Assessment and Plan: Patient with severe sepsis present on admission and now septicemia. Lactic acid climbed to 4.7 and WBC to 15.8K. Patient's blood pressures was low and was treated with appropriate IV fluids. BP better and has since remained stable. UA consistent with UTI and UCx growing ESBL EColi and ESBL Klebsiella. BCx also (2of2) positive for ESBL EColi and ESBL Klebsiella so will continue Ertapenem. Complicated UTI with chronic indwelling suprapubic catheter. WBC normal now. Was having low grade fevers yesterday - PNA (aspiration?) or atelectasis? DVT possible now that he is off Lovenox. Will check CXR. Monitor in IMU. Spoke with son and discussed options regarding continued care vs Hospice. Explained that patient may have had a stroke given the patient's AFib and no anticoagulation. Also explained that the patient may not improve much beyond his current condition. discussed with son again today 02/25: wants to have G tube placed. discussed side effects and utility of g tube at this point. will consult Gi for G tube placement. s/p G tube placement tolerating tube feeds. (2) C. difficile diarrhea: Code(s): A04.72 - Enterocolitis due to Clostridium difficile, not specified as recurrent Status: Acute Assessment and Plan: Patient with diarrhea and stool studies positive for CDiff both for Ag and for toxin. We added oral Vanco via NGT. Diarrhea improving. Complete a 10 day course. Day 07/01 (3) Dementia: Qualifiers: Dementia behavioral disturbance: without behavioral disturbance Dementia type: unspecified type Qualified Code(s): F03.90 - Unspecified dementia without behavioral disturbance Code(s): F03.90 - Unspecified dementia without behavioral disturbance Status: Chronic Assessment and Plan: Stable. Patient still with altered mental status and does not appear to be at baseline. We resumed Remeron, Sinemet and Aricept. CT brain showing no acute findings. Son was aware of these findings. Suspect infectious encephalopathy from these infections but can not exclude CVA. EEG ordered, not done yet. (4) Hypokalemia: Code(s): E87.6 - Hypokalemia Status: Acute Assessment and Plan: Potassium was <2.0 on admission. With replacement potassium has been normal. continue to monitor. (5) Acute UTI: Code(s): N39.0 - Urinary tract infection, site not specified Status: Acute Assessment and Plan: Complicated UTI with chronic indwelling suprapubic Gambino with ESBL. Bacteremia felt related from urinary source. As above. (6) Hypocalcemia: Code(s): E83.51 - Hypocalcemia Status: Acute Assessment and Plan: Calcium listed as low as 2.7. On repeat, it was 4.2. Albumin was 2.5. Calcium replaced and now up to 7.7. Will follow. (7) Type 2 diabetes mellitus: Qualifiers: Diabetes mellitus intermediate teacher insulin use: without intermediate teacher use Diabetes mellitus complication status: without complication Qualified Code(s): E11.9 - Type 2 diabetes mellitus without complications Code(s): E11.9 - Type 2 diabetes mellitus without complications Status: Chronic Assessment and Plan: A1c 6.5. The patient's blood glucose was reviewed on 02/24 Glucose remains elevated on TF. He was changed to Glucerna. Continue AccuCheks covering with sliding scale. Hypoglycemia protocol available as needed. Glucose still elevated this morning. Will advance Lantus. (8) Atrial fibrillation: Qualifiers: Atrial fibrillation type: permanent Qualified Code(s): I48.21 - Permanent atrial fibrillation Code(s): I48.91 - Unspecified atrial fibrillation Status: Chronic Assessment and Plan: Heart rate david
[2021-03-01 14:11] LABS: Glucose Point of Care 126 (65-105)
[2021-03-01] MEDS: ERTAPENEM 1 GM/NS 50 ML 1 GM/50 ML BAG IVPB (17:38)
[2021-03-01 18:15] LABS: Glucose Point of Care 150 (65-105)
[2021-03-01] MEDS: INSULIN GLARGINE (*BKC) 100 UNITS/ML 15 UNITS SUB-Q (20:31)
[2021-03-01] MEDS: MIRTAZAPINE 15 MG TABLET FEED TUBE (20:31)
[2021-03-01 20:51] LABS: Glucose Point of Care 160 (65-105)
[2021-03-02] VITALS (11 sets, daily range): BP systolic 131–143; BP diastolic 56–73; PULSE 76–120; RESP 14–18; TEMP 36.3–36.9; O2SAT 100
[2021-03-02] MEDS: METOCLOPRAMIDE HCL INJ 10 MG/2 ML VIAL 5 MG IV PUSH ×5 (00:38→23:48)
[2021-03-02] MEDS: VANCOMYCIN ORAL 125 MG/2.5 ML SYRUP FEED TUBE ×5 (00:40→23:49)
[2021-03-02 00:48] LABS: Glucose Point of Care 148 (65-105)
[2021-03-02 05:35] LABS: Glucose Point of Care 79 (65-105)
[2021-03-02] MEDS: CENTRAL LINE FLUSH 20 ML IV PUSH (05:46)
[2021-03-02] MEDS: CENTRAL LINE FLUSH 10 ML IV PUSH ×3 (05:46→20:30)
[2021-03-02 05:47] LABS: Basophils Percent Auto 0.5 % (0.2-1.2); Eosinophils Absolute Auto 0.3 K/mm3 (0-0.3); Eosinophils Percent Auto 3.3 % (0-4.4); Hematocrit 25.5 % (42.0-52.0); Hemoglobin 8.3 g/dL (14.0-18.0); Immature Granulocyte Absolute 0.04 K/mm3 (0.00-0.031); Immature Granulocyte Percent A 0.5 % (0-0.5); Lymphocytes Absolute Auto 1.07 K/mm3 (0.9-3.2); Lymphocytes Percent Auto 13.8 % (18.3-44.2); Mean Corpuscular HGB Conc 32.5 g/dl (32-36); Mean Corpuscular Hemoglobin 29.4 pg (26-34); Mean Corpuscular Volume 90.4 fl (80-100); Mean Platelet Volume 11.1 fl (7.4-10.4); Monocytes Absolute Auto 0.6 K/mm3 (0.1-0.6); Monocytes Percent Auto 8.2 % (2.6-8.5); Neutrophils Absolute Auto 5.7 K/mm3 (1.3-6.7); Neutrophils Percent Auto 73.7 % (45.5-73.1); Nucleated Red Blood Cells Perc 0.5 % (0.0-0.2); Platelet Count Result 323 k/mm3 (150-375); Red Blood Count 2.82 M/mm3 (4.6-6.20); Red Cell Distribution Width 15.5 % (11.5-14.5); White Blood Count 7.8 K/mm3 (4.5-10.0)
[2021-03-02 06:00] LABS: Anion Gap -1 mmol/L (8-16); Blood Urea Nitrogen 15 mg/dL (9-20); Calcium 6.9 mg/dL (8.4-10.2); Carbon Dioxide 32 mmol/L (22-30); Chloride 110 mmol/L (98-107); Estimated CRCL calculation 138 ml/min; Estimated Glomerular Filt Rate > 60; Glucose 84 mg/dL (75-110); Potassium 4.3 mmol/L (3.4-5.0); Sodium 141 mmol/L (137-145)
--- NOTE | 2021-03-02 08:00 | PC.NURSE ---
Dr. Larsen on floor made aware pt is having episodes of sinus tach 120-140s' and beat run of V-tach times two thus far this shift. MD reports give metoprolol now.
[2021-03-02] MEDS: DONEPEZIL HCL 10 MG TABLET FEED TUBE (08:16)
[2021-03-02] MEDS: METOPROLOL TARTRATE 25 MG TABLET FEED TUBE ×2 (08:16→20:29)
[2021-03-02] MEDS: CARBIDOPA/LEVODOPA 10/100 MG TABLET 1 TABLET FEED TUBE ×3 (08:16→17:24)
[2021-03-02] MEDS: levETIRAcetam ORAL SOL 500 MG/5 ML UDC FEED TUBE ×2 (08:16→20:29)
--- NOTE | 2021-03-02 09:22 | PM.IMPN ---
Progress Note: A&P Assessment and Plan (1) Severe sepsis: Code(s): A41.9 - Sepsis, unspecified organism; R65.20 - Severe sepsis without septic shock Status: Acute Assessment and Plan: Patient with severe sepsis present on admission and now septicemia. Lactic acid climbed to 4.7 and WBC to 15.8K. Patient's blood pressures was low and was treated with appropriate IV fluids. BP better and has since remained stable. UA consistent with UTI and UCx growing ESBL EColi and ESBL Klebsiella. BCx also (2of2) positive for ESBL EColi and ESBL Klebsiella so will continue Ertapenem. Complicated UTI with chronic indwelling suprapubic catheter. WBC normal now. Was having low grade fevers yesterday - PNA (aspiration?) or atelectasis? DVT possible now that he is off Lovenox. Will check CXR. Monitor in IMU. Spoke with son and discussed options regarding continued care vs Hospice. Explained that patient may have had a stroke given the patient's AFib and no anticoagulation. Also explained that the patient may not improve much beyond his current condition. discussed with son again today 02/25: wants to have G tube placed. discussed side effects and utility of g tube at this point. will consult Gi for G tube placement. s/p G tube placement tolerating tube feeds. (2) C. difficile diarrhea: Code(s): A04.72 - Enterocolitis due to Clostridium difficile, not specified as recurrent Status: Acute Assessment and Plan: Patient with diarrhea and stool studies positive for CDiff both for Ag and for toxin. We added oral Vanco via NGT. Diarrhea improving. Complete a 10 day course. Day 08/01 (3) Dementia: Qualifiers: Dementia behavioral disturbance: without behavioral disturbance Dementia type: unspecified type Qualified Code(s): F03.90 - Unspecified dementia without behavioral disturbance Code(s): F03.90 - Unspecified dementia without behavioral disturbance Status: Chronic Assessment and Plan: Stable. Patient still with altered mental status and does not appear to be at baseline. We resumed Remeron, Sinemet and Aricept. CT brain showing no acute findings. Son was aware of these findings. Suspect infectious encephalopathy from these infections but can not exclude CVA. EEG ordered, not done yet. but has become more responsive now (4) Hypokalemia: Code(s): E87.6 - Hypokalemia Status: Acute Assessment and Plan: Potassium was <2.0 on admission. With replacement potassium has been normal. continue to monitor. (5) Acute UTI: Code(s): N39.0 - Urinary tract infection, site not specified Status: Acute Assessment and Plan: Complicated UTI with chronic indwelling suprapubic Gambino with ESBL. Bacteremia felt related from urinary source. As above. (6) Hypocalcemia: Code(s): E83.51 - Hypocalcemia Status: Acute Assessment and Plan: Calcium listed as low as 2.7. On repeat, it was 4.2. Albumin was 2.5. Calcium replaced and now up to 7.7. Will follow. 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 The patient's blood glucose was reviewed on 02/24 Glucose remains elevated on TF. He was changed to Glucerna. Continue AccuCheks covering with sliding scale. Hypoglycemia protocol available as needed. Glucose still elevated this morning. Will advance Lantus. (8) Atrial fibrillation: Qualifiers: Atrial fibrillation type: permanent Qualified Code(s): I48.21 - Permanent atrial fibrillation Code(s): I48.91 - Unspecified atrial fibrillation Status: Chronic Ass
[2021-03-02 09:34] LABS: Magnesium 1.6 mg/dL (1.6-2.3)
[2021-03-02 12:22] LABS: Glucose Point of Care 62 (65-105)
[2021-03-02 12:22] LABS: Glucose Point of Care 63 (65-105)
[2021-03-02] MEDS: DEXTROSE 50% 25 GM/50 ML SYRINGE IV PUSH ×2 (12:27→17:29)
[2021-03-02 13:15] LABS: Glucose Point of Care 101 (65-105)
--- NOTE | 2021-03-02 13:18 | WPDNEUROLOGY ---
Neurology EEG Report General Information Date of Study: 02/28/21 TEST eeg DIAGNOSIS altered sensorium CONDITION OF RECORDING awake drowsy and sleep EEG NUMBER [id number] CLINICAL HISTORY no other history available EEG DESCRIPTION bilateral symmetrical low to medium voltage 5 to 7 hertz per second theta activity seen during drowsiness. Bilateral symmetrical sleep activity seen during sleep with symmetrical sleep spindles. hyperventilation not done. Photic stimulation not done. Non paroxysmal. Nonfocal. Nonlateralizing. IMPRESSION Mildly abnormal record due to the absence of normal background rhythm and presence of bihemispheric theta activity which usually seen in drowsiness but could be compatible with metabolic encephalopathy clinical correlation recommended. Is no evidence of any paroxysmal activity. And there is no evidence of any triphasic waves.
[2021-03-02] MEDS: MAGNESIUM SULF 2 GM/WATER 50ML 2 GM/50 ML BAG IVPB (15:50)
[2021-03-02] MEDS: ERTAPENEM 1 GM/NS 50 ML 1 GM/50 ML BAG IVPB (17:25)
[2021-03-02 18:02] LABS: Platelet Ab,Indirect (IgA) POSITIVE (NEGATIVE); Platelet Ab,Indirect (IgG) NEGATIVE (NEGATIVE); Platelet Ab,Indirect (IgM) NEGATIVE (NEGATIVE)
[2021-03-02 18:14] LABS: Glucose Point of Care 59 (65-105)
[2021-03-02 18:14] LABS: Glucose Point of Care 82 (65-105)
[2021-03-02 18:53] LABS: Glucose Point of Care 79 (65-105)
--- NOTE | 2021-03-02 19:00 | PC.NURSE ---
Instructor Creeler called Dr. Brownlee made aware that pt blood sugar was 59 at 1730 dextrose given rechecked at 1755 B.S 82 recheck at 1830 74. N.O D5 half NS at 75ml/hr
[2021-03-02] MEDS: DEXTROSE 5%/0.45% SOD CHL 1,000 ML 75 ML IV CONT (19:13)
[2021-03-02 20:29] LABS: Glucose Point of Care 76 (65-105)
[2021-03-02] MEDS: MIRTAZAPINE 15 MG TABLET FEED TUBE (20:30)
[2021-03-02 23:56] LABS: Glucose Point of Care 92 (65-105)
[2021-03-03] VITALS: PULSE 90
[2021-03-03 04:05] VITALS: PULSE 89
[2021-03-03 06:00] VITALS: BP 151/75; PULSE 88; RESP 16; TEMP 36.6; O2SAT 100
[2021-03-03] MEDS: METOCLOPRAMIDE HCL INJ 10 MG/2 ML VIAL 5 MG IV PUSH ×2 (06:04→11:24)
[2021-03-03] MEDS: VANCOMYCIN ORAL 125 MG/2.5 ML SYRUP FEED TUBE ×2 (06:04→11:24)
[2021-03-03] MEDS: CENTRAL LINE FLUSH 10 ML IV PUSH (06:05)
[2021-03-03 08:00] VITALS: PULSE 90
[2021-03-03 08:19] LABS: Glucose Point of Care 120 (65-105)
[2021-03-03 08:46] VITALS: PULSE 88
[2021-03-03] MEDS: DIGOXIN TAB 125 MCG TABLET FEED TUBE (08:46)
[2021-03-03] MEDS: CARBIDOPA/LEVODOPA 10/100 MG TABLET 1 TABLET FEED TUBE ×2 (08:46→11:23)
[2021-03-03] MEDS: METOPROLOL TARTRATE 25 MG TABLET FEED TUBE (08:46)
[2021-03-03] MEDS: ENOXAPARIN 40 MG/0.4 ML SYRINGE SUB-Q (08:47)
[2021-03-03] MEDS: levETIRAcetam ORAL SOL 500 MG/5 ML UDC FEED TUBE (08:47)
[2021-03-03] MEDS: DONEPEZIL HCL 10 MG TABLET FEED TUBE (08:47)
[2021-03-03] MEDS: ALTEPLASE 2 MG VIAL (CATHFLO) IV PUSH (08:57)
--- NOTE | 2021-03-03 10:34 | PM.DS ---
DS: Admitting Diagnosis Admitting Diagnosis Admitting Diagnosis: severe sepsis DS: Discharge Diagnosis Discharge Diagnosis (1) Hypernatremia: Code(s): E87.0 - Hyperosmolality and hypernatremia Status: Acute (2) Bacteremia due to Gram-negative bacteria: Code(s): R78.81 - Bacteremia Status: Acute (3) Dysphagia: Code(s): R13.10 - Dysphagia, unspecified Status: Acute (4) C. difficile diarrhea: Code(s): A04.72 - Enterocolitis due to Clostridium difficile, not specified as recurrent Status: Acute (5) Thrombocytopenia: Code(s): D69.6 - Thrombocytopenia, unspecified Status: Acute (6) Sacral wound: Code(s): S31.000A - Unspecified open wound of lower back and pelvis without penetration into retroperitoneum, initial encounter Status: Acute (7) Elevated lactic acid level: Code(s): R79.89 - Other specified abnormal findings of blood chemistry Status: Acute (8) Catheter-associated urinary tract infection: Qualifiers: Indwelling urinary catheter type: unspecified Encounter type: initial encounter Qualified Code(s): T83.511A - Infection and inflammatory reaction due to indwelling urethral catheter, initial encounter; N39.0 - Urinary tract infection, site not specified Code(s): T83.511A - Infection and inflammatory reaction due to indwelling urethral catheter, initial encounter; N39.0 - Urinary tract infection, site not specified Status: Acute (9) Acute respiratory failure with hypoxemia: Code(s): J96.01 - Acute respiratory failure with hypoxia Status: Acute (10) Acute encephalopathy: Code(s): G93.40 - Encephalopathy, unspecified Status: Acute (11) Seizure: Code(s): R56.9 - Unspecified convulsions Status: Acute (12) Parkinson disease: Code(s): G20 - Parkinson's disease Status: Chronic (13) CVA (cerebral vascular accident): Code(s): I63.9 - Cerebral infarction, unspecified Status: Chronic (14) Severe sepsis: Code(s): A41.9 - Sepsis, unspecified organism; R65.20 - Severe sepsis without septic shock Status: Acute (15) Acute blood loss anemia: Code(s): D62 - Acute posthemorrhagic anemia Status: Acute DS: Summary Hospital Course Hospital Course: # Severe sepsis: Patient with severe sepsis present on admission and now septicemia. Lactic acid climbed to 4.7 and WBC to 15.8K. Patient's blood pressures was low and was treated with appropriate IV fluids. BP better and has since remained stable. UA consistent with UTI and UCx growing ESBL EColi and ESBL Klebsiella. BCx also (2of2) positive for ESBL EColi and ESBL Klebsiella, antibioticws with ertapenem given. Complicated UTI with chronic indwelling suprapubic catheter. WBC normalized. was watched, his mental status recovered very slowly, which is expected with the impact of injury he had. planend to finish 2 weeks course of ertapenem. Spoke with son and discussed options regarding continued care vs Hospice. Explained that patient may have had a stroke given the patient's AFib and no anticoagulation. Also explained that the patient may not improve much beyond his current condition. severe sepsis resovled by the time of discharge. # C. difficile diarrhea: Patient with diarrhea and stool studies positive for CDiff both for Ag and for toxin. We added oral Vanco via NGT. Diarrhea improving. Complete a 10 day course eere. since still goig to be on ertapenm. will cotninue vancomycin for 7 days more from end of ertapenem. 10 more days course. # Dementia: Stable. Patient still with altered mental status and does not appear to be at baseline bu progressing slowly. We resumed Remeron, Sinemet and Aricept. CT brain showing no acute findings. Son was aware of these findings. Suspect infectious encephalopathy from these infections but can not exclude CVA. EEG done which showed no seizure. on ke
[2021-03-03 11:42] LABS: Glucose Point of Care 115 (65-105)
== END 2021-03-03 12:40 | DRG 698 ==
LOC: ANHED 14:07 → ANH3MEDSUR 20:40 → ANHIMU 02-19 00:20 → ANH2MED 03-03 10:34 → ANHIMU 03-04 15:24
PROVIDERS: Internal Medicine Gastroenterology; Nurse Practitioner; Admitting Provider Internal Medicine; Emergency Provider Emergency Medicine; PCP Internal Medicine; Visit Provider Internal Medicine
PROC: 0DJ08ZZ Inspection of Upper Intestinal Tract, Via Natural or Artificial Opening Endoscopic (ICD-10-PCS; CPT 43235; principal; 2021-02-26 15:00)
PROC: 0DH63UZ Insertion of Feeding Device into Stomach, Percutaneous Approach (ICD-10-PCS; CPT 43246; 2021-02-26 15:00)
DX: T83.518A Infection and inflammatory reaction due to other urinary catheter, initial encounter (principal); A41.59 Other Gram-negative sepsis; R65.20 Severe sepsis without septic shock; J96.01 Acute respiratory failure with hypoxia; N39.0 Urinary tract infection, site not specified; I48.21 Permanent atrial fibrillation; I69.351 Hemiplegia and hemiparesis following cerebral infarction affecting right dominant side; A04.72 Enterocolitis due to Clostridium difficile, not specified as recurrent; Z16.12 Extended spectrum beta lactamase (ESBL) resistance; G93.40 Encephalopathy, unspecified; D68.9 Coagulation defect, unspecified; E46 Unspecified protein-calorie malnutrition; E87.0 Hyperosmolality and hypernatremia; D62 Acute posthemorrhagic anemia; Z68.21 Body mass index [BMI] 21.0-21.9, adult; I69.391 Dysphagia following cerebral infarction; R13.10 Dysphagia, unspecified; K29.70 Gastritis, unspecified, without bleeding; Z20.822 Contact with and (suspected) exposure to COVID-19; R62.7 Adult failure to thrive; S31.000A Unspecified open wound of lower back and pelvis without penetration into retroperitoneum, initial encounter; N40.0 Benign prostatic hyperplasia without lower urinary tract symptoms; I25.10 Atherosclerotic heart disease of native coronary artery without angina pectoris; G20 Parkinson's disease; F02.80 Dementia in other diseases classified elsewhere, unspecified severity, without behavioral disturbance, psychotic disturbance, mood disturbance, and anxiety; D69.6 Thrombocytopenia, unspecified; E78.5 Hyperlipidemia, unspecified; I11.0 Hypertensive heart disease with heart failure; I50.9 Heart failure, unspecified; E11.319 Type 2 diabetes mellitus with unspecified diabetic retinopathy without macular edema; F41.8 Other specified anxiety disorders; R79.89 Other specified abnormal findings of blood chemistry; E83.51 Hypocalcemia; E87.6 Hypokalemia; R56.9 Unspecified convulsions; G47.33 Obstructive sleep apnea (adult) (pediatric); Z86.718 Personal history of other venous thrombosis and embolism; Z79.82 Long term (current) use of aspirin; Z79.899 Other long term (current) drug therapy
CPT/HCPCS: 36415; 36430; 36569; 36600; 43246; 70450; 71045; 80048; 80053; 80069; 80162; 81001; 82805; 82948; 83036; 83605; 83690; 83735; 84100; 84132; 84443; 85014; 85018; 85025; 85049; 85055; 85610; 85730; 86022; 86850; 86900; 86901; 86923; 87015; 87040; 87045; 87046; 87077; 87086; 87088; 87186; 87269; 87272; 87324; 87427; 93005; 93306; 95816; 96361; 96365; 96366; 96367; 96375; 96376; 99285; A9270; C1751; C9803; G0378; J0690; J1160; J1335; J1650; J1815; J1940; J1953; J2704; J2765; J2997; J3475; J3480; J7030; J7050; J7060; J7120; P9016; U0003; U0005

== ENCOUNTER 2021-04-12 17:08 | Inpatient (IN) | payer MEDICARE, OTHER, SELFPAY ==
--- NOTE | ~2021-04-12 | CT_ITS ---
EXAMINATION: CT abdomen pelvis wo con DATE: 04/12/2021 19:34 INDICATION: Abdominal distention, possible small bowel obstruction TECHNIQUE: Computed tomography (CT) of the abdomen and pelvis was performed without intravenous contr ast. The dose-length product (DLP) was 718.66 mGy-cm. Automated exposure control and iterative recons truction technique were employed. COMPARISON: 10/28/2020 FINDINGS: Cardiomegaly is noted. There are patchy airspace opacities of the visualized lung bases. Mo re focal consolidation seen in the right lower lobe. The examination is limited by the absence of int ravenous contrast. The liver, spleen, pancreas, gallbladder, and adrenal glands are normal. There is gas in the collecting system of the right kidney as well as in the proximal right ureter. There is a 6 mm nonobstructing stone of the right kidney. Nonobstructing stones measuring up to 5 mm are present in the left kidney. A gastrostomy is present in the stomach. There is diffuse anasarca. There is syed cified atherosclerosis of the aorta and many of the other arteries. The bladder is decompressed by a suprapubic catheter. Multiple stones are present in the urinary bladder. Tiny foci of gas are also no rocio in the bladder. There is diffuse wall thickening of the colon. There is no free intraperitoneal g as or evidence of bowel obstruction. No pathologically enlarged abdominal or pelvic lymph nodes are i dentified. There is marked enlargement of the prostate. There is mild lumbar spondylosis. IMPRESSION: 1. Diffuse wall thickening of the colon, consistent with colitis. 2. Emphysematous pyelitis of the right kidney which could reflect infection versus ascending gas from the urinary bladder. 3. Patchy opacities of the visualized lung bases, consistent with pneumonia and/or pulmonary edema. 4. Cardiomegaly. 5. Diffuse anasarca. 6. Nonobstructing bilateral nephrolithiasis and bladder stones. Reviewed, dictated and finalized at location A. IMPRESSION: 1. Diffuse wall thickening of the colon, consistent with colitis. 2. Emphysematous pyelitis of the right kidney which could reflect infection robert lanny ascending gas from the urinary bladder. 3. Patchy opacities of the visualized lung bases, consistent with pneumonia and /or pulmonary edema. 4. Cardiomegaly. 5. Diffuse anasarca. 6. Nonobstructing bilateral nephrolithiasis and bladder stones.
--- NOTE | ~2021-04-12 | XR_ITS ---
EXAMINATION: XR chest 1V portable INDICATION: Sepsis, transient alteration of awareness TECHNIQUE: Portable AP chest at 1852 hours COMPARISON: 02/24/2021 FINDINGS: There are airspace opacities in the right mid and lower lung zones. There is no pleural eff usion or pneumothorax. The cardiomediastinal silhouette is normal. Moderate osteoarthritis is noted i n the shoulders. IMPRESSION: 1. Airspace opacities of the right mid and lower lung zones, likely pneumonia. Reviewed, dictated and finalized at location A.
--- NOTE | ~2021-04-12 | XR_ITS ---
EXAMINATION: XR chest ET placement DATE: 04/13/2021 03:42 INDICATION: Endotracheal tube placement TECHNIQUE: frontal view of the chest was obtained. COMPARISON: 04/12/2021 FINDINGS: Endotracheal tube tip 4.7 cm above the stef. Increasing bilateral patchy airspace opacities most pr ominent in the right lower lung zone. No pleural effusion or pneumothorax. The cardiomediastinal silh ouette is normal. Left rotator cuff arthropathy with dystrophic calcifications in the region of the l eft rotator cuff. IMPRESSION: 1. Increase in right basilar predominant patchy bilateral airspace opacities consistent with worsenin g pneumonia. Reviewed, dictated and finalized at location A. IMPRESSION: 1. Increase in right basilar predominant patchy bilateral airspace opacities co nsistent with worsening pneumonia.
[2021-04-12 17:13] VITALS: BP 85/58; PULSE 108; RESP 28; TEMP 38.5; O2SAT 82
--- NOTE | 2021-04-12 17:23 | ED.ABDPAIN ---
HPI - Abdominal Pain General Chief Complaint: Abdominal Pain <Guille Sears MD - Last Filed: 04/12/21 19:25> Stated Complaint: gtube difficulties <Guille Sears MD - Last Filed: 04/12/21 19:25> Time Seen by Provider: 04/12/21 17:23 <Guille Sears MD - Last Filed: 04/12/21 19:25> Source: EMS, RN notes reviewed and old records reviewed <Guille Sears MD - Last Filed: 04/12/21 19:25> Mode of arrival: EMS <Guille Sears MD - Last Filed: 04/12/21 19:25> Limitations: altered mental status, clinical condition and dementia <Guille Sears MD - Last Filed: 04/12/21 19:25> History of Present Illness HPI narrative: Patient is 70 years old white male brought to the emergency room by ambulance from snf because his nurse aspirated his J-tube and noticed brown fecal-like material coming out of the feeding tube. Patient is nonverbal, have feeding tube, suprapubic catheter, history of C. difficile for a while, been on isolation for C. difficile since March 04, patient on Flagyl twice a day and XIFAXAN. Patient also on continuous feeding tube 60 mL/h. The nurse told me that KUB was done yesterday for questionable dysfunctional feeding tube. And pain result was inconclusive. The snf and able to get hold of the patient sister who have the power of privacy attorney at [phone], patient is full code. The nurse is telling me that the patient is chronically ill and sick, been in and out of hospitals numerous times. Also telling me that the patient have positive VRE and ESBL in the urine. The nurse also telling me that patient is moaning all the time but is getting worse over the last 48 hours been <Guille Sears MD - Last Filed: 04/12/21 19:25> Related Data Home Medications: Home Medications Medication Instructions Recorded Confirmed Lactobacillus acidophilus 2,000 mmu cells PO BID 04/13/21 04/13/21 [Acidophilus] calcium alginate 04/13/21 04/13/21 collagenase clostridium histo. 1 applic TOPICAL DAILY 04/13/21 04/13/21 [Santyl] metronidazole [Flagyl] 500 mg PO Q12H 04/13/21 04/13/21 miconazole nitrate [Aloe [place] 1 applic TOPICAL DAILY 04/13/21 04/13/21 2-n-1 Antifungal] mupirocin 1 applic TOPICAL DAILY 04/13/21 04/13/21 polyethylene glycol 3350 [Miralax] 17 g FEEDING TUBE DAILY 04/13/21 04/13/21 rifaximin [Xifaxan] 400 mg PO Q8H 04/13/21 04/13/21 <Guille Sears MD - Last Filed: 04/12/21 19:25> Allergies/Adverse Reactions: Allergies Allergy/AdvReac Type Severity Reaction Status Date / Time No Known Allergies Allergy Verified 04/12/21 17:21 <Guille Sears MD - Last Filed: 04/12/21 19:25> Review of Systems Review of Systems: ROS unobtainable: Yes unobtainable due to medical condition and unobtainable due to mental status <Guille Sears MD - Last Filed: 04/12/21 19:25> [facility] Past Medical History Medical History: Medical History Atrial fibrillation Bacteremia due to Gram-negative bacteria Bladder stones BPH (benign prostatic hyperplasia) Coagulopathy Congestive heart failure Constipation Coronary artery disease CVA (cerebral vascular accident) Right side flaccid Dementia Depression Depression with anxiety Dyslipidemia Dysphagia Flexion contracture joint of multiple sites Gambino catheter in place History of DVT (deep vein thrombosis) Hypertension Obstructive sleep apnea Parkinson disease Type 2 diabetes mellitus Complicated by diabetic retinopathy. He is blind in his left eye. Vitamin D deficiency <Guille Sears MD - Last Filed: 04/12/21 19:25> Surgical History Surgical History: Surgical History History of cystoscopy Jejunostomy tube in situ Suprapubic catheter <Guille Sears MD - Last Filed: 04/12/21 19:25> Family History Family History: Family History Unknown Unknown
[2021-04-12] MEDS: SODIUM CHLORIDE 0.9% IV 1,000 ML 999 ML IV CONT ×3 (17:49→22:12)
[2021-04-12 18:17] LABS: Basophils Absolute Auto 0.2 K/mm3 (0.0-0.1); Basophils Percent Auto 0.5 % (0.2-1.2); Hematocrit 30.2 % (42.0-52.0); Hemoglobin 10.4 g/dL (14.0-18.0); Immature Granulocyte Absolute 1.09 K/mm3 (0.00-0.031); Immature Granulocyte Percent A 3.7 % (0-0.5); Lymphocytes Absolute Auto 0.51 K/mm3 (0.9-3.2); Lymphocytes Percent Auto 1.7 % (18.3-44.2); Mean Corpuscular HGB Conc 34.4 g/dl (32-36); Mean Platelet Volume 10.9 fl (7.4-10.4); Monocytes Absolute Auto 1.1 K/mm3 (0.1-0.6); Monocytes Percent Auto 3.8 % (2.6-8.5); Neutrophils Absolute Auto 26.8 K/mm3 (1.3-6.7); Neutrophils Percent Auto 90.3 % (45.5-73.1); Platelet Count Result 497 k/mm3 (150-375); Red Blood Count 3.47 M/mm3 (4.6-6.20); Red Cell Distribution Width 15.6 % (11.5-14.5); White Blood Count 29.7 K/mm3 (4.5-10.0)
[2021-04-12 18:24] LABS: Add Urine Microscopic? YES; Amorphous Sediment Urine Few; Appearance Urine Turbid (Clear); Bacteria Urine 4+ /hpf; Bilirubin Urine 1+ (Negative); Blood Urine 3+ (Negative); Glucose Urine UA Negative (Negative); Ketones Urine Negative (Negative); Leukocyte Esterase Ur 2+ LEU/UL (Negative); Mucus Urine Heavy /lpf; Nitrate Urine Negative (Negative); Protein Urine 2+ mg/dL (Negative); RBC Urine 51-75 /hpf (0-2); Specific Grav Ur 1.025 (1.001-1.035); WBC Clumps Urine Present /HPF; WBC Urine >75 /hpf
[2021-04-12 18:26] LABS: Color Urine Amber (Yellow); INR 1.1; Prothrombin Time 14.8 Seconds (11.1-14.7)
[2021-04-12 18:27] LABS: Partial Thromboplastin Time 24.8 SECONDS (22.3-36.8)
[2021-04-12 18:29] LABS: Lipase 39 U/L (23-300)
[2021-04-12 18:30] VITALS: BP 100/54; PULSE 100; RESP 19; O2SAT 92
[2021-04-12 18:32] LABS: Lactic Acid Reflex 4.6 mmol/L (0.7-2.1); Platelet Estimate Increased (Adequate); Target Cells 1+ (NORMAL)
[2021-04-12 18:34] LABS: Alanine Aminotransferase 12 U/L (4-50); Albumin Level 2.2 g/dL (3.5-5.1); Alkaline Phosphatase 122 U/L (38-126); Anion Gap 10 mmol/L (8-16); Aspartate Amino Transferase 27 U/L (17-59); Bilirubin,Total 0.4 mg/dL (0.2-1.3); Blood Urea Nitrogen 105 mg/dL (9-20); Calcium 7.7 mg/dL (8.4-10.2); Carbon Dioxide 22 mmol/L (22-30); Chloride 89 mmol/L (98-107); Glucose 271 mg/dL (75-110); Lipase 40 U/L (23-300); Potassium 5.5 mmol/L (3.4-5.0); Sodium 121 mmol/L (137-145)
[2021-04-12 18:35] LABS: Estimated Glomerular Filt Rate 34
[2021-04-12 18:50] LABS: Troponin I 0.067 ng/mL (0.000-0.034)
[2021-04-12 19:06] LABS: CRP 34.4 mg/dL (<1.0)
[2021-04-12 19:17] VITALS: BP 105/61; PULSE 92; RESP 16; O2SAT 98
[2021-04-12 20:00] VITALS: BP 109/60; PULSE 100; RESP 30; TEMP 37.3; O2SAT 97
[2021-04-12 21:15] LABS: Reflex Lactic Acid Yes or No Add Lactic
--- NOTE | 2021-04-12 22:58 | PM.IMHP ---
H&P: HPI History of Present Illness Date/Time: 04/12/21 22:58 Chief Complaint: Fever and hypotension Narrative: 70-year-old chronically ill male with past medical history of CVA, Parkinson's disease, dementia, chronic suprapubic catheter, J-tube and current C diff infection who presented to the ER via [facility] due to fever and hypotension. [facility] staff reported that they went to administer the patient's J-tube feeds and they noticed fecal like material coming out of the tube when they aspirated. The patient had a KUB performed on the to evaluate the J-tube placement. They stated that the reports for ?inconclusive?. The patient is currently on Flagyl and Xifaxan for his C diff. He has been on antibiotics since March 04. The patient has a history of complicated UTIs with a suprapubic catheter. He has a history of VRE and ESBL positive bacteria. [facility] staff reported that the patient is moaning all the time but is frequency of moaning has increased over the last 48 hours. In the ER the patient was noted to be hypotensive. He received a total of 3 L of fluid bolus. His blood pressures improved to 94 systolic. ER staff reported that the patient's urine is dark brown in color and thickened appearance. He also had dark material coming out of his nose that was concerning for possible petechial and material. CT you was performed which demonstrated diffuse wall thickening of the colon consistent with colitis, emphysematous pyelitis of the right kidney, patchy opacities of lung bases bilaterally consistent with pneumonia and/or pulmonary edema, cardiomegaly and diffuse anasarca. ER staff were able to contact the patient's family. The patient's family states that they want the patient to be a full code. The patient had been a hospice patient at 1 point. The family stated that he was hospice patient when he was really sick previously but they want him to be a full code with full treatment at this time. The ER staff contacted Urology who recommended the patient be transferred to tertiary care center given his emphysematous pyelitis on CT scan. The patient has been accepted at [facility] but they do not have any ICU beds. The urologist at [facility] stated that if the patient's condition were due precipitously worse or not improved with treatment that we could contact them again and they would try to transfer the patient more emergently. The front desk representative at [facility] did not feel that the patient needed to be admitted to their ICU and that the patient did not need urology. Subsequently the patient is being admitted to our facility to the ICU with antibiotic therapy and possible pressors while awaiting a bed at receiving facility. Forging Roll Operator has been consulted. Addendum: 04/13/2021 0145 the patient had increasing respiratory rate with refer rate up to the 40s. The patient had increasing oxygen requirement requiring 15 L high-flow nasal cannula. The patient respiratory status was declining rapidly. Subsequently a stat ABG was performed which demonstrated correlating hypoxia. Decision was made to intubate the patient to protect his airway. Shortly after intubation the patient became hypotensive and required central line placement. A left femoral CVC was placed. Review of Systems Review of Systems: ROS unobtainable: Yes unobtainable due to medical condition and unobtainable due to mental status [facility] Past Medical History Medical History (Updated 04/13/21 @ 05:26 by Maria E Gasca, DO) Atrial fibrillation Bacteremia due to Gram-negative bacteria Bladder stones BPH (benign prostatic hyperplasia) Coagulopathy Congestive heart failure Constipation Coronary artery disease CVA (cerebral vascular accident) Right side flaccid Dementia Depression Depression with anxiety Dyslipidemia Dysphagia Flexion contracture joint of multiple sites Gambino catheter in place History of DVT
[2021-04-12 23:27] LABS: Lactic Acid 2.9 mmol/L (0.7-2.1)
[2021-04-13] VITALS (28 sets, daily range): BP systolic 67–120; BP diastolic 48–67; PULSE 76–106; RESP 18–40; TEMP 36.1–37.8; O2SAT 86–100; BMI 19.1
--- NOTE | 2021-04-13 01:20 | ADMGEN ---
This patient, Jonny Pantoja, was admitted to Intensive Care Unit-7. Patient/family oriented to hospital policies and general routines including ID bracelet, bed and alarms, visiting hours, pain management, procedures, bathroom and other care routines, personal items, smoking policy, room service/diet, and visiting hours. Information on how to activate the Rapid Response Team has been discussed. Patient/Family are encouraged to report perceived risks to care and to ask questions if they do not understand what they are told or what they should do.
[2021-04-13] MEDS: LACTATED RINGERS 1,000 ML 100 ML IV CONT ×2 (01:48→15:17)
[2021-04-13] MEDS: CEFEPIME 1 GM in DEXTROSE 5% IN WATER 50 ML IVPB (01:49)
[2021-04-13] MEDS: PANTOPRAZOLE SODIUM IV 40 MG VIAL IV PUSH ×2 (01:49→08:14)
[2021-04-13] MEDS: FIDAXOMICIN 200 MG TABLET PO ×2 (01:49→08:09)
[2021-04-13 01:56] LABS: Alveolar/Arterial O2 Gradient 449.5 mmHg; Base Excess ABG -5.1 mEq/l (+/-2.0); Carboxyhemoglobin 0.3 % THb (0-2.0); Device HIGH FLOW NASAL CANN; Fractional Inspired Oxygen 75 %; HCO3 ABG 18.4 mEq/l (22.0-26.0); Methemoglobin ABG 0.4 %THb (0-1.5); Oxygen Content ABG 12.8 %vol (16.0-22.0); Oxygen Saturation ABG 89.3 % (95.0-100.0); Oxyhemoglobin 86.7 % THb (90.0-100.0); PCO2 ABG 29.2 mmHg (35.0-45.0); PO2 ABG 54.2 mmHg (80.0-100.0); PO2 FiO2 Ratio Arterial Blood 0.72 %; Reduced Hemoglobin 12.6 %THb (0-5.0); Site Drawn RIGHT BRACHIAL; Total Hemoglobin 10.5 g/dL (12.0-18.0); pH ABG 7.417 (7.350-7.450)
[2021-04-13] MEDS: metroNIDAZOLE 500 MG/ISO 100ML 500 MG/100 ML BAG 100 MG IVPB ×3 (02:07→15:45)
[2021-04-13 02:32] LABS: Glucose Point of Care 297 mg/dl (65-105)
--- NOTE | 2021-04-13 03:12 | PC.NURSE ---
0250 _ Patient intubated, using 110mg of succinylcholine and 20mg of etomidate iv push. Family updated of patient condition. Spoke with son Pete GARCIA and states he still wants patient to be a full code.
[2021-04-13] MEDS: MIDAZOLAM 100MG/NS 100ML(*CRX) 100 MG/100 ML BAG IV CONT (03:18)
[2021-04-13] MEDS: INSULIN ASPART (*BKC) 100 UNITS/ML SUB-Q ×3 (03:32→12:40)
[2021-04-13] MEDS: FENTANYL 2,500MCG/NS250ML(*CRX 2,500 MCG/250 ML BAG IV CONT (03:33)
[2021-04-13 04:12] LABS: Alveolar/Arterial O2 Gradient 471.4 mmHg; Base Excess ABG -7.2 mEq/l (+/-2.0); Carboxyhemoglobin 0.2 % THb (0-2.0); Fractional Inspired Oxygen 100 %; HCO3 ABG 16.5 mEq/l (22.0-26.0); Methemoglobin ABG 0.6 %THb (0-1.5); Oxygen Saturation ABG 99.5 % (95.0-100.0); Oxyhemoglobin 97.8 % THb (90.0-100.0); PO2 ABG 214.6 mmHg (80.0-100.0); PO2 FiO2 Ratio Arterial Blood 2.15 %; Reduced Hemoglobin 1.4 %THb (0-5.0); Total Hemoglobin 9.1 g/dL (12.0-18.0); pH ABG 7.404 (7.350-7.450)
[2021-04-13 04:14] LABS: Arterial Blood Gas PEEP 5 cmH2O; Arterial Blood Gas Tidal Volume 500 ml; Arterial Blood Gas Vent Mode CMV; Arterial Blood Gas Ventilator rate 18 /MIN; Device VENTILATOR; Site Drawn ARTLINE
[2021-04-13] MEDS: NOREPINEPHRINE 8 MG/D5W 250 ML 8 MG/250 ML BAG 9.38 MG IV CONT (05:09)
[2021-04-13] MEDS: CENTRAL LINE FLUSH 10 ML IV PUSH ×2 (05:12→15:17)
--- NOTE | 2021-04-13 05:36 | WPDPROCEDUR ---
Procedures Intubation Intubation Date: 04/13/21 Intubation Time: 02:50 A pre-procedural Time-Out was completed immediately before starting the procedure and confirmed: Patient Identification, Site, Procedure, Patient Position and the Availability of Requisite Equipment: No Sedative: etomidate Mg given: 20 Paralytic: succinylcholine Mg given: 100 Laryngoscope: fiber optic video scope ET tube size: cuffed Tube secured depth (cm): 24 Tube secured location: lips Tube placement confirmation: visualized tube passing through cords, equal breath sounds bilaterally, no breath sounds over epigastrium and confirmation by capnometry Patient tolerated procedure: well Intubation complications: none
[2021-04-13 05:38] LABS: Hematocrit 25.6 % (42.0-52.0); Hemoglobin 8.6 g/dL (14.0-18.0); Mean Corpuscular HGB Conc 33.6 g/dl (32-36); Mean Corpuscular Hemoglobin 30.3 pg (26-34); Mean Corpuscular Volume 90.1 fl (80-100); Platelet Count Result 385 k/mm3 (150-375); Red Blood Count 2.84 M/mm3 (4.6-6.20); Red Cell Distribution Width 15.5 % (11.5-14.5); White Blood Count 26.3 K/mm3 (4.5-10.0)
--- NOTE | 2021-04-13 05:40 | WPDPROCEDUR ---
Procedures Central Line Placement Left Femoral: Central Line Date: 04/13/21 Central Line Time: 04:00 Discussed w/ the patient/family/POA,the placement of a central venous catheter, including its clinical necessity/indication & associated potential risks, benifits and alternatives.: Yes The patient/family/POA understand(s) and acknowledge(s) the need to proceed with central venous catheter insertion as an important element of the patient's clinical management.: Yes Time Out Performed: Yes Patient Position: other (Vascular) Patient placed on monitor/pulse ox: Yes Provider Prep: mask, sterile gown, sterile gloves, Max. sterile barrier precautions, cap and hand hygiene with conventional soap/water or alcohol based hand rub Central line prep: 2% Chlorhexidine scrub and sterile full body sheet applied Sterile US Technique with sterile gel/sterile probe covers: Yes Central line lumen inserted: triple Syriac: 7 Length (cm): 16 Depth of Insertion (cm): 15 Post Procedure: sutured in place, good blood return, all ports aspirated, flushed, capped, transparent dressing, hemostatic product, antimicrobial product and securement product Patient tolerated procedure: well Complications: none
[2021-04-13 06:20] LABS: Digoxin 1.1 ng/mL (0.8-2.0)
[2021-04-13] MEDS: CARBIDOPA/LEVODOPA 10/100 MG TABLET 1 TABLET FEED TUBE ×2 (06:43→15:18)
[2021-04-13 06:49] LABS: Alanine Aminotransferase 15 U/L (4-50); Albumin Level 1.8 g/dL (3.5-5.1); Alkaline Phosphatase 99 U/L (38-126); Anion Gap 10 mmol/L (8-16); Aspartate Amino Transferase 36 U/L (17-59); Bilirubin,Total 0.4 mg/dL (0.2-1.3); Blood Urea Nitrogen 99 mg/dL (9-20); Calcium 6.9 mg/dL (8.4-10.2); Carbon Dioxide 19 mmol/L (22-30); Chloride 93 mmol/L (98-107); Estimated CRCL calculation 25 ml/min; Estimated Glomerular Filt Rate 33; Glucose 278 mg/dL (75-110); Lactic Acid Reflex 5.2 mmol/L (0.7-2.1); Potassium 4.9 mmol/L (3.4-5.0); Sodium 122 mmol/L (137-145)
[2021-04-13 06:50] LABS: Troponin I 0.081 ng/mL (0.000-0.034)
[2021-04-13 07:06] LABS: Gastric Negative Control Negative; Gastric Positive Control Positive; Occult Blood Gastric Fluid Negative; pH Gastric Fluid 3 (1-8)
[2021-04-13 07:11] LABS: Band Neutrophils Percent 5 % (0-6); Lymphocytes Absolute Manual 0.78 K/mm3 (1.1-4.5); Neutrophils Absolute Manual 25.51 K/mm3 (1.3-6.7); Neutrophils Percent Manual 92 % (46-73); Platelet Estimate Adequate (Adequate); Total Cells Counted 100
[2021-04-13 07:12] LABS: Anisocytosis 2+ (NORMAL); Poikilocytosis 1+ (NORMAL); Target Cells 1+ (NORMAL)
[2021-04-13] MEDS: MAGNESIUM OXIDE 400 MG TABLET FEED TUBE (08:06)
[2021-04-13] MEDS: METOPROLOL TARTRATE 25 MG TABLET FEED TUBE (08:07)
[2021-04-13] MEDS: levETIRAcetam ORAL SOL 500 MG/5 ML UDC FEED TUBE (08:07)
[2021-04-13] MEDS: ACIDOPHILUS/BULGARICUS CHEWABLE TABLET 2 TABLET FEED TUBE (08:08)
[2021-04-13] MEDS: POLYSACCHARIDE IRON COMPLEX 150 MG CAPSULE FEED TUBE (08:08)
[2021-04-13] MEDS: FLUoxetine HCL 10 MG CAPSULE FEED TUBE (08:09)
[2021-04-13] MEDS: DONEPEZIL HCL 10 MG TABLET FEED TUBE (08:09)
[2021-04-13] MEDS: MUPIROCIN 2% OINT 22 GM TUBE 1 APPLIC TOPICAL (08:10)
[2021-04-13] MEDS: COLLAGENASE OINT 30 GM TUBE 1 APPLIC TOPICAL (08:10)
[2021-04-13 08:40] LABS: Glucose Point of Care 238 mg/dl (65-105)
--- NOTE | 2021-04-13 09:00 | WPDCNINT ---
Assessment and Plan Assessment and plan (1) Septic shock: Code(s): A41.9 - Sepsis, unspecified organism; R65.21 - Severe sepsis with septic shock Status: Acute Assessment and Plan: Septic shock secondary to UTI/pyelitis, C diff colitis and possible pneumonia Empiric broad spectrum antibiotics for now vanco, cefepime and flagyl. Cultures sent and pending. Continue Levophed Will add vasopressin and hydrocortisone IV fluids (2) Acute respiratory failure with hypoxia: Code(s): J96.01 - Acute respiratory failure with hypoxia Status: Acute Assessment and Plan: Acute Respiratory failure secondary to . Encephalopathy, septic shock and pneumonia Continue full mechanical ventilation support to prevent hypoxemia/hypercarbia and end organ damage. ABG and PCXR reviewed and will repeat in am. Decrease tidal volume to 450 Low tidal volume ventilation strategy to prevent volutrauma Bronchodilators (3) Acute hyponatremia: Code(s): E87.1 - Hypo-osmolality and hyponatremia Status: Acute (4) Acute pyelitis: Code(s): N10 - Acute pyelonephritis Status: Acute Assessment and Plan: Urology was consulted in the ED. Recommended transfer to a tertiary hospital. I spoke to Dr. Castro again today and he discussed case with [facility] Urology Dr. Perez again today. Patient is waiting for a bed for transfer to [facility] for urological consultation. I also called [facility] transfer line to confirm the patient was on wait list Continue antibiotics (5) Elevated troponin: Code(s): R77.8 - Other specified abnormalities of plasma proteins Status: Acute Assessment and Plan: Likely secondary to septic shock Monitor (6) Acute renal failure: Qualifiers: Acute renal failure type: with acute renal cortical necrosis Qualified Code(s): N17.1 - Acute kidney failure with acute cortical necrosis Code(s): N17.9 - Acute kidney failure, unspecified Status: Acute Assessment and Plan: Secondary to septic shock CT abdomen pelvis was reviewed Monitor urine output and electrolytes IV fluids (7) C. difficile colitis: Code(s): A04.72 - Enterocolitis due to Clostridium difficile, not specified as recurrent Status: Acute Assessment and Plan: Currently patient is on Flagyl IV, rifaximin and Dificid Consult infectious disease (8) GI bleed: Qualifiers: GI bleed type/associated pathology: unspecified gastrointestinal hemorrhage type Qualified Code(s): K92.2 - Gastrointestinal hemorrhage, unspecified Code(s): K92.2 - Gastrointestinal hemorrhage, unspecified Status: Acute Assessment and Plan: IV PPI q.12 hours Serial hemoglobin monitoring Additional Plan DVT prophylaxis - SCD Stress ulcer prophylaxis - PPI Nutrition - NPO Code Status - Full Code Total Critical Care Time - 40 minutes Due to a high probability of clinically significant, life threatening deterioration, the patient required my highest level of preparedness to intervene emergently and I personally spent this critical care time directly and personally managing the patient. This critical care time included obtaining a history; examining the patient; pulse oximetry; ordering and review of studies; arranging urgent treatment with development of a management plan; evaluation of patient's response to treatment; frequent reassessment; and discussions with other providers. It was exclusive of separately billable procedures and treating other patients and teaching time. Please see Assessment and Plan section and the rest of the note for further information on patient assessment and treatment Travel Med Surg Rn Consult Note Consult date: 04/13/21 Time Seen: 08:00 HPI: Jonny Pantoja is a 70 year old male who resides in skilled nursing and is chronically ill male with past medical history of CVA, Parkinson's disease, dem
--- NOTE | 2021-04-13 10:04 | WPDURCON ---
Assessment and Plan Assessment and plan (1) Acute pyelitis: Code(s): N10 - Acute pyelonephritis Status: Acute Assessment and Plan: I reviewed his imaging. He has evidence of emphysematous pyelitis on CT recommend continue IV broad spectrum antibiotics, await blood and urine cultures for specificity. no stones or hydronephrosis is seen in the ureters. I don't think a ureter stent would help him, and it would likely be unsuccessful given his contracted bladder and prostatomegaly. He may benefit from neph tube. I discussed case with Dr Perez at [facility], last pm and again this am. they are working on bed transfer. (2) Septic shock: Code(s): A41.9 - Sepsis, unspecified organism; R65.21 - Severe sepsis with septic shock Status: Acute Assessment and Plan: management per ICU Urology Consult Note HPI Date Seen: 04/13/21 Requesting Physician: Maria E Gasca DO Primary Care Provider: Diaz Shanks, Consult Narrative Narrative: Jonny Pantoja is a 70 year old male with multiple medical problems, chronic UTI, chronic SP tube, G- tube who was admitted from ER to ICU with sepsis. He was intubated and placed on pressors. i was called from ER given signs of emphysematous pyelitis seen on CT. I recommended transfer to tertiary care level facility given his findings and medical comorbidities. No beds were available. I discussed with boring machine operator production urologist Elba Perez at [facility] his clinical condition and my recs for possible Neph tube if he continues to show signs of sepsis. He has hx of ESBL E coli and ESBL klebsiella in the urine. he has seen Dr Murray in [facility] for SP tube issues. Review of Systems Review of Systems: ROS unobtainable: Yes unobtainable due to endotracheal tube, unobtainable due to medical condition and unobtainable due to mental status PMFSH Past Medical History Medical History Atrial fibrillation Bacteremia due to Gram-negative bacteria Bladder stones BPH (benign prostatic hyperplasia) Coagulopathy Congestive heart failure Constipation Coronary artery disease CVA (cerebral vascular accident) Right side flaccid Dementia Depression Depression with anxiety Dyslipidemia Dysphagia Flexion contracture joint of multiple sites Gambino catheter in place History of DVT (deep vein thrombosis) Hypertension Obstructive sleep apnea Parkinson disease Type 2 diabetes mellitus Complicated by diabetic retinopathy. He is blind in his left eye. Vitamin D deficiency Surgical History Surgical History History of cystoscopy Jejunostomy tube in situ Suprapubic catheter Family History Family History Unknown Unknown family medical history Social History Social History Social History: The patient lives at [facility]. He grew up in [place]. He is retired from working for the [employer]. His was in the [employer] as a young man. His son, who lives in [place], is his emergency contact. Primary care physician: Dr. Diaz Shanks Code status: Full code Surrogate decision maker: Pete Pantoja (son) Smoking status: Unknown if ever smoked Second hand tobacco smoke exposure: No Alcohol intake: unknown Substance use: unknown Substance use type: does not use Gender identity (if verbalized by the patient): Male Spiritual care concerns: No Agree to blood products: Yes Meds Home Medications and Allergies Home Medications Medication Instructions Recorded Confirmed Type levetiracetam [Keppra] 500 mg PO Q12HR #60 tablet 11/26/20 04/13/21 Rx acetaminophen 650 mg FEEDING TUBE Q6H PRN #0 03/03/21 04/13/21 Rx tablet amantadine HCl 100 mg FEEDING TUBE DAILY #300 ml 03/03/21 04/13/21 Rx aspirin 81 mg FEEDING TUBE DAILY #0 tabl
[2021-04-13] MEDS: VASOPRESSIN INJ 100 UNITS in DEXTROSE 5% 95 ML IV CONT (10:37)
[2021-04-13] MEDS: NOREPINEPHRINE 8 MG/D5W 250 ML 8 MG/250 ML BAG 56.25 MG IV CONT ×2 (11:19→15:46)
[2021-04-13 11:54] LABS: Troponin I 0.066 ng/mL (0.000-0.034)
[2021-04-13] MEDS: ALBUMIN HUMAN 25% 25 GM/100 ML 100 ML IVPB (12:29)
[2021-04-13 12:40] LABS: Glucose Point of Care 220 mg/dl (65-105)
--- NOTE | 2021-04-13 15:04 | PM.IMPN ---
Progress Note: A&P Assessment and Plan (1) Septic shock: Code(s): A41.9 - Sepsis, unspecified organism; R65.21 - Severe sepsis with septic shock Status: Acute Assessment and Plan: septic shock that is likely multifactorial due to pneumonia, C diff colitis and or suprapubic catheter associated UTI. The patient is on broad-spectrum antibiotic therapy with IV vancomycin and cefepime. WCC 26,000 (2) Acute respiratory failure with hypoxia: Code(s): J96.01 - Acute respiratory failure with hypoxia Status: Acute Assessment and Plan: Pt is intubated abnd remains full code (3) Acute hyponatremia: Code(s): E87.1 - Hypo-osmolality and hyponatremia Status: Acute Assessment and Plan: Continue to monitor (4) Acute pyelitis: Code(s): N10 - Acute pyelonephritis Status: Acute Assessment and Plan: Blood cultures and urine cultures are pending. The patient does have history of multiple drug-resistant UTI but had prior cultures were sensitive to cefepime. Patient has acute pyelitis and is waiting for bed placement at [facility] for evaluation by neurology for nephrostomy tube placement. (5) Elevated troponin: Code(s): R77.8 - Other specified abnormalities of plasma proteins Status: Acute Assessment and Plan: continue to monitor (6) Acute renal failure: Qualifiers: Acute renal failure type: with acute renal cortical necrosis Qualified Code(s): N17.1 - Acute kidney failure with acute cortical necrosis Code(s): N17.9 - Acute kidney failure, unspecified Status: Acute Assessment and Plan: continue to monitor (7) C. difficile colitis: Code(s): A04.72 - Enterocolitis due to Clostridium difficile, not specified as recurrent Status: Acute Assessment and Plan: Being treated for septic shock with iv zosyn and iv levaquin and iv vancomycin (8) GI bleed: Qualifiers: GI bleed type/associated pathology: unspecified gastrointestinal hemorrhage type Qualified Code(s): K92.2 - Gastrointestinal hemorrhage, unspecified Code(s): K92.2 - Gastrointestinal hemorrhage, unspecified Status: Acute Assessment and Plan: Continue to monitor cbc. pt is on vasopressors but bp remains low discussed this with his son continue care Subjective Date/time seen: 04/13/21 15:04 Interval history: 70 year old male who resides in shelter and is chronically ill male with past medical history of CVA, Parkinson's disease, dementia, chronic suprapubic catheter, J-tube and current C diff infection who presented to the ER via EMS due to fever and hypotension. Pts Bp remains low, urology recommends transfer no bed available. Long discussion with son, explained that this father is unwell. Pt remains Full code. Review of Systems Review of Systems: All systems reviewed & are unremarkable except as noted in HPI and below Exam Narrative: Exam Narrative: General: Chronically ill, pt intubated in ICU Cardiovascular: Irregularly irregular, tachycardic, 1+ bilateral radial pedal pulses Gastrointestinal: Skin: Musculoskeletal: Neurological: Psychiatric: : Hematologic/lymphatic: Objective Data Vital Signs Vital Signs: Vital Signs - 24 hr 04/12/21 17:13 04/12/21 18:30 04/12/21 19:17 Temperature 38.5 C H Pulse Rate 108 H 100 92 Respiratory Rate 28 H 19 16 Blood Pressure 85/58 L 100/54 L 105/61 Pulse Oximetry 82 L 92 98 04/12/21 20:00 04/13/21 00:42 04/13/21 01:20 Temperature 37.3 C 37.8 C H 37.2 C Pulse Rate 100 106 H 104 H Respiratory Rate 30 H 40 H 35 H Blood Pressure 109/60 120/67 110/61 Pulse Oximetry 97 94 87 L 04/13/21 02:00 04/13/21 02:50 04/13/21 03:18 Temperature Pulse Rate 105 H 95 95 Respiratory Rate 39 H 28 H Blood Pressure 87/48 L Pulse Oximetry 86 L 94 04/13/21 03:33 04/13/21 03:40 04/13/21 04:00 Temperature 36.1 C L Pulse Rate 94
[2021-04-13] MEDS: HYDROCORTISONE SODIUM SUCCINATE 100 MG/2 ML VIAL IV PUSH (15:18)
[2021-04-13 15:26] LABS: Hematocrit 24.6 % (42.0-52.0); Hemoglobin 8.4 g/dL (14.0-18.0)
[2021-04-13 15:36] LABS: Lactic Acid Reflex 2.8 mmol/L (0.7-2.1)
--- NOTE | 2021-04-13 16:31 | PM.TDS ---
Transfer Discharge Sum: Prov Provider Date of admission: 04/12/21 22:47 Primary care physician: Diaz Shanks, Admitting clinician: Maria E Gasca DO Consults: 04/12/21 Consult to Physician Routine Comment: Consulting Provider: Blue Clark Reason for consultation: severe sepsis Has provider been notified: Yes 04/12/21 22:49 Consult to Physician Routine Comment: Consulting Provider: Casey Csatro Reason for consultation: emphazematous pyelitis Has provider been notified: Yes 04/13/21 Wound/ET Consult Routine Reason for Consult:: Sacral Decub DS: Admitting Diagnosis Admitting Diagnosis Admitting Diagnosis: Fever and hypotension DS: Discharge Diagnosis Discharge Diagnosis (1) Septic shock: Code(s): A41.9 - Sepsis, unspecified organism; R65.21 - Severe sepsis with septic shock Status: Acute Assessment and Plan: septic shock that is likely multifactorial due to pneumonia, C diff colitis and or suprapubic catheter associated UTI. The patient is on broad-spectrum antibiotic therapy with IV vancomycin and cefepime. WCC 26,000 (2) Acute respiratory failure with hypoxia: Code(s): J96.01 - Acute respiratory failure with hypoxia Status: Acute Assessment and Plan: Pt is intubated and remains full code, pt to be transfered (3) Acute hyponatremia: Code(s): E87.1 - Hypo-osmolality and hyponatremia Status: Acute Assessment and Plan: Continue to monitor (4) Acute pyelitis: Code(s): N10 - Acute pyelonephritis Status: Acute Assessment and Plan: Blood cultures and urine cultures are pending. The patient does have history of multiple drug-resistant UTI but had prior cultures were sensitive to cefepime. Patient has acute pyelitis and is waiting for bed placement at [facility] for evaluation by neurology for nephrostomy tube placement. (5) Elevated troponin: Code(s): R77.8 - Other specified abnormalities of plasma proteins Status: Acute Assessment and Plan: continue to monitor (6) Acute renal failure: Qualifiers: Acute renal failure type: with acute renal cortical necrosis Qualified Code(s): N17.1 - Acute kidney failure with acute cortical necrosis Code(s): N17.9 - Acute kidney failure, unspecified Status: Acute Assessment and Plan: continue to monitor (7) C. difficile colitis: Code(s): A04.72 - Enterocolitis due to Clostridium difficile, not specified as recurrent Status: Acute Assessment and Plan: Being treated for septic shock with iv zosyn and iv levaquin and iv vancomycin (8) GI bleed: Qualifiers: GI bleed type/associated pathology: unspecified gastrointestinal hemorrhage type Qualified Code(s): K92.2 - Gastrointestinal hemorrhage, unspecified Code(s): K92.2 - Gastrointestinal hemorrhage, unspecified Status: Acute Assessment and Plan: Continue to monitor cbc. pt is on vasopressors but bp remains low discussed this with his son continue care Transfer Discharge Sum: Med Medications Active and Home Medications: Home Medications levetiracetam [Keppra] 500 mg PO Q12HR #60 tablet 11/26/20 [Rx Confirmed 04/13/21] acetaminophen 650 mg FEEDING TUBE Q6H PRN #0 tablet 03/03/21 [Rx Confirmed 04/13/21] amantadine HCl 100 mg FEEDING TUBE DAILY #300 ml 03/03/21 [Rx Confirmed 04/13/21] aspirin 81 mg FEEDING TUBE DAILY #0 tablet 03/03/21 [Rx Confirmed 04/13/21] atorvastatin 80 mg FEEDING TUBE HS #0 tablet 03/03/21 [Rx Confirmed 04/13/21] carbidopa-levodopa 1 tablet FEEDING TUBE TIDWM #90 tablet 03/03/21 [Rx Confirmed 04/13/21] digoxin [Digox] 125 mcg FEEDING TUBE DAILY #0 tablet 03/03/21 [Rx Confirmed 04/13/21] donepezil 10 mg FEEDING TUBE DAILY #30 tablet 03/03/21 [Rx Confirmed 04/13/21] fluoxetine 10 mg FEEDING TUBE DAILY #0 tablet 03/03/21 [Rx Confirmed 04/13/21] insulin aspart U-100 [Novolog U-100 Insulin aspar
[2021-04-13 18:25] LABS: Reflex Lactic Acid Yes or No Add Lactic
[2021-04-13 18:42] LABS: Glucose Point of Care 151 mg/dl (65-105)
== END 2021-04-13 18:15 | disposition short-term general hospital (02) | DRG 698 ==
LOC: ANHED 20:08 → ANHICU 23:38
PROVIDERS: Emergency Medicine; Internal Medicine; Admitting Provider Internal Medicine; Emergency Provider Emergency Medicine; PCP Internal Medicine; Visit Provider Family Medicine
DX: T83.511A Infection and inflammatory reaction due to indwelling urethral catheter, initial encounter (principal); A41.9 Sepsis, unspecified organism; J18.9 Pneumonia, unspecified organism; R65.21 Severe sepsis with septic shock; J96.01 Acute respiratory failure with hypoxia; N17.0 Acute kidney failure with tubular necrosis; E87.1 Hypo-osmolality and hyponatremia; A04.72 Enterocolitis due to Clostridium difficile, not specified as recurrent; N28.84 Pyelitis cystica; N12 Tubulo-interstitial nephritis, not specified as acute or chronic; K92.2 Gastrointestinal hemorrhage, unspecified; E86.0 Dehydration; F03.90 Unspecified dementia, unspecified severity, without behavioral disturbance, psychotic disturbance, mood disturbance, and anxiety; E78.5 Hyperlipidemia, unspecified; F32.9 Major depressive disorder, single episode, unspecified; F41.9 Anxiety disorder, unspecified
CPT/HCPCS: 31500; 36415; 36600; 71045; 74176; 80053; 80162; 81001; 82271; 82375; 82805; 82948; 83050; 83605; 83690; 83986; 84484; 85014; 85018; 85025; 85610; 85730; 86140; 87040; 87070; 87077; 87086; 87088; 87186; 87205; 94002; 96361; 96365; 96366; 96367; 99285; A9270; C1751; C9113; J0330; J0692; J1720; J1815; J1956; J2250; J2370; J2543; J3010; J3370; J7030; J7060; J7120; P9047